=== PATIENT | male | born 1940 | race Caucasian/White ===

== ENCOUNTER 2017-07-21 17:07 | Inpatient (IN) | payer OTHER, MEDICARE ==
[2017-07-21] VITALS (10 sets, daily range): BP systolic 111–134; BP diastolic 65–75; PULSE 61–76; TEMP 36.6–36.7; O2SAT 95–99; BMI 19.1
[~2017-07-21] VITALS: Ht 175.3 cm; Wt 60.8 kg
[2017-07-21] MEDS ORDERED: NITROGLYCERIN 400 MCG/1 SPRAY 60 DOSE ONE (17:15)
[2017-07-21] MEDS ORDERED: METOPROLOL TARTRATE 1 MG/ML VIAL IV STA (17:16)
[2017-07-21] MEDS ORDERED: NITROGLYCERIN 0.4 MG SL PER TAB CHARGE ONE (17:16)
[2017-07-21] MEDS ORDERED: METOPROLOL TARTRATE 1 MG/ML VIAL ONE (17:22)
[2017-07-21] MEDS ORDERED: NITROGLYCERIN 0.4 MG SL PER TAB CHARGE SL PRN ×2 (17:30→19:45)
[2017-07-21] MEDS ORDERED: NiCARDipine HCL INJ 2.5 MG/ML 10 ML AMP ONE (17:35)
[2017-07-21] MEDS ORDERED: MIDAZOLAM HCL 1 MG/ML 2ML VIAL ONE (17:35)
[2017-07-21] MEDS ORDERED: HEPARIN SOD (PORCINE) 1000 UNIT/ML 10 ML VIAL ONE (17:35)
[2017-07-21] MEDS ORDERED: NITROGLYCERIN/D5W 100MCG/ML 20ML SYR ONE (17:35)
[2017-07-21] MEDS ORDERED: FENTANYL CITRATE INJ 50 MCG/1 ML 2 ML VIAL ONE (17:35)
[2017-07-21 17:39] LABS: ISTAT CREATININE 0.9 mg/dl (0.6-1.3); ISTAT IONIZED CALCIUM 1.11 mmol/l (1.12-1.32); ISTAT POTASSIUM 4.1 mEq/L (3.3-5.0)
[2017-07-21 17:43] LABS: INR 1.1 (0.9-1.1)
--- NOTE | 2017-07-21 17:47 | DIAGNOSTIC IMAGING REPORT ---
CHEST ONE VIEW PORTABLE CLINICAL HISTORY: Chest pain. Heart alert. COMPARISON STUDY: No previous studies for comparison. FINDINGS: Lung volumes are normal. No consolidation is identified. There is no evidence of pulmonary edema. Cardiomediastinal silhouette is normal. There is no pneumothorax or pleural effusion. IMPRESSION: No acute cardiopulmonary findings. Electronically signed by: Ryan Hansen M.D. 07/21/2017 5:45 PM Dictated Date/Time: 07/21/2017 5:44 PM
[2017-07-21 17:50] LABS: HEMATOCRIT 41.4 % (42-52); HEMOGLOBIN 14.6 g/dL (14.0-18.0); MEAN CELL VOLUME 98.1 fL (80-100); MEAN CORPUSCULAR HEMOGLOBIN 34.6 pg (25-34); MEAN CORPUSCULAR HGB CONC 35.3 g/dl (32-36); MEAN PLATELET VOLUME 10.5 fL (7.4-10.4); PLATELET COUNT 194 K/uL (130-400); RED CELL DISTRIBUTION WIDTH CV 14.2 % (11.5-14.5); RED CELL DISTRIBUTION WIDTH SD 50.6 fL (36.4-46.3); WHITE BLOOD COUNT 5.74 K/uL (4.8-10.8)
--- NOTE | 2017-07-21 17:53 | Pre Sedation Assessment ---
Pre Sedation Assessment General Date of Sedation: Jul 21, 2017. Vital Signs Past 12 Hours Date Time Temp Pulse Resp B/P (MAP) Pulse Ox O2 Delivery O2 Flow Rate FiO2 07/21/17 17:41 99 Nasal Cannula 2.0 07/21/17 17:33 99 Nasal Cannula 07/21/17 17:31 65 172/103 07/21/17 17:30 72 18 145/80 98 Room Air 07/21/17 17:21 81 07/21/17 17:10 36.8 81 18 172/103 99 Room Air Review Cardiovascular: regular rate, rhythm, no edema Lungs: chest non-tender, lungs clear Pre-Sedation Airway Assessment Smoking Status: Current Every Day Smoker Hx of Sleep Apnea: No Hx of difficult intubation: No Short Thick Neck: No Thyro-mental Distance: > 3 Finger Breadths Oral Cavity: WNL Mallampati Classification: Class II ASA Classification: Class IV Procedure Planning Contraindications for Sedation: None Current Medications Reviewed: Yes Notes The planned sedation has been discussed with the patient. Informed Consent was obtained. I have identified the patient, determined the appropriateness of sedation and have assessed the patient immediately prior to the procedure. All medicine(s) and interventions are by my order.
[2017-07-21] MEDS ORDERED: OMEP40CA41 PO (17:54)
[2017-07-21] MEDS ORDERED: AMLO-110 PO (17:54)
[2017-07-21 17:56] LABS: ALT/SGPT 40 U/L (12-78); AST/SGOT 73 U/L (15-37); BLOOD UREA NITROGEN 10 mg/dl (7-18); CALCIUM 8.1 mg/dl (8.5-10.1); CARBON DIOXIDE 25 mmol/L (21-32); CREATININE 0.95 mg/dl (0.60-1.40); GLUCOSE 101 mg/dl (70-99); POTASSIUM 4.1 mmol/L (3.5-5.1); SODIUM 135 mmol/L (136-145)
[2017-07-21 18:01] LABS: ALKALINE PHOSPHATASE 107 U/L (45-117); CKMB < 0.5 ng/ml (0.5-3.6)
--- NOTE | 2017-07-21 18:15 | EMERGENCY ROOM VISIT NOTE ---
History Report prepared by Marita: Lexus Mcknight Under the Supervision of: Dr. Elia Mcintosh M.D. First contact with patient: 17:10 Chief Complaint: CHEST PAIN Stated Complaint: CHEST PAIN History of Present Illness The patient is a 77 year old male who presents to the Emergency Room with complaints of persistent chest pain beginning a little over 1 hour ago. The patient was working on his [place] lights when he started having a sharp chest pain. He felt SOB. He went inside and sat down. He then got nauseous and vomited. He presents to the ED by EMS. He was given aspirin in route. He denies any diaphoresis. His pain is now improved. At worst his pain was severe. He currently rates his discomfort as a 3-4/10 in severity. He has been having neck pain into his arms for several months. He does smoke. He has a history of hypertension. He denies any history of high cholesterol or heart problems. He took his regular medications this morning. Source of History: patient Onset: 1 hour ago Position: chest Symptom Intensity: 3-4/10 Quality: sharp Timing: other (persistent) Associated Symptoms: + neck pain, + SOB, + nausea, + vomiting, No diaphoresis Review of Systems See HPI for pertinent positives & negatives. A total of 10 systems reviewed and were otherwise negative. Past Medical & Surgical Medical Problems: (1) Hypertension Family History No pertinent family history stated. Social History Alcohol Use: occasionally Marital Status: Current/Historical Medications Scheduled Amlodipine (Norvasc), 5 MG PO DAILY Omeprazole (Prilosec), 40 MG PO DAILY Allergies Coded Allergies: No Known Allergies (Verified , 07/21/17) Physical Exam Vital Signs Date Time Temp Pulse Resp B/P (MAP) Pulse Ox O2 Delivery O2 Flow Rate FiO2 07/21/17 17:52 65 18 123/85 100 07/21/17 17:41 99 Nasal Cannula 2.0 07/21/17 17:33 99 Nasal Cannula 07/21/17 17:31 65 172/103 07/21/17 17:30 72 18 145/80 98 Room Air 07/21/17 17:21 81 07/21/17 17:10 36.8 81 18 172/103 99 Room Air Physical Exam GENERAL: Patient is in no acute distress. HEENT: No acute trauma, normocephalic atraumatic, mucous membranes moist, no nasal congestion, no scleral icterus. NECK: No stridor, no adenopathy, no meningismus, trachea is midline. LUNGS: Clear to auscultation bilaterally, no wheeze, no rhonchi, breath sounds equal. HEART: Without murmurs gallops or rubs, regular rate and rhythm. ABDOMEN: Soft, nontender, bowel sounds positive, no hernias, no peritonitis. EXTREMITIES: No cyanosis or edema, full range of motion of all the joints without pain or difficulty, no signs for acute trauma. NEUROLOGIC: Oriented x 3, no acute motor or sensory deficits, no focal weakness. SKIN: No rash, no jaundice, no diaphoresis. Medical Decision & Procedures ER Provider Diagnostic Interpretation: X-ray results as stated below per interpretation by me and the radiologist: CHEST ONE VIEW PORTABLE CLINICAL HISTORY: Chest pain. Heart alert. COMPARISON STUDY: No previous studies for comparison. FINDINGS: Lung volumes are normal. No consolidation is identified. There is no evidence of pulmonary edema. Cardiomediastinal silhouette is normal. There is no pneumothorax or pleural effusion. IMPRESSION: No acute cardiopulmonary findings. Electronically signed by: Ryan Hansen M.D. 07/21/2017 5:45 PM Dictated Date/Time: 07/21/2017 5:44 PM Laboratory Results 07/21/17 17:25 07/21/17 17:25 Test 07/21/17 17:23 07/21/17 17:25 07/21/17 17:26 Bedside Troponin I < 0.030 ng/ml (0-0.045) Red Blood Count 4.22 M/uL (4.7-6.1) Mean Corpuscular Volume 98.1 fL (80-100) Mean Corpuscular Hemoglobin 34.6 pg (25-34) Mean Corpuscular Hemoglobin Concent 35.3 g/dl (32-36) RDW Standard Deviation 50.6 fL (36.4-46.3) RDW Coefficient of Variation 14.2 % (11.5-14.5) Mean Platelet Volume 10.5 fL (7.4-10.4) Prothrombin Time 11.1 SECONDS (9.0-12.0) Prothromb Time International Ratio 1.1 (0.9-1.1) Activated Partial Thromboplast Time 27.0 SECONDS (21.0-31.0) Partial Thromboplastin Ratio 1.0 Est Creatinine Clear Calc Drug Dose 53.6 ml/min Estimated GFR () 88.5 Estimated GFR (Non- 76.4 BUN/Creatinine Ratio 10.5 (10-20) Calcium Level 8.1 mg/dl (8.5-10.1) Total Bilirubin 0.4 mg/dl (0.2-1) Aspartate Amino Transf (AST/SGOT) 73 U/L (15-37) Alanine Aminotransferase (ALT/SGPT) 40 U/L (12-78) Alkaline Phosphatase 107 U/L (45-117) Total Creatine Kinase 33 U/L (39-308) Creatine Kinase MB < 0.5 ng/ml (0.5-3.6) Creatine Kinase MB Ratio (0-3.0) Total Protein 7.0 gm/dl (6.4-8.2) Albumin 3.0 gm/dl (3.4-5.0) Globulin 4.0 gm/dl (2.5-4.0) Albumin/Globulin Ratio 0.7 (0.9-2) Bedside Hemoglobin 15.0 g/dl (14.0-18.0) Bedside Hematocrit 44 % (42-52) Bedside Sodium 137 mEq/L (135-144) Bedside Potassium 4.1 mEq/L (3.3-5.0) Bedside Chloride 99 mEq/L (101-112) Bedside Total CO2 24 mEq/l (24-31) Anion Gap 19.0 mmol/L (16-25) Bedside Blood Urea Nitrogen 9 mg/dl (7-18) Bedside Creatinine 0.9 mg/dl (0.6-1.3) Bedside Glucose (other) 103 mg/dl (70-99) Bedside Ionized Calcium (Janes) 1.11 mmol/l (1.12-1.32) Laboratory results reviewed by me. Medications Administered Medications (Trade) Dose Ordered Sig/Adolfo Route Start Time Stop Time Status Last Admin Dose Admin Nitroglycerin (Nitrostat Tab) 0.4 mg STK-MED ONCE .ROUTE 07/21/17 17:16 07/21/17 17:17 DC 07/21/17 17:30 0.4 MG Nitroglycerin (Nitrostat Tab) 0.4 mg Q5M PRN SL 07/21/17 17:30 08/20/17 17:29 07/21/17 17:32 0.4 MG Metoprolol Tartrate (Lopressor Iv) 5 mg NOW STAT IV 07/21/17 17:16 07/21/17 17:21 DC 07/21/17 17:31 5 MG ECG Indication: chest pain Rate (beats per minute): 77 Rhythm: normal sinus Findings: ST depression (lead 1 and avL), ST elevation (lead V1 and V3), no ectopy, other (concerning for acute ischemia) ED Course 1708: The patient was evaluated in room B10. A complete history and physical exam was performed. 1715: I discussed the patient's case with Dr. Che, [facility] cardiology. He recommends calling a heart alert. He will be in to see the patient. 1716: Lopressor Iv 5 mg IV, Nitroglycerin 0.4 mg SL. 1729: I reevaluated the patient. His pain has improved with nitro. 1730: Nitroglycerin 0.4 mg SL. 1750: Dr. Che is taking the patient to the labels molder. 1755: I discussed the patient's case [facility] The patient will be evaluated for further management. Medical Decision Differential diagnoses considered include acute MT, aortic dissection, PE, angina, musculoskeletal pain, anemia, pneumonia, pneumothorax. There is no leukocytosis or concerning anemia. No significant electrolyte abnormality, kidney failure or hepatitis. There is no coagulopathy. EKG shows some ST elevations in V1 and V3. There were some subtle ST depressions in lead 1 and aVL. This EKG was concerning for acute cardiac ischemia/MT. Cardiac enzyme testing 1 is not consistent with acute cardiac injury. Chest x-ray does not show mediastinal widening, pneumonia or pneumothorax. The patient presents with over one hour of chest pain. He had received aspirin prior to arrival. Here in the ED, he received sublingual nitroglycerin with some relief of discomfort. He was also given 5 mg of IV Lopressor. After seeing the EKG, I did consult the payroll administrative assistant fermentation operator for heart alert. Based on the EKG findings, a heart alert was called. The patient was taken to the cardiac catheterization lab. I did speak to the patient and his family about my findings and concerns. The patient has made improvement in his blood pressure with the medications given here, he has had improvement of his chest discomfort with the medications given here. Medication Reconcilliation Current Medication List: was personally reviewed by me Blood Pressure Screening Patient's blood pressure: Elevated blood pressure Blood pressure disposition: Referred to PCP Consults Time Called: 1714 Consulting Physician: Dr. Che [facility] cardiology Returned Call: [phone] I discussed the patient's case with him. He recommends calling a heart alert. He will be in to see the patient. Additional Consults: Time Called: 175 Consulted Physician: DUSTY Cloud hospitalist Returned Call: 175 Additional Comments: Discussed the patient's case. The patient will be evaluated for further management. Impression Primary Impression: Acute MT Critical Care I have personally spent greater than 32 minutes of critical care time in the direct management of this patient. This includes bedside care, interpretation of diagnostic studies, and testing, discussion with consultants, patient, and family members, and other required patient management activities. This 32 minutes is in excess of all separately billable procedures. Scribe Attestation The scribe's documentation has been prepared under my direction and personally reviewed by me in its entirety. I confirm that the note above accurately reflects all work, treatment, procedures, and medical decision making performed by me. Departure Information Dispostion Being Evaluated By Hospitalist Referrals No Doctor, Assigned (PCP) Patient Instructions [facility]
[2017-07-21] MEDS ORDERED: NITROGLYCERIN/D5W 100 MCG/ML BTL ONE (19:23)
[2017-07-21] MEDS ORDERED: TICAGRELOR 90 MG TAB PO ONE (19:31)
[2017-07-21] MEDS ORDERED: ATROPINE SULFATE 0.1 MG/ML 10 ML SYR ONE (19:31)
[2017-07-21] MEDS ORDERED: SODIUM CHLORIDE 0.9% 1000ML 1,000 ML IV SCH (19:45)
[2017-07-21] MEDS ORDERED: ONDANSETRON INJ 8 MG in DEXTROSE 5% 50ML 50 ML IV PRN (19:45)
[2017-07-21] MEDS ORDERED: MoRPHine SULFATE 2 MG/ML CARP IV PRN (19:45)
--- NOTE | 2017-07-21 19:51 | Post Sedation Assessment ---
Post Sedation Assessment General Date of Sedation Jul 21, 2017. Vital Signs: Vital Signs Past 12 Hours Date Time Temp Pulse Resp B/P (MAP) Pulse Ox O2 Delivery O2 Flow Rate FiO2 07/21/17 17:41 99 Nasal Cannula 2.0 07/21/17 17:33 99 Nasal Cannula 07/21/17 17:31 65 172/103 07/21/17 17:30 72 18 145/80 98 Room Air 07/21/17 17:21 81 07/21/17 17:10 36.8 81 18 172/103 99 Room Air Post Procedure Recovery Score Activity: (2) Moves 4 extremities * Respiration: (2) Deep breath/cough Circulation: (2) +/-20% PreAnes Value Consciousness: (2) Fully Awake Oxygen Saturation: (2) > 92% On Room Air Discharge Sedation Level of Care: Fast Track Phase II Post Sedation Plan On clinical assessment, the patient appears to have tolerated the sedation without complications. Patient is recovering as anticipated. Patient will continue to be monitored by nursing and may be discharged when sedation discharge criteria are met per below protocol. Upon Completions of procedure and additional 15 minutes continue every 5 minute vital signs and the P.A.R. score; then discharge to a Phase I or Fast Track to Phase II per the following guidelines: * Discharge Patient to appropriate Phase II area if PAR is 8 or greater or return to pre- procedure baseline. The post - procedure orders will be as directed. * If PAR score is less than 8 or not return to pre-procedure baseline then patient will follow Phase I monitoring till PAR is reached for Phase II. The Phase I may be done in procedure room or may call to secure a Phase I area. * If naloxone or flumazenil are used for reversal, hold in Phase I for an additional 60 -120 minutes before discharge to Phase II. Please call the Sedation Physician to re-evaluate and complete post-note for discharge to Phase II area. Do NOT discharge from procedure sedation or Phase 1 until post- sedation evaluation note is complete by procedure /sedation MD Sedation Discharge Instructions to be given to the patient at discharge to home.
--- NOTE | 2017-07-21 20:12 | Cardiac Catheterization ---
Procedure Note Procedure Date Jul 21, 2017. Pre-Procedure Diagnosis Non STEMI AUC Score 8 Post-Procedure Diagnosis Severe CAD Procedure(s) Performed Coronary Angiography, Left Heart Cath, Drug Eluting Stent, IVUS Lease Purchase Truck Driver Chinedu Cloth Packer(s) Glunt Estimated Blood Loss 15 Medication(s) Fentanyl, Heparin, Nicardipine, Nitroglycerin, Versed, Lidocaine 1% Ticagrelor Summary of Findings Indication: High risk NSTEMI Access: 6Fr Right Radial artery Catheters: [place]; AR1 guide Findings: LM - Luminal irregularities LAD - Diffuse 20% proximal stenosis; 50-60% focal stenosis right after take-off of 1st diagonal; distal vessel tortuous as wraps around apex. - 1st Diagonal 40-50% proximal; 40% diffuse mid segment stenosis Circumflex - Moderate caliber, 20-30% mid segment; diffuse distal 40% stenosis before take-off moderate caliber OM3 RCA - Dominant; hazy 50-60% ostial/proximal stenosis; sequential 90% mid RCA lesions (more proximal lesion looks to be ulcerated plaque with thrombus, more distal lesion diffuse); 30% ostial PDA; 30-40% ostial R-PAV LVEDP - 2 -- PCI -- Antithrombotic therapy: Heparin, Ticagrelor Procedure: RCA cannulated with AR1 guide Difficulty passing BMW wire through proximal RCA stenosis Eventually Color Matcher 50 wire passed into distal vessel Mid RCA lesions predilated with 2.5 compliant balloon Dilated mid segment stented with 3.5 x 38 Greg PRETTY Stent post-dilated with 3.75 noncompliant balloon IVUS used to assess stent and proximal/ostial RCA. IVUS showed severe, 80% proximal disease with heavily calcified ostial stenosis Proximal RCA pre-dilated with 2.5 compliant balloon RCA ostium stented with 3.5 x 18 [place] PRETTY Proximal and mid stents post-dilated with 4.0 NC balloon. IC vasodilators administered for spasm Post procedure JAME 3 flow, stent well expanded with minimal residual stenosis Acute marginal/RV branch pinched by mid segment stent. Patient with mild post procedure chest pain. Arterial Closure: TR Band Summary: 1. Severe single vessel coronary artery disease - sequential 90% mid RCA lesions; 80% calcified ostial/proximal RCA stenosis appreciated on IVUS 2. Intermediate mid LAD stenosis (50-60%) after take-off of 1st diagonal 3. Normal intracardiac filling pressure 4. Successful PCI of ostial/proximal RCA with 3.5 x 18 [place] PRETTY and mid segment RCA with 3.5 x 38 [place] PRETTY. Recommendations: Admit to ICU for continued monitoring Loaded with Ticagrelor 180mg in micro lab analyst Continue dual-antiplatelet therapy for at least 1 year Trend troponins until peak, Check Echo Nitrates, morphine for pain overnight Uptitrate beta-brannon/DUNG as BP allows High-dose statin Smoking cessation Consult cardiac Rehab Further assessment of intermediate LAD lesion likely as an outpatient with stress test. Hemodynamics Rest Ao: 124/59/89 Final Ao: 95/44/64 LV: 147/2 Recommendations PCI without planned CABG Specimens None Radiation Exposure (mGy) 1912 Contrast (mls) 200 Fluids (cc crystalloids) 340 Drains None Anesthesia Moderate Procedural Complication(s) None Disposition ICU ACC Data Cardiac Status Clinical evaluation leading to the procedure CAD Presntation: Non STEMI Anginal Classification: CCS IV Heart Failure: No, NYHA Class: CCS I Cardiogenic Shock w/in 24Hrs: No Cardiac Arrest w/in 24Hrs: No Imaging studies past 6 months: No Stress studies past 6 months: No Closure Device Percutaneous Entry Location: Radial Closure Device: Radial Band Recommendations: PCI without planned CABG PCI Indication: PCI for high risk Non-STEMI Lesion Segment Name: mid RCA Culprit Artery: Yes Stenosis Prior to Rx (%): 90 Chronic Total Occlusion: No IVUS: Yes FFR: No Pre-Procedure JAME Flow: 3 Previously Treated Lesion: No Lesion Complexity: High/C Lesion Length (mm): 35 Thrombus Present: Yes Bifurcation Lesion: No Guidewire Across Lesion: Yes Guidewire: Stenosis Post-Procedure (%): 0 Post-Procedure JAME Flow: 3 Device(s) Deployed: Yes Intraprocedure Events Significant Dissection: No Perforation: No
[2017-07-21] MEDS: METOPROLOL TARTRATE 25 MG TAB PO SCH (20:41)
--- NOTE | 2017-07-21 20:43 | Critical Care Consultation ---
Critical Care Consultation Date of Consultation: Jul 21, 2017. Attending Physician: Jonny Stoner M.D. Reason for Consultation: 77-year-old male status post NSTEMI w/ PTCA w/ PRETTY deployment x2 to the RCA w/ persistent chest pain s/p cath, admitted for close cardiovascular/hemodynamic monitoring. History of Present Illness Patient is a 77-year-old male with a significant past medical history of hypertension, chronic tobacco use, and GERD who presented to the ED this afternoon with an acute coronary syndrome. Patient reports that approximately 1 PM, while taking down Jake lights from his yard, he developed an acute onset of central chest discomfort with associated shortness of breath and nausea with vomiting times one. During this episode, he denies any radiation of his discomfort. He had his contacted EMS as he was experiencing 10/10 chest discomfort. Upon arrival to the ER, the patient was noted to have ST elevations in V1 and 3 as well as some ST depressions inferiorly. He responded to one sublingual nitroglycerin, but did have persistent discomfort which prompted need for coronary angiography. His initial troponin was negative. No anemias appreciated. PTCA with PRETTY [address] Che. During this procedure, it was noted the patient had stenosis of 60% of the LAD to be addressed later. During cath, a small marginal branch was lost which is thought to be the culprit the patient's ongoing slight chest discomfort. Otherwise, he experienced an uneventful catheterization. Upon arrival to the ICU, the patient is complaining of 4/10 chest discomfort. He denies any radiation of pain. He denies any headaches, dizziness, lightheadedness, blurry vision, double vision, slurred speech, facial droop, unilateral weakness/numbness, nausea, vomiting, or abdominal pain. The patient reports that he only recently started seeing a family doctor. He was placed on antihypertensive medications as well as medications for GERD. He does have a long-standing history of chronic neck and back pain for which she has undergone surgical intervention in the past. The patient smokes approximately half pack cigarettes per day. Past Medical/Surgical History Medical Problems: (1) GERD (gastroesophageal reflux disease) (2) Hypertension (3) Tobacco use disorder Family History Noncontributory Social History Smoking Status: Current Every Day Smoker Smokeless Tobacco Use: No Alcohol Use: none Drug Use: none Marital Status: Housing Status: lives alone Occupation Status: retired Allergies Coded Allergies: No Known Allergies (Verified , 07/21/17) Home Medications Scheduled Amlodipine (Norvasc), 5 MG PO DAILY Omeprazole (Prilosec), 40 MG PO DAILY Current Inpatient Medications Current Inpatient Medications Medications (Trade) Dose Ordered Sig/Adolfo Route Start Time Stop Time Status Last Admin Dose Admin Nitroglycerin (Nitrostat Tab) 0.4 mg UD PRN SL 07/21/17 19:45 08/20/17 19:44 Sodium Chloride 1,000 ml @ 100 mls/hr Q10H IV 07/21/17 19:45 07/22/17 05:44 07/21/17 20:19 100 MLS/HR Ondansetron HCl 8 mg/Dextrose 54 ml @ 200 mls/hr Q6H PRN IV 07/21/17 19:45 08/20/17 19:44 Aspirin (Ecotrin Tab) 81 mg QAM PO 07/22/17 09:00 08/21/17 08:59 Atorvastatin Calcium (Lipitor Tab) 80 mg QAM PO 07/22/17 09:00 08/21/17 08:59 Metoprolol Tartrate (Lopressor Tab) 25 mg Q12 PO 07/21/17 21:00 08/20/17 20:59 07/21/17 20:41 25 MG Lisinopril (Zestril Tab) 5 mg QAM PO 07/22/17 09:00 08/21/17 08:59 Acetaminophen (Tylenol Tab) 650 mg Q4H PRN PO 07/21/17 19:45 08/20/17 19:44 Morphine Sulfate (MoRPHine SULFATE INJ) 2 mg Q5M PRN IV 07/21/17 19:45 08/04/17 19:44 Pantoprazole Sodium (Protonix Tab) 40 mg QAM PO 07/22/17 09:00 08/21/17 08:59 Ticagrelor (Brilinta Tab) 90 mg BID PO 07/22/17 07:30 08/21/17 07:29 Review of Systems A complete 10-point Review of Systems was discussed with the patient, with pertinent positives and negatives listed in the History of Present Illness. All remaining Review of Systems questions can be considered negative unless otherwise specified. Physical Exam Date Time Temp Pulse Resp B/P (MAP) Pulse Ox O2 Delivery O2 Flow Rate FiO2 07/21/17 20:34 36.6 74 18 134/75 (94) 98 Nasal Cannula 2.0 07/21/17 20:26 36.6 73 18 130/67 (88) 99 Nasal Cannula 2.0 07/21/17 19:50 36.6 61 16 111/65 (80) 95 Nasal Cannula 2.0 07/21/17 19:43 58 18 106/66 (79) 99 Room Air 07/21/17 19:33 58 18 100/60 (73) 99 Room Air 07/21/17 17:52 65 18 123/85 100 07/21/17 17:41 99 Nasal Cannula 2.0 07/21/17 17:33 99 Nasal Cannula 07/21/17 17:31 65 172/103 07/21/17 17:30 72 18 145/80 98 Room Air 07/21/17 17:21 81 07/21/17 17:10 36.8 81 18 172/103 99 Room Air VITAL SIGNS - Vital signs and nursing notes were reviewed. GENERAL - 77-year-old male appearing his stated age who is in no acute distress. Communicates well with provider and answers questions appropriately. HEAD - NC/AT. EYES - PERRL with EOMI bilaterally. Sclera anicteric. Palpebral conjunctiva pink and moist with no injection noted. EARS - No deformities of external structures noted on gross examination bilaterally. NOSE - Midline and without cyanosis. No epistaxis or purulent drainage noted. Septum midline without deviation or septal hematoma noted. MOUTH/OROPHARYNX - Without perioral cyanosis. Buccal mucosa pink and moist and without leukoplakia. Tongue midline with equal elevation of palate bilaterally. No tonsillar hypertrophy, erythema, or exudates noted. NECK - Neck with FROM. Supple to palpation. LUNGS - Chest wall symmetric without accessory muscle use, intercostals retractions, or central cyanosis. Normal vesicular breath sounds CTA B/L. No wheezes, rales, or rhonchi appreciated. CARDIAC - RRR with S1/S2. No murmur, rubs, or gallops appreciated. No reproducible tenderness to palpation appreciated over the anterior chest wall. ABDOMEN - Abdominal contour flat and without pulsations or visible masses. BS normoactive all four quadrants. No tenderness, palpable masses, hepatosplenomegaly, or ascites noted. EXTREMITIES - No clubbing or peripheral cyanosis. No pretibial edema present. +3 /5 radial and dorsalis pedis pulses palpated throughout. +5/5 strength noted in UE/LE bilaterally. NEUROLOGIC - Cranial nerves II through XII grossly intact. Sensory intact to light touch throughout. PSYCH - A&Ox3 and cooperates fully with examiner. Pt is very pleasant and interacts well with examiner. Laboratory Results Last 24 Hours Test 07/21/17 17:23 07/21/17 17:25 07/21/17 17:26 07/21/17 18:19 Bedside Troponin I < 0.030 ng/ml White Blood Count 5.74 K/uL Red Blood Count 4.22 M/uL Hemoglobin 14.6 g/dL Hematocrit 41.4 % Mean Corpuscular Volume 98.1 fL Mean Corpuscular Hemoglobin 34.6 pg Mean Corpuscular Hemoglobin Concent 35.3 g/dl RDW Standard Deviation 50.6 fL RDW Coefficient of Variation 14.2 % Platelet Count 194 K/uL Mean Platelet Volume 10.5 fL Prothrombin Time 11.1 SECONDS Prothromb Time International Ratio 1.1 Activated Partial Thromboplast Time 27.0 SECONDS Partial Thromboplastin Ratio 1.0 Sodium Level 135 mmol/L Potassium Level 4.1 mmol/L Chloride Level 101 mmol/L Carbon Dioxide Level 25 mmol/L Anion Gap 8.0 mmol/L 19.0 mmol/L Blood Urea Nitrogen 10 mg/dl Creatinine 0.95 mg/dl Est Creatinine Clear Calc Drug Dose 53.6 ml/min Estimated GFR () 88.5 Estimated GFR (Non- 76.4 BUN/Creatinine Ratio 10.5 Random Glucose 101 mg/dl Calcium Level 8.1 mg/dl Total Bilirubin 0.4 mg/dl Aspartate Amino Transf (AST/SGOT) 73 U/L Alanine Aminotransferase (ALT/SGPT) 40 U/L Alkaline Phosphatase 107 U/L Total Creatine Kinase 33 U/L Creatine Kinase MB < 0.5 ng/ml Creatine Kinase MB Ratio Total Protein 7.0 gm/dl Albumin 3.0 gm/dl Globulin 4.0 gm/dl Albumin/Globulin Ratio 0.7 Bedside Hemoglobin 15.0 g/dl Bedside Hematocrit 44 % Bedside Sodium 137 mEq/L Bedside Potassium 4.1 mEq/L Bedside Chloride 99 mEq/L Bedside Total CO2 24 mEq/l Bedside Blood Urea Nitrogen 9 mg/dl Bedside Creatinine 0.9 mg/dl Bedside Glucose (other) 103 mg/dl Bedside Ionized Calcium (Janes) 1.11 mmol/l Kaolin Activated Coagulation Time 268 SECONDS Test 07/21/17 18:39 07/21/17 19:44 Kaolin Activated Coagulation Time 257 SECONDS Diagnostic Results Radiological imaging and reports were reviewed by myself. Radiologist's Interpretation as follows: CHEST ONE VIEW PORTABLE CLINICAL HISTORY: Chest pain. Heart alert. COMPARISON STUDY: No previous studies for comparison. FINDINGS: Lung volumes are normal. No consolidation is identified. There is no evidence of pulmonary edema. Cardiomediastinal silhouette is normal. There is no pneumothorax or pleural effusion. IMPRESSION: No acute cardiopulmonary findings. Assessment & Plan (1) ACS (acute coronary syndrome) (2) Post PTCA (3) CAD (coronary artery disease) (4) HTN (hypertension) (5) Tobacco use disorder (6) GERD (gastroesophageal reflux disease) (7) S/P cardiac catheterization Reason Critically Ill: 77-year-old male status post NSTEMI w/ PTCA w/ PRETTY deployment x2 to the RCA w/ persistent chest pain s/p cath, admitted for close cardiovascular/hemodynamic monitoring. Neuro - * CAM ICU: NEGATIVE * Chest pain - PRN Morphine Cardiac - * s/p ACS w/ PTCA w/ DESx2 to the RCA: * Remains on Nitro gtt for residual chest discomfort likely s/s loss of small marginal branch. Titrate down as tolerated. * Morphine PRN. * Monitor on telemetry. * AM ECHO. * Standard DAPT, Nitrates, ASA, BB/DUNG, Statin as tolerated. * Trend troponins. Respiratory - * No h/o pulmonary disease despite extensive smoking history. Suspect undiagnosed lung disease. * NC O2 as needed. * Smoking Cessation. * AM CXR GI - * GERD - Protonix * Elevated AST > ALT - will monitor. ??EtOH use?? * NPO after midnight for fasting Lipid Panel. * AHA Diet encouraged. RENAL/LYTES - * Monitor Electrolytes, Replace appropriately. - * No Christie at this time. ENDO - * No h/l DM or Thyroid disease. * BSGs per protocol. HEME - * Stable H&H - will monitor. ID - * No concerns for infection at this time. * Monitor fever curve. LINES/IV ACCESS - * PIVs intact. * TR Band to the RIGHT wrist. DVT PROPHYLAXIS - * s/p Brilinta loading dose. * Lovenox tomorrow per Cardiology. * DAPT after. * SCDs. I have personally spent 35 minutes of critical care time in the direct management of this patient. This is a life/limb threatening event. This includes time spent evaluating patient, direct bedside care, chart review, placing orders, interpretation of diagnostic studies, discussion with consultants, patient, and family members, as well as other required patient management activities. This time is exclusive of all separately billable procedures, and teaching time and separate from and in addition to any other critical care service time. Thank you for this consultation allow us to be part of this patient's care. Please refer to my attending physician's documentation for any further recommendations. Resident Physician Supervision Note: I evaluated the patient with Alo Owen PA-C. I discussed the case with him and agree with the findings and plan as documented in the note. Any exceptions or clarifications are listed here: Continue post-cath care, on ASA, Lipitor, Lisinopril, metoprolol, Brilinta. Titrating down NTG drip Echo report reviewed, good EF, grade I diastolic dysfunction May be transferred to telemetry Documented By: Jason Stallings MD Problem Qualifiers (1) CAD (coronary artery disease): Coronary Disease-Associated Artery/Lesion type: [place] artery [place] vs. transplanted heart: [place] heart Associated angina: with unspecified angina Qualified Codes: I25.119 - Atherosclerotic heart disease of [place] coronary artery with unspecified angina pectoris (2) HTN (hypertension): Hypertension type: unspecified Qualified Codes: I10 - Essential (primary) hypertension
--- NOTE | 2017-07-21 21:07 | CARDIOLOGY CONSULTATION ---
DATE OF CONSULTATION: 07/21/2017 CONSULTATION REQUESTED BY: Elia Mcintosh MD REASON FOR CONSULTATION: Chest pain/abnormal EKG. HISTORY OF PRESENT ILLNESS: Mr. Zhang is a 77-year-old man with a history of hypertension, GERD, ongoing tobacco abuse; who presented to the Emergency Department today with approximately 1 hour of acute onset chest pain. The patient had been in his usual state of health until this afternoon when went out to take down his Jake lights, and in the process developed chest pressure with associated nausea and radiation to his left arm. Due to symptoms, he presented to the Emergency Department where he had initial EKG which showed ST elevation in V1 and V3, subtle ST elevations in the inferior leads, and ST depressions in 1 and AVL. He was given sublingual nitroglycerin with improvement of his pain of 10 at presentation down to approximately of 4. Due to ongoing chest pain and dynamic EKG changes, he was taken urgently to the cardiac catheterization lab for angiography. He was found to have sequential mid RCA lesions 90% with suggestion of ulcerative plaque in thrombus. He was also noted to have 50% to 60% calcified ostial/proximal RCA lesion as well. His LAD showed a 50% to 60% mid lesion right at the takeoff of his first diagonal. Decision was made to fix his RCA and received one drug-eluting stent to his mid segment, There was noted to be significant difficulty in passing equipment into the more distal vessel because of the ostial/proximal RCA disease, and after IVUS assessment confirmed severe, greater than 80% disease in the proximal segment, a second drug-eluting stent was placed at the RCA ostium. A good angiographic result was obtained in the process of setting the mid segment. His RV/acute marginal branch was pinched and patient did have some residual pain post-procedure. PAST MEDICAL HISTORY: 1. Hypertension. 2. GERD. 3. Ongoing tobacco abuse. 4. 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 MEDICATIONS: 1. Amlodipine. 2. Omeprazole. ALLERGIES: No known drug allergies. 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 Denies heavy alcohol use or illicit drugs. FAMILY HISTORY: No family history of premature coronary artery disease. REVIEW OF SYSTEMS: Twelve-point review of system is completed and was otherwise negative other than stated in the HPI. PHYSICAL EXAMINATION: VITAL SIGNS: Temperature 36.8, pulse 58, blood pressure 100/60, satting 99% on room air. GENERAL: The patient appears uncomfortable postprocedure, but in no acute distress. HEENT: Sclerae are anicteric. Oropharynx is clear. Mucous membranes are moist. NECK: Supple with no lymphadenopathy, no bruits. LUNGS: Clear to auscultation bilaterally. HEART: He had regular rate with no appreciable murmurs, rubs or gallops. ABDOMEN: Soft, nontender, nondistended, positive bowel sounds. EXTREMITIES: Warm. He had 2+ radial pulses bilaterally. SKIN: Showed no rashes or lesions. NEUROLOGIC: Nonfocal. PSYCHIATRIC: He is alert and appropriate. LABORATORY DATA: White blood cell count 5.7, hemoglobin 14.6, platelets of 194. His sodium was 135, potassium 4.1, BUN 10, creatinine of 0.95. AST was slightly elevated at 73. Initial point of care troponin was negative as was CK-MB. His chest x-ray showed no acute cardiopulmonary process. IMPRESSION AND PLAN: 1. High risk acute coronary syndrome. 2. Severe single vessel right coronary artery disease status post percutaneous coronary intervention with 2 drug-eluting stents. 3. Intermediate mid left anterior descending artery disease. 4. Hypertension. 5. Ongoing tobacco abuse. 6. Gastroesophageal reflux disease. 7. Cervical degenerative disc disease with peripheral neuropathy. Mr. Zhang and is now status post PCI with 2 drug-eluting stents to his RCA. His mid RCA was thought to be a likely culprit for his presentation and overall good angiographic result was obtained. Going forward, we will plan to admit patient to ICU. He is having some residual chest discomfort after loss of a small acute marginal branch. We will plan to keep on nitro infusion with intermittent opioids as needed for pain. Plan to trend troponins. Check an echocardiogram in the morning. He was loaded with ticagrelor 180 mg in the sleep lab technologist and will continue on dual antiplatelet therapy for at least next year. He was started on metoprolol and lisinopril and we will titrate as able. Start high intensity statin. We will stress further importance of smoking cessation and cardiac rehabilitation. Thank you for allowing us to participate in the care of this patient. LYNN
--- NOTE | 2017-07-21 21:47 | History and Physical ---
History & Physical Date & Time of Service: Jul 21, 2017 at 21:36 Chief Complaint: Acute Mi Primary Care Physician: Vic Gordon M.D. History of Present Illness Source: patient, clinic records, hospital records This is a 77yo M with a PMH of HTN, tobacco use disorder and GERD who presents with chest pain x 1.5 hours. Patient was taking down [place] lights when he experienced sudden onset, sharp, 10/10 substernal chest pain. Endorses pain down both arms,nausea, vomiting and SOB. Denies diaphoresis. Called for an ambulance and received aspirin en route to the ED. Patient found to be hypertensive with continued chest pain. Was given IV Lopressor and NTG with some relief. Due to concerning EKG findings and persistent CP, a heart alert was called and patient was taken to the laboratory director. Findings included severe CAD the the RCA, s/p stent placement x 2. Endorses longstanding HTN, for which he takes amlodipine. Denies previous history of VT or HLD. Denies any family history of heart disease. Started smoking cigarettes at a young age before quitting for 11 years. Resumed 7 years ago and currently smokes 3/4 pack per day. Is now interested in cessation. Currently endorses 2/10 residual chest discomfort. Denies fever, chills, headache, visual changes, diaphoresis, dizziness, CP, SOB, abd pain, nausea, vomiting or LE swelling. Past Medical/Surgical History Medical Problems: (1) GERD (gastroesophageal reflux disease) Status: Chronic (2) Hypertension Status: Chronic (3) Tobacco use disorder Status: Chronic Family History Patient denies any family history of heart disease, DM, CVA or CKD. Social History Smoking Status: Current Every Day Smoker (0.75 ppd) Alcohol Use: occasionally Marital Status: Housing status: lives with significant other Immunizations History of Tetanus Vaccine?: Yes History of Pneumococcal: Unknown History of Hepatitis B Vaccine: Unknown Multi-Drug Resistant Organisms History of MDRO: No Allergies Coded Allergies: No Known Allergies (Verified , 07/21/17) Home Medications Scheduled Amlodipine (Norvasc), 5 MG PO DAILY Omeprazole (Prilosec), 40 MG PO DAILY Review of Systems Ten systems reviewed and negative except as noted in the HPI. Physical Exam Vital Signs Date Time Temp Pulse Resp B/P (MAP) Pulse Ox O2 Delivery O2 Flow Rate FiO2 07/21/17 21:04 75 16 127/75 (92) 97 Nasal Cannula 2.0 07/21/17 20:58 36.6 61 16 111/65 95 Nasal Cannula 2.0 07/21/17 20:34 36.6 74 18 134/75 (94) 98 Nasal Cannula 2.0 07/21/17 20:26 36.6 73 18 130/67 (88) 99 Nasal Cannula 2.0 07/21/17 19:50 36.6 61 16 111/65 (80) 95 Nasal Cannula 2.0 07/21/17 19:43 58 18 106/66 (79) 99 Room Air 07/21/17 19:33 58 18 100/60 (73) 99 Room Air 07/21/17 17:52 65 18 123/85 100 07/21/17 17:41 99 Nasal Cannula 2.0 07/21/17 17:33 99 Nasal Cannula 07/21/17 17:31 65 172/103 07/21/17 17:30 72 18 145/80 98 Room Air 07/21/17 17:21 81 07/21/17 17:10 36.8 81 18 172/103 99 Room Air General Appearance: WD/WN, no apparent distress, + pertinent finding (Resting comfortably with NC O2 in place) Head: normocephalic, atraumatic Eyes: normal inspection, PERRL, sclerae normal ENT: normal ENT inspection, hearing grossly normal, pharynx normal (moist mucous membranes ) Neck: supple, thyroid normal, no JVD, trachea midline Respiratory/Chest: lungs clear, normal breath sounds, no respiratory distress, no accessory muscle use Cardiovascular: regular rate, rhythm, no murmur, normal peripheral pulses Abdomen/GI: non tender, soft, no organomegaly Extremities/Musculoskelatal: normal inspection, no calf tenderness, normal capillary refill, no pedal edema Neurologic/Psych: no motor/sensory deficits, alert, normal mood/affect, oriented x 3 Skin: normal color, warm/dry Diagnostics Laboratory Results Results Past 24 Hours Test 07/21/17 17:23 07/21/17 17:25 07/21/17 17:26 07/21/17 18:19 Range/Units Bedside Troponin I < 0.030 0-0.045 ng/ml White Blood Count 5.74 4.8-10.8 K/uL Red Blood Count 4.22 4.7-6.1 M/uL Hemoglobin 14.6 14.0-18.0 g/dL Hematocrit 41.4 42-52 % Mean Corpuscular Volume 98.1 80-100 fL Mean Corpuscular Hemoglobin 34.6 25-34 pg Mean Corpuscular Hemoglobin Concent 35.3 32-36 g/dl RDW Standard Deviation 50.6 36.4-46.3 fL RDW Coefficient of Variation 14.2 11.5-14.5 % Platelet Count 194 130-400 K/uL Mean Platelet Volume 10.5 7.4-10.4 fL Prothrombin Time 11.1 9.0-12.0 SECONDS Prothromb Time International Ratio 1.1 0.9-1.1 Activated Partial Thromboplast Time 27.0 21.0-31.0 SECONDS Partial Thromboplastin Ratio 1.0 Sodium Level 135 136-145 mmol/L Potassium Level 4.1 3.5-5.1 mmol/L Chloride Level 101 98-107 mmol/L Carbon Dioxide Level 25 21-32 mmol/L Anion Gap 8.0 19.0 16-25 mmol/L Blood Urea Nitrogen 10 7-18 mg/dl Creatinine 0.95 0.60-1.40 mg/dl Est Creatinine Clear Calc Drug Dose 53.6 ml/min Estimated GFR () 88.5 Estimated GFR (Non- 76.4 BUN/Creatinine Ratio 10.5 10-20 Random Glucose 101 70-99 mg/dl Calcium Level 8.1 8.5-10.1 mg/dl Total Bilirubin 0.4 0.2-1 mg/dl Aspartate Amino Transf (AST/SGOT) 73 15-37 U/L Alanine Aminotransferase (ALT/SGPT) 40 12-78 U/L Alkaline Phosphatase 107 45-117 U/L Total Creatine Kinase 33 39-308 U/L Creatine Kinase MB < 0.5 0.5-3.6 ng/ml Creatine Kinase MB Ratio 0-3.0 Total Protein 7.0 6.4-8.2 gm/dl Albumin 3.0 3.4-5.0 gm/dl Globulin 4.0 2.5-4.0 gm/dl Albumin/Globulin Ratio 0.7 0.9-2 Bedside Hemoglobin 15.0 14.0-18.0 g/dl Bedside Hematocrit 44 42-52 % Bedside Sodium 137 135-144 mEq/L Bedside Potassium 4.1 3.3-5.0 mEq/L Bedside Chloride 99 101-112 mEq/L Bedside Total CO2 24 24-31 mEq/l Bedside Blood Urea Nitrogen 9 7-18 mg/dl Bedside Creatinine 0.9 0.6-1.3 mg/dl Bedside Glucose (other) 103 70-99 mg/dl Bedside Ionized Calcium (Janes) 1.11 1.12-1.32 mmol/l Kaolin Activated Coagulation Time 268 94-140 SECONDS Test 07/21/17 18:39 07/21/17 19:44 07/21/17 20:44 Range/Units Kaolin Activated Coagulation Time 257 94-140 SECONDS Bedside Glucose 106 70-99 mg/dl Microbiology Results 07/21/17 MRSA DNA Surveillance Screen, Received Pending CXR normal EKG Normal sinus rhythm with ST elevation in V1 and V3, subtle elevation in inferior leads, ST depression in I and avL Impression Assessment and Plan This is a 77yo M with a PMH of HTN, tobacco use disorder and GERD who presents with chest pain x 1.5 hours. Severe CAD s/p 2 stents to the RCA: -H/o tobacco use, HTN -EKG read as ST elevation in V1 and V3, subtle elevation in inferior leads, ST depression in I and avL -Initial troponin was negative -Heart alert was called; patient underwent cardiac catheterization -Severe CAD was found in the RCA. Two stents were placed -Cardiology consulted -Trend troponin until peak -Monitor in ICU -Recommendations: -check echo -nitrates, morphine for pain -dual anti-platelet therapy for a year -high dose statin -smoking cessation -dee inhibitor, beta brannon as tolerated HTN: -Normotensive -Home dose amlodipine held -Uptitrate dee inhibitor, beta brannon as tolerated GERD: -Cont home dose omeprazole DVT Ppx: Per visual basic developer Code status: FULL PCP: Shivaterosorio Dispo: Admitted to critical care. Plan to return home once medically stable. Cardiac rehab Patient seen in collaboration with Dr. Stoner. Please see addendum. Level of Care Critical Care Advanced Directives Existing Living Will: Yes Existing Power of Gullet Slitter: Yes Resuscitation Status FULL RESUSCITATION VTE Prophylaxis VTE Risk Assessment Done? Y/N: Yes Risk Level: Moderate Given or contraindicated: Unfractionated heparin SQ, Other Anticoagulation Assessment/Plan IM ATTENDING : Patient seen and examined. Preceding documentation by Ms. Ivania Cabrera PA-C reviewed. FINAL ASSESSMENT AND PLAN as follows: 1. Acute coronary syndrome CAD status post percutaneous coronary intervention. Patient currently comfortable at the ICU. 2. HTN, stable 3. GERD on PPI. 4. ongoing tobacco abuse 5. malnutrition, low BMI. ICU monitoring post PCI. Management of cardiac issues as per Cardiology. Nicotine patch. Nutrition consult. Low BMI. DVT prophylaxis, Lovenox subQ. Full code.
[2017-07-21] MEDS ORDERED: ICU PROTOCOL FOR HYPERGLYCEMIA PRN (23:00)
[2017-07-22] VITALS (34 sets, daily range): BP systolic 100–141; BP diastolic 52–72; PULSE 52–74; TEMP 36.4–37.1; O2SAT 94–99; Ht 175.3 cm; Wt 60.8 kg
[2017-07-22 02:01] LABS: CKMB 16.9 ng/ml (0.5-3.6)
[2017-07-22 05:53] LABS: BASO % 0.5 %; BASO ABS # 0.03 K/uL (0-0.2); EOS % 1.1 %; EOS ABS # 0.06 K/uL (0-0.5); HEMATOCRIT 30.4 % (42-52); HEMOGLOBIN 10.3 g/dL (14.0-18.0); IG# 0.02 K/uL (0.00-0.02); LYMPH % 17.6 %; MEAN CELL VOLUME 99.3 fL (80-100); MEAN CORPUSCULAR HEMOGLOBIN 33.7 pg (25-34); MEAN CORPUSCULAR HGB CONC 33.9 g/dl (32-36); MONO % 11.3 %; MONO ABS # 0.64 K/uL (0.11-0.59); NEUT % 69.1 %; NEUT ABS # 3.93 K/uL (1.4-6.5); PLATELET COUNT 148 K/uL (130-400); RED CELL DISTRIBUTION WIDTH CV 14.4 % (11.5-14.5); RED CELL DISTRIBUTION WIDTH SD 52.1 fL (36.4-46.3); WHITE BLOOD COUNT 5.68 K/uL (4.8-10.8)
[2017-07-22 06:23] LABS: CALCIUM 7.6 mg/dl (8.5-10.1); CREATININE 0.65 mg/dl (0.60-1.40); POTASSIUM 3.8 mmol/L (3.5-5.1)
[2017-07-22 06:34] LABS: CKMB 88.5 ng/ml (0.5-3.6)
--- NOTE | 2017-07-22 07:29 | HISTORY & PHYSICAL EXAMINATION ---
DATE OF ADMISSION: 07/21/2017 IM ATTENDING : Patient seen and examined. Preceding documentation by Ms. Ivania Cabrera PA-C reviewed. FINAL ASSESSMENT AND PLAN as follows: 1. Acute coronary syndrome CAD status post percutaneous coronary intervention. Patient currently comfortable at the ICU. 2. HTN, stable 3. GERD on PPI. 4. ongoing tobacco abuse 5. malnutrition, low BMI. ICU monitoring post PCI. Management of cardiac issues as per Cardiology. Nicotine patch. Nutrition consult. Low BMI. DVT prophylaxis, Lovenox subQ. Full code. MTDD
[2017-07-22] MEDS: METOPROLOL TARTRATE 25 MG TAB PO SCH ×2 (07:58→21:19)
[2017-07-22] MEDS: TICAGRELOR 90 MG TAB PO SCH ×2 (07:58→21:18)
[2017-07-22] MEDS: ATORVASTATIN 40 MG TAB PO SCH (07:58)
[2017-07-22] MEDS: ASPIRIN 81 MG ECTAB PO SCH (07:58)
[2017-07-22] MEDS: LISINOPRIL 5 MG TAB PO SCH (07:59)
[2017-07-22] MEDS: PANTOprazole SOD 40 MG TAB PO SCH (07:59)
[2017-07-22] MEDS: NICOTINE 14 MG/24 HR TDSY TD SCH (08:00)
[2017-07-22] MEDS: ENOXAPARIN 30 MG/0.3 ML SYR SQ SCH (08:00)
--- NOTE | 2017-07-22 08:42 | DIAGNOSTIC IMAGING REPORT ---
CHEST ONE VIEW PORTABLE CLINICAL HISTORY: f/u s/p STEMI COMPARISON STUDY: Chest radiograph July 21, 2017. FINDINGS: Lung volumes are normal. No pneumothorax or pleural effusion is noted. There is no consolidation to suggest pneumonia. There is no evidence for pulmonary edema. Cardiomediastinal silhouette is normal. Patient is mildly rotated. There may be underlying emphysema. IMPRESSION: 1. No acute cardiopulmonary findings. 2. Suspected underlying emphysema. Electronically signed by: Ryan Hansen M.D. 07/22/2017 8:40 AM Dictated Date/Time: 07/22/2017 8:38 AM
[2017-07-22] MEDS: ACETAMINOPHEN 325 MG TAB PO PRN ×2 (09:14→20:05)
--- NOTE | 2017-07-22 11:42 | ECHOCARDIOGRAM REPORT ---
*NOTICE TO RECEIVING LIBERTARIAN AGENCY This information is strictly Confidential and protected under [place] law. [place] law prohibits you from making any further disclosure of this information unless further disclosure is expressly permitted by the written consent of the person to whom it pertains or is authorized by law. A general authorization for the release of medical or other information is not sufficient for this purpose. Hospital accepts no responsibility if the information is made available to any other person, INCLUDING THE PATIENT. Interpretation Summary * Name: PACO KC Study Date: 07/22/2017 06:30 AM BP: 111/65 mmHg * Patient Location: .[facility]ICU\S\E107\S\1 HR: 60 * : 1940 (M/d/yyyy) Gender: Male Height: 69 in * Age: 77 yrs Ethnicity: CA Weight: 130 lb * Ordering Physician: Jose A Che * Referring Physician: Self, Referred * Performed By: Paola Oconnor RCS * * Reason For Study: AMI, S/P Stenting * BSA: 1.7 m2 * -- Conclusions -- * 1. Normal LV size. Borderline concentric LVH. * 2. Normal LV systolic function. LVEF 65-70 %. No regional wall motion abnormalities. Grade 1 diastolic dysfunction. * 3. Normal RV size with borderline RV function. * 4. No significant valvular pathology. * 5. Normal estimated PA and RA pressures. * 6. No prior studies for comparison. Procedure Details * A complete two-dimensional transthoracic echocardiogram was performed (2D, M-mode, Doppler and color flow Doppler). Left Ventricle * The left ventricle is grossly normal size. * There is borderline concentric left ventricular hypertrophy. * Ejection Fraction = 65-70%. * No regional wall motion abnormalities noted. Right Ventricle * The right ventricle is grossly normal size. * The right ventricular systolic function is normal as assessed by tricuspid annular plane systolic excursion (TAPSE) (normal >1.5 cm). * The right ventricular systolic function is borderline reduced. Atria * Borderline left atrial enlargement. * Borderline right atrial enlargement. * No ASD detected; PFO is not assessed. Mitral Valve * There is moderate mitral annular calcification. * There is no mitral valve stenosis. * Significant mitral regurgitation is absent. Tricuspid Valve * The tricuspid valve is not well visualized. * Tricuspid stenosis is absent. * There is trace tricuspid regurgitation. Aortic Valve * The aortic valve opens well. * The aortic valve is trileaflet. * No hemodynamically significant valvular aortic stenosis. * There is no significant aortic regurgitation. Pulmonic Valve * The pulmonary valve is inadequately visualized, but the Doppler data is adequate for interpretation. * There is no pulmonic valvular stenosis. * There is no significant pulmonary regurgitation. Great Vessels * The aortic root and proximal ascending aorta are normal sized. Pericardium/Pleural * There is no pericardial effusion. Great Vessels * Normal inferior vena cava size and collapsability with sniff indicates a normal right atrial pressure of 3 mmHg * There is no evidence of pulmonary hypertension. The PA systolic pressure is less than 36 mmHg. Left Ventricular Diastolic Function * Grade I diastolic dysfunction, (abnormal relaxation pattern). MMode 2D Measurements and Calculations IVSd 1.1 cm IVSs 1.3 cm LVIDd 4.3 cm LVIDs 3.0 cm LVPWd 0.95 cm LVPWs 1.2 cm IVS/LVPW 1.2 FS 29.9 % EDV(Teich) 83.2 ml ESV(Teich) 35.4 ml EF(Teich) 57.4 % EDV(cubed) 79.7 ml ESV(cubed) 27.4 ml EF(cubed) 65.6 % % IVS thick 20.1 % % LVPW thick 28.6 % LV mass(C)d 149.5 grams LV mass(C)dI 86.9 grams/m\S\2 LV mass(C)s 122.5 grams LV mass(C)sI 71.2 grams/m\S\2 SV(Teich) 47.7 ml SI(Teich) 27.8 ml/m\S\2 SV(cubed) 52.2 ml SI(cubed) 30.4 ml/m\S\2 Ao root diam 3.6 cm Ao root area 10.3 cm\S\2 ACS 2.0 cm LA dimension 3.6 cm LA/Ao 0.98 EDV(MOD-sp4) 55.0 ml ESV(MOD-sp4) 23.0 ml EF(MOD-sp4) 58.2 % EDV(MOD-sp2) 70.0 ml ESV(MOD-sp2) 40.0 ml EF(MOD-sp2) 42.9 % SV(MOD-sp4) 32.0 ml SI(MOD-sp4) 18.6 ml/m\S\2 SV(MOD-sp2) 30.0 ml SI(MOD-sp2) 17.4 ml/m\S\2 Doppler Measurements and Calculations MV E max ronnie 98.1 cm/sec MV A max ronnie 113.2 cm/sec MV E/A 0.87 MV P1/2t max ronnie 85.8 cm/sec MV P1/2t 78.9 msec MVA(P1/2t) 2.8 cm\S\2 MV dec slope 318.8 cm/sec\S\2 MV dec time 0.26 sec Ao V2 max 128.3 cm/sec Ao max PG 6.6 mmHg Ao max PG (full) 2.1 mmHg LV V1 max PG 4.5 mmHg LV V1 max 106.0 cm/sec PA V2 max 68.2 cm/sec PA max PG 1.9 mmHg TR max ronnie 212.2 cm/sec
--- NOTE | 2017-07-22 11:47 | Cardiology Follow-Up ---
Subjective Subjective Date of Service: Jul 22, 2017. Pt evaluation today including: conversation w/ patient, physical exam, chart review, lab review, review of studies, review of inpatient medication list Additional Details: Feeling well this a.m.. No chest pain or significant shortness of breath. No pain at right radial artery access site. Telemetry reviewed--no events overnight Echocardiogram reviewed--preserved LV function, borderline RV dysfunction, no significant valvular abnormalities. Problem List Medical Problems: (1) ACS (acute coronary syndrome) Status: Acute (2) CAD (coronary artery disease) Status: Acute (3) GERD (gastroesophageal reflux disease) Status: Chronic (4) HTN (hypertension) Status: Chronic (5) Tobacco use disorder Status: Chronic Surgical Problems: (1) Post PTCA Status: Acute (2) S/P cardiac catheterization Status: Acute Review of Systems Constitutional: No fever, No chills ENT: No hearing loss Respiratory: No cough, No sputum Cardiac: No chest pain Abdomen: No pain, No nausea Heme: No abnormal bleeding/bruising Endo: No fatigue Skin: No rash Objective Vital Signs Last Vital Signs Documentation Date Time Temp Pulse Resp B/P (MAP) Pulse Ox O2 Delivery O2 Flow Rate FiO2 07/22/17 08:00 36.7 60 18 112/62 (79) 97 Nasal Cannula 2.0 Physical Exam: General Appearance: no apparent distress ENT: hearing grossly normal Neck: no JVD Respiratory/Chest: lungs clear, normal breath sounds Cardiovascular: regular rate, rhythm, no edema, no murmur Abdomen: non tender, soft Extremities: no pedal edema, no calf tenderness, + pertinent finding (Right radial artery access site--no ecchymosis/hematoma, intact distal pulses and sensation) Neurologic/Psychiatric: alert, normal mood/affect Skin: warm/dry Assessment and Plan 1. High risk NSTEMI 2. Severe single-vessel coronary artery disease--post PCI with 2 drug-eluting stents to RCA 3. Residual intermediate mid LAD disease 4. Preserved LV function 5. Acute marginal/RV branch occlusion--borderline reduced RV function 6. Hypertension 7. Anemia 8. Tobacco abuse Chest pain-free this a.m.. Hemodynamically and electrically stable overnight. Echo reviewed, LV function preserved without significant wall motion abnormalities No access site complications --continue to trend troponins until peaks --wean off nitroglycerin infusion today. --continue dual antiplatelet therapy with aspirin and Brilinta --continue current beta-brannon and DUNG-inhibitor next --continue high-intensity statin --from a cardiac standpoint okay for transfer to telemetry today --further assessment of mid LAD intermediate lesion as an outpatient. We will continue to follow. Medications: Current Inpatient Medications Medications (Trade) Dose Ordered Sig/Adolfo Route Start Time Stop Time Status Last Admin Dose Admin Nitroglycerin (Nitrostat Tab) 0.4 mg UD PRN SL 07/21/17 19:45 08/20/17 19:44 Ondansetron HCl 8 mg/Dextrose 54 ml @ 200 mls/hr Q6H PRN IV 07/21/17 19:45 08/20/17 19:44 Aspirin (Ecotrin Tab) 81 mg QAM PO 07/22/17 09:00 08/21/17 08:59 07/22/17 07:58 81 MG Atorvastatin Calcium (Lipitor Tab) 80 mg QAM PO 07/22/17 09:00 08/21/17 08:59 07/22/17 07:58 80 MG Metoprolol Tartrate (Lopressor Tab) 25 mg Q12 PO 07/21/17 21:00 08/20/17 20:59 07/22/17 07:58 25 MG Lisinopril (Zestril Tab) 5 mg QAM PO 07/22/17 09:00 08/21/17 08:59 07/22/17 07:59 5 MG Acetaminophen (Tylenol Tab) 650 mg Q4H PRN PO 07/21/17 19:45 08/20/17 19:44 07/22/17 09:14 650 MG Morphine Sulfate (MoRPHine SULFATE INJ) 2 mg Q5M PRN IV 07/21/17 19:45 08/04/17 19:44 Pantoprazole Sodium (Protonix Tab) 40 mg QAM PO 07/22/17 09:00 08/21/17 08:59 07/22/17 07:59 40 MG Ticagrelor (Brilinta Tab) 90 mg BID PO 07/22/17 07:30 08/21/17 07:29 07/22/17 07:58 90 MG Enoxaparin Sodium (Lovenox Inj) 30 mg DAILY SQ 07/22/17 09:00 08/21/17 08:59 07/22/17 08:00 30 MG Nicotine (Nicoderm Cq 14MG Patch) 1 patch QAM TD 07/22/17 09:00 08/21/17 08:59 07/22/17 08:00 1 PATCH Miscellaneous (Remove Nicoderm Patch) 1 ea HS N/A 07/22/17 21:00 08/21/17 20:59 Miscellaneous Information (Icu Protocol For Hyperglycemia) 1 ea PRN PRN N/A 07/21/17 23:00 07/23/17 22:59 Lab Results: 07/22/17 05:33 Red Blood Count 3.06, Mean Corpuscular Volume 99.3, Mean Corpuscular Hemoglobin 33.7, Mean Corpuscular Hemoglobin Concent 33.9, Mean Platelet Volume 10.0, Neutrophils (%) (Auto) 69.1, Lymphocytes (%) (Auto) 17.6, Monocytes (%) (Auto) 11.3, Eosinophils (%) (Auto) 1.1, Basophils (%) (Auto) 0.5, Neutrophils # (Auto ) 3.93, Lymphocytes # (Auto) 1.00, Monocytes # (Auto) 0.64, Eosinophils # (Auto ) 0.06, Basophils # (Auto) 0.03 07/22/17 05:33 Test 07/21/17 17:23 07/21/17 17:25 07/21/17 17:26 07/21/17 18:39 Bedside Troponin I < 0.030 ng/ml (0-0.045) Prothrombin Time 11.1 SECONDS (9.0-12.0) Prothromb Time International Ratio 1.1 (0.9-1.1) Activated Partial Thromboplast Time 27.0 SECONDS (21.0-31.0) Partial Thromboplastin Ratio 1.0 Magnesium Level 1.8 mg/dl (1.8-2.4) Total Bilirubin 0.4 mg/dl (0.2-1) Aspartate Amino Transf (AST/SGOT) 73 U/L (15-37) Alanine Aminotransferase (ALT/SGPT) 40 U/L (12-78) Alkaline Phosphatase 107 U/L (45-117) Total Protein 7.0 gm/dl (6.4-8.2) Albumin 3.0 gm/dl (3.4-5.0) Globulin 4.0 gm/dl (2.5-4.0) Albumin/Globulin Ratio 0.7 (0.9-2) Thyroid Stimulating Hormone (TSH) 1.920 uIu/ml (0.300-4.500) Bedside Hemoglobin 15.0 g/dl (14.0-18.0) Bedside Hematocrit 44 % (42-52) Bedside Sodium 137 mEq/L (135-144) Bedside Potassium 4.1 mEq/L (3.3-5.0) Bedside Chloride 99 mEq/L (101-112) Bedside Total CO2 24 mEq/l (24-31) Bedside Blood Urea Nitrogen 9 mg/dl (7-18) Bedside Creatinine 0.9 mg/dl (0.6-1.3) Bedside Glucose (other) 103 mg/dl (70-99) Bedside Ionized Calcium (Janes) 1.11 mmol/l (1.12-1.32) Kaolin Activated Coagulation Time 257 SECONDS (94-140) Test 07/22/17 05:33 07/22/17 06:10 White Blood Count 5.68 K/uL (4.8-10.8) Red Blood Count 3.06 M/uL (4.7-6.1) Hemoglobin 10.3 g/dL (14.0-18.0) Hematocrit 30.4 % (42-52) Mean Corpuscular Volume 99.3 fL (80-100) Mean Corpuscular Hemoglobin 33.7 pg (25-34) Mean Corpuscular Hemoglobin Concent 33.9 g/dl (32-36) Platelet Count 148 K/uL (130-400) Mean Platelet Volume 10.0 fL (7.4-10.4) Neutrophils (%) (Auto) 69.1 % Lymphocytes (%) (Auto) 17.6 % Monocytes (%) (Auto) 11.3 % Eosinophils (%) (Auto) 1.1 % Basophils (%) (Auto) 0.5 % Neutrophils # (Auto) 3.93 K/uL (1.4-6.5) Lymphocytes # (Auto) 1.00 K/uL (1.2-3.4) Monocytes # (Auto) 0.64 K/uL (0.11-0.59) Eosinophils # (Auto) 0.06 K/uL (0-0.5) Basophils # (Auto) 0.03 K/uL (0-0.2) RDW Standard Deviation 52.1 fL (36.4-46.3) RDW Coefficient of Variation 14.4 % (11.5-14.5) Immature Granulocyte % (Auto) 0.4 % Immature Granulocyte # (Auto) 0.02 K/uL (0.00-0.02) Anion Gap 6.0 mmol/L (3-11) Est Creatinine Clear Calc Drug Dose 77.8 ml/min Estimated GFR () 108.0 Estimated GFR (Non- 93.2 BUN/Creatinine Ratio 13.3 (10-20) Estimated Average Glucose 97 mg/dl Hemoglobin A1c 5.0 % (4.5-5.6) Calcium Level 7.6 mg/dl (8.5-10.1) Total Creatine Kinase 558 U/L (39-308) Creatine Kinase MB 88.5 ng/ml (0.5-3.6) Creatine Kinase MB Ratio 15.9 (0-3.0) Troponin I 26.300 ng/ml (0-0.045) Triglycerides Level 166 mg/dl (0-150) Cholesterol Level 117 mg/dl (0-200) HDL Cholesterol 20 mg/dl LDL Cholesterol, Calculated 64 mg/dl VLDL Cholesterol, Calculated 33 mg/dl Cholesterol/HDL Ratio 5.9 Bedside Glucose 91 mg/dl (70-99) Date/Time Source Procedure Growth Status 07/21/17 20:05 Nasal MRSA DNA Surveillance Screen - Final Specimen Negative for MRSA by DNA Probe Complete
--- NOTE | 2017-07-22 13:09 | Progress Note ---
Medicine Progress Note Date & Time of Visit: Jul 22, 2017 at 13:08 . Subjective CC: Follow-up visit for STEMI. HPI: Admitted yesterday with STEMI. PCI RCA performed by Dr. Che. Doing well today. No chest pain, SOB, nausea, vomiting. ROS: General- no fever, no chills Resp- no cough; no shortness of breath Cardiac- as noted above in HPI GI- no nausea, no vomiting, no diarrhea, no constipation - no dysuria, no difficulty voiding . Objective Last 8 Hrs Date Time Temp Pulse Resp B/P (MAP) Pulse Ox O2 Delivery O2 Flow Rate FiO2 07/22/17 11:40 96 Nasal Cannula 2.0 07/22/17 11:01 36.6 56 15 111/63 (79) 96 Nasal Cannula 2.0 07/22/17 11:00 58 16 97 07/22/17 10:01 65 14 114/72 (86) 95 07/22/17 10:00 69 14 95 07/22/17 09:01 72 11 110/57 (74) 07/22/17 09:00 62 17 96 07/22/17 08:00 36.7 60 18 112/62 (79) 97 Nasal Cannula 2.0 07/22/17 08:00 97 Nasal Cannula 2.0 07/22/17 08:00 Nasal Cannula 07/22/17 06:01 58 18 118/62 (80) 96 Nasal Cannula 2.0 Physical Exam: General- no distress Lungs- clear to auscultation; no respiratory distress Heart- RRR, no murmur or gallop appreciated, no JVD, no edema Abdomen- + BS, soft, nontender Extremities- no cyanosis; no calf tenderness; right radial artery cath site without hematoma Neuro- alert, oriented . Laboratory Results: Last 24 Hours Test 07/21/17 17:23 07/21/17 17:25 07/21/17 17:26 07/21/17 18:19 Bedside Troponin I < 0.030 ng/ml White Blood Count 5.74 K/uL Red Blood Count 4.22 M/uL Hemoglobin 14.6 g/dL Hematocrit 41.4 % Mean Corpuscular Volume 98.1 fL Mean Corpuscular Hemoglobin 34.6 pg Mean Corpuscular Hemoglobin Concent 35.3 g/dl RDW Standard Deviation 50.6 fL RDW Coefficient of Variation 14.2 % Platelet Count 194 K/uL Mean Platelet Volume 10.5 fL Prothrombin Time 11.1 SECONDS Prothromb Time International Ratio 1.1 Activated Partial Thromboplast Time 27.0 SECONDS Partial Thromboplastin Ratio 1.0 Sodium Level 135 mmol/L Potassium Level 4.1 mmol/L Chloride Level 101 mmol/L Carbon Dioxide Level 25 mmol/L Anion Gap 8.0 mmol/L 19.0 mmol/L Blood Urea Nitrogen 10 mg/dl Creatinine 0.95 mg/dl Est Creatinine Clear Calc Drug Dose 53.6 ml/min Estimated GFR () 88.5 Estimated GFR (Non- 76.4 BUN/Creatinine Ratio 10.5 Random Glucose 101 mg/dl Calcium Level 8.1 mg/dl Magnesium Level 1.8 mg/dl Total Bilirubin 0.4 mg/dl Aspartate Amino Transf (AST/SGOT) 73 U/L Alanine Aminotransferase (ALT/SGPT) 40 U/L Alkaline Phosphatase 107 U/L Total Creatine Kinase 33 U/L Creatine Kinase MB < 0.5 ng/ml Creatine Kinase MB Ratio Total Protein 7.0 gm/dl Albumin 3.0 gm/dl Globulin 4.0 gm/dl Albumin/Globulin Ratio 0.7 Thyroid Stimulating Hormone (TSH) 1.920 uIu/ml Bedside Hemoglobin 15.0 g/dl Bedside Hematocrit 44 % Bedside Sodium 137 mEq/L Bedside Potassium 4.1 mEq/L Bedside Chloride 99 mEq/L Bedside Total CO2 24 mEq/l Bedside Blood Urea Nitrogen 9 mg/dl Bedside Creatinine 0.9 mg/dl Bedside Glucose (other) 103 mg/dl Bedside Ionized Calcium (Janes) 1.11 mmol/l Kaolin Activated Coagulation Time 268 SECONDS Test 07/21/17 18:39 07/21/17 20:44 07/21/17 23:14 07/22/17 00:54 Kaolin Activated Coagulation Time 257 SECONDS Bedside Glucose 106 mg/dl Troponin I 1.160 ng/ml 4.370 ng/ml Total Creatine Kinase 122 U/L Creatine Kinase MB 16.9 ng/ml Creatine Kinase MB Ratio 13.9 Test 07/22/17 05:33 07/22/17 06:10 07/22/17 12:56 White Blood Count 5.68 K/uL Red Blood Count 3.06 M/uL Hemoglobin 10.3 g/dL Hematocrit 30.4 % Mean Corpuscular Volume 99.3 fL Mean Corpuscular Hemoglobin 33.7 pg Mean Corpuscular Hemoglobin Concent 33.9 g/dl Platelet Count 148 K/uL Mean Platelet Volume 10.0 fL Neutrophils (%) (Auto) 69.1 % Lymphocytes (%) (Auto) 17.6 % Monocytes (%) (Auto) 11.3 % Eosinophils (%) (Auto) 1.1 % Basophils (%) (Auto) 0.5 % Neutrophils # (Auto) 3.93 K/uL Lymphocytes # (Auto) 1.00 K/uL Monocytes # (Auto) 0.64 K/uL Eosinophils # (Auto) 0.06 K/uL Basophils # (Auto) 0.03 K/uL RDW Standard Deviation 52.1 fL RDW Coefficient of Variation 14.4 % Immature Granulocyte % (Auto) 0.4 % Immature Granulocyte # (Auto) 0.02 K/uL Sodium Level 138 mmol/L Potassium Level 3.8 mmol/L Chloride Level 106 mmol/L Carbon Dioxide Level 26 mmol/L Anion Gap 6.0 mmol/L Blood Urea Nitrogen 9 mg/dl Creatinine 0.65 mg/dl Est Creatinine Clear Calc Drug Dose 77.8 ml/min Estimated GFR () 108.0 Estimated GFR (Non- 93.2 BUN/Creatinine Ratio 13.3 Random Glucose 91 mg/dl Estimated Average Glucose 97 mg/dl Hemoglobin A1c 5.0 % Calcium Level 7.6 mg/dl Total Creatine Kinase 558 U/L Creatine Kinase MB 88.5 ng/ml Creatine Kinase MB Ratio 15.9 Troponin I 26.300 ng/ml Triglycerides Level 166 mg/dl Cholesterol Level 117 mg/dl HDL Cholesterol 20 mg/dl LDL Cholesterol, Calculated 64 mg/dl VLDL Cholesterol, Calculated 33 mg/dl Cholesterol/HDL Ratio 5.9 Bedside Glucose 91 mg/dl Date/Time Source Procedure Growth Status 07/21/17 20:05 Nasal MRSA DNA Surveillance Screen - Final Specimen Negative for MRSA by DNA Probe Complete Assessment & Plan STEMI Presented to ED with severe chest pain. EKG demonstrated inferior ST elevation. Cardiac cath demonstrated 50-60% stenosis after take-off of 1st diagonal, 40-50 % stenosis of proximal 1st diagonal, 40% stenosis of mid 1st diagonal, 40% stenosis distal circ, 50-60% stenosis proximal RCA, 90% stenosis mid RCA. PCI with drug-eluting stent performed with good results. Echo after PCI demonstrated borderline concentric LVH, normal LV wall motion and systolic function, normal RV size with borderline RV function, no significant valvular pathology. LDL-c = 64. IV nitroglycerin to be weaned today. Continue aspirin, ticagrelor, metoprolol, lisinopril, atorvastatin. HYPERTENSION Continue metoprolol and lisinopril. VTE PROPHYLAXIS SQ enoxaparin. Ambulate. DISPOSITION Expected discharge to home. Family Medicine follow-up with Dr. Gordon. . Consultants: Cardiology with Dr. Che. . Current Inpatient Medications: Current Inpatient Medications Medications (Trade) Dose Ordered Sig/Adolfo Route Start Time Stop Time Status Last Admin Dose Admin Nitroglycerin (Nitrostat Tab) 0.4 mg UD PRN SL 07/21/17 19:45 08/20/17 19:44 Ondansetron HCl 8 mg/Dextrose 54 ml @ 200 mls/hr Q6H PRN IV 07/21/17 19:45 08/20/17 19:44 Aspirin (Ecotrin Tab) 81 mg QAM PO 07/22/17 09:00 08/21/17 08:59 07/22/17 07:58 81 MG Atorvastatin Calcium (Lipitor Tab) 80 mg QAM PO 07/22/17 09:00 08/21/17 08:59 07/22/17 07:58 80 MG Metoprolol Tartrate (Lopressor Tab) 25 mg Q12 PO 07/21/17 21:00 08/20/17 20:59 07/22/17 07:58 25 MG Lisinopril (Zestril Tab) 5 mg QAM PO 07/22/17 09:00 08/21/17 08:59 07/22/17 07:59 5 MG Acetaminophen (Tylenol Tab) 650 mg Q4H PRN PO 07/21/17 19:45 08/20/17 19:44 07/22/17 09:14 650 MG Morphine Sulfate (MoRPHine SULFATE INJ) 2 mg Q5M PRN IV 07/21/17 19:45 08/04/17 19:44 Pantoprazole Sodium (Protonix Tab) 40 mg QAM PO 07/22/17 09:00 08/21/17 08:59 07/22/17 07:59 40 MG Ticagrelor (Brilinta Tab) 90 mg BID PO 07/22/17 07:30 08/21/17 07:29 07/22/17 07:58 90 MG Enoxaparin Sodium (Lovenox Inj) 30 mg DAILY SQ 07/22/17 09:00 08/21/17 08:59 07/22/17 08:00 30 MG Nicotine (Nicoderm Cq 14MG Patch) 1 patch QAM TD 07/22/17 09:00 08/21/17 08:59 07/22/17 08:00 1 PATCH Miscellaneous (Remove Nicoderm Patch) 1 ea HS N/A 07/22/17 21:00 08/21/17 20:59 Miscellaneous Information ([facility] Protocol For Hyperglycemia) 1 ea PRN PRN N/A 07/21/17 23:00 07/23/17 22:59
[2017-07-23] VITALS (10 sets, daily range): BP systolic 115–145; BP diastolic 61–78; PULSE 63–70; TEMP 36.6–37.1; O2SAT 93–100
[2017-07-23 05:38] LABS: BASO % 0.3 %; BASO ABS # 0.02 K/uL (0-0.2); EOS % 1.3 %; EOS ABS # 0.08 K/uL (0-0.5); HEMATOCRIT 32.5 % (42-52); HEMOGLOBIN 11.1 g/dL (14.0-18.0); IG# 0.03 K/uL (0.00-0.02); LYMPH ABS # 0.86 K/uL (1.2-3.4); MEAN CELL VOLUME 99.7 fL (80-100); MEAN CORPUSCULAR HGB CONC 34.2 g/dl (32-36); MEAN PLATELET VOLUME 10.5 fL (7.4-10.4); MONO % 10.4 %; MONO ABS # 0.64 K/uL (0.11-0.59); NEUT % 73.5 %; PLATELET COUNT 149 K/uL (130-400); RED CELL DISTRIBUTION WIDTH SD 50.8 fL (36.4-46.3); WHITE BLOOD COUNT 6.13 K/uL (4.8-10.8)
--- NOTE | 2017-07-23 07:24 | DIAGNOSTIC IMAGING REPORT ---
CHEST ONE VIEW PORTABLE CLINICAL HISTORY: f/u s/p STEMI dyspnea COMPARISON STUDY: 07/22/2014 FINDINGS: The bones soft tissues and hemidiaphragms are normal. The cardiomediastinal silhouette is normal. The lungs are clear. The pulmonary vasculature is normal. Slight basilar interstitial prominence unchanged IMPRESSION: Slight basilar interstitial prominence similar to perhaps slightly increased compared to the prior study. No focal infiltrate. The lungs Otherwise are clear. The above report was generated using voice recognition software. It may contain grammatical, syntax or spelling errors. Electronically signed by: Sudeep Myers M.D. 07/23/2017 7:23 AM Dictated Date/Time: 07/23/2017 7:18 AM
[2017-07-23] MEDS: ATORVASTATIN 40 MG TAB PO SCH (08:29)
[2017-07-23] MEDS: TICAGRELOR 90 MG TAB PO SCH ×2 (08:30→21:11)
[2017-07-23] MEDS: LISINOPRIL 5 MG TAB PO SCH (08:30)
[2017-07-23] MEDS: ASPIRIN 81 MG ECTAB PO SCH (08:30)
[2017-07-23] MEDS: NICOTINE 14 MG/24 HR TDSY TD SCH (08:30)
[2017-07-23] MEDS: METOPROLOL TARTRATE 25 MG TAB PO SCH ×2 (08:30→21:11)
[2017-07-23] MEDS: ENOXAPARIN 30 MG/0.3 ML SYR SQ SCH (08:31)
--- NOTE | 2017-07-23 10:11 | Cardiology Follow-Up ---
Subjective Subjective Date of Service: Jul 23, 2017. Pt evaluation today including: conversation w/ patient, physical exam, chart review, lab review, review of studies, review of inpatient medication list Additional Details: No chest pain, no shortness of breath. No other new concerns this morning. Tele reviewed -- sinus bradycardia overnight. Problem List Medical Problems: (1) ACS (acute coronary syndrome) Status: Acute (2) CAD (coronary artery disease) Status: Acute (3) GERD (gastroesophageal reflux disease) Status: Chronic (4) HTN (hypertension) Status: Chronic (5) Tobacco use disorder Status: Chronic Surgical Problems: (1) Post PTCA Status: Acute (2) S/P cardiac catheterization Status: Acute Review of Systems Constitutional: No fever, No chills ENT: No hearing loss Respiratory: No cough, No sputum Cardiac: No chest pain Abdomen: No pain, No nausea Heme: No abnormal bleeding/bruising Endo: No fatigue Skin: No rash Objective Vital Signs Last Vital Signs Documentation Date Time Temp Pulse Resp B/P (MAP) Pulse Ox O2 Delivery O2 Flow Rate FiO2 07/23/17 08:00 Room Air 07/23/17 07:35 36.8 69 18 145/78 (100) 98 2.0 Physical Exam: General Appearance: no apparent distress ENT: hearing grossly normal Neck: no JVD Respiratory/Chest: lungs clear, normal breath sounds Cardiovascular: regular rate, rhythm, no edema, no murmur Abdomen: non tender, soft Extremities: no pedal edema, no calf tenderness, + pertinent finding (Right radial artery access site--no ecchymosis/hematoma, intact distal pulses and sensation) Neurologic/Psychiatric: alert, normal mood/affect Skin: warm/dry Assessment and Plan 1. High risk NSTEMI 2. Severe single-vessel coronary artery disease--post PCI with 2 drug-eluting stents to RCA 3. Residual intermediate mid LAD disease 4. Preserved LV function 5. Acute marginal/RV branch occlusion--borderline reduced RV function 6. Hypertension 7. Anemia 8. Tobacco abuse Patient remains chest pain free, hemodynamically and electrically stable. Troponin peaked at 100 yesterday. --continue dual antiplatelet therapy with aspirin and Brilinta --continue current beta-brannon --increase lisinopril from 5 to 10mg --continue high-intensity statin --further assessment of mid LAD intermediate lesion as an outpatient. --From a cardiac standpoint, up walking halls today, if stable OK for discharge tomorrow AM. Medications: Current Inpatient Medications Medications (Trade) Dose Ordered Sig/Adolfo Route Start Time Stop Time Status Last Admin Dose Admin Nitroglycerin (Nitrostat Tab) 0.4 mg UD PRN SL 07/21/17 19:45 08/20/17 19:44 Ondansetron HCl 8 mg/Dextrose 54 ml @ 200 mls/hr Q6H PRN IV 07/21/17 19:45 08/20/17 19:44 Aspirin (Ecotrin Tab) 81 mg QAM PO 07/22/17 09:00 08/21/17 08:59 07/23/17 08:30 81 MG Atorvastatin Calcium (Lipitor Tab) 80 mg QAM PO 07/22/17 09:00 08/21/17 08:59 07/23/17 08:29 80 MG Metoprolol Tartrate (Lopressor Tab) 25 mg Q12 PO 07/21/17 21:00 08/20/17 20:59 07/23/17 08:30 25 MG Lisinopril (Zestril Tab) 5 mg QAM PO 07/22/17 09:00 08/21/17 08:59 07/23/17 08:30 5 MG Acetaminophen (Tylenol Tab) 650 mg Q4H PRN PO 07/21/17 19:45 08/20/17 19:44 07/22/17 20:05 650 MG Morphine Sulfate (MoRPHine SULFATE INJ) 2 mg Q5M PRN IV 07/21/17 19:45 08/04/17 19:44 Pantoprazole Sodium (Protonix Tab) 40 mg QAM PO 07/22/17 09:00 08/21/17 08:59 07/22/17 07:59 40 MG Ticagrelor (Brilinta Tab) 90 mg BID PO 07/22/17 07:30 08/21/17 07:29 07/23/17 08:30 90 MG Enoxaparin Sodium (Lovenox Inj) 30 mg DAILY SQ 07/22/17 09:00 08/21/17 08:59 07/23/17 08:31 30 MG Nicotine (Nicoderm Cq 14MG Patch) 1 patch QAM TD 07/22/17 09:00 08/21/17 08:59 07/23/17 08:30 1 PATCH Miscellaneous (Remove Nicoderm Patch) 1 ea HS N/A 07/22/17 21:00 08/21/17 20:59 07/22/17 21:16 1 EA Miscellaneous Information ([facility] Protocol For Hyperglycemia) 1 ea PRN PRN N/A 07/21/17 23:00 07/23/17 22:59 Lab Results: 07/23/17 05:16 Red Blood Count 3.26, Mean Corpuscular Volume 99.7, Mean Corpuscular Hemoglobin 34.0, Mean Corpuscular Hemoglobin Concent 34.2, Mean Platelet Volume 10.5, Neutrophils (%) (Auto) 73.5, Lymphocytes (%) (Auto) 14.0, Monocytes (%) (Auto) 10.4, Eosinophils (%) (Auto) 1.3, Basophils (%) (Auto) 0.3, Neutrophils # (Auto ) 4.50, Lymphocytes # (Auto) 0.86, Monocytes # (Auto) 0.64, Eosinophils # (Auto ) 0.08, Basophils # (Auto) 0.02 Test 07/23/17 05:16 07/23/17 06:51 White Blood Count 6.13 K/uL (4.8-10.8) Red Blood Count 3.26 M/uL (4.7-6.1) Hemoglobin 11.1 g/dL (14.0-18.0) Hematocrit 32.5 % (42-52) Mean Corpuscular Volume 99.7 fL (80-100) Mean Corpuscular Hemoglobin 34.0 pg (25-34) Mean Corpuscular Hemoglobin Concent 34.2 g/dl (32-36) Platelet Count 149 K/uL (130-400) Mean Platelet Volume 10.5 fL (7.4-10.4) Neutrophils (%) (Auto) 73.5 % Lymphocytes (%) (Auto) 14.0 % Monocytes (%) (Auto) 10.4 % Eosinophils (%) (Auto) 1.3 % Basophils (%) (Auto) 0.3 % Neutrophils # (Auto) 4.50 K/uL (1.4-6.5) Lymphocytes # (Auto) 0.86 K/uL (1.2-3.4) Monocytes # (Auto) 0.64 K/uL (0.11-0.59) Eosinophils # (Auto) 0.08 K/uL (0-0.5) Basophils # (Auto) 0.02 K/uL (0-0.2) RDW Standard Deviation 50.8 fL (36.4-46.3) RDW Coefficient of Variation 14.0 % (11.5-14.5) Immature Granulocyte % (Auto) 0.5 % Immature Granulocyte # (Auto) 0.03 K/uL (0.00-0.02) Troponin I 25.800 ng/ml (0-0.045) Bedside Glucose 101 mg/dl (70-99)
--- NOTE | 2017-07-23 20:47 | Progress Note ---
Medicine Progress Note Date & Time of Visit: Jul 23, 2017 at 10:40 . Subjective CC: Follow-up visit for inferior STEMI. HPI: Doing well. No chest pain, palpitations, dyspnea, edema. . ROS: General- no fever, no chills Resp- no cough; no shortness of breath Cardiac- as noted above in HPI GI- no nausea, no vomiting, no diarrhea, no melena, no hematochezia - no dysuria, no difficulty voiding . Objective Last 8 Hrs Date Time Temp Pulse Resp B/P (MAP) Pulse Ox O2 Delivery O2 Flow Rate FiO2 07/23/17 20:00 96 Room Air 07/23/17 16:32 36.8 70 19 115/68 (84) 96 Room Air 07/23/17 16:00 96 Room Air 07/23/17 15:54 96 Room Air Physical Exam: General- no distress Lungs- clear to auscultation; no respiratory distress Heart- RRR, no murmur or gallop appreciated, no JVD, no edema Abdomen- + BS, soft, nontender Extremities- no cyanosis; no calf tenderness; right radial artery cath site without hematoma Neuro- alert, oriented . Laboratory Results: Last 24 Hours Test 07/22/17 20:54 07/22/17 21:32 07/23/17 05:16 07/23/17 06:51 Troponin I 32.100 ng/ml 25.800 ng/ml Bedside Glucose 120 mg/dl 101 mg/dl White Blood Count 6.13 K/uL Red Blood Count 3.26 M/uL Hemoglobin 11.1 g/dL Hematocrit 32.5 % Mean Corpuscular Volume 99.7 fL Mean Corpuscular Hemoglobin 34.0 pg Mean Corpuscular Hemoglobin Concent 34.2 g/dl Platelet Count 149 K/uL Mean Platelet Volume 10.5 fL Neutrophils (%) (Auto) 73.5 % Lymphocytes (%) (Auto) 14.0 % Monocytes (%) (Auto) 10.4 % Eosinophils (%) (Auto) 1.3 % Basophils (%) (Auto) 0.3 % Neutrophils # (Auto) 4.50 K/uL Lymphocytes # (Auto) 0.86 K/uL Monocytes # (Auto) 0.64 K/uL Eosinophils # (Auto) 0.08 K/uL Basophils # (Auto) 0.02 K/uL RDW Standard Deviation 50.8 fL RDW Coefficient of Variation 14.0 % Immature Granulocyte % (Auto) 0.5 % Immature Granulocyte # (Auto) 0.03 K/uL Test 07/23/17 16:12 Bedside Glucose 105 mg/dl Assessment & Plan STEMI Presented to ED with severe chest pain. EKG demonstrated inferior ST elevation. Cardiac cath demonstrated 50-60% stenosis after take-off of 1st diagonal, 40-50 % stenosis of proximal 1st diagonal, 40% stenosis of mid 1st diagonal, 40% stenosis distal circ, 50-60% stenosis proximal RCA, 90% stenosis mid RCA. PCI with 2 drug-eluting stents performed with good results. Echo after PCI demonstrated borderline concentric LVH, normal LV wall motion and systolic function, normal RV size with borderline RV function, no significant valvular pathology. LDL-c = 64. Increase activity. Continue aspirin, ticagrelor, metoprolol, lisinopril, atorvastatin. HYPERTENSION Continue metoprolol and lisinopril. TOBACCO USE Smoking cessation counseling. VTE PROPHYLAXIS SQ enoxaparin. Ambulate. DISPOSITION Expected discharge to home. Family Medicine follow-up with Dr. Gordon. . Consultants: Cardiology with Dr. Che. . Procedures: cardiac cath PCI RCA with 2 drug-eluting stents echo . Current Inpatient Medications: Current Inpatient Medications Medications (Trade) Dose Ordered Sig/Adolfo Route Start Time Stop Time Status Last Admin Dose Admin Nitroglycerin (Nitrostat Tab) 0.4 mg UD PRN SL 07/21/17 19:45 08/20/17 19:44 Ondansetron HCl 8 mg/Dextrose 54 ml @ 200 mls/hr Q6H PRN IV 07/21/17 19:45 08/20/17 19:44 Aspirin (Ecotrin Tab) 81 mg QAM PO 07/22/17 09:00 08/21/17 08:59 07/23/17 08:30 81 MG Atorvastatin Calcium (Lipitor Tab) 80 mg QAM PO 07/22/17 09:00 08/21/17 08:59 07/23/17 08:29 80 MG Metoprolol Tartrate (Lopressor Tab) 25 mg Q12 PO 07/21/17 21:00 08/20/17 20:59 07/23/17 08:30 25 MG Lisinopril (Zestril Tab) 5 mg QAM PO 07/22/17 09:00 2/8/18 08:59 07/23/17 08:30 5 MG Acetaminophen (Tylenol Tab) 650 mg Q4H PRN PO 07/21/17 19:45 08/20/17 19:44 07/22/17 20:05 650 MG Morphine Sulfate (MoRPHine SULFATE INJ) 2 mg Q5M PRN IV 07/21/17 19:45 08/04/17 19:44 Pantoprazole Sodium (Protonix Tab) 40 mg QAM PO 07/22/17 09:00 08/21/17 08:59 07/22/17 07:59 40 MG Ticagrelor (Brilinta Tab) 90 mg BID PO 07/22/17 07:30 08/21/17 07:29 07/23/17 08:30 90 MG Enoxaparin Sodium (Lovenox Inj) 30 mg DAILY SQ 07/22/17 09:00 08/21/17 08:59 07/23/17 08:31 30 MG Nicotine (Nicoderm Cq 14MG Patch) 1 patch QAM TD 07/22/17 09:00 08/21/17 08:59 07/23/17 08:30 1 PATCH Miscellaneous (Remove Nicoderm Patch) 1 ea HS N/A 07/22/17 21:00 08/21/17 20:59 07/22/17 21:16 1 EA Miscellaneous Information ([facility] Protocol For Hyperglycemia) 1 ea PRN PRN N/A 07/21/17 23:00 07/23/17 22:59
[2017-07-24 03:26] VITALS: BP 132/70; PULSE 74; TEMP 37; O2SAT 92
[2017-07-24 07:35] VITALS: BP 137/79; PULSE 68; TEMP 36.8; O2SAT 95
[2017-07-24] MEDS: ASPIRIN 81 MG ECTAB PO SCH (07:42)
[2017-07-24] MEDS: METOPROLOL TARTRATE 25 MG TAB PO SCH (07:42)
[2017-07-24] MEDS: LISINOPRIL 5 MG TAB PO SCH (07:43)
[2017-07-24] MEDS: PANTOprazole SOD 40 MG TAB PO SCH (07:43)
[2017-07-24] MEDS: TICAGRELOR 90 MG TAB PO SCH (07:43)
[2017-07-24] MEDS: ATORVASTATIN 40 MG TAB PO SCH (07:43)
[2017-07-24] MEDS: ENOXAPARIN 30 MG/0.3 ML SYR SQ SCH (07:44)
[2017-07-24] MEDS: NICOTINE 14 MG/24 HR TDSY TD SCH (07:45)
[2017-07-24 11:08] VITALS: BP 132/60; PULSE 64; TEMP 36.8; O2SAT 97
--- NOTE | 2017-07-24 11:08 | Progress Note ---
Medicine Progress Note Date & Time of Visit: Jul 24, 2017 at 11:08 . Subjective Doing well. Ambulating in hallway. No CP or SOB. . Objective Last 8 Hrs Date Time Temp Pulse Resp B/P (MAP) Pulse Ox O2 Delivery O2 Flow Rate FiO2 07/24/17 08:00 Room Air 07/24/17 07:35 36.8 68 18 137/79 (98) 95 Room Air 07/24/17 04:00 Room Air 07/24/17 03:26 37.0 74 17 132/70 (90) 92 Room Air Physical Exam: General- no distress Lungs- clear to auscultation; no respiratory distress Heart- RRR, no murmur or gallop appreciated, no JVD, no edema Abdomen- + BS, soft, nontender Extremities- no cyanosis; no calf tenderness Neuro- alert, oriented . Laboratory Results: Last 24 Hours Test 07/23/17 16:12 07/23/17 20:25 Bedside Glucose 105 mg/dl 102 mg/dl Assessment & Plan STEMI Presented to ED with severe chest pain. EKG demonstrated inferior ST elevation. Cardiac cath demonstrated 50-60% stenosis after take-off of 1st diagonal, 40-50 % stenosis of proximal 1st diagonal, 40% stenosis of mid 1st diagonal, 40% stenosis distal circ, 50-60% stenosis proximal RCA, 90% stenosis mid RCA. PCI with 2 drug-eluting stents performed with good results. Echo after PCI demonstrated borderline concentric LVH, normal LV wall motion and systolic function, normal RV size with borderline RV function, no significant valvular pathology. LDL-c = 64. Increased activity without difficulty. Discharged on aspirin, ticagrelor, metoprolol, lisinopril, atorvastatin. Cardiac rehab to be arranged. HYPERTENSION Continue metoprolol and lisinopril. TOBACCO USE Smoking cessation counseling offered. VTE PROPHYLAXIS SQ enoxaparin. Ambulate. DISPOSITION Discharge to home. Family Medicine follow-up with Dr. Gordon. Cardiology follow-up with Dr. Che. . Consultants: Cardiology with Dr. Che. . Procedures: cardiac cath PCI RCA with 2 drug-eluting stents echo . Current Inpatient Medications: Current Inpatient Medications Medications (Trade) Dose Ordered Sig/Adolfo Route Start Time Stop Time Status Last Admin Dose Admin Nitroglycerin (Nitrostat Tab) 0.4 mg UD PRN SL 07/21/17 19:45 08/20/17 19:44 Ondansetron HCl 8 mg/Dextrose 54 ml @ 200 mls/hr Q6H PRN IV 07/21/17 19:45 08/20/17 19:44 Aspirin (Ecotrin Tab) 81 mg QAM PO 07/22/17 09:00 08/21/17 08:59 07/24/17 07:42 81 MG Atorvastatin Calcium (Lipitor Tab) 80 mg QAM PO 07/22/17 09:00 08/21/17 08:59 07/24/17 07:43 80 MG Metoprolol Tartrate (Lopressor Tab) 25 mg Q12 PO 07/21/17 21:00 08/20/17 20:59 07/24/17 07:42 25 MG Lisinopril (Zestril Tab) 5 mg QAM PO 07/22/17 09:00 08/21/17 08:59 07/24/17 07:43 5 MG Acetaminophen (Tylenol Tab) 650 mg Q4H PRN PO 07/21/17 19:45 08/20/17 19:44 07/22/17 20:05 650 MG Morphine Sulfate (MoRPHine SULFATE INJ) 2 mg Q5M PRN IV 07/21/17 19:45 08/04/17 19:44 Pantoprazole Sodium (Protonix Tab) 40 mg QAM PO 07/22/17 09:00 08/21/17 08:59 07/24/17 07:43 40 MG Ticagrelor (Brilinta Tab) 90 mg BID PO 07/22/17 07:30 08/21/17 07:29 07/24/17 07:43 90 MG Enoxaparin Sodium (Lovenox Inj) 30 mg DAILY SQ 07/22/17 09:00 08/21/17 08:59 07/24/17 07:44 30 MG Nicotine (Nicoderm Cq 14MG Patch) 1 patch QAM TD 07/22/17 09:00 08/21/17 08:59 07/24/17 07:45 1 PATCH Miscellaneous (Remove Nicoderm Patch) 1 ea HS N/A 07/22/17 21:00 08/21/17 20:59 07/23/17 21:11 1 EA
[2017-07-24] MEDS ORDERED: LSN5 PO (11:15)
[2017-07-24] MEDS ORDERED: ATOR-26 PO (11:15)
[2017-07-24] MEDS ORDERED: LPR25 PO (11:15)
[2017-07-24] MEDS ORDERED: ASPEC81 PO (11:15)
[2017-07-24] MEDS ORDERED: BRL90 PO (11:15)
[2017-07-24] MEDS ORDERED: NTRSLP4 SL (11:15)
--- NOTE | 2017-07-24 11:17 | Discharge Instructions ---
Discharge Instructions Date of Service Jul 24, 2017. Admission Reason for Admission: heart attack . Discharge Discharge Diagnosis / Problem: heart attack Discharge Goals Goal(s): Decrease discomfort, Improve disease control Activity Recommendations Activity Limitations: as noted below Lifting Limitations: gradually increase as tolerated Exercise/Sports Limitations: gradually increase as tolerated Shower/Bathe: no limitations . Instructions / Follow-Up Instructions / Follow-Up Home Care: * Take your medications exactly as directed. Don't skip doses. * Remember that recovery after a heart attack takes time. Plan to rest for at lease 4-8 weeks while you recover. Then return to normal activity when your doctor says it's okay. * Ask your doctor about joining a heart rehabilitation program. * Tell your doctor if you are feeling depressed. Feelings of sadness are common after a heart attack, but it is important that you speak to someone if you are feeling overwhelmed by these feelings. * If you are having chest pain, call 911 for an ambulance. Do NOT drive yourself to the hospital. * Ask your family members to learn CPR. * Learn to take your own blood pressure and pulse. Keep a record of your results. Ask your doctor when you should seek emergency medical attention. He or she will tell you which blood pressure reading is dangerous. Lifestyle Changes: * Maintain a healthy weight. Get help to lose any extra pounds. * Cut back on salt. * Limit canned, dried, packaged, and fast foods. * Don't add salt to your food. * Season foods with herbs instead of salt when you cook. * Break the smoking habit. Enroll in a stop-smoking program to improve your chances of success. * Limit fatty foods. * Ask your doctor about having your lipid levels checked regularly. * Build up your activity according to your doctor's recommendation. * Ask your doctor when it's okay to resume sexual activity. * Tell your doctor about any erectile dysfunction (ED) medication you are taking. Some ED medications are not safe if you take certain heart medications. * Try to manage stress. APPOINTMENTS: FAMILY MEDICINE 07/28/2017 7:00 PM [facility] Chinedu [place] [address] [facility] [phone] Office will contact you with appointment. OTHER INSTRUCTIONS: Please review medication instructions and take medicines as instructed. It is very important that you do not stop taking them unless instructed to do so. Please stop smoking. Information is attached to help. Dr. Che will arrange for cardiac rehab for you. Seek medical attention if you have: * temperature above 101 * chest pain or trouble breathing * abdominal pain, nausea, vomiting * diarrhea, dark stools or bloody stools * any unanswered questions or concerns Call 911 if symptoms are severe. Call if you have any questions or problems. My cell # is [phone]. You can also reach a [facility] hospitalist on duty at [facility] 24 hours a day by calling [phone]. Please take good care of yourself. Rickie Krause . Current Hospital Diet Patient's current hospital diet: AHA Diet (Heart Healthy) Discharge Diet Recommended Diet: AHA Diet (Heart Healthy) Procedures Procedures Performed: Heart catheterization showed severe blockage in right coronary artery and moderate blockage in other arteries. Dr. Che placed 2 stents into the right coronary artery. Pending Studies Studies pending at discharge: no Laboratory Results Hemoglobin A1c Test 07/22/17 05:33 Range/Units Estimated Average Glucose 97 mg/dl Hemoglobin A1c 5.0 4.5-5.6 % Lipid Panel Test 07/22/17 05:33 Range/Units Triglycerides Level 166 H 0-150 mg/dl Cholesterol Level 117 0-200 mg/dl HDL Cholesterol 20 mg/dl Cholesterol/HDL Ratio 5.9 LDL Cholesterol, Calculated 64 mg/dl Medical Emergencies . Who to Call and When: Medical Emergencies: If at any time you feel your situation is an emergency, please call 911 immediately. Call 911 immediately or go to your nearest Emergency Room if you experience any of the following: Warning Signs and Symptoms of a Heart Attack * Chest pain that is not relieved by medication * Shortness of breath . Non-Emergent Contact Non-Emergency issues call your: Primary Care Provider, Storage Engineer, Hospital Doctor . . "Provider Documentation" section prepared by Rickie Krause. . AMI Core Measures Reason no ASA as I/P: Treatment provided - N/A Reason no ASA at D/C: Treatment provided - N/A Reason no statin as I/P: Treatment provided - N/A Reason no statin at D/C: Treatment provided - N/A VTE Core Measure Inpt VTE Proph given/why not?: Enoxaparin (Lovenox)SQ, Unfractionated heparin SQ
--- NOTE | 2017-07-24 11:47 | Cardiology Follow-Up ---
Subjective Subjective Date of Service: Jul 24, 2017. Pt evaluation today including: conversation w/ patient, conversation w/ family , physical exam, chart review, lab review, review of studies, conversation w/ managed services consultant, review of inpatient medication list Additional Details: Denies any chest pain, shortness of breath. No other new complaints. tele reviewed -- no events. Problem List Medical Problems: (1) ACS (acute coronary syndrome) Status: Acute (2) CAD (coronary artery disease) Status: Acute (3) GERD (gastroesophageal reflux disease) Status: Chronic (4) HTN (hypertension) Status: Chronic (5) Tobacco use disorder Status: Chronic Surgical Problems: (1) Post PTCA Status: Acute (2) S/P cardiac catheterization Status: Acute Review of Systems Constitutional: No fever, No chills ENT: No hearing loss Respiratory: No cough, No sputum Cardiac: No chest pain Abdomen: No pain, No nausea Heme: No abnormal bleeding/bruising Endo: No fatigue Skin: No rash Objective Vital Signs Last Vital Signs Documentation Date Time Temp Pulse Resp B/P (MAP) Pulse Ox O2 Delivery O2 Flow Rate FiO2 07/24/17 11:08 36.8 64 18 132/60 (84) 97 Room Air 07/23/17 19:15 Physical Exam: General Appearance: no apparent distress ENT: hearing grossly normal Neck: no JVD Respiratory/Chest: lungs clear, normal breath sounds Cardiovascular: regular rate, rhythm, no edema, no murmur Abdomen: non tender, soft Extremities: no pedal edema, no calf tenderness, + pertinent finding (Right radial artery access site--no ecchymosis/hematoma, intact distal pulses and sensation) Neurologic/Psychiatric: alert, normal mood/affect Skin: warm/dry Assessment and Plan 1. High risk NSTEMI 2. Severe single-vessel coronary artery disease--post PCI with 2 drug-eluting stents to RCA 3. Residual intermediate mid LAD disease 4. Preserved LV function 5. Acute marginal/RV branch occlusion--borderline reduced RV function 6. Hypertension 7. Anemia 8. Tobacco abuse Patient remains chest pain free, hemodynamically and electrically stable. From a cardiac standpoint OK for discharge today. Home Cardiac meds : - brillanta 90mg BID - ASA 81 mg daily - Atorvastatin 80m qhs - Lisinopril 5 mg - Metoprolol 25mg BID -- Follow-up with me in 2-3 weeks. Will arrange outpatient stress with cardiac rehab to follow. Appreciate hospital medicine team care. Medications: Current Inpatient Medications Medications (Trade) Dose Ordered Sig/Adlofo Route Start Time Stop Time Status Last Admin Dose Admin Nitroglycerin (Nitrostat Tab) 0.4 mg UD PRN SL 07/21/17 19:45 08/20/17 19:44 Ondansetron HCl 8 mg/Dextrose 54 ml @ 200 mls/hr Q6H PRN IV 07/21/17 19:45 08/20/17 19:44 Aspirin (Ecotrin Tab) 81 mg QAM PO 07/22/17 09:00 08/21/17 08:59 07/24/17 07:42 81 MG Atorvastatin Calcium (Lipitor Tab) 80 mg QAM PO 07/22/17 09:00 08/21/17 08:59 07/24/17 07:43 80 MG Metoprolol Tartrate (Lopressor Tab) 25 mg Q12 PO 07/21/17 21:00 08/20/17 20:59 07/24/17 07:42 25 MG Lisinopril (Zestril Tab) 5 mg QAM PO 07/22/17 09:00 08/21/17 08:59 07/24/17 07:43 5 MG Acetaminophen (Tylenol Tab) 650 mg Q4H PRN PO 07/21/17 19:45 08/20/17 19:44 07/22/17 20:05 650 MG Morphine Sulfate (MoRPHine SULFATE INJ) 2 mg Q5M PRN IV 07/21/17 19:45 08/04/17 19:44 Pantoprazole Sodium (Protonix Tab) 40 mg QAM PO 07/22/17 09:00 08/21/17 08:59 07/24/17 07:43 40 MG Ticagrelor (Brilinta Tab) 90 mg BID PO 07/22/17 07:30 08/21/17 07:29 07/24/17 07:43 90 MG Enoxaparin Sodium (Lovenox Inj) 30 mg DAILY SQ 07/22/17 09:00 08/21/17 08:59 07/24/17 07:44 30 MG Nicotine (Nicoderm Cq 14MG Patch) 1 patch QAM TD 07/22/17 09:00 08/21/17 08:59 07/24/17 07:45 1 PATCH Miscellaneous (Remove Nicoderm Patch) 1 ea HS N/A 07/22/17 21:00 08/21/17 20:59 07/23/17 21:11 1 EA Lab Results: Test 07/23/17 20:25 Bedside Glucose 102 mg/dl (70-99)
[2017-07-24 12:36] VITALS: BP 132/60; PULSE 64; TEMP 36.8; O2SAT 97
--- NOTE | 2017-07-25 07:38 | EDITING REQUIRED CODING QUERY ---
MALNUTRITION To promote full compliance with coding requirements relating to patient care, physician participation is requested in all cases of weblogic administrator uncertainty. Please assist us with the question(s) below: Please place an X within the parenthesis (x). If other, please document: "Malnutrition" is documented in this record. If possible, please check the box that provides a more specific diagnosis: (x ) Mild malnutrition ( ) Moderate malnutrition ( ) Severe malnutrition ( ) Protein malnutrition (kwashiorkor) ( ) Severe protein calorie malnutrition ( ) Protein calorie malnutrition, unspecified ( ) Other (please specify): Was this diagnosis present on admission? Please place an X within the parenthesis (x). ( ) Present on admission ( ) Not present on admission ( ) Unable to be clinically determined Thank you Kristin Dang
--- NOTE | 2017-07-25 21:30 | Discharge Summary ---
Discharge Summary Date of Service Jul 25, 2017. Discharge Summary Admission Date: Jul 21, 2017 at 19:50 Discharge Date: Jul 24, 2017 Discharge Disposition: Home Principal Diagnosis: acute inferior STEMI . Secondary Diagnoses/Problems: Chronic Medical Problems: (1) GERD (gastroesophageal reflux disease) Status: Chronic (2) Hypertension Status: Chronic (4) Tobacco use disorder Status: Chronic . Procedures: cardiac cath PCI RCA with 2 drug-eluting stents echo . Consultations: Cardiology with Dr. Che. . Medication Reconciliation New Medications: Atorvastatin (Lipitor) 80 Mg Tab 80 MG PO DAILY, #30 TAB 12 Refills Aspirin (Aspirin EC Low Dose) 81 Mg Ectab 81 MG PO QAM, #30 TAB 12 Refills No prescription necessary. Do not stop unless instructed to do so. Lisinopril (Lisinopril) 5 Mg Tab 5 MG PO QAM, #30 TAB 12 Refills Metoprolol Tartrate (Lopressor) 25 Mg Tab 25 MG PO BID, #60 TAB 12 Refills Nitroglycerin (Nitrostat) 0.4 Mg/1 Tab Subl 0.4 MG SL UD PRN for Chest Pain, #25 TAB 3 Refills Dissolve under tongue for chest pain. May repeat dose in 10 minutes if needed. Call 911 if no relief. Ticagrelor (Brilinta) 90 Mg Tab 90 MG PO BID, #60 TAB 12 Refills Do not stop unless instructed to do so. Continued Medications: Omeprazole (Prilosec) 40 Mg Cap 40 MG PO DAILY, CAP Discontinued Medications: Amlodipine (Norvasc) 5 Mg Tab 5 MG PO DAILY, TAB Admission Information HPI (per Admitting provider): This is a 77yo M with a PMH of HTN, tobacco use disorder and GERD who presents with chest pain x 1.5 hours. Patient was taking down Jake lights when he experienced sudden onset, sharp, 10/10 substernal chest pain. Endorses pain down both arms,nausea, vomiting and SOB. Denies diaphoresis. Called for an ambulance and received aspirin en route to the ED. Patient found to be hypertensive with continued chest pain. Was given IV Lopressor and NTG with some relief. Due to concerning EKG findings and persistent CP, a heart alert was called and patient was taken to the cath lab technologist. Findings included severe CAD the the RCA, s/p stent placement x 2. Endorses longstanding HTN, for which he takes amlodipine. Denies previous history of MD or HLD. Denies any family history of heart disease. Started smoking cigarettes at a young age before quitting for 11 years. Resumed 7 years ago and currently smokes 3/4 pack per day. Is now interested in cessation. Currently endorses 2/10 residual chest discomfort. Denies fever, chills, headache, visual changes, diaphoresis, dizziness, CP, SOB, abd pain, nausea, vomiting or LE swelling. . Physical Exam (per Admitting): General Appearance: WD/WN, no apparent distress, + pertinent finding ( Resting comfortably with NC O2 in place) Head: normocephalic, atraumatic Eyes: normal inspection, PERRL, sclerae normal ENT: normal ENT inspection, hearing grossly normal, pharynx normal (moist mucous membranes ) Neck: supple, thyroid normal, no JVD, trachea midline Respiratory/Chest: lungs clear, normal breath sounds, no respiratory distress, no accessory muscle use Cardiovascular: regular rate, rhythm, no murmur, normal peripheral pulses Abdomen/GI: non tender, soft, no organomegaly Extremities/Musculoskelatal: normal inspection, no calf tenderness, normal capillary refill, no pedal edema Neurologic/Psych: no motor/sensory deficits, alert, normal mood/affect, oriented x 3 Skin: normal color, warm/dry Hospital Course STEMI Presented to ED with severe chest pain. EKG demonstrated inferior ST elevation. Cardiac cath demonstrated 50-60% stenosis after take-off of 1st diagonal, 40-50 % stenosis of proximal 1st diagonal, 40% stenosis of mid 1st diagonal, 40% stenosis distal circ, 50-60% stenosis proximal RCA, 90% stenosis mid RCA. PCI with 2 drug-eluting stents performed with good results. Echo after PCI demonstrated borderline concentric LVH, normal LV wall motion and systolic function, normal RV size with borderline RV function, no significant valvular pathology. LDL-c = 64. Increased activity without difficulty. Discharged on aspirin, ticagrelor, metoprolol, lisinopril, atorvastatin. Cardiac rehab to be arranged. HYPERTENSION Continue metoprolol and lisinopril. TOBACCO USE Smoking cessation counseling offered. VTE PROPHYLAXIS SQ enoxaparin. Ambulate. DISPOSITION Discharge to home. Family Medicine follow-up with Dr. Gordon. Cardiology follow-up with Dr. Che. . Total time spent on discharge = 40 min. This includes examination of the patient, discharge planning, medication reconciliation, and communication with other providers. . Discharge Instructions Date of Service Jul 24, 2017. Admission Reason for Admission: heart attack . Discharge Discharge Diagnosis / Problem: heart attack Discharge Goals Goal(s): Decrease discomfort, Improve disease control Activity Recommendations Activity Limitations: as noted below Lifting Limitations: gradually increase as tolerated Exercise/Sports Limitations: gradually increase as tolerated Shower/Bathe: no limitations . Instructions / Follow-Up Instructions / Follow-Up Home Care: * Take your medications exactly as directed. Don't skip doses. * Remember that recovery after a heart attack takes time. Plan to rest for at lease 4-8 weeks while you recover. Then return to normal activity when your doctor says it's okay. * Ask your doctor about joining a heart rehabilitation program. * Tell your doctor if you are feeling depressed. Feelings of sadness are common after a heart attack, but it is important that you speak to someone if you are feeling overwhelmed by these feelings. * If you are having chest pain, call 911 for an ambulance. Do NOT drive yourself to the hospital. * Ask your family members to learn CPR. * Learn to take your own blood pressure and pulse. Keep a record of your results. Ask your doctor when you should seek emergency medical attention. He or she will tell you which blood pressure reading is dangerous. Lifestyle Changes: * Maintain a healthy weight. Get help to lose any extra pounds. * Cut back on salt. * Limit canned, dried, packaged, and fast foods. * Don't add salt to your food. * Season foods with herbs instead of salt when you cook. * Break the smoking habit. Enroll in a stop-smoking program to improve your chances of success. * Limit fatty foods. * Ask your doctor about having your lipid levels checked regularly. * Build up your activity according to your doctor's recommendation. * Ask your doctor when it's okay to resume sexual activity. * Tell your doctor about any erectile dysfunction (ED) medication you are taking. Some ED medications are not safe if you take certain heart medications. * Try to manage stress. APPOINTMENTS: FAMILY MEDICINE 07/28/2017 7:00 PM Vic Gordon MD Family [facility] CARDIOLOGY Dr. Che [facility] [phone] Office will contact you with appointment. OTHER INSTRUCTIONS: Please review medication instructions and take medicines as instructed. It is very important that you do not stop taking them unless instructed to do so. Please stop smoking. Information is attached to help. Dr. Che will arrange for cardiac rehab for you. Seek medical attention if you have: * temperature above 101 * chest pain or trouble breathing * abdominal pain, nausea, vomiting * diarrhea, dark stools or bloody stools * any unanswered questions or concerns Call 911 if symptoms are severe. Call if you have any questions or problems. My cell # is [phone]. You can also reach a [facility] hospitalist on duty at [facility] 24 hours a day by calling [phone]. Please take good care of yourself. Rickie Krause . Current Hospital Diet Patient's current hospital diet: AHA Diet (Heart Healthy) Discharge Diet Recommended Diet: AHA Diet (Heart Healthy) Procedures Procedures Performed: Heart catheterization showed severe blockage in right coronary artery and moderate blockage in other arteries. Dr. Che placed 2 stents into the right coronary artery. Pending Studies Studies pending at discharge: no Laboratory Results Hemoglobin A1c Test 07/22/17 05:33 Range/Units Estimated Average Glucose 97 mg/dl Hemoglobin A1c 5.0 4.5-5.6 % Lipid Panel Test 07/22/17 05:33 Range/Units Triglycerides Level 166 H 0-150 mg/dl Cholesterol Level 117 0-200 mg/dl HDL Cholesterol 20 mg/dl Cholesterol/HDL Ratio 5.9 LDL Cholesterol, Calculated 64 mg/dl Medical Emergencies . Who to Call and When: Medical Emergencies: If at any time you feel your situation is an emergency, please call 911 immediately. Call 911 immediately or go to your nearest Emergency Room if you experience any of the following: Warning Signs and Symptoms of a Heart Attack * Chest pain that is not relieved by medication * Shortness of breath . Non-Emergent Contact Non-Emergency issues call your: Primary Care Provider, Seismic Prospecting Observer Helper, Hospital Doctor . . "Provider Documentation" section prepared by Rickie Krause. . AMI Core Measures Reason no ASA as I/P: Treatment provided - N/A Reason no ASA at D/C: Treatment provided - N/A Reason no statin as I/P: Treatment provided - N/A Reason no statin at D/C: Treatment provided - N/A VTE Core Measure Inpt VTE Proph given/why not?: Enoxaparin (Lovenox)SQ, Unfractionated heparin SQ .
== END 2017-07-24 14:20 | disposition home or self-care (01) | DRG 247 ==
LOC: EDBD 17:07 → C.EDB 17:08 → C.MSICU 19:50 → C.2T 07-22 18:36
PROVIDERS: ADMIT Internal Medicine; ATTEND Hospitalist
PROC: 027035Z Dilation of Coronary Artery, One Artery with Two Drug-eluting Intraluminal Devices, Percutaneous Approach (ICD-10-PCS; principal; 2017-07-21 17:48)
PROC: 4A023N7 Measurement of Cardiac Sampling and Pressure, Left Heart, Percutaneous Approach (ICD-10-PCS; principal; 2017-07-21 17:48)
PROC: B211YZZ Fluoroscopy of Multiple Coronary Arteries using Other Contrast (ICD-10-PCS; principal; 2017-07-21 17:48)
DX: I21.19 ST elevation (STEMI) myocardial infarction involving other coronary artery of inferior wall (principal); E44.1 Mild protein-calorie malnutrition; Z68.1 Body mass index [BMI] 19.9 or less, adult; I25.10 Atherosclerotic heart disease of native coronary artery without angina pectoris; I11.9 Hypertensive heart disease without heart failure; K21.9 Gastro-esophageal reflux disease without esophagitis; F17.210 Nicotine dependence, cigarettes, uncomplicated; Z51.81 Encounter for therapeutic drug level monitoring; Z79.899 Other long term (current) drug therapy

== ENCOUNTER → 2017-07-30 | Outpatient (CLI) | payer OTHER, MEDICARE ==
[~2017-07-30] MED LIST: ASPEC81 PO; ATOR-26 PO; BRL90 PO; LPR25 PO; LSN5 PO; NTRSLP4 SL; OMEP40CA41 PO; REGADENOSON 0.4 MG/5 ML SYR ONE
--- NOTE | 2017-07-31 17:57 | Myocardial Perfusion Study ---
Myocardial Perfusion Study Rpt Myocardial Perfusion Study Rpt Myocardial Perfusion Study Rpt ONE DAY NUCLEAR MEDICINE LEXISCAN TECHNETIUM 99M MYOCARDIAL PERFUSION SCAN Indication: Recent NSTEMI with PCI to RCA; Found to intermediate mid LAD disease. Baseline ECG: Normal sinus rhythm, no ST abnormalities. Ventricular rate 67. Stress ECG: No Lexiscan induced ST changes. No arrhythmias. HR casimiro from 67 to 83 representing 58% MPHR. Brief dyspnea with lexiscan. Technique: For the stress portion of the study 33.3 mCi of Technetium 99m Cardiolite IV was injected at 11:15 am on 07/30/2017. 30 minutes following the injection, imaging of the heart was performed in multiple projections. For the rest portion of the study, 11.2 mCi of Technetium 99m Cardiolite was injected IV at 09:25 am. One hour following the injection, imaging of the hear was performed in the same projections. Findings: Rotating raw images were reviewed in detail. Potential sources of attenuation include mild gut uptake impacting the inferior imaging border of the heart. Subtle diaphragmatic attenuation. No significant extracardiac pathologic uptake. Short axis, vertical long axis and horizontal long axis images were reviewed in detail. No visual TID. Mild, reversible perfusion defect involving inferior wall (SDS 4). Otherwise normal myocardial perfusion on both stress and rest. Normal LV size. EDV 49 ml. Calculated EF 85%. No regional wall motion abnormalities. SUMMARY: 1. Mild inferior reversible perfusion defect suggestive of a small amount of ischemia in PDA distribution (Note: patient post recent RCA infarct). No other significant perfusion defects. 2. Normal LV size and function. LVEF 85% with no regional wall motion abnormalities. 3. Non-diagnostic stress ECG due to inability to reach target HR with Lexiscan.
== END | disposition home or self-care (01) ==
LOC: C.NUCL 08:54
PROVIDERS: ATTEND Internal Medicine Interventional Cardiology
DX: I25.10 Atherosclerotic heart disease of native coronary artery without angina pectoris (principal)

== ENCOUNTER 2018-02-01 08:50 | Inpatient (IN) | payer OTHER, MEDICARE ==
[~2018-02-01] VITALS: Ht 175.3 cm; Wt 61.4 kg
[~2018-02-01 08:50] MED LIST changes: -ASPEC81 PO; +ASPI-320 PO; +LISI-730 PO; -LSN5 PO; -REGADENOSON 0.4 MG/5 ML SYR ONE
[2018-02-01] MEDS ORDERED: FAMOTIDINE 20MG/5ML IV PUSH IV STA (09:05)
[2018-02-01] MEDS ORDERED: ONDANSETRON INJ 2 MG/ML 2 ML VIAL IV STA (09:05)
[2018-02-01] MEDS ORDERED: SODIUM CHLORIDE 0.9% 250ML 250 ML IV STA (09:05)
[2018-02-01] MEDS ORDERED: FENTANYL CITRATE INJ 50 MCG/1 ML 2 ML VIAL IV STA (09:05)
[2018-02-01] MEDS ORDERED: FENTANYL CITRATE INJ 50 MCG/1 ML 2 ML VIAL ONE (09:06)
--- NOTE | 2018-02-01 09:15 | EMERGENCY ROOM VISIT NOTE ---
History Report prepared by Marita: Lopez Duff Under the Supervision of: Dr. Addy Ireland M.D. First contact with patient: 08:59 Chief Complaint: ABDOMINAL PAIN Stated Complaint: ABDOMINAL PAIN Nursing Triage Summary: pt reports mid abd pain has been vomiting. denies any diarrhea or constipation . sx started at 0500 this am feels sob has hx of mi in radha History of Present Illness The patient is a 77 year old male who presents to the Emergency Room with complaints of worsening abdominal pain that began 4 hours ago. Patient states the pain is located across his entire abdomen and radiates to his back. He describes the pain as a "tearing". He states the pain is worsened when he lies down. Patient adds that he has SOB, nausea, and vomiting. He states he vomited "2-3" times prior to arriving at the ER. Patient denies the symptoms feeling similar to his CO in July. 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 He states he has had intermittent abdominal pain since July but "never this bad ". He states his last bowel movement was this morning and was "just a little". He adds he had a bowel movement yesterday with no problems. Patient denies using narcotics for his pain. Source of History: patient Onset: 4 hours ago Position: abdomen, back Quality: other ("tearing") Timing: worsening Modifying Factors (Worsening): other (Lying down) Modifying Factors (Relieving): other (None) Associated Symptoms: + SOB, + nausea, + vomiting Review of Systems See HPI for pertinent positives and negatives. A total of ten systems were reviewed and were otherwise negative. Past Medical & Surgical Medical Problems: (1) Coronary artery disease (2) GERD (gastroesophageal reflux disease) (3) Hypertension (4) Presence of stent in coronary artery in patient with coronary artery disease (5) Tobacco use disorder Surgical Problems: (1) Status post cardiac catheterization (2) Status post placement of stent in right coronary artery Family History Omitted secondary to age. Social History Smoking Status: Current Every Day Smoker Alcohol Use: occasionally Drug Use: none Marital Status: Housing Status: lives alone Occupation Status: retired Current/Historical Medications Scheduled Aspirin (Aspirin Ec), 81 MG PO DAILY Atorvastatin (Lipitor), 80 MG PO DAILY Clopidogrel (Plavix), 75 MG PO DAILY Lisinopril (Lisinopril), 5 MG PO QAM Metoprolol Tartrate (Lopressor), 25 MG PO BID Omeprazole (Prilosec), 40 MG PO DAILY Ranitidine (Zantac), 150 MG PO BID Scheduled PRN Nitroglycerin (Nitrostat), 0.4 MG SL UD PRN for Chest Pain Allergies Coded Allergies: No Known Allergies (Verified , 02/01/18) Physical Exam Vital Signs Date Time Temp Pulse Resp B/P (MAP) Pulse Ox O2 Delivery O2 Flow Rate FiO2 02/01/18 14:08 90 02/01/18 14:00 92 19 115/63 93 Room Air 02/01/18 13:42 92 20 111/58 94 Room Air 02/01/18 12:01 88 20 107/54 92 Room Air 02/01/18 11:37 85 20 105/54 92 Room Air 02/01/18 11:00 70 16 102/49 98 Room Air 02/01/18 09:18 81 02/01/18 09:07 98 Room Air 02/01/18 08:53 36.5 65 26 121/51 93 Room Air Physical Exam GENERAL: Awake, alert, mild pain to stress, in no distress HENT: Normocephalic, atraumatic. Oropharynx unremarkable. Mucous membranes are dry. EYES: Normal conjunctiva. Sclera non-icteric. NECK: Supple. No nuchal rigidity. FROM. No JVD. RESPIRATORY: Clear to auscultation. CARDIAC: Regular rate, normal rhythm. Extremities warm and well perfused. Pulses equal. ABDOMEN: Initially with voluntary guarding however subsequently wi moderate th epigastric and RUQ tenderness to palpitation. Positive Souza's sign. No masses. RECTAL: Deferred. MUSCULOSKELETAL: Chest examination reveals no tenderness. The back is symmetrical on inspection without obvious abnormality. There is no CVA tenderness to palpation. No joint edema. LOWER EXTREMITIES: Calves are equal size bilaterally and non-tender. No edema. No discoloration. NEURO: Normal sensorium. No sensory or motor deficits noted. SKIN: No rash or jaundice noted. Medical Decision & Procedures ER Provider Diagnostic Interpretation: Radiology results as stated below per my review and radiologist interpretation: GALLBLADDER-ABD LIMITED HISTORY: 77 years-old Male RUQ pain acute right upper quadrant abdominal pain COMPARISON: CTA of same day TECHNIQUE: Multiple real-time sonographic images of the abdominal right upper quadrant were obtained assessing grayscale appearance and color flow FINDINGS: The visualized pancreas appears unremarkable. Pancreatic duct measures in the upper limits of normal at 3 mm. The liver demonstrates mildly increased echogenicity without focal mass or intrahepatic biliary ductal dilation. There are a few scattered calcified granulomata about the liver. Common bile duct measures 8 mm. Layering gallbladder sludge without shadowing cholelithiasis. Thickened gallbladder wall measures up to 6 mm and appears edematous. Gallbladder distention. No definite pericholecystic fluid. Sonographic Souza sign reported as negative. The imaged right kidney is unremarkable without hydronephrosis. IMPRESSION: 1. Distended gallbladder with layering gallbladder sludge and edematous wall thickening is noted without pericholecystic fluid, shadowing cholelithiasis or positive sonographic Souza's sign. These findings are nonspecific. Correlate clinically to exclude acalculus cholecystitis. 2. Common bile duct measures 8 mm, upper limits of normal in size for patient age. 3. Calcified granulomata about the liver redemonstrated. The above report was generated using voice recognition software. It may contain grammatical, syntax or spelling errors. Electronically signed by: Mariano Nickerson M.D. 02/01/2018 11:35 AM CHEST COMBO ANGIO DISSECTION, ANGIO ABD/PELVIS WITH CONTRAST HISTORY: 77 years-old Male presents with acute generalized abdominal pain and vomiting with acute shortness of breath and chest pain. Concern for vascular etiology. COMPARISON: Chest radiograph of same day TECHNIQUE: CT angiography of the chest, abdomen and pelvis was obtained along the intravenous administration of 117 mL Optiray 320 IV contrast. 3-D coronal and sagittal MIPS were obtained from the axial data set and were submitted for review. All measurements were obtained according to NASCET criteria. A dose lowering technique was used consistent with the principals of LYNETTE. FINDINGS: CTA CHEST: Heart is normal in size. No pericardial effusion. Coronary arterial calcifications are noted. Calcifications of the aortic annulus also noted. The imaged great vessels appear to be patent. There is moderate to extensive mixed plaquing about the thoracic aorta. There is a focal area along the left posterior lateral aspect of the mid descending thoracic aorta, image 160 series 7 which extends for a length of 1.4 cm suggesting a ulcerative plaque or less likely a focal dissection flap. No thoracic aortic aneurysm. The pulmonary arterial tree is opacified to the segmental branches and demonstrates no focal filling defects to suggest pulmonary thromboembolic disease. CT CHEST: Thyroid is homogeneous. Calcified subcarinal lymph nodes compatible with prior granulomatous disease. Calcified granulomata about the lungs noted. No pneumothorax or pleural effusion. Subsegmental dependent groundglass opacities suggest atelectasis. Moderate upper lobe predominant centrilobular emphysema. Biapical pleural-parenchymal scarring. Mild bilateral bronchial wall thickening suggests bronchitis. There is minimal tree-in-bud nodularity about the apical posterior segment left upper lobe Soft tissues are unremarkable. Bones appear mildly demineralized. Degenerative changes of the shoulders and spine. CTA ABDOMEN/PELVIS: Extensive mixed plaquing about the abdominal aorta without aneurysm. There are several areas of high-grade stenosis of the left internal iliac artery secondary to mixed plaque formation. There is approximately 70% luminal narrowing of the right internal iliac artery secondary to mixed plaque formation. The common and external iliac arteries are widely patent. Bilateral common femoral arteries are patent. There is approximately 50% luminal narrowing involving the proximal aspect of the celiac trunk secondary to mixed plaque formation. Superior mesenteric artery appears patent. High-grade stenosis of the origin of the inferior mesenteric artery secondary to mixed plaque. Plaque formation at the origin of the renal arteries bilaterally without high-grade stenosis. CT ABDOMEN/PELVIS: There is mild wall thickening about the gallbladder with mild gallbladder distention. No definite cholelithiasis. Common bile duct measures 8 mm in diameter. No intrahepatic biliary ductal dilation. Calcified granulomata about the liver and spleen. Mild generalized pancreatic atrophy. Adrenal glands are unremarkable. Kidneys, ureters are unremarkable. Cervical ventral wall thickening of the bladder. IVC is unremarkable. No pathologically enlarged lymph nodes. Small sliding-type hiatal hernia. No bowel obstruction. Moderate stool volume about the rectum. There is circumferential wall thickening with partial distention involving the majority of the colon, notably within the sigmoid. No pericolonic inflammation. Colonic diverticulosis without diverticulitis. No ascites or mesenteric inflammation. Soft tissues are within normal limits. Bones appear intact. Prior laminectomy with discectomy and posterior interbody ivis and screw fusion at L5-S1. Demineralized appearance of the bones. Degenerative changes about the bilateral hips. Right femoral head avascular necrosis. IMPRESSION: 1. Extensive mixed atheromatous and atherosclerotic plaquing about the thoracic and abdominal aorta and branch vessels. There is a 1.4 cm area of ulcerative plaque formation or less likely focal dissection involving the descending thoracic aorta. No aortic aneurysm. 2. High-grade narrowing at the origin of the inferior mesenteric artery with approximately 50% stenosis at the proximal celiac trunk secondary to mixed plaque formation. 3. Approximately 70% luminal narrowing of the right internal iliac artery with multifocal high-grade stenosis about the left internal iliac artery secondary to atheromatous and atherosclerotic plaque. 4. Mild wall thickening throughout the majority of the colon is likely secondary to partial distention with a mild colitis thought to be less likely. 5. Colonic diverticulosis without diverticulitis. 6. Mild wall thickening of the gallbladder with gallbladder distention. This could be correlated with right upper quadrant ultrasound. 7. Additional findings as above. The above report was generated using voice recognition software. It may contain grammatical, syntax or spelling errors. Electronically signed by: Mariano Nickerson M.D. 02/01/2018 10:08 AM CHEST ONE VIEW PORTABLE HISTORY: 77 years-old Male CHEST PAIN acute atypical chest pain COMPARISON: CTA of same day, chest radiograph 07/23/2017 TECHNIQUE: Portable AP view of the chest FINDINGS: Cardiac silhouette is normal in size. Calcification of the aorta. Emphysema with chronic interstitial coarsening. No pneumothorax, pleural effusion, focal airspace consolidation or overt pulmonary edema. Degenerative changes of the shoulders and spine. IMPRESSION: 1. No acute process. 2. Emphysema with chronic interstitial coarsening. The above report was generated using voice recognition software. It may contain grammatical, syntax or spelling errors. Electronically signed by: Mariano Nickerson M.D. 02/01/2018 10:18 AM Laboratory Results 02/01/18 09:10 Red Blood Count 3.98, Mean Corpuscular Volume 97.0, Mean Corpuscular Hemoglobin 33.2, Mean Corpuscular Hemoglobin Concent 34.2, Mean Platelet Volume 9.8, Neutrophils (%) (Auto) 71.9, Lymphocytes (%) (Auto) 25.8, Monocytes (%) (Auto) 0.4, Eosinophils (%) (Auto) 1.5, Basophils (%) (Auto) 0.4, Neutrophils # (Auto) 1.92, Lymphocytes # (Auto) 0.69, Monocytes # (Auto) 0.01, Eosinophils # (Auto) 0.04, Basophils # (Auto) 0.01 02/01/18 09:10 Test 02/01/18 09:10 02/01/18 12:36 White Blood Count 2.67 K/uL (4.8-10.8) Red Blood Count 3.98 M/uL (4.7-6.1) Hemoglobin 13.2 g/dL (14.0-18.0) Hematocrit 38.6 % (42-52) Mean Corpuscular Volume 97.0 fL (80-100) Mean Corpuscular Hemoglobin 33.2 pg (25-34) Mean Corpuscular Hemoglobin Concent 34.2 g/dl (32-36) Platelet Count 222 K/uL (130-400) Mean Platelet Volume 9.8 fL (7.4-10.4) Neutrophils (%) (Auto) 71.9 % Lymphocytes (%) (Auto) 25.8 % Monocytes (%) (Auto) 0.4 % Eosinophils (%) (Auto) 1.5 % Basophils (%) (Auto) 0.4 % Neutrophils # (Auto) 1.92 K/uL (1.4-6.5) Lymphocytes # (Auto) 0.69 K/uL (1.2-3.4) Monocytes # (Auto) 0.01 K/uL (0.11-0.59) Eosinophils # (Auto) 0.04 K/uL (0-0.5) Basophils # (Auto) 0.01 K/uL (0-0.2) RDW Standard Deviation 53.4 fL (36.4-46.3) RDW Coefficient of Variation 14.9 % (11.5-14.5) Immature Granulocyte % (Auto) 0.0 % Immature Granulocyte # (Auto) 0.00 K/uL (0.00-0.02) Prothrombin Time 9.6 SECONDS (9.0-12.0) Prothromb Time International Ratio 0.9 (0.9-1.1) Anion Gap 13.0 mmol/L (3-11) Est Creatinine Clear Calc Drug Dose 50.4 ml/min Estimated GFR () 84.2 Estimated GFR (Non- 72.6 BUN/Creatinine Ratio 10.8 (10-20) Calcium Level 8.8 mg/dl (8.5-10.1) Magnesium Level 2.0 mg/dl (1.8-2.4) Total Bilirubin 0.6 mg/dl (0.2-1) Direct Bilirubin 0.4 mg/dl (0-0.2) Aspartate Amino Transf (AST/SGOT) 878 U/L (15-37) Alanine Aminotransferase (ALT/SGPT) 219 U/L (12-78) Alkaline Phosphatase 284 U/L (45-117) Troponin I < 0.015 ng/ml (0-0.045) Pro-B-Type Natriuretic Peptide 826 pg/ml (0-1800) Total Protein 7.7 gm/dl (6.4-8.2) Albumin 3.2 gm/dl (3.4-5.0) Lipase 609 U/L (73-393) Ethyl Alcohol mg/dL < 3.0 mg/dl (0-3) Laboratory results reviewed by me Medications Administered Medications (Trade) Dose Ordered Sig/Adolfo Route Start Time Stop Time Status Last Admin Dose Admin Fentanyl Citrate (Fentanyl Inj) 50 mcg NOW STAT IV 02/01/18 09:05 02/01/18 09:06 DC 02/01/18 11:14 50 MCG Ondansetron HCl (Zofran Inj) 4 mg NOW STAT IV 02/01/18 09:05 02/01/18 09:13 DC 02/01/18 09:51 4 MG Sodium Chloride 250 ml @ 999 mls/hr Q16M STAT IV 02/01/18 09:05 02/01/18 09:20 DC 02/01/18 09:51 999 MLS/HR Famotidine (Pepcid 20mg Iv Push) 20 mg ONE STAT IV 02/01/18 09:05 02/01/18 09:13 DC 02/01/18 09:51 20 MG Piperacillin Sod/ Tazobactam Sod (Zosyn Iv) 4.5 gm NOW STAT IV 02/01/18 10:56 02/01/18 10:57 DC 02/01/18 11:35 4.5 GM Sodium Chloride 1,000 ml @ 999 mls/hr Q1H1M STAT IV 02/01/18 12:27 02/01/18 13:27 DC 02/01/18 13:40 999 MLS/HR ECG Per My Interpretation Indication: abdominal pain Rate (beats per minute): 81 Rhythm: normal sinus Findings: no acute ischemic change, other (Normal axis) ED Course 0900: The patient was evaluated in room B10. A complete history and physical exam was performed. 1143: I reevaluated the patient who is resting comfortably. 1335: Upon reexamination, the patient will be further evaluated. I discussed the test results and treatment plan with him. The patient will be evaluated for further management. Medical Decision I reviewed the patient's past medical history, medications, and the nursing notes as described above. Differential diagnosis: Etiologies such as appendicitis, diverticulitis, PUD, biliary pathology, UTI, pancreatitis, obstruction, mesenteric ischemia, aortic pathology, infections, inflammatory bowel disease, renal colic, as well as others were entertained. The patient is a 69-year-old gentleman with a past medical history of CAD status post STEMI in July 2017 presents emergency department with acute onset abdominal pain with nausea and vomiting per hpi. On arrival, the patient is mild pain distress, afebrile tachypneic but otherwise stable vital signs. On exam, the patient has moderate epigastric and right upper quadrant tenderness to palpation with positive Souza sign. EKG unremarkable, without evidence for acute ischemia. Chest x-ray negative for pneumonia. Given the patient's initial evaluation with marginal abdominal tenderness due to his voluntary guarding CTA of the chest, abdomen pelvis performed which demonstrated gallbladder wall thickening of the gallbladder with gallbladder distention. However additional findings demonstrate multiple vascular ulcerative plaque formation in the descending thoracic aorta, as well as evidence of peripheral arterial disease in the inferior mesenteric artery as well as the right internal iliac artery and left internal iliac artery which were reviewed with radiology and given the patient's symptomatology we agree unlikely related to the patient's presentation as patient does not complain of any lower extremity symptoms. Formal gallbladder ultrasound further supports the likelihood of a calculus cholecystitis with distended and edematous gallbladder, although normal CBD. However, given the patient's new transaminitis, again a calculus cholecystitis is suspected. WBC 2.6. Lactate 4.7 however with anion gap of only 13. Creatinine within normal limits. Direct bilirubin 0.4, AST 878 ALT 219, alk phos 284. Lipase 600s. Otherwise, the patient's troponin was within normal limits. Given likely a calculus cholecystitis with the patient's elevated lactate patient was treated with Zosyn. Case was discussed with Dr. Rylan York hospitalist, who will evaluate the patient for admission. Additionally, case was discussed with JOSÉ MANUEL Gee and Dr. Hernandez, general surgery, and we agree symptoms likely consistent with a calculus cholecystitis. They agree with admission to medicine for medical management and they will plan for cholecystectomy likely tomorrow. Dr. Hernandez, and communication with Dr. Fajardo. Medication Reconcilliation Current Medication List: was personally reviewed by me Blood Pressure Screening Patient's blood pressure: Normal blood pressure Blood pressure disposition: Did not require urgent referral Consults Time Called: 1219 Consulting Physician: Dr. Tana York Hospitalist Returned Call: 1220 I discussed the patient with Dr. Tana York will evaluate the patient for further treatment. Additional Consults: Time Called: 1226 Consulted Physician: Iraida MEZA General Surgery Returned Call: 1228 Additional Comments: I discussed the patient with Iraida MEZA will evaluate the patient for further treatment. Time Called: 1321 Consulted Physician: Dr. David MEZA General Surgery Returned Call: 1323 Additional Comments: I discussed the patient with Dr. David MEZA will evaluate the patient for further treatment. Impression Primary Impression: Acalculous cholecystitis Scribe Attestation The scribe's documentation has been prepared under my direction and personally reviewed by me in its entirety. I confirm that the note above accurately reflects all work, treatment, procedures, and medical decision making performed by me. Departure Information Dispostion Being Evaluated By Hospitalist Vic Doan M.D. (PCP) Forms Call Back Authorization, HOME CARE DOCUMENTATION FORM, IMPORTANT VISIT INFORMATION Patient Instructions My [facility]
[2018-02-01] MEDS ORDERED: OPTIRAY 320 IV PRN (09:30)
[2018-02-01 09:33] LABS: BASO % 0.4 %; BASO ABS # 0.01 K/uL (0-0.2); EOS % 1.5 %; EOS ABS # 0.04 K/uL (0-0.5); HEMATOCRIT 38.6 % (42-52); HEMOGLOBIN 13.2 g/dL (14.0-18.0); LYMPH % 25.8 %; LYMPH ABS # 0.69 K/uL (1.2-3.4); MEAN CORPUSCULAR HEMOGLOBIN 33.2 pg (25-34); MEAN CORPUSCULAR HGB CONC 34.2 g/dl (32-36); MEAN PLATELET VOLUME 9.8 fL (7.4-10.4); MONO % 0.4 %; MONO ABS # 0.01 K/uL (0.11-0.59); NEUT % 71.9 %; NEUT ABS # 1.92 K/uL (1.4-6.5); PLATELET COUNT 222 K/uL (130-400); RED CELL DISTRIBUTION WIDTH CV 14.9 % (11.5-14.5); RED CELL DISTRIBUTION WIDTH SD 53.4 fL (36.4-46.3); WHITE BLOOD COUNT 2.67 K/uL (4.8-10.8)
[2018-02-01 09:48] LABS: ALBUMIN 3.2 gm/dl (3.4-5.0); ALKALINE PHOSPHATASE 284 U/L (45-117); ALT/SGPT 219 U/L (12-78); AST/SGOT 878 U/L (15-37); BLOOD UREA NITROGEN 11 mg/dl (7-18); CALCIUM 8.8 mg/dl (8.5-10.1); CARBON DIOXIDE 20 mmol/L (21-32); CREATININE 0.99 mg/dl (0.60-1.40); GLUCOSE 75 mg/dl (70-99); INR 0.9 (0.9-1.1); LIPASE 609 U/L (73-393); POTASSIUM 3.7 mmol/L (3.5-5.1); SODIUM 142 mmol/L (136-145); TOTAL PROTEIN 7.7 gm/dl (6.4-8.2)
--- NOTE | 2018-02-01 10:09 | DIAGNOSTIC IMAGING REPORT ---
CHEST COMBO ANGIO DISSECTION, ANGIO ABD/PELVIS WITH CONTRAST HISTORY: 77 years-old Male presents with acute generalized abdominal pain and vomiting with acute shortness of breath and chest pain. Concern for vascular etiology. COMPARISON: Chest radiograph of same day TECHNIQUE: CT angiography of the chest, abdomen and pelvis was obtained along the intravenous administration of 117 mL Optiray 320 IV contrast. 3-D coronal and sagittal MIPS were obtained from the axial data set and were submitted for review. All measurements were obtained according to NASCET criteria. A dose lowering technique was used consistent with the principals of LYNETTE. FINDINGS: CTA CHEST: Heart is normal in size. No pericardial effusion. Coronary arterial calcifications are noted. Calcifications of the aortic annulus also noted. The imaged great vessels appear to be patent. There is moderate to extensive mixed plaquing about the thoracic aorta. There is a focal area along the left posterior lateral aspect of the mid descending thoracic aorta, image 160 series 7 which extends for a length of 1.4 cm suggesting a ulcerative plaque or less likely a focal dissection flap. No thoracic aortic aneurysm. The pulmonary arterial tree is opacified to the segmental branches and demonstrates no focal filling defects to suggest pulmonary thromboembolic disease. CT CHEST: Thyroid is homogeneous. Calcified subcarinal lymph nodes compatible with prior granulomatous disease. Calcified granulomata about the lungs noted. No pneumothorax or pleural effusion. Subsegmental dependent groundglass opacities suggest atelectasis. Moderate upper lobe predominant centrilobular emphysema. Biapical pleural-parenchymal scarring. Mild bilateral bronchial wall thickening suggests bronchitis. There is minimal tree-in-bud nodularity about the apical posterior segment left upper lobe Soft tissues are unremarkable. Bones appear mildly demineralized. Degenerative changes of the shoulders and spine. CTA ABDOMEN/PELVIS: Extensive mixed plaquing about the abdominal aorta without aneurysm. There are several areas of high-grade stenosis of the left internal iliac artery secondary to mixed plaque formation. There is approximately 70% luminal narrowing of the right internal iliac artery secondary to mixed plaque formation. The common and external iliac arteries are widely patent. Bilateral common femoral arteries are patent. There is approximately 50% luminal narrowing involving the proximal aspect of the celiac trunk secondary to mixed plaque formation. Superior mesenteric artery appears patent. High-grade stenosis of the origin of the inferior mesenteric artery secondary to mixed plaque. Plaque formation at the origin of the renal arteries bilaterally without high-grade stenosis. CT ABDOMEN/PELVIS: There is mild wall thickening about the gallbladder with mild gallbladder distention. No definite cholelithiasis. Common bile duct measures 8 mm in diameter. No intrahepatic biliary ductal dilation. Calcified granulomata about the liver and spleen. Mild generalized pancreatic atrophy. Adrenal glands are unremarkable. Kidneys, ureters are unremarkable. Cervical ventral wall thickening of the bladder. IVC is unremarkable. No pathologically enlarged lymph nodes. Small sliding-type hiatal hernia. No bowel obstruction. Moderate stool volume about the rectum. There is circumferential wall thickening with partial distention involving the majority of the colon, notably within the sigmoid. No pericolonic inflammation. Colonic diverticulosis without diverticulitis. No ascites or mesenteric inflammation. Soft tissues are within normal limits. Bones appear intact. Prior laminectomy with discectomy and posterior interbody ivis and screw fusion at L5-S1. Demineralized appearance of the bones. Degenerative changes about the bilateral hips. Right femoral head avascular necrosis. IMPRESSION: 1. Extensive mixed atheromatous and atherosclerotic plaquing about the thoracic and abdominal aorta and branch vessels. There is a 1.4 cm area of ulcerative plaque formation or less likely focal dissection involving the descending thoracic aorta. No aortic aneurysm. 2. High-grade narrowing at the origin of the inferior mesenteric artery with approximately 50% stenosis at the proximal celiac trunk secondary to mixed plaque formation. 3. Approximately 70% luminal narrowing of the right internal iliac artery with multifocal high-grade stenosis about the left internal iliac artery secondary to atheromatous and atherosclerotic plaque. 4. Mild wall thickening throughout the majority of the colon is likely secondary to partial distention with a mild colitis thought to be less likely. 5. Colonic diverticulosis without diverticulitis. 6. Mild wall thickening of the gallbladder with gallbladder distention. This could be correlated with right upper quadrant ultrasound. 7. Additional findings as above. The above report was generated using voice recognition software. It may contain grammatical, syntax or spelling errors. Electronically signed by: Mariano Nickerson M.D. 02/01/2018 10:08 AM Dictated Date/Time: 02/01/2018 9:48 AM
--- NOTE | 2018-02-01 10:19 | DIAGNOSTIC IMAGING REPORT ---
CHEST ONE VIEW PORTABLE HISTORY: 77 years-old Male CHEST PAIN acute atypical chest pain COMPARISON: CTA of same day, chest radiograph 07/23/2017 TECHNIQUE: Portable AP view of the chest FINDINGS: Cardiac silhouette is normal in size. Calcification of the aorta. Emphysema with chronic interstitial coarsening. No pneumothorax, pleural effusion, focal airspace consolidation or overt pulmonary edema. Degenerative changes of the shoulders and spine. IMPRESSION: 1. No acute process. 2. Emphysema with chronic interstitial coarsening. The above report was generated using voice recognition software. It may contain grammatical, syntax or spelling errors. Electronically signed by: Mariano Nickerson M.D. 02/01/2018 10:18 AM Dictated Date/Time: 02/01/2018 10:17 AM
[2018-02-01] MEDS ORDERED: ASPI81TA28 PO (10:33)
[2018-02-01] MEDS ORDERED: CLOP1TAB15 PO (10:37)
[2018-02-01] MEDS ORDERED: PIPERACILLIN/TAZOBACTAM 4.5 GM/100ML D5W IV STA (10:56)
--- NOTE | 2018-02-01 11:36 | DIAGNOSTIC IMAGING REPORT ---
GALLBLADDER-ABD LIMITED HISTORY: 77 years-old Male RUQ pain acute right upper quadrant abdominal pain COMPARISON: CTA of same day TECHNIQUE: Multiple real-time sonographic images of the abdominal right upper quadrant were obtained assessing grayscale appearance and color flow FINDINGS: The visualized pancreas appears unremarkable. Pancreatic duct measures in the upper limits of normal at 3 mm. The liver demonstrates mildly increased echogenicity without focal mass or intrahepatic biliary ductal dilation. There are a few scattered calcified granulomata about the liver. Common bile duct measures 8 mm. Layering gallbladder sludge without shadowing cholelithiasis. Thickened gallbladder wall measures up to 6 mm and appears edematous. Gallbladder distention. No definite pericholecystic fluid. Sonographic Souza sign reported as negative. The imaged right kidney is unremarkable without hydronephrosis. IMPRESSION: 1. Distended gallbladder with layering gallbladder sludge and edematous wall thickening is noted without pericholecystic fluid, shadowing cholelithiasis or positive sonographic Souza's sign. These findings are nonspecific. Correlate clinically to exclude acalculus cholecystitis. 2. Common bile duct measures 8 mm, upper limits of normal in size for patient age. 3. Calcified granulomata about the liver redemonstrated. The above report was generated using voice recognition software. It may contain grammatical, syntax or spelling errors. Electronically signed by: Mariano Nickerson M.D. 02/01/2018 11:35 AM Dictated Date/Time: 02/01/2018 11:31 AM
[2018-02-01] MEDS ORDERED: SODIUM CHLORIDE 0.9% 1000ML 1,000 ML IV STA (12:27)
--- NOTE | 2018-02-01 13:49 | Medical Consult ---
Consultation Date of Consultation: Feb 01, 2018. Attending Physician: History of Present Illness to ER w/ abd pain, nausea, sob- feeling better now w/u shows distended gallbladder w/ sludge, positive Souza's sign elevated ast/alt, lipase Past Medical/Surgical History Medical Problems: (1) ACS (acute coronary syndrome) Status: Acute (2) CAD (coronary artery disease) Status: Acute Surgical Problems: (1) Post PTCA Status: Acute (2) S/P cardiac catheterization Status: Acute Social History Smoking Status: Current Every Day Smoker Drug Use: none Marital Status: Housing Status: lives alone Occupation Status: retired Allergies Coded Allergies: No Known Allergies (Verified , 02/01/18) Current Inpatient Medications Current Inpatient Medications Medications (Trade) Dose Ordered Sig/Adolfo Route Start Time Stop Time Status Last Admin Dose Admin Ioversol (Optiray 320) 100 ml UD PRN IV 02/01/18 09:30 02/05/18 09:29 Review of Systems Constitutional: No fever, No chills Respiratory: + shortness of breath, No cough, No sputum Cardiovascular: No chest pain Abdomen: + pain, + nausea, + vomiting Genitourinary - Male: No dysuria Endocrine: + fatigue Physical Exam Date Time Temp Pulse Resp B/P (MAP) Pulse Ox O2 Delivery O2 Flow Rate FiO2 02/01/18 12:01 88 20 107/54 92 Room Air 02/01/18 11:37 85 20 105/54 92 Room Air 02/01/18 11:00 70 16 102/49 98 Room Air 02/01/18 09:18 81 02/01/18 09:07 98 Room Air 02/01/18 08:53 36.5 65 26 121/51 93 Room Air General Appearance: no apparent distress Eyes: sclerae normal Neck: supple Respiratory/Chest: no respiratory distress Abdomen/GI: soft, + tenderness (ruq) Back: normal inspection Neurologic/Psych: alert Skin: warm/dry Laboratory Results Last 24 Hours Test 02/01/18 09:10 02/01/18 10:21 02/01/18 12:36 White Blood Count 2.67 K/uL Red Blood Count 3.98 M/uL Hemoglobin 13.2 g/dL Hematocrit 38.6 % Mean Corpuscular Volume 97.0 fL Mean Corpuscular Hemoglobin 33.2 pg Mean Corpuscular Hemoglobin Concent 34.2 g/dl Platelet Count 222 K/uL Mean Platelet Volume 9.8 fL Neutrophils (%) (Auto) 71.9 % Lymphocytes (%) (Auto) 25.8 % Monocytes (%) (Auto) 0.4 % Eosinophils (%) (Auto) 1.5 % Basophils (%) (Auto) 0.4 % Neutrophils # (Auto) 1.92 K/uL Lymphocytes # (Auto) 0.69 K/uL Monocytes # (Auto) 0.01 K/uL Eosinophils # (Auto) 0.04 K/uL Basophils # (Auto) 0.01 K/uL RDW Standard Deviation 53.4 fL RDW Coefficient of Variation 14.9 % Immature Granulocyte % (Auto) 0.0 % Immature Granulocyte # (Auto) 0.00 K/uL Prothrombin Time 9.6 SECONDS Prothromb Time International Ratio 0.9 Sodium Level 142 mmol/L Potassium Level 3.7 mmol/L Chloride Level 109 mmol/L Carbon Dioxide Level 20 mmol/L Anion Gap 13.0 mmol/L Blood Urea Nitrogen 11 mg/dl Creatinine 0.99 mg/dl Est Creatinine Clear Calc Drug Dose 50.4 ml/min Estimated GFR () 84.2 Estimated GFR (Non- 72.6 BUN/Creatinine Ratio 10.8 Random Glucose 75 mg/dl Calcium Level 8.8 mg/dl Magnesium Level 2.0 mg/dl Total Bilirubin 0.6 mg/dl Direct Bilirubin 0.4 mg/dl Aspartate Amino Transf (AST/SGOT) 878 U/L Alanine Aminotransferase (ALT/SGPT) 219 U/L Alkaline Phosphatase 284 U/L Troponin I < 0.015 ng/ml Pro-B-Type Natriuretic Peptide 826 pg/ml Total Protein 7.7 gm/dl Albumin 3.2 gm/dl Lipase 609 U/L Lactic Acid Level 4.7 mmol/L Ethyl Alcohol mg/dL < 3.0 mg/dl Assessment & Plan 02/01/18- I suspect sxs are from biliary colic , stasis and mild cholecystitis concern would be developing necrotizing cholecystitis. Pt sob on adm to ER has signif cardiac hx- 2 stents- on asa, plavix. Will proceed with lap vianca , possible cholangiogram tomorrow if medically stable
[2018-02-01] MEDS ORDERED: OMEP40CA41 PO (14:22)
[2018-02-01] MEDS ORDERED: RANI150T85 PO (14:22)
[2018-02-01] MEDS ORDERED: PIPERACILL/TAZOBAC CONSULT ACTIVE PRN (14:30)
--- NOTE | 2018-02-01 14:32 | History and Physical ---
History & Physical Date & Time of Service: Feb 01, 2018 at 14:31 Chief Complaint: Abdominal Pain Primary Care Physician: Vic Gordon M.D. History of Present Illness Source: patient, family, clinic records, hospital records 77 year old male with PMH of HTN, CAD s/p 2 drug eluting stents and LA in 07/31 presents to the Emergency Room with complaints of diffuse abdominal that started early this morning. Pt said that he had 4 beers around 1 am and took his med around 3 am, he said that around 5 am he woke with severe diffuse abdominal pain that pain that radiating to his back.describes the pain as sharp, 10/10 and constant. Pt said that he had 2 episodes of vomiting associated with nausea prior coming to the hospital. He said that he had SOB but seems to be his baseline as per family. He had a normal BM about 20 minutes ago. Pt was admitting in the hospital back in July for acute LA and had cardiac cath done with 2 drug-eluting stents in RCA. He has been on dual platelet therapy. He continues to smoke and drink about 4 beers daily. Gallbladder u/s done in the ER showed distended gallbladder with layering gallbladder sludge and edematous wall thickening. Currently pt said that he feels much better after receiving the pain med. He said that he is hungry. Denies any chest pain, palpitation, fever, chills and dizziness. Past Medical/Surgical History Medical Problems: (1) ACS (acute coronary syndrome) (2) CAD (coronary artery disease) (3) Coronary artery disease (4) GERD (gastroesophageal reflux disease) (5) Hypertension (6) Presence of stent in coronary artery in patient with coronary artery disease (7) Tobacco use disorder Surgical Problems: (1) Post PTCA (2) S/P cardiac catheterization (3) Status post cardiac catheterization (4) Status post placement of stent in right coronary artery Social History Smoking Status: Current Every Day Smoker Drug Use: none Marital Status: Housing status: lives with significant other Occupational Status: retired Immunizations History of Tetanus Vaccine?: Yes History of Pneumococcal: Unknown History of Hepatitis B Vaccine: Unknown Allergies Coded Allergies: No Known Allergies (Verified , 02/01/18) Home Medications Scheduled Aspirin (Aspirin Ec), 81 MG PO DAILY Atorvastatin (Lipitor), 80 MG PO DAILY Clopidogrel (Plavix), 75 MG PO DAILY Lisinopril (Lisinopril), 5 MG PO QAM Metoprolol Tartrate (Lopressor), 25 MG PO BID Omeprazole (Prilosec), 40 MG PO DAILY Ranitidine (Zantac), 150 MG PO BID Scheduled PRN Nitroglycerin (Nitrostat), 0.4 MG SL UD PRN for Chest Pain Review of Systems Constitutional: No fever, No chills Eyes: No discharge, No diplopia ENT: No nasal symptoms, No sore throat Respiratory: + shortness of breath, No cough, No sputum Cardiovascular: No chest pain, No palpitations Abdomen: + pain, + nausea, + vomiting Musculoskeletal: No calf pain Genitourinary - Male: No hematuria Neurologic: No paralysis Psychiatric: No substance abuse Endocrine: No fatigue Hematologic / Lymphatic: No abnormal bleeding/bruising Integumentary: No rash, No itch Physical Exam Vital Signs Date Time Temp Pulse Resp B/P (MAP) Pulse Ox O2 Delivery O2 Flow Rate FiO2 02/01/18 14:08 90 02/01/18 13:42 92 20 111/58 94 Room Air 02/01/18 12:01 88 20 107/54 92 Room Air 02/01/18 11:37 85 20 105/54 92 Room Air 02/01/18 11:00 70 16 102/49 98 Room Air 02/01/18 09:18 81 02/01/18 09:07 98 Room Air 02/01/18 08:53 36.5 65 26 121/51 93 Room Air General Appearance: WD/WN, no apparent distress Head: normocephalic, atraumatic Eyes: PERRL, EOMI ENT: hearing grossly normal Neck: no JVD, trachea midline Respiratory/Chest: chest non-tender, lungs clear, no respiratory distress, no accessory muscle use Cardiovascular: no edema, no JVD, no murmur Abdomen/GI: normal bowel sounds, non tender Back: no CVA tenderness Extremities/Musculoskelatal: no calf tenderness Neurologic/Psych: no motor/sensory deficits, alert, normal mood/affect Skin: warm/dry, no rash Diagnostics Laboratory Results Results Past 24 Hours Test 02/01/18 09:10 02/01/18 10:21 02/01/18 12:36 Range/Units White Blood Count 2.67 4.8-10.8 K/uL Red Blood Count 3.98 4.7-6.1 M/uL Hemoglobin 13.2 14.0-18.0 g/dL Hematocrit 38.6 42-52 % Mean Corpuscular Volume 97.0 80-100 fL Mean Corpuscular Hemoglobin 33.2 25-34 pg Mean Corpuscular Hemoglobin Concent 34.2 32-36 g/dl Platelet Count 222 130-400 K/uL Mean Platelet Volume 9.8 7.4-10.4 fL Neutrophils (%) (Auto) 71.9 % Lymphocytes (%) (Auto) 25.8 % Monocytes (%) (Auto) 0.4 % Eosinophils (%) (Auto) 1.5 % Basophils (%) (Auto) 0.4 % Neutrophils # (Auto) 1.92 1.4-6.5 K/uL Lymphocytes # (Auto) 0.69 1.2-3.4 K/uL Monocytes # (Auto) 0.01 0.11-0.59 K/uL Eosinophils # (Auto) 0.04 0-0.5 K/uL Basophils # (Auto) 0.01 0-0.2 K/uL RDW Standard Deviation 53.4 36.4-46.3 fL RDW Coefficient of Variation 14.9 11.5-14.5 % Immature Granulocyte % (Auto) 0.0 % Immature Granulocyte # (Auto) 0.00 0.00-0.02 K/uL Prothrombin Time 9.6 9.0-12.0 SECONDS Prothromb Time International Ratio 0.9 0.9-1.1 Sodium Level 142 136-145 mmol/L Potassium Level 3.7 3.5-5.1 mmol/L Chloride Level 109 98-107 mmol/L Carbon Dioxide Level 20 21-32 mmol/L Anion Gap 13.0 3-11 mmol/L Blood Urea Nitrogen 11 7-18 mg/dl Creatinine 0.99 0.60-1.40 mg/dl Est Creatinine Clear Calc Drug Dose 50.4 ml/min Estimated GFR () 84.2 Estimated GFR (Non- 72.6 BUN/Creatinine Ratio 10.8 10-20 Random Glucose 75 70-99 mg/dl Calcium Level 8.8 8.5-10.1 mg/dl Magnesium Level 2.0 1.8-2.4 mg/dl Total Bilirubin 0.6 0.2-1 mg/dl Direct Bilirubin 0.4 0-0.2 mg/dl Aspartate Amino Transf (AST/SGOT) 878 15-37 U/L Alanine Aminotransferase (ALT/SGPT) 219 12-78 U/L Alkaline Phosphatase 284 45-117 U/L Troponin I < 0.015 0-0.045 ng/ml Pro-B-Type Natriuretic Peptide 826 0-1800 pg/ml Total Protein 7.7 6.4-8.2 gm/dl Albumin 3.2 3.4-5.0 gm/dl Lipase 609 73-393 U/L Lactic Acid Level 4.7 0.4-2.0 mmol/L Ethyl Alcohol mg/dL < 3.0 0-3 mg/dl Diagnostic Radiology GALLBLADDER-ABD LIMITED HISTORY: 77 years-old Male RUQ pain acute right upper quadrant abdominal pain COMPARISON: CTA of same day TECHNIQUE: Multiple real-time sonographic images of the abdominal right upper quadrant were obtained assessing grayscale appearance and color flow FINDINGS: The visualized pancreas appears unremarkable. Pancreatic duct measures in the upper limits of normal at 3 mm. The liver demonstrates mildly increased echogenicity without focal mass or intrahepatic biliary ductal dilation. There are a few scattered calcified granulomata about the liver. Common bile duct measures 8 mm. Layering gallbladder sludge without shadowing cholelithiasis. Thickened gallbladder wall measures up to 6 mm and appears edematous. Gallbladder distention. No definite pericholecystic fluid. Sonographic Souza sign reported as negative. The imaged right kidney is unremarkable without hydronephrosis. IMPRESSION: 1. Distended gallbladder with layering gallbladder sludge and edematous wall thickening is noted without pericholecystic fluid, shadowing cholelithiasis or positive sonographic Souza's sign. These findings are nonspecific. Correlate clinically to exclude acalculus cholecystitis. 2. Common bile duct measures 8 mm, upper limits of normal in size for patient age. 3. Calcified granulomata about the liver redemonstrated. The above report was generated using voice recognition software. It may contain grammatical, syntax or spelling errors. Electronically signed by: Mariano Nickerson M.D. 02/01/2018 11:35 AM Dictated Date/Time: 02/01/2018 11:31 AM [~ rep ct add3]] CHEST COMBO ANGIO DISSECTION, ANGIO ABD/PELVIS WITH CONTRAST HISTORY: 77 years-old Male presents with acute generalized abdominal pain and vomiting with acute shortness of breath and chest pain. Concern for vascular etiology. COMPARISON: Chest radiograph of same day TECHNIQUE: CT angiography of the chest, abdomen and pelvis was obtained along the intravenous administration of 117 mL Optiray 320 IV contrast. 3-D coronal and sagittal MIPS were obtained from the axial data set and were submitted for review. All measurements were obtained according to NASCET criteria. A dose lowering technique was used consistent with the principals of LYNETTE. FINDINGS: CTA CHEST: Heart is normal in size. No pericardial effusion. Coronary arterial calcifications are noted. Calcifications of the aortic annulus also noted. The imaged great vessels appear to be patent. There is moderate to extensive mixed plaquing about the thoracic aorta. There is a focal area along the left posterior lateral aspect of the mid descending thoracic aorta, image 160 series 7 which extends for a length of 1.4 cm suggesting a ulcerative plaque or less likely a focal dissection flap. No thoracic aortic aneurysm. The pulmonary arterial tree is opacified to the segmental branches and demonstrates no focal filling defects to suggest pulmonary thromboembolic disease. CT CHEST: Thyroid is homogeneous. Calcified subcarinal lymph nodes compatible with prior granulomatous disease. Calcified granulomata about the lungs noted. No pneumothorax or pleural effusion. Subsegmental dependent groundglass opacities suggest atelectasis. Moderate upper lobe predominant centrilobular emphysema. Biapical pleural-parenchymal scarring. Mild bilateral bronchial wall thickening suggests bronchitis. There is minimal tree-in-bud nodularity about the apical posterior segment left upper lobe Soft tissues are unremarkable. Bones appear mildly demineralized. Degenerative changes of the shoulders and spine. CTA ABDOMEN/PELVIS: Extensive mixed plaquing about the abdominal aorta without aneurysm. There are several areas of high-grade stenosis of the left internal iliac artery secondary to mixed plaque formation. There is approximately 70% luminal narrowing of the right internal iliac artery secondary to mixed plaque formation. The common and external iliac arteries are widely patent. Bilateral common femoral arteries are patent. There is approximately 50% luminal narrowing involving the proximal aspect of the celiac trunk secondary to mixed plaque formation. Superior mesenteric artery appears patent. High-grade stenosis of the origin of the inferior mesenteric artery secondary to mixed plaque. Plaque formation at the origin of the renal arteries bilaterally without high-grade stenosis. CT ABDOMEN/PELVIS: There is mild wall thickening about the gallbladder with mild gallbladder distention. No definite cholelithiasis. Common bile duct measures 8 mm in diameter. No intrahepatic biliary ductal dilation. Calcified granulomata about the liver and spleen. Mild generalized pancreatic atrophy. Adrenal glands are unremarkable. Kidneys, ureters are unremarkable. Cervical ventral wall thickening of the bladder. IVC is unremarkable. No pathologically enlarged lymph nodes. Small sliding-type hiatal hernia. No bowel obstruction. Moderate stool volume about the rectum. There is circumferential wall thickening with partial distention involving the majority of the colon, notably within the sigmoid. No pericolonic inflammation. Colonic diverticulosis without diverticulitis. No ascites or mesenteric inflammation. Soft tissues are within normal limits. Bones appear intact. Prior laminectomy with discectomy and posterior interbody ivis and screw fusion at L5-S1. Demineralized appearance of the bones. Degenerative changes about the bilateral hips. Right femoral head avascular necrosis. IMPRESSION: 1. Extensive mixed atheromatous and atherosclerotic plaquing about the thoracic and abdominal aorta and branch vessels. There is a 1.4 cm area of ulcerative plaque formation or less likely focal dissection involving the descending thoracic aorta. No aortic aneurysm. 2. High-grade narrowing at the origin of the inferior mesenteric artery with approximately 50% stenosis at the proximal celiac trunk secondary to mixed plaque formation. 3. Approximately 70% luminal narrowing of the right internal iliac artery with multifocal high-grade stenosis about the left internal iliac artery secondary to atheromatous and atherosclerotic plaque. 4. Mild wall thickening throughout the majority of the colon is likely secondary to partial distention with a mild colitis thought to be less likely. 5. Colonic diverticulosis without diverticulitis. 6. Mild wall thickening of the gallbladder with gallbladder distention. This could be correlated with right upper quadrant ultrasound. 7. Additional findings as above. The above report was generated using voice recognition software. It may contain grammatical, syntax or spelling errors. Electronically signed by: Mariano Nickerson M.D. 02/01/2018 10:08 AM Dictated Date/Time: 02/01/2018 9:48 AM CHEST COMBO ANGIO DISSECTION, ANGIO ABD/PELVIS WITH CONTRAST HISTORY: 77 years-old Male presents with acute generalized abdominal pain and vomiting with acute shortness of breath and chest pain. Concern for vascular etiology. COMPARISON: Chest radiograph of same day TECHNIQUE: CT angiography of the chest, abdomen and pelvis was obtained along the intravenous administration of 117 mL Optiray 320 IV contrast. 3-D coronal and sagittal MIPS were obtained from the axial data set and were submitted for review. All measurements were obtained according to NASCET criteria. A dose lowering technique was used consistent with the principals of LYNETTE. FINDINGS: CTA CHEST: Heart is normal in size. No pericardial effusion. Coronary arterial calcifications are noted. Calcifications of the aortic annulus also noted. The imaged great vessels appear to be patent. There is moderate to extensive mixed plaquing about the thoracic aorta. There is a focal area along the left posterior lateral aspect of the mid descending thoracic aorta, image 160 series 7 which extends for a length of 1.4 cm suggesting a ulcerative plaque or less likely a focal dissection flap. No thoracic aortic aneurysm. The pulmonary arterial tree is opacified to the segmental branches and demonstrates no focal filling defects to suggest pulmonary thromboembolic disease. CT CHEST: Thyroid is homogeneous. Calcified subcarinal lymph nodes compatible with prior granulomatous disease. Calcified granulomata about the lungs noted. No pneumothorax or pleural effusion. Subsegmental dependent groundglass opacities suggest atelectasis. Moderate upper lobe predominant centrilobular emphysema. Biapical pleural-parenchymal scarring. Mild bilateral bronchial wall thickening suggests bronchitis. There is minimal tree-in-bud nodularity about the apical posterior segment left upper lobe Soft tissues are unremarkable. Bones appear mildly demineralized. Degenerative changes of the shoulders and spine. CTA ABDOMEN/PELVIS: Extensive mixed plaquing about the abdominal aorta without aneurysm. There are several areas of high-grade stenosis of the left internal iliac artery secondary to mixed plaque formation. There is approximately 70% luminal narrowing of the right internal iliac artery secondary to mixed plaque formation. The common and external iliac arteries are widely patent. Bilateral common femoral arteries are patent. There is approximately 50% luminal narrowing involving the proximal aspect of the celiac trunk secondary to mixed plaque formation. Superior mesenteric artery appears patent. High-grade stenosis of the origin of the inferior mesenteric artery secondary to mixed plaque. Plaque formation at the origin of the renal arteries bilaterally without high-grade stenosis. CT ABDOMEN/PELVIS: There is mild wall thickening about the gallbladder with mild gallbladder distention. No definite cholelithiasis. Common bile duct measures 8 mm in diameter. No intrahepatic biliary ductal dilation. Calcified granulomata about the liver and spleen. Mild generalized pancreatic atrophy. Adrenal glands are unremarkable. Kidneys, ureters are unremarkable. Cervical ventral wall thickening of the bladder. IVC is unremarkable. No pathologically enlarged lymph nodes. Small sliding-type hiatal hernia. No bowel obstruction. Moderate stool volume about the rectum. There is circumferential wall thickening with partial distention involving the majority of the colon, notably within the sigmoid. No pericolonic inflammation. Colonic diverticulosis without diverticulitis. No ascites or mesenteric inflammation. Soft tissues are within normal limits. Bones appear intact. Prior laminectomy with discectomy and posterior interbody ivis and screw fusion at L5-S1. Demineralized appearance of the bones. Degenerative changes about the bilateral hips. Right femoral head avascular necrosis. IMPRESSION: 1. Extensive mixed atheromatous and atherosclerotic plaquing about the thoracic and abdominal aorta and branch vessels. There is a 1.4 cm area of ulcerative plaque formation or less likely focal dissection involving the descending thoracic aorta. No aortic aneurysm. 2. High-grade narrowing at the origin of the inferior mesenteric artery with approximately 50% stenosis at the proximal celiac trunk secondary to mixed plaque formation. 3. Approximately 70% luminal narrowing of the right internal iliac artery with multifocal high-grade stenosis about the left internal iliac artery secondary to atheromatous and atherosclerotic plaque. 4. Mild wall thickening throughout the majority of the colon is likely secondary to partial distention with a mild colitis thought to be less likely. 5. Colonic diverticulosis without diverticulitis. 6. Mild wall thickening of the gallbladder with gallbladder distention. This could be correlated with right upper quadrant ultrasound. 7. Additional findings as above. The above report was generated using voice recognition software. It may contain grammatical, syntax or spelling errors. Electronically signed by: Mariano Nickerson M.D. 02/01/2018 10:08 AM Dictated Date/Time: 02/01/2018 9:48 AM CHEST ONE VIEW PORTABLE HISTORY: 77 years-old Male CHEST PAIN acute atypical chest pain COMPARISON: CTA of same day, chest radiograph 07/23/2017 TECHNIQUE: Portable AP view of the chest FINDINGS: Cardiac silhouette is normal in size. Calcification of the aorta. Emphysema with chronic interstitial coarsening. No pneumothorax, pleural effusion, focal airspace consolidation or overt pulmonary edema. Degenerative changes of the shoulders and spine. IMPRESSION: 1. No acute process. 2. Emphysema with chronic interstitial coarsening. The above report was generated using voice recognition software. It may contain grammatical, syntax or spelling errors. Electronically signed by: Mariano Nickerson M.D. 02/01/2018 10:18 AM Dictated Date/Time: 02/01/2018 10:17 AM Impression Assessment and Plan Acute Acalculus Cholecystitis. Present with severe diffused abdominal pain Gallbladder u/s showed Distended gallbladder with layering gallbladder sludge and edematous wall thickening is noted without pericholecystic fluid Lipase 609, AST 878 and ALT 219 Lactic acid elevated Received fentanyl in the ER Continue Zofran and pain control Received IV zosyn in the ER Continue IVF Will continue zosyn Surgery on board Plan to have laparoscopic cholecystectomy tomorrow High risks candidate for the surgery due to his recent LA with 2 drug-eluting stents placed in RCA back in July Currently denies any chest pain Troponin negative EKG showed no ischemic changes Case discussed with Surgery and plan to have the procedure done while he is on Plavix and aspirin Pt understands the surgical risk such as bleeding, LA and even Will proceed with gallbladder removal in am if stable Elevated liver Enzymes AST 878 and ALT 219 Possible related to acute cholecystitis. Will avoid hepatotoxic agents Will hold statins Monitor liver enzymes Elevated Lactic acid Possible due to acute illness and dehydration Afebrile No signs of infection Continue IVF Repeat Lactic acid Continue Zosyn IV CAD Recent LA in July S/P 2 drug-eluting stents placed in RCA Continue Plavix, aspirin and metoprolol Statin on hold due to elevate liver enzymes Asymptomatic ECHO on 02/01 showed * 1. Normal LV size. Borderline concentric LVH. * 2. Normal LV systolic function. LVEF 65-70 %. No regional wall motion abnormalities. Grade 1 diastolic dysfunction. * 3. Normal RV size with borderline RV function. * 4. No significant valvular pathology. * 5. Normal estimated PA and RA pressures. Tobacco abuse Counseling on smoking cessation Alcohol abuse No history of withdrawn Will monitor for signs of withdrawn Counseling on alcohol cessation Vascular disease CTA showed Extensive mixed atheromatous and atherosclerotic plaquing about the thoracic and abdominal aorta and branch vessels. High-grade narrowing at the origin of the inferior mesenteric artery with approximately 50% stenosis at the proximal Approximately 70% luminal narrowing of the right internal iliac artery with multifocal high-grade stenosis about the left internal iliac artery. Will consult vascular Hypertension Continue metoprolol Will hold Lisinopril since pt plan to go to surgery in am VTE PROPHYLAXIS On SCDs (Plan to go for Surgery) CODE STATUS FULL CODE Resuscitation Status VTE Prophylaxis Will order VTE Prophylaxis: Yes
[2018-02-01 14:55] VITALS: O2SAT 99; BMI 18.9
[2018-02-01 16:25] VITALS: BP 118/62; PULSE 59; TEMP 37.8; O2SAT 99
[2018-02-01 17:00] VITALS: BP 118/62; PULSE 59; TEMP 37.8; Ht 175.3 cm; Wt 61.4 kg
[2018-02-01] MEDS: SODIUM CHLORIDE 0.9% 1000ML 1,000 ML IV SCH (17:24)
[2018-02-01] MEDS: PIPERACILL/TAZOBAC IV 3.375 GM in DEXTROSE 5% 100ML 100 ML IV SCH (17:24)
[2018-02-01] MEDS ORDERED: PIPERACILL/TAZOBAC IV 3.375 GM in DEXTROSE 5% 100ML 100 ML IV SCH (18:00)
[2018-02-01] MEDS: METOPROLOL TARTRATE 25 MG TAB PO SCH (21:29)
[2018-02-01 22:57] VITALS: BP 129/65; PULSE 72; TEMP 37.5; O2SAT 89
[2018-02-02] VITALS (8 sets, daily range): BP systolic 119–145; BP diastolic 51–75; PULSE 59–71; TEMP 36.4–37.6; O2SAT 90–100
[2018-02-02] MEDS: PIPERACILL/TAZOBAC IV 3.375 GM in DEXTROSE 5% 100ML 100 ML IV SCH ×3 (02:19→18:48)
--- NOTE | 2018-02-02 07:16 | History & Physical Bridge Note ---
H&P Re-Evaluation Bridge Note: I have examined the patient, reviewed the History & Physical and in the interval since the performance of the History & Physical I have noted the following changes of clinical significance: No changes noted for OR this am
[2018-02-02 07:34] LABS: HEMATOCRIT 28.4 % (42-52); HEMOGLOBIN 9.8 g/dL (14.0-18.0); MEAN CORPUSCULAR HEMOGLOBIN 32.8 pg (25-34); MEAN CORPUSCULAR HGB CONC 34.5 g/dl (32-36); MEAN PLATELET VOLUME 10.3 fL (7.4-10.4); PLATELET COUNT 143 K/uL (130-400); RED CELL DISTRIBUTION WIDTH CV 15.5 % (11.5-14.5); RED CELL DISTRIBUTION WIDTH SD 53.4 fL (36.4-46.3); WHITE BLOOD COUNT 9.73 K/uL (4.8-10.8)
[2018-02-02 07:51] LABS: ALBUMIN 2.1 gm/dl (3.4-5.0); CALCIUM 7.5 mg/dl (8.5-10.1); CREATININE 1.04 mg/dl (0.60-1.40); POTASSIUM 3.7 mmol/L (3.5-5.1); TOTAL PROTEIN 5.5 gm/dl (6.4-8.2)
[2018-02-02] MEDS ORDERED: PANTOprazole SOD 40 MG TAB PO SCH (09:00)
[2018-02-02] MEDS: METOPROLOL TARTRATE 25 MG TAB PO SCH ×2 (09:03→21:15)
[2018-02-02] MEDS: CLOPIDOGREL BISULFATE 75 MG TAB PO SCH (09:04)
[2018-02-02] MEDS: ASPIRIN 81 MG ECTAB PO SCH (09:04)
[2018-02-02] MEDS: PANTOprazole SOD 40 MG TAB PO SCH (09:04)
[2018-02-02 09:07] LABS: HEMATOCRIT 28.6 % (42-52); HEMOGLOBIN 9.9 g/dL (14.0-18.0)
[2018-02-02] MEDS ORDERED: CONRAY 60% 50 ML VIAL ONE (09:30)
[2018-02-02] MEDS ORDERED: BUPIVACAINE 0.5 % 5 MG/1 ML PF 10ML VIAL ONE (09:30)
[2018-02-02] MEDS ORDERED: NEOSTIGMINE METHYLSULFATE 5 MG/5 ML SYR ONE (09:39)
[2018-02-02] MEDS ORDERED: DEXAMETHASONE SOD INJ 4 MG/ML VIAL ONE (09:39)
[2018-02-02] MEDS ORDERED: MIDAZOLAM HCL 1 MG/ML 2ML VIAL ONE (09:39)
[2018-02-02] MEDS ORDERED: LIDOCAINE HCL 2% 2 ML VIAL (20MG/ML) ONE (09:39)
[2018-02-02] MEDS ORDERED: ONDANSETRON INJ 2 MG/ML 2 ML VIAL ONE (09:39)
[2018-02-02] MEDS ORDERED: PHENYLEPHRINE HCL INJ 10 MG/ML VIAL ONE (09:39)
[2018-02-02] MEDS ORDERED: EpHEDrine SULFATE INJ 50 MG/ML AMP ONE (09:39)
[2018-02-02] MEDS ORDERED: SUCCINYLCHOLINE CHLORIDE 20 MG/ML 10 ML VIAL IV ONE (09:39)
[2018-02-02] MEDS ORDERED: GLYCOPYRROLATE INJ 0.2 MG/ML VIAL ONE (09:39)
[2018-02-02] MEDS ORDERED: PROPOFOL IV EMULSION 10 MG/ML 20 ML VIAL ONE (09:39)
[2018-02-02] MEDS ORDERED: FENTANYL CITRATE INJ 50 MCG/1 ML 2 ML VIAL ONE ×2 (09:40)
[2018-02-02] MEDS ORDERED: ATROPINE SULFATE 0.1 MG/ML 5ML SYR IV PRN (10:00)
[2018-02-02] MEDS ORDERED: EpHEDrine SULFATE INJ 50 MG/ML AMP IV PRN (10:00)
[2018-02-02] MEDS ORDERED: FENTANYL CITRATE INJ 50 MCG/1 ML 2 ML VIAL IV PRN (10:00)
[2018-02-02] MEDS ORDERED: ONDANSETRON INJ 2 MG/ML 2 ML VIAL IV PRN (10:00)
[2018-02-02] MEDS ORDERED: FLOSEAL HEMOSTATIC MATRIX 5ML TOP ONE (10:37)
[2018-02-02] MEDS ORDERED: ROCURONIUM BROMIDE 10 MG/ML 5 ML VIAL ONE (10:39)
--- NOTE | 2018-02-02 10:52 | [facility] Operative Report ---
Operative Report Operative Date Feb 02, 2018. Pre-Operative Diagnosis Biliary Colic; necrotizing cholecystitis, bilious ascites Post-Operative Diagnosis same Procedure(s) Performed Laparoscopic Cholecystectomy Surgeon Dr. Johanny Hernandez Preboarder Surgeon(s) Ally Burden PA-C Estimated Blood Loss 10 cc Findings hemorrhagic edema, acute adhesions Specimens a. Gallbladder Drains # [address] CHRISTINE to subhepatic space Anesthesia Type General Complication(s) none Disposition Recovery Room / PACU I attest to the content of the Intraoperative Record and any orders documented therein. Any exceptions are noted below.
--- NOTE | 2018-02-02 11:58 | OPERATIVE REPORT ---
DATE OF OPERATION: 02/02/2018 NAME OF OPERATION: Laparoscopic cholecystectomy. PREOPERATIVE DIAGNOSIS: Acute cholecystitis. POSTOPERATIVE DIAGNOSIS: Acute cholecystitis with necrotizing cholecystitis and bilious ascites. STAFF SURGEON: Layo Hernandez MD ENDOSCOPY RN: Danilo Burden PA-C ANESTHESIA: General. DESCRIPTION OF PROCEDURE: The patient was brought in the operating room and placed on the operating room table in supine position. His abdomen was prepped and draped in usual fashion. Pneumatic stockings and orogastric tube were placed. 0.5% plain Marcaine was used to anesthetize all incisions. Incision was made above the umbilicus, carrying dissection down, placing the Veress needle producing pneumoperitoneum. An 11 mm port placed at this level and then under visualization, three 5 mm ports placed, 1 cephalad and 2 laterally. Gallbladder was severely edematous and hemorrhagic. There were acute adhesions to the gallbladder. These were taken down. The bile was aspirated. It was hydrops which was clear. Dissection was carried out at the anne hepatis showing severe thickening and inflammation. The cystic duct and cystic arteries were identified, clipped and transected. The gallbladder was dissected away from the liver bed with mild difficulty secondary to the chronic scar tissue in the patient's history of Plavix and aspirin. The patient did have good hemostasis. We placed some FloSeal into the bed of the liver. The gallbladder was placed in an Endobag. A 15 round Quinten-Curtis drain was placed into the subhepatic space through the lateral 5 mm port site and secured to the skin using 3-0 nylon suture. The gallbladder was removed through the umbilical site. I did have to increase the size of the fascial defect because of the size of the gallbladder. All ports were removed. The fascia at the umbilicus closed using 0 PDS suture and then the skin reapproximated using 4-0 nylon suture. The patient was transferred to recovery room in stable condition. My addictions counselor assistant helped with prepping, draping and removal of the gallbladder and closure of the wounds. I attest to the content of the Intraoperative Record and any orders documented therein. Any exception s are noted below.
--- NOTE | 2018-02-02 12:09 | Anesthesiology Progress Note ---
Anesthesia Post Op Note Date & Time Feb 02, 2018 at 12:07 Vital Signs Pain Intensity: 5 Vital Signs Past 12 Hours Date Time Temp Pulse Resp B/P (MAP) Pulse Ox O2 Delivery O2 Flow Rate FiO2 02/02/18 11:59 36.8 71 16 123/58 96 Room Air 02/02/18 10:59 37 79 16 125/88 98 Room Air 02/02/18 08:30 Room Air 02/02/18 07:43 37.6 64 16 120/62 (81) 90 Room Air Notes Mental Status: alert / awake / arousable, participated in evaluation Pt Amnestic to Procedure: Yes Nausea / Vomiting: adequately controlled Pain: adequately controlled Airway Patency, RR, SpO2: stable & adequate BP & HR: stable & adequate Hydration State: stable & adequate Anesthetic Complications: no major complications apparent Anesthetic Complications: Pt without any perioperative complications, but due to his recent FL and PRETTY placement, Dr. Hernandez and I transferred the patient to telemetry for closer monitoring postoperatively.
[2018-02-02] MEDS: SODIUM CHLORIDE 0.9% 1000ML 1,000 ML IV SCH ×2 (13:12→15:30)
--- NOTE | 2018-02-02 17:03 | Progress Note ---
Medicine Progress Note Date & Time of Visit: Feb 02, 2018 at 16:49. Subjective Pt was seen and examined Lying in bed with no distress Pt just had gallbladder surgery done He said that he only has pain from the surgical area Denies any chest pain, palpitation and SOB Objective Last 8 Hrs Date Time Temp Pulse Resp B/P (MAP) Pulse Ox O2 Delivery O2 Flow Rate FiO2 02/02/18 14:05 36.8 65 18 145/51 (82) 100 02/02/18 13:50 68 18 135/75 (95) 99 02/02/18 13:35 68 18 134/67 (89) 99 02/02/18 13:20 36.6 71 18 138/64 (88) 97 02/02/18 13:16 37.2 71 18 119/62 (81) 96 Nasal Cannula 2.0 02/02/18 13:16 96 Nasal Cannula 2.0 02/02/18 12:44 67 19 96 02/02/18 12:44 70 19 02/02/18 12:39 71 19 02/02/18 12:39 71 19 96 02/02/18 12:34 70 20 96 02/02/18 12:34 70 20 02/02/18 12:31 126/62 02/02/18 12:29 72 19 02/02/18 12:29 73 19 97 02/02/18 12:24 72 23 02/02/18 12:24 72 23 96 02/02/18 12:19 71 19 95 02/02/18 12:19 71 19 02/02/18 12:16 123/57 02/02/18 12:14 69 21 02/02/18 12:14 69 21 95 02/02/18 12:09 71 20 96 02/02/18 12:09 70 20 02/02/18 12:06 123/57 02/02/18 12:04 75 21 02/02/18 12:04 75 21 96 02/02/18 12:01 125/58 02/02/18 11:59 71 22 96 02/02/18 11:59 36.8 71 16 123/58 96 Room Air 02/02/18 11:59 71 22 02/02/18 11:56 123/58 02/02/18 11:54 71 18 96 02/02/18 11:54 71 18 02/02/18 11:51 124/58 02/02/18 11:49 70 22 96 02/02/18 11:49 70 22 02/02/18 11:46 135/67 02/02/18 11:44 72 24 95 02/02/18 11:44 72 24 02/02/18 11:41 125/65 02/02/18 11:39 76 20 96 02/02/18 11:39 76 20 02/02/18 11:34 76 17 02/02/18 11:34 76 17 97 02/02/18 11:31 126/60 02/02/18 11:29 73 20 99 02/02/18 11:29 73 20 02/02/18 11:26 121/59 02/02/18 11:24 74 20 99 02/02/18 11:24 73 21 02/02/18 11:21 119/59 02/02/18 11:19 74 33 02/02/18 11:19 74 33 99 02/02/18 11:16 125/60 02/02/18 11:14 74 21 02/02/18 11:14 74 21 99 02/02/18 11:11 134/62 02/02/18 11:09 74 29 02/02/18 11:09 74 29 99 02/02/18 11:06 140/69 02/02/18 11:04 76 14 98 02/02/18 11:04 76 14 02/02/18 11:02 145/83 02/02/18 11:00 125/88 02/02/18 10:59 37 79 16 125/88 98 Room Air Physical Exam: General- No acute distress Head- atraumatic Eyes- PERRL, EOMI ENT- oropharynx clear Neck- no JVD Lungs- clear to auscultation Heart- regular rhythm Abdomen- soft, +tender with palpation Extremities- no calf tenderness Neuro- alert, oriented, PERRL, EOMI; no facial palsy Skin- warm & dry Laboratory Results: Last 24 Hours Test 02/02/18 06:36 02/02/18 08:55 White Blood Count 9.73 K/uL Red Blood Count 2.99 M/uL Hemoglobin 9.8 g/dL 9.9 g/dL Hematocrit 28.4 % 28.6 % Mean Corpuscular Volume 95.0 fL Mean Corpuscular Hemoglobin 32.8 pg Mean Corpuscular Hemoglobin Concent 34.5 g/dl RDW Standard Deviation 53.4 fL RDW Coefficient of Variation 15.5 % Platelet Count 143 K/uL Mean Platelet Volume 10.3 fL Sodium Level 139 mmol/L Potassium Level 3.7 mmol/L Chloride Level 109 mmol/L Carbon Dioxide Level 21 mmol/L Anion Gap 9.0 mmol/L Blood Urea Nitrogen 10 mg/dl Creatinine 1.04 mg/dl Est Creatinine Clear Calc Drug Dose 48.0 ml/min Estimated GFR () 79.3 Estimated GFR (Non- 68.4 BUN/Creatinine Ratio 9.3 Random Glucose 73 mg/dl Calcium Level 7.5 mg/dl Total Bilirubin 2.2 mg/dl Aspartate Amino Transf (AST/SGOT) 338 U/L Alanine Aminotransferase (ALT/SGPT) 183 U/L Alkaline Phosphatase 260 U/L Total Protein 5.5 gm/dl Albumin 2.1 gm/dl Globulin 3.4 gm/dl Albumin/Globulin Ratio 0.6 Lipase 66 U/L Assessment & Plan Acute Acalculus Cholecystitis. Present with severe diffused abdominal pain Gallbladder u/s showed Distended gallbladder with layering gallbladder sludge and edematous wall thickening is noted without pericholecystic fluid Lipase 609, AST 878 and ALT 219 Lactic acid elevated in the ER Received IVF and repeat lactic acid was normal S/P Laparoscopic Cholecystectomy done today by dr. Hernandez No post-op complication Continue Zofran and pain control Continue IV Zosyn Elevated liver Enzymes AST 878 and ALT 219 on admission Mostly due to acute cholecystitis. Liver enzymes improves today Avoid hepatotoxic agents Continue to hold statin Monitor liver enzymes Elevated Lactic acid Possible due to acute illness and dehydration Afebrile No signs of infection Received IVF Repeat lactic acid normal Continue Zosyn IV CAD Recent ID in July S/P 2 drug-eluting stents placed in RCA Continue Plavix, aspirin and metoprolol Statin on hold due to elevate liver enzymes Asymptomatic ECHO on 02/01 showed * 1. Normal LV size. Borderline concentric LVH. * 2. Normal LV systolic function. LVEF 65-70 %. No regional wall motion abnormalities. Grade 1 diastolic dysfunction. * 3. Normal RV size with borderline RV function. * 4. No significant valvular pathology. * 5. Normal estimated PA and RA pressures. Tobacco abuse Counseling on smoking cessation Vascular disease CTA showed Extensive mixed atheromatous and atherosclerotic plaquing about the thoracic and abdominal aorta and branch vessels. High-grade narrowing at the origin of the inferior mesenteric artery with approximately 50% stenosis at the proximal Approximately 70% luminal narrowing of the right internal iliac artery with multifocal high-grade stenosis about the left internal iliac artery. Vascular consulted- waiting for input Alcohol abuse No history of withdrawn continue monitor for signs of withdrawn Counseling on alcohol cessation Hypertension Continue metoprolol Will resume Lisinopril in am BP stable VTE PROPHYLAXIS On SCDs (due to recent surgery) CODE STATUS FULL CODE Current Inpatient Medications: Current Inpatient Medications Medications (Trade) Dose Ordered Sig/Adolfo Route Start Time Stop Time Status Last Admin Dose Admin Ioversol (Optiray 320) 100 ml UD PRN IV 02/01/18 09:30 02/05/18 09:29 Aspirin (Ecotrin Tab) 81 mg DAILY PO 02/02/18 09:00 03/04/18 08:59 02/02/18 09:04 81 MG Clopidogrel Bisulfate (plAVix TAB) 75 mg DAILY PO 02/02/18 09:00 03/04/18 08:59 02/02/18 09:04 75 MG Metoprolol Tartrate (Lopressor Tab) 25 mg BID PO 02/01/18 21:00 03/03/18 20:59 02/02/18 09:03 25 MG Pantoprazole Sodium (Protonix Tab) 40 mg QAM PO 02/02/18 09:00 03/04/18 08:59 02/02/18 09:04 40 MG Miscellaneous Information (Consult) 1 ea UD PRN N/A 02/01/18 14:30 03/03/18 14:29 Sodium Chloride 1,000 ml @ 80 mls/hr [id number] IV 02/01/18 14:30 03/03/18 14:29 02/02/18 13:12 80 MLS/HR Piperacillin Sod/ Tazobactam Sod 3.375 gm/Dextrose 115 ml @ 28.75 mls/ hr Q8H IV 02/01/18 18:00 02/11/18 17:59 02/02/18 02:19 28.75 MLS/HR Morphine Sulfate (MoRPHine SULFATE INJ) 2 mg Q4HWA PRN IV 02/01/18 18:15 02/15/18 18:14
[2018-02-02] MEDS: MoRPHine SULFATE 2 MG/ML CARP IV PRN (17:13)
[2018-02-03] VITALS (7 sets, daily range): BP systolic 126–155; BP diastolic 65–80; PULSE 59–75; TEMP 36.4–37.1; O2SAT 66–99
[2018-02-03] MEDS: PIPERACILL/TAZOBAC IV 3.375 GM in DEXTROSE 5% 100ML 100 ML IV SCH ×3 (02:22→17:13)
[2018-02-03 04:58] LABS: HEMATOCRIT 29.1 % (42-52); MEAN CELL VOLUME 95.1 fL (80-100); MEAN CORPUSCULAR HEMOGLOBIN 32.7 pg (25-34); MEAN CORPUSCULAR HGB CONC 34.4 g/dl (32-36); MEAN PLATELET VOLUME 9.9 fL (7.4-10.4); PLATELET COUNT 129 K/uL (130-400); RED CELL DISTRIBUTION WIDTH CV 15.2 % (11.5-14.5); RED CELL DISTRIBUTION WIDTH SD 52.4 fL (36.4-46.3); WHITE BLOOD COUNT 9.17 K/uL (4.8-10.8)
[2018-02-03 05:27] LABS: ALBUMIN 2.1 gm/dl (3.4-5.0); CALCIUM 7.8 mg/dl (8.5-10.1); CREATININE 0.94 mg/dl (0.60-1.40); POTASSIUM 4.3 mmol/L (3.5-5.1)
[2018-02-03 05:31] LABS: TOTAL PROTEIN 5.8 gm/dl (6.4-8.2)
--- NOTE | 2018-02-03 07:56 | Surgery Progress Note ---
Surgery Progress Note Date of Service Feb 03, 2018. Subjective Post OP Day: 1 + feeling well, + pain controlled, + diet (lquids last night), No nausea Objective Vital Signs: Date Time Temp Pulse Resp B/P (MAP) Pulse Ox O2 Delivery O2 Flow Rate FiO2 02/03/18 07:00 36.4 59 20 134/74 (94) 99 Nasal Cannula 3.0 02/03/18 04:29 36.5 59 18 129/71 (90) 98 Nasal Cannula 3.0 02/02/18 23:04 36.4 59 18 130/70 (90) 99 Nasal Cannula 3.0 02/02/18 20:00 Nasal Cannula 2.0 02/02/18 19:39 36.7 71 20 144/68 (93) 100 Nasal Cannula 3.0 02/02/18 14:05 36.8 65 18 145/51 (82) 100 02/02/18 13:50 68 18 135/75 (95) 99 02/02/18 13:35 68 18 134/67 (89) 99 02/02/18 13:20 36.6 71 18 138/64 (88) 97 02/02/18 13:16 37.2 71 18 119/62 (81) 96 Nasal Cannula 2.0 02/02/18 13:16 96 Nasal Cannula 2.0 02/02/18 12:44 67 19 96 02/02/18 12:44 70 19 02/02/18 12:39 71 19 02/02/18 12:39 71 19 96 02/02/18 12:34 70 20 96 02/02/18 12:34 70 20 02/02/18 12:31 126/62 02/02/18 12:29 72 19 02/02/18 12:29 73 19 97 02/02/18 12:24 72 23 02/02/18 12:24 72 23 96 02/02/18 12:19 71 19 95 02/02/18 12:19 71 19 02/02/18 12:16 123/57 02/02/18 12:14 69 21 02/02/18 12:14 69 21 95 02/02/18 12:09 71 20 96 02/02/18 12:09 70 20 02/02/18 12:06 123/57 02/02/18 12:04 75 21 02/02/18 12:04 75 21 96 7/23/18 12:01 125/58 02/02/18 11:59 71 22 96 02/02/18 11:59 36.8 71 16 123/58 96 Room Air 02/02/18 11:59 71 22 02/02/18 11:56 123/58 02/02/18 11:54 71 18 96 02/02/18 11:54 71 18 02/02/18 11:51 124/58 02/02/18 11:49 70 22 96 02/02/18 11:49 70 22 02/02/18 11:46 135/67 02/02/18 11:44 72 24 95 02/02/18 11:44 72 24 02/02/18 11:41 125/65 02/02/18 11:39 76 20 96 02/02/18 11:39 76 20 02/02/18 11:34 76 17 02/02/18 11:34 76 17 97 02/02/18 11:31 126/60 02/02/18 11:29 73 20 99 02/02/18 11:29 73 20 02/02/18 11:26 121/59 02/02/18 11:24 74 20 99 02/02/18 11:24 73 21 02/02/18 11:21 119/59 02/02/18 11:19 74 33 02/02/18 11:19 74 33 99 02/02/18 11:16 125/60 02/02/18 11:14 74 21 02/02/18 11:14 74 21 99 02/02/18 11:11 134/62 02/02/18 11:09 74 29 02/02/18 11:09 74 29 99 02/02/18 11:06 140/69 02/02/18 11:04 76 14 98 02/02/18 11:04 76 14 02/02/18 11:02 145/83 02/02/18 11:00 125/88 02/02/18 10:59 37 79 16 125/88 98 Room Air 02/02/18 08:30 Room Air Physical Exam: CHRISTINE drainage (210 cc yesterday, minimal this AM serosang) Abdomen: soft Incision(s): intact (dressings) Laboratory Results: Results Past 24 Hours Test 02/02/18 08:55 02/03/18 04:42 Range/Units Hemoglobin 9.9 10.0 14.0-18.0 g/dL Hematocrit 28.6 29.1 42-52 % White Blood Count 9.17 4.8-10.8 K/uL Red Blood Count 3.06 4.7-6.1 M/uL Mean Corpuscular Volume 95.1 80-100 fL Mean Corpuscular Hemoglobin 32.7 25-34 pg Mean Corpuscular Hemoglobin Concent 34.4 32-36 g/dl RDW Standard Deviation 52.4 36.4-46.3 fL RDW Coefficient of Variation 15.2 11.5-14.5 % Platelet Count 129 130-400 K/uL Mean Platelet Volume 9.9 7.4-10.4 fL Sodium Level 137 136-145 mmol/L Potassium Level 4.3 3.5-5.1 mmol/L Chloride Level 106 98-107 mmol/L Carbon Dioxide Level 24 21-32 mmol/L Anion Gap 7.0 3-11 mmol/L Blood Urea Nitrogen 8 7-18 mg/dl Creatinine 0.94 0.60-1.40 mg/dl Est Creatinine Clear Calc Drug Dose 53.1 ml/min Estimated GFR () 89.6 Estimated GFR (Non- 77.3 BUN/Creatinine Ratio 8.6 10-20 Random Glucose 130 70-99 mg/dl Calcium Level 7.8 8.5-10.1 mg/dl Total Bilirubin 1.4 0.2-1 mg/dl Direct Bilirubin 1.2 0-0.2 mg/dl Aspartate Amino Transf (AST/SGOT) 207 15-37 U/L Alanine Aminotransferase (ALT/SGPT) 140 12-78 U/L Alkaline Phosphatase 293 45-117 U/L Total Protein 5.8 6.4-8.2 gm/dl Albumin 2.1 3.4-5.0 gm/dl Globulin 3.7 2.5-4.0 gm/dl Albumin/Globulin Ratio 0.6 0.9-2 Assessment & Plan s/p lap vianca, necrotizing cholecystitis CAD, recent stenting cont CHRISTINE, drainage decreased H&H stable cont ASA/Plavix advancing diet cont IV abx 02/03/18- to Med/Surg when ok with med team will need several days in hospital for recovery very weak
[2018-02-03] MEDS: METOPROLOL TARTRATE 25 MG TAB PO SCH ×2 (08:00→21:09)
[2018-02-03] MEDS: CLOPIDOGREL BISULFATE 75 MG TAB PO SCH (08:00)
[2018-02-03] MEDS: PANTOprazole SOD 40 MG TAB PO SCH (08:00)
[2018-02-03] MEDS: ASPIRIN 81 MG ECTAB PO SCH (08:01)
[2018-02-03] MEDS: SODIUM CHLORIDE 0.9% 1000ML 1,000 ML IV SCH ×2 (08:02→16:42)
--- NOTE | 2018-02-03 09:19 | Anesthesiology Progress Note ---
Anesthesia Post Op Note Date & Time Feb 03, 2018 at 09:19 Vital Signs Pain Intensity: 5.0 Vital Signs Past 12 Hours Date Time Temp Pulse Resp B/P (MAP) Pulse Ox O2 Delivery O2 Flow Rate FiO2 02/03/18 08:00 99 Nasal Cannula 3.0 02/03/18 07:00 36.4 59 20 134/74 (94) 99 Nasal Cannula 3.0 02/03/18 04:29 36.5 59 18 129/71 (90) 98 Nasal Cannula 3.0 02/02/18 23:04 36.4 59 18 130/70 (90) 99 Nasal Cannula 3.0 Notes Mental Status: alert / awake / arousable, participated in evaluation Pt Amnestic to Procedure: Yes Nausea / Vomiting: adequately controlled Pain: adequately controlled Airway Patency, RR, SpO2: stable & adequate BP & HR: stable & adequate Hydration State: stable & adequate Anesthetic Complications: no major complications apparent
[2018-02-03] MEDS: MoRPHine SULFATE 2 MG/ML CARP IV PRN ×2 (09:27→17:12)
--- NOTE | 2018-02-03 11:05 | Surgery Consultation ---
Consultation Date of Service Feb 03, 2018. Chief Complaint SINGH stenosis noted on CTA History of Present Illness The patient is a 77 year old male with multiple medical problems, including HTN , OH, CAD, admitted for acute cholecystitis, seen in consultation for SINGH stenosis noted on CTA. Pt underwent cholecystectomy by Dr Hernandez yesterday. Currently admits post op pain, increased with movement/coughing, controlled with medications. Admits fatigue/malaise. Pt states his sx began with abd pain across upper abd, associated with N/V, and came to ED. Remembers 1 similar episode of pain in July 2017, and states was admitted that time with OH and had coronary stents inserted. Pt was concerned about another coronary event this time and came to ED for eval. Denies changes in eating habits, states typically eats 2 normal sized meals daily, with occasional snacks. Denies abd pain with eating or post prandial pain. No changes in bowel habits, occasional constipation relieved with MOM. Did lose 20 lbs since his OH. Remains very active and independent at home. Denies BONE, fever, chest pain, SOB , rest pain, claudication, hematochezia, mucous in stool, ulcerations, other complaints. Imaging demonstrates mild stenosis of SINGH, patent celiac and SMA. Vitals Vital Signs Past 12 Hours Date Time Temp Pulse Resp B/P (MAP) Pulse Ox O2 Delivery O2 Flow Rate FiO2 02/03/18 08:00 99 Nasal Cannula 3.0 02/03/18 07:00 36.4 59 20 134/74 (94) 99 Nasal Cannula 3.0 02/03/18 04:29 36.5 59 18 129/71 (90) 98 Nasal Cannula 3.0 02/02/18 23:04 36.4 59 18 130/70 (90) 99 Nasal Cannula 3.0 Allergies Coded Allergies: No Known Allergies (Verified , 02/01/18) Home Medications Scheduled Aspirin (Aspirin Ec), 81 MG PO DAILY Atorvastatin (Lipitor), 80 MG PO DAILY Clopidogrel (Plavix), 75 MG PO DAILY Lisinopril (Lisinopril), 5 MG PO QAM Metoprolol Tartrate (Lopressor), 25 MG PO BID Omeprazole (Prilosec), 40 MG PO DAILY Ranitidine (Zantac), 150 MG PO BID Scheduled PRN Nitroglycerin (Nitrostat), 0.4 MG SL UD PRN for Chest Pain Problem List Medical Problems: (1) Coronary artery disease (2) GERD (gastroesophageal reflux disease) (3) Hypertension (4) Presence of stent in coronary artery in patient with coronary artery disease (5) Tobacco use disorder Surgical Problems: (1) Status post cardiac catheterization (2) Status post placement of stent in right coronary artery Surgical / Medical History Hx Cardiac Surgery: Yes (angioplasty with stent) Hx Abdominal Surgery: No Hx Cancer Surgery: No Hx Thoracic Surgery: No Hx Orthopedic: Yes (Back x2, knee, neck) Hx Urinary Tract Surgery: No HX Other Surgery: No Past Medical/Surgical History: Angioplasty/Stent, Heart Disease, High Cholesterol, Hypertension, OH Family History + HTN, CAD Social History Smoking Status: Current Every Day Smoker Hx Tobacco Use In Past Year?: Yes Hx Alcohol Use - Type & Amnt: Yes (4/day) Hx Substance Use -Type & Amnt: No Review of Systems Constitutional: + malaise, No chills, No fever Skin: No change in color ENMT: No sore throat Respiratory: No cough, No hemoptysis, No short of breath Cardiovascular: No chest pain, No palpitations, No syncope, No edema, No intermittent claudication Gastrointestinal: + abdominal pain, + nausea, + vomiting Neurologic: + weakness, + lethargy, No dizziness, No numbness, No tingling Physical Exam Constitutional: General Apperance: heathly-appearing, well-nourished, well-developed Level of Distress: NAD (appropriate, winces with movements/coughing), acutely ill Psychiatric: Mental Status: active & alert, normal mood, normal affect Orientation: oriented except where noted, to time, to place, to person Memory: recent memory normal, remote memory normal Head: normocephalic, atraumatic Eyes: EOM: EOMI ENMT: normal ENT inspection, hearing grossly normal Neck: supple, trachea midline Lungs: Respiratory effort: no dyspnea Auscultation: no rales/crackles, no rhonchi, decreased breath sounds Cardiovascular: Apical Impulse: not displaced Heart Auscultation: RRR, no rubs, no gallops Peripheral Pulses: Pulses: full and equal, in all extremities except if noted Bruits: none appreciated Carotid Pulse: normal on the left, normal on the right Brachial Pulses: normal on the left, normal on the right Radial Pulse: normal on the left, normal on the right Femoral Pulse: normal on the left, normal on the right Posterior Tibialis Pulse: decreased on the left, decreased on the right Dorsalis Pedis Pulse: decreased on the left, decreased on the right Abdomen: Bowel Sounds: normal Inspection & Palpation: soft, pertinent finding (R sided dressing not removed, CHRISTINE drain present. + very tender) Musculoskeletal: normal strength (5/5 throughout), normal tone Extremities: Upper Right: no cyanosis, no edema, no varicosities Upper Left: no cyanosis, no edema, no varicosities Lower Right: no cyanosis, no edema, no varicosities Lower Left: no cyanosis, no edema, no varicosities Neurologic: Cranial Nerves: grossly intact Sensation: grossly intact Assessment and Plan ASSESSMENT and PLAN: Mild SINGH stenosis Pt appears asymptomatic from SINGH stenosis, which is mild. Imaging reviewed by Dr Munson, does not recommend intervention at this time. If pt develops sx, would be happy to reevaluate. Did discuss smoking cessation with pt. Please call if needed.
--- NOTE | 2018-02-03 12:37 | Clinical Documentation Query ---
CLINICAL DOCUMENTATION QUERY Dr. KULKARNI, In your clinical opinion is this patient being managed for: ( * ) Acute blood loss anemia ( ) Not Agree ( ) Other explanation of clinical findings (No explanation is considered a No Response) ( ) Unable to determine ( ) Need to Discuss (Phone CDS or qliq) (No discussion is considered a No Response) The medical record reflects the following clinical findings, treatment, and risk factors. Clinical Indicators: 77 yo male presenting with acute cholecystitis. Initial Hgb 13.2/Hct 38.6 dropping to 9.8/28.4 at the lowest. Today . EBL of 10 cc with additional 210 cc CHRISTINE drainage Treatment: IV fluids, monitor CBC Risk Factors: surgical blood loss Please clarify and document your clinical opinion in the progress notes and discharge summary. Terms such as "probable", "suspected", "likely", "questionable", "possible", or "still to be ruled out" are acceptable. IF IN AGREEMENT, YOU MUST DOCUMENT ABOVE DIAGNOSTIC STATEMENT IN DAILY PROGRESS NOTES AND DISCHARGE SUMMARY. This document is not part of the patient's record. Thank You, Roberta Che RN [phone]
--- NOTE | 2018-02-03 12:50 | Progress Note ---
Internal Med Progress Note Date of Service: Feb 03, 2018. Provider Documentation: SUBJECTIVE: The patient was seen and examined in telemetry unit He has severe atherosclerotic cardiovascular disease with a cardiac stent placement for past [place] He was admitted with them acute acalculous cholecystitis and underwent laparoscopic cholecystectomy on of this month He has been doing reasonably well and denies any significant symptoms today OBJECTIVE: Vital Signs-as noted below Exam: General-no apparent distress at rest Eyes-normal ENT-normal Neck-supple Lungs-clear to auscultation bilaterally Heart-regular, no murmur appreciated Abdomen-soft, mildly distended, tender, bowel sounds present Extremities-negative for any edema Neuro-alert, awake and oriented 3 Generally weak Lab data as noted below. ASSESSMENT & PLAN: Acute Acalculous Cholecystitis. Status post laparoscopic cholecystectomy on the of this month Present with severe diffused abdominal pain Gallbladder u/s showed Distended gallbladder with layering gallbladder sludge and edematous wall thickening is noted without pericholecystic fluid Lipase 609, AST 878 and ALT 219 Lactic acid elevated in the ER Received IVF and repeat lactic acid was normal Appreciate surgery input and recommendation No post-op complication Continue Zofran and pain control Continue IV Zosyn for now Clinically better and is started on clears only Acute Blood Loss Anemia Hb dropped to 10 from 13 No symptoms Does not need any Blood Transfusion now Elevated liver Enzymes AST 878 and ALT 219 on admission Mostly due to acute cholecystitis. Avoid hepatotoxic agents Continue to hold statin LFTs are improving CAD Recent [place] in July S/P 2 drug-eluting stents placed in RCA Continue Plavix, aspirin and metoprolol Statin on hold due to elevate liver enzymes Asymptomatic ECHO on 02/01 showed * 1. Normal LV size. Borderline concentric LVH. * 2. Normal LV systolic function. LVEF 65-70 %. No regional wall motion abnormalities. Grade 1 diastolic dysfunction. * 3. Normal RV size with borderline RV function. * 4. No significant valvular pathology. * 5. Normal estimated PA and RA pressures. 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 Appreciate vascular surgery input No further recommendation Tobacco abuse Counseling on smoking cessation DVT PROPHYLAXIS SCDs DISPOSITION We will take a few more days in hospital Vital Signs: Date Time Temp Pulse Resp B/P (MAP) Pulse Ox O2 Delivery O2 Flow Rate FiO2 02/03/18 12:03 36.7 64 16 129/70 (89) 66 02/03/18 08:00 99 Nasal Cannula 3.0 02/03/18 07:00 36.4 59 20 134/74 (94) 99 Nasal Cannula 3.0 02/03/18 04:29 36.5 59 18 129/71 (90) 98 Nasal Cannula 3.0 02/02/18 23:04 36.4 59 18 130/70 (90) 99 Nasal Cannula 3.0 02/02/18 20:00 Nasal Cannula 2.0 02/02/18 19:39 36.7 71 20 144/68 (93) 100 Nasal Cannula 3.0 Lab Results: Results Past 24 Hours Test 02/03/18 04:42 Range/Units White Blood Count 9.17 4.8-10.8 K/uL Red Blood Count 3.06 4.7-6.1 M/uL Hemoglobin 10.0 14.0-18.0 g/dL Hematocrit 29.1 42-52 % Mean Corpuscular Volume 95.1 80-100 fL Mean Corpuscular Hemoglobin 32.7 25-34 pg Mean Corpuscular Hemoglobin Concent 34.4 32-36 g/dl RDW Standard Deviation 52.4 36.4-46.3 fL RDW Coefficient of Variation 15.2 11.5-14.5 % Platelet Count 129 130-400 K/uL Mean Platelet Volume 9.9 7.4-10.4 fL Sodium Level 137 136-145 mmol/L Potassium Level 4.3 3.5-5.1 mmol/L Chloride Level 106 98-107 mmol/L Carbon Dioxide Level 24 21-32 mmol/L Anion Gap 7.0 3-11 mmol/L Blood Urea Nitrogen 8 7-18 mg/dl Creatinine 0.94 0.60-1.40 mg/dl Est Creatinine Clear Calc Drug Dose 53.1 ml/min Estimated GFR () 89.6 Estimated GFR (Non- 77.3 BUN/Creatinine Ratio 8.6 10-20 Random Glucose 130 70-99 mg/dl Calcium Level 7.8 8.5-10.1 mg/dl Total Bilirubin 1.4 0.2-1 mg/dl Direct Bilirubin 1.2 0-0.2 mg/dl Aspartate Amino Transf (AST/SGOT) 207 15-37 U/L Alanine Aminotransferase (ALT/SGPT) 140 12-78 U/L Alkaline Phosphatase 293 45-117 U/L Total Protein 5.8 6.4-8.2 gm/dl Albumin 2.1 3.4-5.0 gm/dl Globulin 3.7 2.5-4.0 gm/dl Albumin/Globulin Ratio 0.6 0.9-2
[2018-02-04] VITALS (9 sets, daily range): BP systolic 144–167; BP diastolic 69–79; PULSE 64–70; TEMP 36.6–37.5; O2SAT 88–99
[2018-02-04] MEDS: SODIUM CHLORIDE 0.9% 1000ML 1,000 ML IV SCH ×3 (00:08→20:50)
[2018-02-04] MEDS: PIPERACILL/TAZOBAC IV 3.375 GM in DEXTROSE 5% 100ML 100 ML IV SCH ×3 (02:01→18:51)
[2018-02-04] MEDS: MoRPHine SULFATE 2 MG/ML CARP IV PRN (05:26)
--- NOTE | 2018-02-04 07:26 | Surgery Progress Note ---
Surgery Progress Note Date of Service Feb 04, 2018. Subjective Post OP Day: 2 + pain controlled, + diet (regular), No complaints Objective Vital Signs: Date Time Temp Pulse Resp B/P (MAP) Pulse Ox O2 Delivery O2 Flow Rate FiO2 02/04/18 07:05 36.8 70 16 151/69 (96) 95 Nasal Cannula 3.0 02/04/18 03:01 37.5 67 16 150/71 (97) 95 Nasal Cannula 3.0 02/03/18 23:06 37.1 75 18 155/74 (101) 92 Nasal Cannula 3.0 02/03/18 20:00 36.7 72 20 126/65 (85) 94 Nasal Cannula 2.0 02/03/18 20:00 Nasal Cannula 2.0 02/03/18 15:31 37.1 68 16 143/80 (101) 97 Nasal Cannula 2.0 02/03/18 12:03 36.7 64 16 129/70 (89) 66 02/03/18 08:00 99 Nasal Cannula 3.0 Physical Exam: CHRISTINE drainage (50 cc in bulb now) Abdomen: non distended, soft Incision(s): dry Assessment & Plan s/p lap vianca, necrotizing cholecystitis CAD, recent stenting cont CHRISTINE labs pending cont IV abx
[2018-02-04] MEDS: ASPIRIN 81 MG ECTAB PO SCH (07:44)
[2018-02-04] MEDS: CLOPIDOGREL BISULFATE 75 MG TAB PO SCH (07:44)
[2018-02-04] MEDS: METOPROLOL TARTRATE 25 MG TAB PO SCH ×2 (07:44→20:53)
[2018-02-04] MEDS: PANTOprazole SOD 40 MG TAB PO SCH (07:44)
[2018-02-04 08:17] LABS: HEMATOCRIT 29.6 % (42-52); HEMOGLOBIN 10.3 g/dL (14.0-18.0); MEAN CELL VOLUME 93.4 fL (80-100); MEAN CORPUSCULAR HEMOGLOBIN 32.5 pg (25-34); MEAN CORPUSCULAR HGB CONC 34.8 g/dl (32-36); PLATELET COUNT 143 K/uL (130-400); RED CELL DISTRIBUTION WIDTH SD 51.9 fL (36.4-46.3); WHITE BLOOD COUNT 7.38 K/uL (4.8-10.8)
[2018-02-04 08:54] LABS: ALBUMIN 1.9 gm/dl (3.4-5.0); CREATININE 0.8 mg/dl (0.60-1.40); POTASSIUM 3.6 mmol/L (3.5-5.1)
[2018-02-04 09:15] LABS: TOTAL PROTEIN 5.8 gm/dl (6.4-8.2)
--- NOTE | 2018-02-04 14:51 | Progress Note ---
Internal Med Progress Note Date of Service: Feb 04, 2018. Provider Documentation: SUBJECTIVE: The patient was seen and examined in telemetry unit He has severe atherosclerotic cardiovascular disease with a cardiac stent placement for past [place] He was admitted with them acute acalculous cholecystitis and underwent laparoscopic cholecystectomy on of this month He has been doing reasonably well and denies any significant symptoms today 02/04: Remains generally weak Complains some discomfort without nausea and/or vomiting CHRISTINE drain still in Cipro Tolerating regular diet OBJECTIVE: Vital Signs-as noted below Exam: General-no apparent distress at rest Generally weak Eyes-normal ENT-normal Neck-supple Lungs-clear to auscultation bilaterally Heart-regular, no murmur appreciated Abdomen-soft, mildly distended, tender, bowel sounds present CHRISTINE drain site Extremities-negative for any edema Neuro-alert, awake and oriented 3 Generally weak Lab data as noted below. ASSESSMENT & PLAN: Acute Acalculous Cholecystitis. Status post laparoscopic cholecystectomy on the of this month Present with severe diffused abdominal pain Gallbladder u/s showed Distended gallbladder with layering gallbladder sludge and edematous wall thickening is noted without pericholecystic fluid Lipase 609, AST 878 and ALT 219 Lactic acid elevated in the ER Received IVF and repeat lactic acid was normal Appreciate surgery input and recommendation No post-op complication Continue Zofran and pain control Continue IV Zosyn for now Symptomatically better but remains weak Tolerating regular diet We asked for PT OT evaluation Discussed with surgery and continue current treatment for the next day or 2 Acute Blood Loss Anemia Hb dropped to 10 from 13 No symptoms Does not need any Blood Transfusion now Hemoglobin remains more than 10 Elevated liver Enzymes AST 878 and ALT 219 on admission Mostly due to acute cholecystitis. Avoid hepatotoxic agents Continue to hold statin LFTs are improving Monitor liver function while in the hospital CAD Recent [place] in July S/P 2 drug-eluting stents placed in RCA Continue Plavix, aspirin and metoprolol Statin on hold due to elevate liver enzymes Asymptomatic ECHO on 02/01 showed * 1. Normal LV size. Borderline concentric LVH. * 2. Normal LV systolic function. LVEF 65-70 %. No regional wall motion abnormalities. Grade 1 diastolic dysfunction. * 3. Normal RV size with borderline RV function. * 4. No significant valvular pathology. * 5. Normal estimated PA and RA pressures. 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 Appreciate vascular surgery input No further recommendation Tobacco abuse Counseling on smoking cessation DVT PROPHYLAXIS SCDs DISPOSITION We will take a few more days in hospital Vital Signs: Date Time Temp Pulse Resp B/P (MAP) Pulse Ox O2 Delivery O2 Flow Rate FiO2 02/04/18 13:24 36.6 66 19 95 0.0 02/04/18 11:49 36.6 66 19 154/75 (101) 95 Nasal Cannula 3.0 02/04/18 08:00 99 Nasal Cannula 3.0 02/04/18 07:05 36.8 70 16 151/69 (96) 95 Nasal Cannula 3.0 02/04/18 03:01 37.5 67 16 150/71 (97) 95 Nasal Cannula 3.0 02/03/18 23:06 37.1 75 18 155/74 (101) 92 Nasal Cannula 3.0 02/03/18 20:00 36.7 72 20 126/65 (85) 94 Nasal Cannula 2.0 02/03/18 20:00 Nasal Cannula 2.0 02/03/18 15:31 37.1 68 16 143/80 (101) 97 Nasal Cannula 2.0 Lab Results: Results Past 24 Hours Test 02/04/18 07:50 Range/Units White Blood Count 7.38 4.8-10.8 K/uL Red Blood Count 3.17 4.7-6.1 M/uL Hemoglobin 10.3 14.0-18.0 g/dL Hematocrit 29.6 42-52 % Mean Corpuscular Volume 93.4 80-100 fL Mean Corpuscular Hemoglobin 32.5 25-34 pg Mean Corpuscular Hemoglobin Concent 34.8 32-36 g/dl RDW Standard Deviation 51.9 36.4-46.3 fL RDW Coefficient of Variation 15.0 11.5-14.5 % Platelet Count 143 130-400 K/uL Mean Platelet Volume 11.0 7.4-10.4 fL Sodium Level 135 136-145 mmol/L Potassium Level 3.6 3.5-5.1 mmol/L Chloride Level 102 98-107 mmol/L Carbon Dioxide Level 27 21-32 mmol/L Anion Gap 6.0 3-11 mmol/L Blood Urea Nitrogen 4 7-18 mg/dl Creatinine 0.80 0.60-1.40 mg/dl Est Creatinine Clear Calc Drug Dose 66.1 ml/min Estimated GFR () 99.2 Estimated GFR (Non- 85.6 BUN/Creatinine Ratio 5.0 10-20 Random Glucose 91 70-99 mg/dl Calcium Level 8.0 8.5-10.1 mg/dl Total Bilirubin 1.3 0.2-1 mg/dl Direct Bilirubin 1.0 0-0.2 mg/dl Aspartate Amino Transf (AST/SGOT) 142 15-37 U/L Alanine Aminotransferase (ALT/SGPT) 106 12-78 U/L Alkaline Phosphatase 470 45-117 U/L Total Protein 5.8 6.4-8.2 gm/dl Albumin 1.9 3.4-5.0 gm/dl
[2018-02-04] MEDS: OXYCODONE/ACETAMINOPHEN 5-325 TAB PO PRN (16:08)
[2018-02-05] VITALS (9 sets, daily range): BP systolic 110–179; BP diastolic 61–80; PULSE 67–87; TEMP 36.4–37.2; O2SAT 91–98
[2018-02-05] MEDS: PIPERACILL/TAZOBAC IV 3.375 GM in DEXTROSE 5% 100ML 100 ML IV SCH ×3 (02:20→18:06)
[2018-02-05] MEDS: OXYCODONE/ACETAMINOPHEN 5-325 TAB PO PRN (05:47)
[2018-02-05] MEDS ORDERED: HYDR-5688 PO (05:48)
[2018-02-05] MEDS ORDERED: AMOX500T PO (05:48)
--- NOTE | 2018-02-05 05:51 | Discharge Instructions ---
Discharge Instructions Date of Service Feb 05, 2018. Admission Reason for Admission: Acalculous Cholecystitis Discharge Discharge Diagnosis / Problem: acute cholecystitis Discharge Goals Goal(s): Decrease discomfort, Improve function, Improve disease control Activity Recommendations Activity Limitations: as noted below Lifting Limitations: no more than 25 pounds Exercise/Sports Limitations: until after follow-up appointment May Resume Sexual Activity: when tolerated Shower/Bathe: tomorrow Driving or Machine Use: 1 week . Instructions / Follow-Up Instructions / Follow-Up SPECIAL CARE INSTRUCTIONS: * Cover incisions and change daily for comfort/drainage. * May use ibuprofen for pain as tolerated. * Expect some swelling and bruising. Call your doctor if: * Temperature above 101 degrees * Pain not relieved by pain medicine ordered * There is increased drainage or redness from any incision * You have any unanswered questions or concerns [phone]. FOLLOW UP VISIT: If not already scheduled, please call the office for a follow-up visit. for next week- some suture removal OFFICE PHONE NUMBER: Dr. Hernandez Office Current Hospital Diet Patient's current hospital diet: AHA Diet (Heart Healthy) Discharge Diet Recommended Diet: Regular Diet Procedures Procedures Performed: Laparoscopic Cholecystectomy Pending Studies Studies pending at discharge: no Medical Emergencies . Who to Call and When: Medical Emergencies: If at any time you feel your situation is an emergency, please call 911 immediately. . Non-Emergent Contact Non-Emergency issues call your: Primary Care Provider, Surgeon . "Provider Documentation" section prepared by Layo Hernandez. .
--- NOTE | 2018-02-05 06:15 | Surgery Progress Note ---
Surgery Progress Note Date of Service Feb 05, 2018. Subjective improving- apparently walked in hallway some pain more alert Objective Vital Signs: Date Time Temp Pulse Resp B/P (MAP) Pulse Ox O2 Delivery O2 Flow Rate FiO2 02/04/18 23:55 69 159/79 (105) 02/04/18 23:45 Nasal Cannula 2.0 02/04/18 23:05 36.8 64 16 167/75 (105) 96 Nasal Cannula 2.0 02/04/18 15:56 36.6 69 18 163/79 (107) 95 Nasal Cannula 2.0 02/04/18 15:30 Nasal Cannula 2.0 02/04/18 13:30 37.0 70 20 144/69 (94) 88 Room Air 02/04/18 13:30 88 Room Air 02/04/18 13:24 36.6 66 19 95 0.0 02/04/18 11:49 36.6 66 19 154/75 (101) 95 Nasal Cannula 3.0 02/04/18 08:00 99 Nasal Cannula 3.0 02/04/18 07:05 36.8 70 16 151/69 (96) 95 Nasal Cannula 3.0 General Appearance: no apparent distress Respiratory/Chest: no respiratory distress Abdomen: soft Incision(s): drainage Laboratory Results: Results Past 24 Hours Test 02/04/18 07:50 02/05/18 04:44 Range/Units White Blood Count 7.38 4.8-10.8 K/uL Red Blood Count 3.17 4.7-6.1 M/uL Hemoglobin 10.3 14.0-18.0 g/dL Hematocrit 29.6 42-52 % Mean Corpuscular Volume 93.4 80-100 fL Mean Corpuscular Hemoglobin 32.5 25-34 pg Mean Corpuscular Hemoglobin Concent 34.8 32-36 g/dl RDW Standard Deviation 51.9 36.4-46.3 fL RDW Coefficient of Variation 15.0 11.5-14.5 % Platelet Count 143 130-400 K/uL Mean Platelet Volume 11.0 7.4-10.4 fL Sodium Level 135 136-145 mmol/L Potassium Level 3.6 3.5-5.1 mmol/L Chloride Level 102 98-107 mmol/L Carbon Dioxide Level 27 21-32 mmol/L Anion Gap 6.0 3-11 mmol/L Blood Urea Nitrogen 4 7-18 mg/dl Creatinine 0.80 0.60-1.40 mg/dl Est Creatinine Clear Calc Drug Dose 66.1 ml/min Estimated GFR () 99.2 Estimated GFR (Non- 85.6 BUN/Creatinine Ratio 5.0 10-20 Random Glucose 91 70-99 mg/dl Calcium Level 8.0 8.5-10.1 mg/dl Total Bilirubin 1.3 0.2-1 mg/dl Direct Bilirubin 1.0 0-0.2 mg/dl Aspartate Amino Transf (AST/SGOT) 142 15-37 U/L Alanine Aminotransferase (ALT/SGPT) 106 12-78 U/L Alkaline Phosphatase 470 45-117 U/L Total Protein 5.8 6.4-8.2 gm/dl Albumin 1.9 3.4-5.0 gm/dl Assessment & Plan 02/05/18- walking, getting stronger- will have drain removed tomorrow d/c home when ok with medical team ? 1-2 days scripts, info in chart- for pain med and atbx Dr Cali and partners covering tomorrow/ weekend s/p lap vianca, necrotizing cholecystitis CAD, recent stenting cont CHRISTINE, drainage decreased H&H stable cont ASA/Plavix advancing diet cont IV abx 02/03/18- to Med/Surg when ok with med team will need several days in hospital for recovery very weak s/p lap vianca, necrotizing cholecystitis CAD, recent stenting cont CHRISTINE, drainage decreased H&H stable cont ASA/Plavix advancing diet cont IV abx 02/03/18- to Med/Surg when ok with med team will need several days in hospital for recovery very weak
[2018-02-05 06:58] LABS: BASO % 0.1 %; BASO ABS # 0.01 K/uL (0-0.2); EOS % 1.8 %; EOS ABS # 0.13 K/uL (0-0.5); HEMATOCRIT 30.4 % (42-52); HEMOGLOBIN 10.6 g/dL (14.0-18.0); IG# 0.03 K/uL (0.00-0.02); LYMPH % 9.9 %; LYMPH ABS # 0.72 K/uL (1.2-3.4); MEAN CELL VOLUME 93.8 fL (80-100); MEAN CORPUSCULAR HEMOGLOBIN 32.7 pg (25-34); MEAN CORPUSCULAR HGB CONC 34.9 g/dl (32-36); MEAN PLATELET VOLUME 10.5 fL (7.4-10.4); MONO % 9.5 %; MONO ABS # 0.69 K/uL (0.11-0.59); NEUT % 78.3 %; PLATELET COUNT 152 K/uL (130-400); RED CELL DISTRIBUTION WIDTH CV 15.4 % (11.5-14.5); RED CELL DISTRIBUTION WIDTH SD 52.9 fL (36.4-46.3); WHITE BLOOD COUNT 7.28 K/uL (4.8-10.8)
[2018-02-05 07:30] LABS: ALBUMIN 1.9 gm/dl (3.4-5.0); CALCIUM 8.3 mg/dl (8.5-10.1); CREATININE 0.74 mg/dl (0.60-1.40); POTASSIUM 3.8 mmol/L (3.5-5.1); TOTAL PROTEIN 5.8 gm/dl (6.4-8.2)
[2018-02-05] MEDS: METOPROLOL TARTRATE 25 MG TAB PO SCH ×2 (09:02→20:41)
[2018-02-05] MEDS: PANTOprazole SOD 40 MG TAB PO SCH (09:02)
[2018-02-05] MEDS: CLOPIDOGREL BISULFATE 75 MG TAB PO SCH (09:02)
[2018-02-05] MEDS: SODIUM CHLORIDE 0.9% 1000ML 1,000 ML IV SCH ×2 (09:03→20:41)
[2018-02-05] MEDS: ASPIRIN 81 MG ECTAB PO SCH (09:03)
--- NOTE | 2018-02-05 15:39 | Progress Note ---
Internal Med Progress Note Date of Service: Feb 05, 2018. Provider Documentation: SUBJECTIVE: The patient was seen and examined in telemetry unit He has severe atherosclerotic cardiovascular disease with a cardiac stent placement for past [place] He was admitted with them acute acalculous cholecystitis and underwent laparoscopic cholecystectomy on of this month He has been doing reasonably well and denies any significant symptoms today 02/04: Remains generally weak Complains some discomfort without nausea and/or vomiting CHRISTINE drain still in Cipro Tolerating regular diet 02/05: Weakness is better and getting physical therapy Some abdominal discomfort CHRISTINE tube is going to be discontinued tomorrow If reasonably fine following tube removal,he will be discharged OBJECTIVE: Vital Signs-as noted below Exam: General-no apparent distress at rest Generally weak- improving Eyes-normal ENT-normal Neck-supple Lungs-clear to auscultation bilaterally Heart-regular, no murmur appreciated Abdomen-soft, mildly distended, tender, bowel sounds present CHRISTINE drain site Extremities-negative for any edema Neuro-alert, awake and oriented 3 Generally weak Lab data as noted below. ASSESSMENT & PLAN: Acute Acalculous Cholecystitis. Status post laparoscopic cholecystectomy on the of this month Present with severe diffused abdominal pain Gallbladder u/s showed Distended gallbladder with layering gallbladder sludge and edematous wall thickening is noted without pericholecystic fluid Lipase 609, AST 878 and ALT 219 Lactic acid elevated in the ER Received IVF and repeat lactic acid was normal Appreciate surgery input and recommendation No post-op complication Continue Zofran and pain control Continue IV Zosyn for now Symptomatically better but remains weak Tolerating regular diet We asked for PT OT evaluation Discussed with surgery and continue current treatment for the next day or 2 Likely to be discharged tomorrow on oral antibiotic and pain medications Acute Blood Loss Anemia Hb dropped to 10 from 13 No symptoms Does not need any Blood Transfusion now Hemoglobin remains more than 10 Elevated liver Enzymes AST 878 and ALT 219 on admission Mostly due to acute cholecystitis. Avoid hepatotoxic agents Continue to hold statin LFTs are improved a lot CAD Recent [place] in July S/P 2 drug-eluting stents placed in RCA Continue Plavix, aspirin and metoprolol Statin on hold due to elevate liver enzymes Asymptomatic ECHO on 02/01 showed * 1. Normal LV size. Borderline concentric LVH. * 2. Normal LV systolic function. LVEF 65-70 %. No regional wall motion abnormalities. Grade 1 diastolic dysfunction. * 3. Normal RV size with borderline RV function. * 4. No significant valvular pathology. * 5. Normal estimated PA and RA pressures. 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 Appreciate vascular surgery input No further recommendation Tobacco abuse Counseling on smoking cessation DVT PROPHYLAXIS SCDs DISPOSITION We will take a few more days in hospital Vital Signs: Date Time Temp Pulse Resp B/P (MAP) Pulse Ox O2 Delivery O2 Flow Rate FiO2 02/05/18 15:23 36.4 71 18 179/80 (113) 93 Room Air 02/05/18 15:22 91 02/05/18 11:50 36.8 72 18 145/72 (96) 98 Room Air 02/05/18 09:56 Room Air 02/05/18 09:54 92 Room Air 02/05/18 08:22 92 Room Air 02/05/18 08:10 37.0 74 18 118/62 (80) 92 Room Air 02/05/18 07:36 Nasal Cannula 2.0 02/04/18 23:55 69 159/79 (105) 02/04/18 23:45 Nasal Cannula 2.0 02/04/18 23:05 36.8 64 16 167/75 (105) 96 Nasal Cannula 2.0 02/04/18 15:56 36.6 69 18 163/79 (107) 95 Nasal Cannula 2.0 Lab Results: Results Past 24 Hours Test 02/05/18 06:30 Range/Units White Blood Count 7.28 4.8-10.8 K/uL Red Blood Count 3.24 4.7-6.1 M/uL Hemoglobin 10.6 14.0-18.0 g/dL Hematocrit 30.4 42-52 % Mean Corpuscular Volume 93.8 80-100 fL Mean Corpuscular Hemoglobin 32.7 25-34 pg Mean Corpuscular Hemoglobin Concent 34.9 32-36 g/dl Platelet Count 152 130-400 K/uL Mean Platelet Volume 10.5 7.4-10.4 fL Neutrophils (%) (Auto) 78.3 % Lymphocytes (%) (Auto) 9.9 % Monocytes (%) (Auto) 9.5 % Eosinophils (%) (Auto) 1.8 % Basophils (%) (Auto) 0.1 % Neutrophils # (Auto) 5.70 1.4-6.5 K/uL Lymphocytes # (Auto) 0.72 1.2-3.4 K/uL Monocytes # (Auto) 0.69 0.11-0.59 K/uL Eosinophils # (Auto) 0.13 0-0.5 K/uL Basophils # (Auto) 0.01 0-0.2 K/uL RDW Standard Deviation 52.9 36.4-46.3 fL RDW Coefficient of Variation 15.4 11.5-14.5 % Immature Granulocyte % (Auto) 0.4 % Immature Granulocyte # (Auto) 0.03 0.00-0.02 K/uL Sodium Level 136 136-145 mmol/L Potassium Level 3.8 3.5-5.1 mmol/L Chloride Level 103 98-107 mmol/L Carbon Dioxide Level 27 21-32 mmol/L Anion Gap 6.0 3-11 mmol/L Blood Urea Nitrogen 4 7-18 mg/dl Creatinine 0.74 0.60-1.40 mg/dl Est Creatinine Clear Calc Drug Dose 71.4 ml/min Estimated GFR () 102.4 Estimated GFR (Non- 88.3 BUN/Creatinine Ratio 5.6 10-20 Random Glucose 93 70-99 mg/dl Calcium Level 8.3 8.5-10.1 mg/dl Total Bilirubin 1.6 0.2-1 mg/dl Aspartate Amino Transf (AST/SGOT) 88 15-37 U/L Alanine Aminotransferase (ALT/SGPT) 82 12-78 U/L Alkaline Phosphatase 537 45-117 U/L Total Protein 5.8 6.4-8.2 gm/dl Albumin 1.9 3.4-5.0 gm/dl Globulin 3.9 2.5-4.0 gm/dl Albumin/Globulin Ratio 0.5 0.9-2
[2018-02-06] MEDS: PIPERACILL/TAZOBAC IV 3.375 GM in DEXTROSE 5% 100ML 100 ML IV SCH ×2 (02:13→10:00)
--- NOTE | 2018-02-06 07:19 | Surgery Progress Note ---
Surgery Progress Note Date of Service Feb 06, 2018. Subjective Post OP Day: 4 + feeling well, No complaints Objective Vital Signs: Date Time Temp Pulse Resp B/P (MAP) Pulse Ox O2 Delivery O2 Flow Rate FiO2 02/05/18 23:15 Room Air 02/05/18 22:47 37.2 67 18 159/75 (103) 92 Room Air 02/05/18 21:04 87 110/61 (77) 02/05/18 20:39 68 150/69 (96) 02/05/18 15:25 Room Air 02/05/18 15:23 36.4 71 18 179/80 (113) 93 Room Air 02/05/18 15:22 91 02/05/18 11:50 36.8 72 18 145/72 (96) 98 Room Air 02/05/18 09:56 Room Air 02/05/18 09:54 92 Room Air 02/05/18 08:22 92 Room Air 02/05/18 08:10 37.0 74 18 118/62 (80) 92 Room Air 02/05/18 07:36 Nasal Cannula 2.0 Abdomen: non distended, soft Incision(s): clean Assessment & Plan s/p lap vianca, necrotizing cholecystitis drain removed this morning by nursing ok for d/c from surgical standpoint, will remove sutures in office next week
[2018-02-06 07:55] VITALS: BP 112/60; PULSE 68; TEMP 37; O2SAT 92
[2018-02-06 08:08] VITALS: O2SAT 92
[2018-02-06] MEDS: ASPIRIN 81 MG ECTAB PO SCH (09:19)
[2018-02-06] MEDS: CLOPIDOGREL BISULFATE 75 MG TAB PO SCH (09:20)
[2018-02-06] MEDS: METOPROLOL TARTRATE 25 MG TAB PO SCH (09:20)
[2018-02-06] MEDS: PANTOprazole SOD 40 MG TAB PO SCH (09:20)
[2018-02-06] MEDS: SODIUM CHLORIDE 0.9% 1000ML 1,000 ML IV SCH (10:30)
--- NOTE | 2018-02-06 12:35 | Progress Note ---
Internal Med Progress Note Date of Service: Feb 06, 2018. Provider Documentation: SUBJECTIVE: The patient was seen and examined in telemetry unit He has severe atherosclerotic cardiovascular disease with a cardiac stent placement for past NE He was admitted with them acute acalculous cholecystitis and underwent laparoscopic cholecystectomy on of this month He has been doing reasonably well and denies any significant symptoms today 02/04: Remains generally weak Complains some discomfort without nausea and/or vomiting CHRISTINE drain still in Cipro Tolerating regular diet 02/05: Weakness is better and getting physical therapy Some abdominal discomfort CHRISTINE tube is going to be discontinued tomorrow If reasonably fine following tube removal,he will be discharged 02/06 CHRISTINE tube is out today Denies any complaints Ready to be discharged as per Surgery Denies any symptoms OBJECTIVE: Vital Signs-as noted below Exam: General-no apparent distress at rest Generally weak- improving Eyes-normal ENT-normal Neck-supple Lungs-clear to auscultation bilaterally Heart-regular, no murmur appreciated Abdomen-soft, not distended,minimally tender, bowel sounds present CHRISTINE drain site-has been out this AM Extremities-negative for any edema Neuro-alert, awake and oriented 3 Generally weak Lab data as noted below. ASSESSMENT & PLAN: Acute Acalculous Cholecystitis. Status post laparoscopic cholecystectomy on the of this month Present with severe diffused abdominal pain Gallbladder u/s showed Distended gallbladder with layering gallbladder sludge and edematous wall thickening is noted without pericholecystic fluid Lipase 609, AST 878 and ALT 219 Lactic acid elevated in the ER Received IVF and repeat lactic acid was normal Appreciate surgery input and recommendation No post-op complication Continue Zofran and pain control Continue IV Zosyn for now Symptomatically better but remains weak Tolerating regular diet We asked for PT OT evaluation Discussed with surgery and continue current treatment for the next day or 2 CHRISTINE tube is out Patient is ready to be discharged Acute Blood Loss Anemia Hb dropped to 10 from 13 No symptoms Does not need any Blood Transfusion now Hemoglobin remains more than 10 Elevated liver Enzymes AST 878 and ALT 219 on admission Mostly due to acute cholecystitis. Avoid hepatotoxic agents Continue to hold statin LFTs are improved a lot,Alkaline phosphatase is still high but not worse CAD Recent [place] in July S/P 2 drug-eluting stents placed in RCA Continue Plavix, aspirin and metoprolol Statin on hold due to elevate liver enzymes Asymptomatic ECHO on 7/22 showed * 1. Normal LV size. Borderline concentric LVH. * 2. Normal LV systolic function. LVEF 65-70 %. No regional wall motion abnormalities. Grade 1 diastolic dysfunction. * 3. Normal RV size with borderline RV function. * 4. No significant valvular pathology. * 5. Normal estimated PA and RA pressures. 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
[2018-02-06] MEDS ORDERED: LCTX PO (14:46)
--- NOTE | 2018-02-06 14:49 | Discharge Instructions ---
Discharge Instructions Date of Service Feb 06, 2018. Admission Reason for Admission: Acalculous Cholecystitis Discharge Discharge Diagnosis / Problem: Acute Acalculous Cholecystitis. Status post laparoscopic cholecystectomy o Discharge Goals Goal(s): Prevent Disease Progression Activity Recommendations Activity Limitations: resume your previous activity . Instructions / Follow-Up Instructions / Follow-Up Dr Gordon on 02/12/18 at 2:30PM.Please keep appointment with your Surgeon Current Hospital Diet Patient's current hospital diet: AHA Diet (Heart Healthy) Discharge Diet Recommended Diet: AHA Diet (Heart Healthy), Low Fat Diet Procedures Procedures Performed: Laparoscopic Cholecystectomy Pending Studies Studies pending at discharge: no Medical Emergencies . Who to Call and When: Medical Emergencies: If at any time you feel your situation is an emergency, please call 911 immediately. . Non-Emergent Contact Non-Emergency issues call your: Primary Care Provider . Past History Medical & Surgical History: (1) S/P laparoscopic cholecystectomy (2) Acalculous cholecystitis (3) Hypertension (4) Tobacco use disorder (5) Coronary artery disease (6) Presence of stent in coronary artery in patient with coronary artery disease (7) GERD (gastroesophageal reflux disease) (8) Status post cardiac catheterization (9) Status post placement of stent in right coronary artery . "Provider Documentation" section prepared by Dee Hager. . Director Learning Recommendations Director Learning Recommendations: In my clinical judgment this beneficiary meets acute admission criteria, established by [facility], that includes being hospitalized through two midnights.
[2018-02-06 15:12] VITALS: BP 112/60; PULSE 68; TEMP 37; O2SAT 92
--- NOTE | 2018-02-07 08:22 | Discharge Summary ---
Discharge Summary Date of Service Feb 07, 2018. Discharge Summary Admission Date: Feb 01, 2018 at 14:19 Discharge Date: Feb 06, 2018 Discharge Disposition: Home Principal Diagnosis: Acute Acalculous Cholecystitis. Status post laparoscopic cholecystectomy Secondary Diagnoses/Problems: Please see H&P and Hospital Progress note Procedures: Laparoscopic cholecystectomy Consultations: Surgery and Vascular Surgery Medication Reconciliation New Medications: Amoxicillin & Pot Clavulanate (Augmentin 500MG) 1 Tab Tab 1 TAB PO TID for 5 Days, #15 TAB Hydrocodone/Acetaminophen 5MG/325MG ([place] 5MG/325MG) Tab 1-2 TABLET PO q 6 hrs PRN for Pain, #30 TAB PRN PAIN Lactobacillus Acidophilus (Lactinex) Tab 2 TAB PO BID, #40 TAB Continued Medications: Aspirin (Aspirin Ec) 81 Mg Tab 81 MG PO DAILY Atorvastatin (Lipitor) 80 Mg Tab 80 MG PO DAILY, #30 TAB 12 Refills Clopidogrel (Plavix) 75 Mg Tab 75 MG PO DAILY, TAB Lisinopril (Lisinopril) 5 Mg Tab 5 MG PO QAM, #30 TAB 12 Refills Metoprolol Tartrate (Lopressor) 25 Mg Tab 25 MG PO BID, #60 TAB 12 Refills Nitroglycerin (Nitrostat) 0.4 Mg/1 Tab Subl 0.4 MG SL UD PRN for Chest Pain, #25 TAB 3 Refills Dissolve under tongue for chest pain. May repeat dose in 10 minutes if needed. Call 911 if no relief. Omeprazole (Prilosec) 40 Mg Cap 40 MG PO DAILY, CAP Ranitidine (Zantac) 150 Mg Tab 150 MG PO BID, TAB Admission Information HPI (per Admitting provider): 77 year old male with PMH of HTN, CAD s/p 2 drug eluting stents and [place] in 07/31 presents to the Emergency Room with complaints of diffuse abdominal that started early this morning. Pt said that he had 4 beers around 1 am and took his med around 3 am, he said that around 5 am he woke with severe diffuse abdominal pain that pain that radiating to his back.describes the pain as sharp, 10/10 and constant. Pt said that he had 2 episodes of vomiting associated with nausea prior coming to the hospital. He said that he had SOB but seems to be his baseline as per family. He had a normal BM about 20 minutes ago. Pt was admitting in the hospital back in July for acute [place] and had cardiac cath done with 2 drug-eluting stents in RCA. He has been on dual platelet therapy. He continues to smoke and drink about 4 beers daily. Gallbladder u/s done in the ER showed distended gallbladder with layering gallbladder sludge and edematous wall thickening. Currently pt said that he feels much better after receiving the pain med. He said that he is hungry. Denies any chest pain, palpitation, fever, chills and dizziness. Physical Exam (per Admitting): General Appearance: WD/WN, no apparent distress Head: normocephalic, atraumatic Eyes: PERRL, EOMI ENT: hearing grossly normal Neck: no JVD, trachea midline Respiratory/Chest: chest non-tender, lungs clear, no respiratory distress, no accessory muscle use Cardiovascular: no edema, no JVD, no murmur Abdomen/GI: normal bowel sounds, non tender Back: no CVA tenderness Extremities/Musculoskelatal: no calf tenderness Neurologic/Psych: no motor/sensory deficits, alert, normal mood/affect Skin: warm/dry, no rash Hospital Course Acute Acalculous Cholecystitis. Status post laparoscopic cholecystectomy on the of this month Present with severe diffused abdominal pain Gallbladder u/s showed Distended gallbladder with layering gallbladder sludge and edematous wall thickening is noted without pericholecystic fluid Lipase 609, AST 878 and ALT 219 Lactic acid elevated in the ER Received IVF and repeat lactic acid was normal Appreciate surgery input and recommendation No post-op complication Continue Zofran and pain control Continue IV Zosyn for now Symptomatically better but remains weak Tolerating regular diet We asked for PT OT evaluation Discussed with surgery and continue current treatment for the next day or 2 CHRISTINE tube is out Patient is ready to be discharged Acute Blood Loss Anemia Hb dropped to 10 from 13 No symptoms Does not need any Blood Transfusion now Hemoglobin remains more than 10 Elevated liver Enzymes AST 878 and ALT 219 on admission Mostly due to acute cholecystitis. Avoid hepatotoxic agents Continue to hold statin LFTs are improved a lot,Alkaline phosphatase is still high but not worse CAD Recent [place] in July S/P 2 drug-eluting stents placed in RCA Continue Plavix, aspirin and metoprolol Statin on hold due to elevate liver enzymes Asymptomatic ECHO on 02/01 showed * 1. Normal LV size. Borderline concentric LVH. * 2. Normal LV systolic function. LVEF 65-70 %. No regional wall motion abnormalities. Grade 1 diastolic dysfunction. * 3. Normal RV size with borderline RV function. * 4. No significant valvular pathology. * 5. Normal estimated PA and RA pressures. 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 Discharge Instructions Date of Service Feb 06, 2018. Admission Reason for Admission: Acalculous Cholecystitis Discharge Discharge Diagnosis / Problem: Acute Acalculous Cholecystitis. Status post laparoscopic cholecystectomy o Discharge Goals Goal(s): Prevent Disease Progression Activity Recommendations Activity Limitations: resume your previous activity . Instructions / Follow-Up Instructions / Follow-Up Dr Gordon on 02/12/18 at 2:30PM.Please keep appointment with your Surgeon Current Hospital Diet Patient's current hospital diet: AHA Diet (Heart Healthy) Discharge Diet Recommended Diet: AHA Diet (Heart Healthy), Low Fat Diet Procedures Procedures Performed: Laparoscopic Cholecystectomy Pending Studies Studies pending at discharge: no Medical Emergencies . Who to Call and When: Medical Emergencies: If at any time you feel your situation is an emergency, please call 911 immediately. . Non-Emergent Contact Non-Emergency issues call your: Primary Care Provider . Past History Medical & Surgical History: (1) S/P laparoscopic cholecystectomy (2) Acalculous cholecystitis (3) Hypertension (4) Tobacco use disorder (5) Coronary artery disease (6) Presence of stent in coronary artery in patient with coronary artery disease (7) GERD (gastroesophageal reflux disease) (8) Status post cardiac catheterization (9) Status post placement of stent in right coronary artery . "Provider Documentation" section prepared by Dee Hager. . Tobacco Sorter Recommendations Tobacco Sorter Recommendations: In my clinical judgment this beneficiary meets acute admission criteria, established by [facility], that includes being hospitalized through two midnights. <Electronically signed by Dee Hager M.D.> Signed: 02/06/18 [id number] Additional Copies To Vic Gordon M.D.
== END 2018-02-06 16:10 | disposition home or self-care (01) | DRG 418 ==
LOC: C.EDB 08:53 → C.MSW 14:19 → ENRESERV 14:51 → C.2T 02-02 12:07 → ENRESERV 02-02 12:38 → C.MSN 02-04 13:38
PROVIDERS: ADMIT Internal Medicine; ATTEND Internal Medicine
PROC: 0FT44ZZ Resection of Gallbladder, Percutaneous Endoscopic Approach (ICD-10-PCS; principal; 2018-02-02 08:30)
DX: K81.0 Acute cholecystitis (principal); K55.1 Chronic vascular disorders of intestine; R18.8 Other ascites; D62 Acute posthemorrhagic anemia; I70.0 Atherosclerosis of aorta; F10.10 Alcohol abuse, uncomplicated; I11.9 Hypertensive heart disease without heart failure; I25.10 Atherosclerotic heart disease of native coronary artery without angina pectoris; I25.2 Old myocardial infarction; K21.9 Gastro-esophageal reflux disease without esophagitis; F17.200 Nicotine dependence, unspecified, uncomplicated; Z79.899 Other long term (current) drug therapy; Z79.82 Long term (current) use of aspirin; Z79.02 Long term (current) use of antithrombotics/antiplatelets; Z95.5 Presence of coronary angioplasty implant and graft

== ENCOUNTER 2021-06-06 09:34 | Observation (INO) ==
[2021-06-06] MEDS ORDERED: ONDANSETRON INJ 2 MG/ML 2 ML VIAL IV STA (10:36)
[2021-06-06] MEDS ORDERED: fentaNYL citrate 100 MCG/2 ML VIAL IV ONE (10:36)
[2021-06-06] MEDS ORDERED: ACETAMINOPHEN 1000 MG/100 ML IV IV STA (10:36)
--- NOTE | 2021-06-06 11:24 | CT Scan Report ---
CT head/brain wo con CLINICAL HISTORY: 81 years-old Male with Fall. Acute head injury status post fall TECHNIQUE: Multiple axial CT images of the head were obtained without contrast. A dose lowering tech nique was utilized adhering to the principles of ALARA. COMPARISON: None. FINDINGS: No acute intracranial hemorrhage, midline shift, intracranial mass, hydrocephalus, territorial ischem ia or abnormal extra-axial collection. Age-related involutional changes. White matter hypodensities s uggest chronic microvascular ischemic disease. Cerebral vascular calcifications. The calvarium is intact. 4 mm linear radiodense structure is noted within the superficial subcutaneou s tissues superolateral to the right orbit. The paranasal sinuses, mastoid air cells, and middle ear cavities are clear. IMPRESSION: No acute intracranial abnormality or calvarial fracture. ACT 112: Negative or not required by law. The above report was generated using voice recognition software. It may contain grammatical, syntax o r spelling errors. Electronically signed by: Ron Nickerson M.D. 06/06/2021 11:23 AM
--- NOTE | 2021-06-06 11:33 | CT Scan Report ---
CT bony pelvis wo con CLINICAL HISTORY: Fall, pain Right COMPARISON STUDY: CTA of the abdomen and pelvis February 01, 2018. TECHNIQUE: Axial images of the pelvis and hips were obtained without IV contrast. Sagittal and irizarry l reconstructions were viewed. Automated exposure control was utilized for the study. A dose lowerin g technique was utilized adhering to the principles of ALARA. FINDINGS: Please note that the lumbar spine CT will be reported separately. Postoperative findings wi thin the lumbosacral spine are better depicted on the CT of the lumbar spine. There is an acute nondi splaced fracture of the left sacral ala which extends into the medial aspect of the left iliac bone. There is an acute comminuted minimally displaced fracture of the left inferior pubic ramus. No acute proximal femoral fracture is noted. 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 T here is moderate bilateral hip osteoarthritis. No suspicious osseous lesions are noted. There is trac e stranding/hemorrhage along the left iliac vessels. No large hematoma is identified. IMPRESSION: 1. Acute comminuted mildly displaced fracture of the left inferior pubic ramus. 2. Acute nondisplaced fracture of the left sacral ala which extends into the medial left iliac bone. 3. No acute proximal femoral fracture. 4. 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 Moderate bilateral hip osteoarthritis. 5. Trace stranding/hemorrhage along the left iliac vessels. No large hematoma. ACT 112: Negative or not required by law. Electronically signed by: Ryan Hansen M.D. 06/06/2021 11:32 AM
[2021-06-06 11:38] LABS: Basophils # (auto) 0.03 K/uL (0-0.2); Basophils % (auto) 0.3 %; Eosinophils # (auto) 0.07 K/uL (0-0.5); Eosinophils % (auto) 0.7 %; Hematocrit (blood only) 25.4 % (42-52); Hemoglobin 8.8 g/dL (14.0-18.0); Immature Granulocytes # (auto) 0.04 K/uL (0.00-0.02); Immature Granulocytes % (auto) 0.4 %; Lymphocytes # (auto) 0.85 K/uL (1.2-3.4); Lymphocytes % (auto) 8.5 %; Mean Corpuscular Hemoglobin 32.7 pg (25-34); Mean Corpuscular Hgb Conc 34.6 g/dL (32-36); Mean Corpuscular Volume 94.4 fL (80-100); Monocytes # (auto) 0.96 K/uL (0.11-0.59); Monocytes % (auto) 9.6 %; Neutrophils % (auto) 80.5 %; Platelet Count 182 K/uL (130-400); RDW Coefficient of Variation 14.4 % (11.5-14.5); RDW Standard Deviation 49.8 fL (36.4-46.3); Red Blood Count 2.69 M/uL (4.7-6.1); White Blood Count 9.95 K/uL (4.8-10.8)
[2021-06-06 11:57] LABS: Albumin Level 2.9 gm/dl (3.4-5.0); BUN Creatinine Ratio 14.4 (10-20); Calcium 8.5 mg/dl (8.5-10.1); Creatinine Clr Calc Pharmacy 46.5 ml/min; Est GFR (African American) 79.9 ml/min; Est GFR (Non-African American) 68.9 ml/min; Potassium 4.7 mmol/L (3.5-5.1)
[2021-06-06 11:59] LABS: Albumin Globulin Ratio 0.8 (0.9-2); Bilirubin,Total 0.2 mg/dl (0.2-1); Globulin 3.6 gm/dl (2.5-4.0); Total Protein 6.5 gm/dl (6.4-8.2)
--- NOTE | 2021-06-06 12:08 | History & Physical Report ---
Date of Service June 06, 2021 Assessment & Plan (1) Closed sacral fracture: Plan: TTWB LLE 6 weeks - discussed with Dr Locek. Follow up in clinic on discharge. PT/OT Pain management with acetaminophen and tramadol VTE prophylaxis start tomorrow if hemoglobin stable. (2) Closed fracture of inferior pubic ramus: Plan: As above (3) Anemia: Plan: Monitor for worsening pelvic bleed with serial H&H and CBC in AM. Blood consent signed if Hgb < 7. (4) Fall: Plan: No concerning findings from history prior to fall (5) Hypertension: Plan: Continue his usual medications with irbesartan/HCTZ (6) Tobacco use disorder: Plan: Encourage cessation. Declines nicotine supplementation (7) Coronary artery disease: Plan: Continue aspirin, clopidogrel, irbesartan, atorvastatin (8) GERD (gastroesophageal reflux disease): Plan: Continue famotidine 20mg BID Plan: VTE Prophylaxis - deferred chemical prophylaxis pending stability in Hgb Diet - regular Disposition - admit to med/surg Admission and Anticipated Discharge Date Admission Date: June 06, 2021 History of Present Illness Chief Complaint: Fall, left hip pain Primary Care Provider: Jimmie Taveras MD Rickie Zhang is an 81 year old male who presents with fall. He reports falling around 2:30am this morning when he slipped outside on the [place] while trying to take his trash out. 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 He denies any chest pain, shortness of breath or dizziness prior to falling. He denies hitting his head. Fell onto his left side and non outstretched left arm. He denies any upper extremity pain but is having left lateral and hip pain, severity 10/10 on arrival in the ER, currently 5/10. He reports having a prior CT in Jul 2018 s/p PRETTY. No chest pain or shortness of breath on exertion. Smokes 1.5 pack/day. Beer 3 bottles of beer a day. No prior withdrawal from alcohol. In the ER CT imaging confirmed acute comminuted mildly displaced fracture of left inferior pubic ramus and non displaced fracture of left sacral ala extending to medial left iliac bone and he was noted to be anemic with hemoglobin 8.8 from 10.6 with trace stranding/hemorrhage. He was referred to medicine for admission and ongoing management of this fracture. Allergies Allergy/AdvReac Type Severity Reaction Status Date / Time No Known Allergies Allergy Verified 06/06/21 10:22 Home Medications Medication Instructions Recorded Confirmed Type aspirin 81 mg tablet,delayed 81 mg PO DAILY #90 tab 04/27/19 06/06/21 Rx release (Adult Low Dose Aspirin) atorvastatin 80 mg tablet 80 mg PO QPM #90 tab 04/27/19 06/06/21 Rx clopidogrel 75 mg tablet 75 mg PO DAILY #90 tab 04/27/19 06/06/21 Rx nitroglycerin 0.4 mg sublingual 0.4 mg SL Q5M PRN #25 tab 04/27/19 06/06/21 Rx tablet famotidine 40 mg tablet 20 mg PO BID 06/06/21 06/06/21 History irbesartan 300 1 tab PO DAILY 06/06/21 06/06/21 History mg-hydrochlorothiazide 12.5 mg tablet Past Med/Surg History Medical History (Updated 06/06/21 @ 15:50 by Jimmie Thomas MD) Coronary artery disease "inferior STEMI 07/21/17; multivessel disease; 2 stents RCA" GERD (gastroesophageal reflux disease) Hypertension Presence of stent in coronary artery in patient with coronary artery disease Tobacco use disorder Surgical History (Updated 04/15/18 @ 01:20 by Jr Butler PA-C) Status post cardiac catheterization Status post placement of stent in right coronary artery "drug eluting stents x [address] Che 07/21/17" On 07/25/17 21:29 Rickie Krause wrote "drug eluting stents x [address] Che 07/21/16" Social History Smoking Status: Current every day smoker Tobacco Type: Cigarettes Cigarettes Per Day: 1.5 pks/day; Do You Dip or Chew Tobacco: No; Hx Alcohol Use: Yes Alcohol type: beer Hx Substance Use: No Preferred Language: [place] Communication Ability: Effective Chief Load Dispatcher Required: No Beliefs That Will Affect Care: None Current Living Situation: Spouse Other Information That Helps Us Care for You: No Feels Safe at Home: Yes Assistive Devices: Walker Review of Systems Review of Systems: All systems reviewed & are unremarkable except as noted in HPI & below Physical Exam Constitutional: WD/WN, vitals as above Eyes: + anicteric sclerae; normal pupil size ENMT: external ear and nose normal, oropharynx normal Neck: trachea midline, no thyromegaly Respiratory: normal respiratory effort, lungs clear to auscultation Cardiovascular: RRR, no murmur, no edema Gastrointestinal (Abdomen): normal bowel sounds, soft, nontender, no hepatosplenomegaly Musculoskeletal: Pain on any left hip movement or palpation of left lateral hip. DP/PT pulses intact. No sensory deficit distally on LLE. Skin: no rashes, warm and dry Neurologic: moves all extremities and awake; not confused Psychiatric: A+Ox3, euthymic affect Results & Data Results & Data ([place]) Vital Signs (Past 12 Hours) Vital Signs Temp Pulse Pulse Resp BP BP Pulse Ox 06/06/21 11:56 84 20 155/67 H 99 06/06/21 09:40 36.4 C L 86 20 140/[address] head/brain wo con CLINICAL HISTORY: 81 years-old Male with Fall. Acute head injury status post fall TECHNIQUE: Multiple axial CT images of the head were obtained without contrast. A dose lowering technique was utilized adhering to the principles of ALARA. COMPARISON: None. FINDINGS: No acute intracranial hemorrhage, midline shift, intracranial mass, hydrocephalus, territorial ischemia or abnormal extra-axial collection. Age- related involutional changes. White matter hypodensities suggest chronic microvascular ischemic disease. Cerebral vascular calcifications. The calvarium is intact. 4 mm linear radiodense structure is noted within the superficial subcutaneous tissues superolateral to the right orbit. The paranasal sinuses, mastoid air cells, and middle ear cavities are clear. IMPRESSION: No acute intracranial abnormality or calvarial fracture. CT bony pelvis wo con CLINICAL HISTORY: Fall, pain Right COMPARISON STUDY: CTA of the abdomen and pelvis February 01, 2018. TECHNIQUE: Axial images of the pelvis and hips were obtained without IV contrast. Sagittal and coronal reconstructions were viewed. Automated exposure control was utilized for the study. A dose lowering technique was utilized adhering to the principles of ALARA. FINDINGS: Please note that the lumbar spine CT will be reported separately. Postoperative findings within the lumbosacral spine are better depicted on the CT of the lumbar spine. There is an acute nondisplaced fracture of the left sacral ala which extends into the medial aspect of the left iliac bone. There is an acute comminuted minimally displaced fracture of the left inferior pubic ramus. No acute proximal femoral fracture is noted. 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 There is moderate bilateral hip osteoarthritis. No suspicious osseous lesions are noted. There is trace stranding/hemorrhage along the left iliac vessels. No large hematoma is identified. IMPRESSION: 1. Acute comminuted mildly displaced fracture of the left inferior pubic ramus. 2. Acute nondisplaced fracture of the left sacral ala which extends into the medial left iliac bone. 3. No acute proximal femoral fracture. 4. 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 Moderate bilateral hip osteoarthritis. 5. Trace stranding/hemorrhage along the left iliac vessels. No large hematoma. CT lumbar spine wo con HISTORY: 81 years-old Male Low back pain, fall acute low back pain status post fall COMPARISON: CT pelvis of same day, CTA 01/30/2018. TECHNIQUE: Multiple axial CT images of the lumbar spine were obtained without the use of IV contrast. A dose lowering technique was used consistent with the principals of ALARA. FINDINGS: Chronic L4 compression deformity. Demineralized appearance of the bones. Laminectomy with posterior interbody ivis and screw fusion and discectomy at L5- S1. There is no evidence of hardware fracture or loosening. Chronic minimal L2 compression deformity. Mild multilevel intervertebral disc space narrowing. Spondylitic spurring with posterior disc ossified complex formations are noted at L3-L4 and L4-L5. Moderate multilevel facet arthrosis. No acute fracture or subluxation of the lumbar spine. Acute nondisplaced fracture of the left sacral ala with fracture extension into the medial left iliac bone noted on image 249. Multilevel central canal or neural foraminal narrowing. There is at least moderate central canal stenosis at L4-L5. Atherosclerosis of the abdominal aorta and iliac arteries. No significant prevertebral edema. Cholecystectomy. IMPRESSION: 1. No acute fracture or subluxation of the lumbar spine. 2. Chronic L4 compression deformity. 3. Acute nondisplaced fracture of the left sacral ala extending into the adjacent left iliac bone redemonstrated. 4. Prior laminectomy with discectomy and posterior interbody ivis and screw fusion at L5-S1. No evidence of hardware complication. Medications Administered ER Medications Given: Fentanyl 25 mcg IV Ondansetron 4mg IV Acetaminophen 1000mg IV ECG Indication: SOB/dyspnea Rate (beats per minute): 81 Rhythm: normal sinus Comparison ECG Date: from (February 01, 2021) Change: no significant change Code Status & VTE Plan Code Status Full VTE Prophylaxis Plan VTE Prophylaxis will be ordered: No PG Care Time/CCT Total # of Minutes Spent Total Time Spent with Patient: Total time spent is greater than 50% in coordination of care (as documented) at patient's floor/unit and/or counseling patient: Coding Level of Care Code 80596 Initial Inpt Care Lvl 2 Diagnoses Closed sacral fracture S32.110A Encounter type: initial encounter Fracture alignment: nondisplaced Zone of sacrum fracture: zone I of sacrum Closed fracture of inferior pubic ramus S32.592A Encounter type: initial encounter Laterality: left Fall W19.XXXA Encounter type: initial encounter Hypertension I10 Tobacco use disorder F17.200 Coronary artery disease I25.10 GERD (gastroesophageal reflux disease) K21.9 Anemia D64.9 (1) Closed fracture of inferior pubic ramus Encounter type: initial encounter Laterality: left Qualified Code(s): S32.592A - Other specified fracture of left pubis, initial encounter for closed fracture (2) Closed sacral fracture Encounter type: initial encounter Fracture alignment: nondisplaced Zone of sacrum fracture: zone I of sacrum Qualified Code(s): S32.110A - Nondisplaced Zone I fracture of sacrum, initial encounter for closed fracture (3) Fall Encounter type: initial encounter Qualified Code(s): W19.XXXA - Unspecified fall, initial encounter
--- NOTE | 2021-06-06 12:10 | CT Scan Report ---
CT lumbar spine wo con HISTORY: 81 years-old Male Low back pain, fall acute low back pain status post fall COMPARISON: CT pelvis of same day, CTA 01/30/2018. TECHNIQUE: Multiple axial CT images of the lumbar spine were obtained without the use of IV contrast. A dose lowering technique was used consistent with the principals of ALARA. FINDINGS: Chronic L4 compression deformity. Demineralized appearance of the bones. Laminectomy with posterior i nterbody ivis and screw fusion and discectomy at L5-S1. There is no evidence of hardware fracture or l oosening. Chronic minimal L2 compression deformity. Mild multilevel intervertebral disc space narrowi ng. Spondylitic spurring with posterior disc ossified complex formations are noted at L3-L4 and L4-L5 . Moderate multilevel facet arthrosis. No acute fracture or subluxation of the lumbar spine. Acute no ndisplaced fracture of the left sacral ala with fracture extension into the medial left iliac bone no ivanna on image 249. Multilevel central canal or neural foraminal narrowing. There is at least moderate central canal stenosis at L4-L5. Atherosclerosis of the abdominal aorta and iliac arteries. No significant prevertebral edema. Cholecy stectomy. IMPRESSION: 1. No acute fracture or subluxation of the lumbar spine. 2. Chronic L4 compression deformity. 3. Acute nondisplaced fracture of the left sacral ala extending into the adjacent left iliac bone red emonstrated. 4. Prior laminectomy with discectomy and posterior interbody ivis and screw fusion at L5-S1. No eviden ce of hardware complication. ACT 112: Negative or not required by law. The above report was generated using voice recognition software. It may contain grammatical, syntax o r spelling errors. Electronically signed by: Ron Nickerson M.D. 06/06/2021 12:09 PM
--- NOTE | 2021-06-06 12:24 | XRay Report ---
XR chest 1V portable CLINICAL HISTORY: Fall. Pain. Evaluate cardiopulmonary status COMPARISON STUDY: 03/19/2019 TECHNIQUE: 1 view of the chest FINDINGS: Single frontal view of the chest demonstrates the cardiomediastinal silhouette to be within normal li mits. There is hyperinflation of the lungs with attenuation of the pulmonary vasculature peripherally characteristic of underlying chronic obstructive pulmonary disease. The lungs are clear of alveolar opacities. There is no evidence for pleural effusion. There is no evidence for vascular congestion. T here is no acute osseous pathology. IMPRESSION: No acute cardiopulmonary disease. There is again evidence of underlying COPD. ACT 112: Negative or not required by law. Electronically signed by: Ernesto Broderick M.D. 06/06/2021 12:22 PM
[2021-06-06] MEDS ORDERED: SODIUM CHLORIDE 0.9% 1000ML 1,000 ML IV SCH (13:00)
--- NOTE | 2021-06-06 15:25 | Emergency Department Note ---
Impression & Plan Closed sacral fracture, Fall, Closed fracture of inferior pubic ramus, Anemia ED Provider Note CHIEF COMPLAINT: Fall, L low back/hip pain HISTORY OF PRESENT ILLNESS: This 81 yo male patient presents to the emergency department with c/o L low back and hip pain after a fall. Pt was taking the garbage out in the early hours of the morning and states it was slippery d/t freezing temperatures. He lost his footing and landed on the L side. Pt was able to crawl into the house with his 's assistance. He rested for a while with ice in place to the low back and hip but had no relief. They called EMS. Pt denies head injury, neck pain, CP and LOC. He is on Plavix and a baby ASA. REVIEW OF SYSTEMS: A review of systems was performed with positives and pertinent negatives listed in the history of present illness. 10 systems were reviewed and are otherwise negative. ALLERGIES: see below MEDICATIONS: see below PMH: see below SOCIAL HISTORY: see below DDx: Fracture, dislocation, contusion, intra-abdominal, pneumothorax, intrathoracic, intracranial, neurologic, compartment syndrome, rhabdomyolysis, as well as other pathologies. PHYSICAL EXAM: Vital signs reviewed. General: Generally well appearing elderly 81 yo male, in no significant distress. HEENT: No scleral icterus, PERRLA, neck supple. Atraumatic. Cardiovascular: Regular rate and rhythm, no extra sounds. Pulmonary: Clear to auscultation bilaterally, normal work of breathing. Abdomen: Soft, nontender, nondistended, positive bowel sounds. Musculoskeletal: Atraumatic, no peripheral edema. Nontender to palpation of the low lumbar spine but unable to log roll w/o significant pain. Some discomfort to pelvic rocking and straight leg raise. Nontender to palpation of cervical, thoracic spine. Rectal: Normal mucosa, guaiac negative Neurologic: Patient awake alert and oriented x 3, speech is clear Skin: Warm, dry, no rash EMERGENCY DEPARTMENT COURSE/MDM: This patient was evaluated and appeared to be in no significant distress. IV access was obtained and laboratory work was drawn. The patient was placed on the air sampling and monitoring and noted to be in a normal sinus rhythm. Patient was medicated with IV fentanyl and IV acetaminophen for his discomfort. He was hydrated with normal saline solution. Laboratory work reveals an anemia with a hemoglobin of 8.8. He is stool guaiac negative. Patient was unable to logroll without significant discomfort. CT imaging of the head, lumbar spine and pelvis was performed. There appears to be an acute fracture of the sacral ala and inferior pubic ramus. This would explain the patient's discomfort. Given his elderly age and inability to ambulate, patient will require hospitalization for further management. Hospitalist service was called to for further management. Patient and son are aware of the plan and agree. MONITORING: An order for cardiac monitoring was placed and the patient is noted to be in a sinus rhythm at 75 beats per minute. RADIOLOGY: See below EKG: Normal sinus rhythm at 81 bpm. Normal axis, normal ST segments. Normal QT interval. No PVCs, no PACs. DISPOSITION: Admission Past Med/Surg History Medical History Coronary artery disease "inferior STEMI 07/21/17; multivessel disease; 2 stents RCA" GERD (gastroesophageal reflux disease) Hypertension Presence of stent in coronary artery in patient with coronary artery disease Tobacco use disorder Surgical History Status post cardiac catheterization Status post placement of stent in right coronary artery "drug eluting stents x [address] Che 07/21/17" On 07/25/17 21:29 Rickie Krause wrote "drug eluting stents x [address] 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 Required: No Beliefs That Will Affect Care: None marital status: Current Living Situation: Spouse Other Information That Helps Us Care for You: No Feels Safe at Home: Yes Assistive Devices: Oxygen - Continuous and Walker Allergies Allergies Allergy/AdvReac Type Severity Reaction Status Date / Time No Known Allergies Allergy Verified 06/06/21 10:22 Home Meds Home Medications Medication Instructions Recorded Confirmed famotidine 40 mg tablet 20 mg PO BID 06/06/21 06/06/21 irbesartan 300 1 tab PO DAILY 06/06/21 06/06/21 mg-hydrochlorothiazide 12.5 mg tablet Previous Rx's Medication Instructions Recorded aspirin 81 mg tablet,delayed 81 mg PO DAILY #90 tab 04/27/19 release (Adult Low Dose Aspirin) atorvastatin 80 mg tablet 80 mg PO QPM #90 tab 04/27/19 clopidogrel 75 mg tablet 75 mg PO DAILY #90 tab 04/27/19 nitroglycerin 0.4 mg sublingual 0.4 mg SL Q5M PRN #25 tab 04/27/19 tablet acetaminophen 325 mg capsule 650 mg PO Q6H PRN #14 cap 06/09/21 (Tylenol) fluticasone furoate 100 1 ea INHALATION DAILY #60 ea 06/09/21 mcg-vilanterol 25 mcg/dose inhalation powder (Breo Ellipta) folic acid 1 mg tablet 1 mg PO QAM 14 Days #14 tab 06/09/21 thiamine HCl (vitamin B1) 100 mg 100 mg PO QAM 14 Days #14 tab 06/09/21 tablet (Vitamin B-1) Results & Data (ED) Vital Signs Vital Signs - 24 hr 06/06/21 09:40 06/06/21 11:56 06/06/21 14:00 Temperature 36.4 C L Temperature Source Oral Pulse Rate 86 Pulse Rate [Right Finger] 84 72 Respiratory Rate 20 20 17 Respiratory Effort / Characteristics Non-Labored Respiratory Depth Normal Blood Pressure 140/83 Blood Pressure [Right Arm] 155/67 H 125/67 Blood Pressure Mean 102 Blood Pressure Mean [Right Arm] 96 86 Pulse Oximetry 98 99 98 Oxygen Delivery Method Room Air Room Air Room Air Sepsis Recent Fever Within 48 Hours No Sepsis New/Unexplained Change in Mental Status No Sepsis Action Taken by Nursing No Action Required Home Medications Current Medication List: was personally reviewed by me Laboratory Data Attestation: I reviewed the patient's lab results. Result diagrams: 06/09/21 05:44 06/09/21 05:44 Lab Results 06/06/21 06/06/21 Range/Units 11:26 11:26 WBC 9.95 (4.8-10.8) K/uL RBC 2.69 L (4.7-6.1) M/uL Hgb 8.8 L (14.0-18.0) g/dL Hct 25.4 L (42-52) % MCV 94.4 (80-100) fL MCH 32.7 (25-34) pg MCHC 34.6 (32-36) g/dL RDW Std Deviation 49.8 H (36.4-46.3) fL RDW Coeff of Alexia 14.4 (11.5-14.5) % Plt Count 182 (130-400) K/uL MPV 9.0 (7.4-10.4) fL Immature Gran % (Auto) 0.4 % Neut % (Auto) 80.5 % Lymph % (Auto) 8.5 % [place] % (Auto) 9.6 % Eos % (Auto) 0.7 % Baso % (Auto) 0.3 % Neut # (Auto) 8.00 H (1.4-6.5) K/uL Lymph # (Auto) 0.85 L (1.2-3.4) K/uL [place] # (Auto) 0.96 H (0.11-0.59) K/uL Eos # (Auto) 0.07 (0-0.5) K/uL Baso # (Auto) 0.03 (0-0.2) K/uL Immature Gran # (Auto) 0.04 H (0.00-0.02) K/uL Sodium 131 L (136-145) mmol/L Potassium 4.7 (3.5-5.1) mmol/L Chloride 104 (98-107) mmol/L Carbon Dioxide 19 L (21-32) mmol/L Anion Gap 8.0 (3-11) BUN 15 (7-18) mg/dl Creatinine 1.01 (0.6-1.4) mg/dl Est Cr Clr Drug Dosing 46.5 ml/min Est GFR ( Amer) 79.9 ml/min Est GFR (Non-Af Amer) 68.9 ml/min BUN/Creatinine Ratio 14.4 (10-20) Glucose 85 (70-99) mg/dl Calcium 8.5 (8.5-10.1) mg/dl Total Bilirubin 0.2 (0.2-1) mg/dl AST 36 (15-37) U/L ALT 32 (12-78) U/L Alkaline Phosphatase 86 (45-117) U/L Total Protein 6.5 (6.4-8.2) gm/dl Albumin 2.9 L (3.4-5.0) gm/dl Globulin 3.6 (2.5-4.0) gm/dl Albumin/Globulin Ratio 0.8 L (0.9-2) Administered Medications Discontinued Medications Acetaminophen (Acetaminophen 1000 Mg/100 Ml Iv) 1,000 mg IV NOW STA Stop: 06/06/21 10:37 Last Admin: 06/06/21 12:01 Dose: 1,000 mg Documented by: [id number] Acetaminophen (Acetaminophen 500 Mg Tab) 1,000 mg PO TID MELVI Stop: 07/06/21 13:59 Last Admin: 06/09/21 07:33 Dose: 1,000 mg Documented by: [id number] Admin: 06/08/21 20:38 Dose: 1,000 mg Documented by: [id number] Admin: 06/08/21 13:14 Dose: 1,000 mg Documented by: [id number] Admin: 06/08/21 10:43 Dose: 1,000 mg Documented by: [id number] Admin: 06/07/21 22:35 Dose: 1,000 mg Documented by: [id number] Admin: 06/07/21 13:27 Dose: 1,000 mg Documented by: [id number] Admin: 06/07/21 08:19 Dose: 1,000 mg Documented by: [id number] Admin: 06/06/21 16:02 Dose: 1,000 mg Documented by: [id number] Admin: 06/06/21 16:02 Dose: Not Given Documented by: [id number] Aspirin (Aspirin 81 Mg Ectab) 81 mg PO DAILY MELVI Stop: 07/07/21 08:59 Last Admin: 06/09/21 07:34 Dose: 81 mg Documented by: [id number] Admin: 06/08/21 10:42 Dose: 81 mg Documented by: [id number] Admin: 06/07/21 08:19 Dose: 81 mg Documented by: [id number] Atorvastatin Calcium (Atorvastatin 40 Mg Tab) 80 mg PO QPM MELVI Stop: 07/06/21 20:59 Last Admin: 06/08/21 20:37 Dose: 80 mg Documented by: [id number] Admin: 06/07/21 22:35 Dose: 80 mg Documented by: [id number] Admin: 06/06/21 20:04 Dose: 80 mg Documented by: [id number] Enoxaparin Sodium (Enoxaparin Inj 40 Mg/0.4 Ml Syr) 40 mg SQ QAM MELVI Stop: 07/08/21 08:59 Last Admin: 06/09/21 07:33 Dose: 40 mg Documented by: [id number] Admin: 06/08/21 10:43 Dose: 40 mg Documented by: [id number] Famotidine (Famotidine 20 Mg Tab) 20 mg PO BID MELVI Stop: 07/06/21 20:59 Last Admin: 06/09/21 07:33 Dose: 20 mg Documented by: [id number] Admin: 06/08/21 20:37 Dose: 20 mg Documented by: [id number] Admin: 06/08/21 10:42 Dose: 20 mg Documented by: [id number] Admin: 06/07/21 22:35 Dose: 20 mg Documented by: [id number] Admin: 06/07/21 08:19 Dose: 20 mg Documented by: [id number] Admin: 06/06/21 20:04 Dose: 20 mg Documented by: [id number] Fentanyl Citrate (Fentanyl Citrate 100 Mcg/2 Ml Vial) 25 mcg IV NOW ONE Stop: 06/06/21 10:37 Last Admin: 06/06/21 12:11 Dose: 25 mcg Documented by: [id number] Fluticasone/Vilanterol (Fluticasone/Vilanterol 100/25mcg 14 Puffs/Inhaler) 1 puffs INH DAILY MELVI Stop: 07/09/21 09:59 Last Admin: 06/09/21 10:59 Dose: 1 puffs Documented by: [id number] Folic Acid (Folic Acid 1 Mg Tab) 1 mg PO QAM MELVI Stop: 07/07/21 18:59 Last Admin: 06/09/21 07:34 Dose: 1 mg Documented by: [id number] Admin: 06/08/21 10:43 Dose: 1 mg Documented by: [id number] Admin: 06/07/21 22:35 Dose: 1 mg Documented by: [id number] Hydrochlorothiazide (Hydrochlorothiazide 25 Mg Tab) 12.5 mg PO DAILY MELVI Stop: 07/07/21 08:59 Last Admin: 06/09/21 07:34 Dose: 12.5 mg Documented by: [id number] Admin: 06/08/21 10:42 Dose: 12.5 mg Documented by: [id number] Admin: 06/07/21 08:19 Dose: 12.5 mg Documented by: [id number] Sodium Chloride (Nss 1000ml) 1,000 mls @ 80 mls/hr IV .[id number] MELVI Stop: 06/07/21 01:29 Last Infusion: 06/07/21 05:23 Dose: 0 mls/hr Documented by: [id number] Admin: 06/06/21 16:50 Dose: 80 mls/hr Documented by: [id number] Irbesartan (Irbesartan 150 Mg Tab) 300 mg PO DAILY MELVI Stop: 07/07/21 08:59 Last Admin: 06/09/21 07:34 Dose: 300 mg Documented by: [id number] Admin: 06/08/21 10:42 Dose: 300 mg Documented by: [id number] Admin: 06/07/21 08:19 Dose: 300 mg Documented by: [id number] Ondansetron HCl (Ondansetron Inj 2 Mg/Ml 2 Ml Vial) 4 mg IV NOW STA Stop: 06/06/21 10:37 Last Admin: 06/06/21 11:58 Dose: 4 mg Documented by: [id number] Thiamine HCl (Thiamine Hcl 100 Mg Tab) 100 mg PO QAM MELVI Stop: 07/07/21 18:59 Last Admin: 06/09/21 07:34 Dose: 100 mg Documented by: [id number] Admin: 06/08/21 10:41 Dose: 100 mg Documented by: [id number] Admin: 06/07/21 22:36 Dose: 100 mg Documented by: [id number] Tramadol HCl (Tramadol Hcl 50 Mg Tablet) 25 mg PO Q4H PRN PRN Reason: Pain Stop: 07/07/21 08:16 Last Admin: 06/08/21 10:41 Dose: 25 mg Documented by: [id number] Admin: 06/07/21 09:05 Dose: 25 mg Documented by: [id number] Imaging Data Radiologist's Impression: Chest X-Ray 06/06/21 00:00 XR chest 1V portable CLINICAL HISTORY: Fall. Pain. Evaluate cardiopulmonary status COMPARISON STUDY: 03/19/2019 TECHNIQUE: 1 view of the chest FINDINGS: Single frontal view of the chest demonstrates the cardiomediastinal silhouette t o be within normal limits. There is hyperinflation of the lungs with attenuation of the pulmonary vasculature peripherally characteristic of underlying chronic obstructive pulmonary disease. The lungs are clear of alveolar opacities. There is no evidence for pleural effusion. There is no evidence for vascular congestion. There is no acute osseous pathology. IMPRESSION: No acute cardiopulmonary disease. There is again evidence of underlying COPD. ACT 112: Negative or not required by law. Electronically signed by: Ernesto Broderick M.D. 06/06/2021 12:[address] 06/06/21 10:36 CT head/brain wo con CLINICAL HISTORY: 81 years-old Male with Fall. Acute head injury status post fall TECHNIQUE: Multiple axial CT images of the head were obtained without contrast. A dose lowering technique was utilized adhering to the principles of ALARA. COMPARISON: None. FINDINGS: No acute intracranial hemorrhage, midline shift, intracranial mass, hydrocephalus, territorial ischemia or abnormal extra-axial collection. Age- related involutional changes. White matter hypodensities suggest chronic microvascular ischemic disease. Cerebral vascular calcifications. The calvarium is intact. 4 mm linear radiodense structure is noted within the superficial subcutaneous tissues superolateral to the right orbit. The paranasal sinuses, mastoid air cells, and middle ear cavities are clear. IMPRESSION: No acute intracranial abnormality or calvarial fracture. ACT 112: Negative or not required by law. The above report was generated using voice recognition software. It may contain grammatical, syntax or spelling errors. Electronically signed by: Ron Nickerson M.D. 06/06/2021 11:[address] 06/06/21 10:36 CT lumbar spine wo con HISTORY: 81 years-old Male Low back pain, fall acute low back pain status post fall COMPARISON: CT pelvis of same day, CTA 01/30/2018. TECHNIQUE: Multiple axial CT images of the lumbar spine were obtained without the use of IV contrast. A dose lowering technique was used consistent with the principals of ALARA. FINDINGS: Chronic L4 compression deformity. Demineralized appearance of the bones. Laminectomy with posterior interbody ivis and screw fusion and discectomy at L5- S1. There is no evidence of hardware fracture or loosening. Chronic minimal L2 compression deformity. Mild multilevel intervertebral disc space narrowing. Spondylitic spurring with posterior disc ossified complex formations are noted at L3-L4 and L4-L5. Moderate multilevel facet arthrosis. No acute fracture or subluxation of the lumbar spine. Acute nondisplaced fracture of the left sacral ala with fracture extension into the medial left iliac bone noted on image 249. Multilevel central canal or neural foraminal narrowing. There is at least moderate central canal stenosis at L4-L5. Atherosclerosis of the abdominal aorta and iliac arteries. No significant prevertebral edema. Cholecystectomy. IMPRESSION: 1. No acute fracture or subluxation of the lumbar spine. 2. Chronic L4 compression deformity. 3. Acute nondisplaced fracture of the left sacral ala extending into the adjacent left iliac bone redemonstrated. 4. Prior laminectomy with discectomy and posterior interbody ivis and screw fusion at L5-S1. No evidence of hardware complication. ACT 112: Negative or not required by law. The above report was generated using voice recognition software. It may contain grammatical, syntax or spelling errors. Electronically signed by: Ron Nickerson M.D. 06/06/2021 12:[address] 06/06/21 10:36 CT bony pelvis wo con CLINICAL HISTORY: Fall, pain Right COMPARISON STUDY: CTA of the abdomen and pelvis February 01, 2018. TECHNIQUE: Axial images of the pelvis and hips were obtained without IV contrast. Sagittal and coronal reconstructions were viewed. Automated exposure control was utilized for the study. A dose lowering technique was utilized adhering to the principles of ALARA. FINDINGS: Please note that the lumbar spine CT will be reported separately. Postoperative findings within the lumbosacral spine are better depicted on the CT of the lumbar spine. There is an acute nondisplaced fracture of the left sacral ala which extends into the medial aspect of the left iliac bone. There is an acute comminuted minimally displaced fracture of the left inferior pubic ramus. No acute proximal femoral fracture is noted. 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 There is moderate bilateral hip osteoarthritis. No suspicious osseous lesions are noted. There is trace stranding/hemorrhage along the left iliac vessels. No large hematoma is identified. IMPRESSION: 1. Acute comminuted mildly displaced fracture of the left inferior pubic ramus. 2. Acute nondisplaced fracture of the left sacral ala which extends into the medial left iliac bone. 3. No acute proximal femoral fracture. 4. 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 Moderate bilateral hip osteoarthritis. 5. Trace stranding/hemorrhage along the left iliac vessels. No large hematoma. ACT 112: Negative or not required by law. Electronically signed by: Ryan Hansen M.D. 06/06/2021 11:32 AM Discharge Plan Visit Data Chief Complaint: Fall ED Provider: Deb Carlin Discharge Problem: Closed sacral fracture, Fall, Closed fracture of inferior pubic ramus, Anemia Patient Disposition: Admitted As Inpatient Discharge Instructions Interventions: ED Discharge Assessment Last Done: 06/06/21 16:25
[2021-06-06] MEDS: ACETAMINOPHEN 500 MG TAB PO SCH ×2 (16:02)
[2021-06-06] MEDS ORDERED: ONDANSETRON INJ 2 MG/ML 2 ML VIAL IV PRN (16:48)
[2021-06-06] MEDS ORDERED: POLYETHYLENE (MIRALAX) 17 GM PACK PO PRN (16:48)
[2021-06-06 17:06] LABS: Appearance Urine Clear (Clear); Bilirubin Urine Negative (Negative); Blood Urine Negative (Negative); Color Urine Yellow; Glucose Urine UA Negative (Negative); Ketones Urine Negative (Negative); Leukocyte Esterase Urine Negative (Negative); Nitrite Urine Negative (Negative); Protein Urine Negative (Negative); Specific Gravity Urine 1.005 (1.000-1.030); Urobilinogen Urine Negative (Negative)
[2021-06-06] MEDS: FAMOTIDINE 20 MG TAB PO SCH (20:04)
[2021-06-06] MEDS: ATORVASTATIN 40 MG TAB PO SCH (20:04)
[2021-06-06 21:50] LABS: Hematocrit (blood only) 26.5 % (42-52); Hemoglobin 9.1 g/dL (14.0-18.0)
--- NOTE | 2021-06-07 06:52 | Electrocardiogram Report ---
Test Reason : Blood Pressure : / mmHG Vent. Rate : 081 BPM Atrial Rate : 081 BPM P-R Int : 162 ms QRS Dur : 076 ms QT Int : 348 ms P-R-T Axes : 065 062 062 degrees QTc Int : 404 ms Normal sinus rhythm Normal ECG When compared with ECG of 01-FEB-2018 09:04, No significant change Confirmed by Tyrone Caban ([id number]) on 06/07/2021 6:51:41 AM Referred By: Confirmed By:Tyrone Caban
[2021-06-07] MEDS: ASPIRIN 81 MG ECTAB PO SCH (08:19)
[2021-06-07] MEDS: IRBESARTAN 150 MG TAB PO SCH (08:19)
[2021-06-07] MEDS: hydroCHLOROthiazide 25 MG TAB PO SCH (08:19)
[2021-06-07] MEDS: ACETAMINOPHEN 500 MG TAB PO SCH ×3 (08:19→22:35)
[2021-06-07] MEDS: FAMOTIDINE 20 MG TAB PO SCH ×2 (08:19→22:35)
[2021-06-07] MEDS: traMADol HCL 50 MG TABLET PO PRN (09:05)
[2021-06-07 09:10] LABS: Basophils # (auto) 0.03 K/uL (0-0.2); Basophils % (auto) 0.5 %; Eosinophils # (auto) 0.09 K/uL (0-0.5); Eosinophils % (auto) 1.4 %; Hemoglobin 9.8 g/dL (14.0-18.0); Immature Granulocytes # (auto) 0.01 K/uL (0.00-0.02); Immature Granulocytes % (auto) 0.2 %; Lymphocytes % (auto) 15.3 %; Mean Corpuscular Hemoglobin 32.8 pg (25-34); Mean Corpuscular Hgb Conc 33.8 g/dL (32-36); Mean Platelet Volume 9.7 fL (7.4-10.4); Monocytes # (auto) 0.85 K/uL (0.11-0.59); Neutrophils # (auto) 4.57 K/uL (1.4-6.5); Neutrophils % (auto) 69.6 %; Platelet Count 209 K/uL (130-400); RDW Coefficient of Variation 14.9 % (11.5-14.5); RDW Standard Deviation 53.3 fL (36.4-46.3); Red Blood Count 2.99 M/uL (4.7-6.1); White Blood Count 6.55 K/uL (4.8-10.8)
[2021-06-07 09:46] LABS: BUN Creatinine Ratio 10.4 (10-20); Calcium 8.8 mg/dl (8.5-10.1); Est GFR (African American) 73.7 ml/min; Est GFR (Non-African American) 63.6 ml/min; Potassium 3.8 mmol/L (3.5-5.1)
--- NOTE | 2021-06-07 10:07 | CT Scan Report ---
CT OF THE ABDOMEN AND PELVIS WITHOUT CONTRAST CLINICAL HISTORY: anemia, sacral fracture, r/o hemorrhage COMPARISON STUDY: CTA of the abdomen and pelvis February 01, 2018. CT of the pelvis and lumbar spine Nov [facility]2020. TECHNIQUE: Axial images of the abdomen and pelvis were obtained without IV contrast. Images were revi ewed in the axial, sagittal, and coronal planes. Automated exposure control was utilized for the delaney dy. A dose lowering technique was utilized adhering to the principles of ALARA. FINDINGS: No pneumatosis, free air or portal venous gas is present. Evaluation of the abdomen and pel vis is suboptimal on this unenhanced exam. There are calcified granulomas within the liver and the sp sin. Unenhanced images of the adrenal glands, kidneys and pancreas are unremarkable. There is no hyd ronephrosis. There is no biliary ductal dilatation status post cholecystectomy. No peripancreatic inf iltration is present. There is colonic diverticulosis without evidence for acute diverticulitis. Ther e is extensive plaque of the abdominal aorta which is ectatic. Bladder wall thickening is unchanged. This is chronic. Postoperative findings within the lumbosacral spine are noted. An old L4 compression fracture is noted. An acute nondisplaced fracture of the left sacral ala extending into the adjacent medial left iliac bone is again noted. An acute mildly displaced comminuted fracture of the inferior left pubic ramus is noted. 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 There is trace presacral stranding/hemorrhage is also minimal stranding/hemorrhage extending along the left i liac vessels. There is no large hematoma. This stranding is similar to prior CT. IMPRESSION: 1. Redemonstration of an acute nondisplaced fracture of the left sacral ala extending into the adjace nt medial left iliac bone. Minimal associated stranding/hemorrhage anterior to the sacrum and extendi ng along the left iliac vessels. No large hematoma. 2. Redemonstration of an acute comminuted mildly displaced fracture the left inferior pubic ramus. 3. Colonic diverticulosis without evidence for acute diverticulitis. 4. 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 ACT 112: Negative or not required by law. Electronically signed by: Ryan Hansen M.D. 06/07/2021 10:05 AM
[2021-06-07 11:21] LABS: Basophils # (auto) 0.03 K/uL (0-0.2); Basophils % (auto) 0.4 %; Eosinophils # (auto) 0.06 K/uL (0-0.5); Eosinophils % (auto) 0.9 %; Hemoglobin 9.2 g/dL (14.0-18.0); Lymphocytes % (auto) 11.9 %; Mean Corpuscular Hemoglobin 32.6 pg (25-34); Mean Corpuscular Hgb Conc 34.1 g/dL (32-36); Mean Corpuscular Volume 95.7 fL (80-100); Mean Platelet Volume 9.1 fL (7.4-10.4); Monocytes # (auto) 0.81 K/uL (0.11-0.59); Neutrophils # (auto) 5.03 K/uL (1.4-6.5); Neutrophils % (auto) 74.8 %; Platelet Count 175 K/uL (130-400); Red Blood Count 2.82 M/uL (4.7-6.1); White Blood Count 6.73 K/uL (4.8-10.8)
[2021-06-07 11:47] LABS: Albumin Level 2.7 gm/dl (3.4-5.0); BUN Creatinine Ratio 9.8 (10-20); Calcium 8.2 mg/dl (8.5-10.1); Est GFR (African American) 63.6 ml/min; Est GFR (Non-African American) 54.9 ml/min; Potassium 3.8 mmol/L (3.5-5.1)
[2021-06-07 11:51] LABS: Albumin Globulin Ratio 0.7 (0.9-2); Bilirubin,Total 0.4 mg/dl (0.2-1); Ferritin 45.9 ng/ml (8-388); Globulin 3.7 gm/dl (2.5-4.0); Total Protein 6.4 gm/dl (6.4-8.2)
--- NOTE | 2021-06-07 14:53 | Communication Note ---
Date of Service: June 07, 2021 Discussed with [facility] service at 8:00am. The patient's PCP is from [facility]. ER CM does not know of a concern/need for patient to have been admitted by the [facility] service, so it was likely a mistake to have our team admit him. I transferred the patient's care to Dr. Tavo Melendez who accepted him.
--- NOTE | 2021-06-07 16:52 | Consultation Report ---
DATE OF CONSULTATION: 06/07/2021 HISTORY OF PRESENT ILLNESS: This is an 81-year-old gentleman seen at the request of Dr. Tavo kaye for left sacral ala fracture and left inferior pubic ramus fracture that the patient sustained aft er having a fall. He was going to take his trash out about 2:30 in the morning when he slipped and f ell on some wyman near his home. He had no other associated injuries, no head or neck trauma. He franks d pelvic pain and difficulty ambulating, presented to [facility] where he was evalu ated, had radiographs and CT scan of the pelvis noting a left inferior pubic ramus fracture and a lef t sacral ala fracture. The patient was then admitted to the hospitalist service with orthopedics to consult. PAST MEDICAL HISTORY: Significant for coronary artery disease, GERD, hypertension, presence of a niels nt and tobacco use disorder. PAST SURGICAL HISTORY: Cardiac catheterization, stent placement in the right coronary artery with a drug-eluting stent. ALLERGIES: No known drug allergies. MEDICATIONS: Aspirin, atorvastatin, clopidogrel, nitroglycerin, famotidine, irbesartan/hydrochloroth iazide. SOCIAL HISTORY: One and a half pack per day tobacco smoker. Denies drug use. Drinks approximately 3 beers per day. He is retired, lives with his spouse. PHYSICAL EXAMINATION: This is an 81-year-old gentleman, lying supine in his hospital room bed, resti ng comfortably, in no acute distress. Speech is clear and fluent. He is conversant. Focused examin ation of the lower extremities demonstrates skin warm, dry and intact. Cap refill less than 2 second s. Dorsalis pedis and posterior tib pulses are 1+/4 bilaterally. Feet are cool. Strength and range of motion are symmetric in the lower extremities with the exception of left pelvis and left hip with limited range of motion due to pain and guarding. Minor tenderness to palpation anterior and inferio r pubic ramus. Tenderness to palpation along the left sacral ala and sacroiliac joint on the left. N egative shear and rock test for instability; however, there is some discomfort with these tests. Bed mobility is limited due to pelvic pain. Radiographs and CT scan demonstrated a left sacral ala fracture and a left inferior pubic ramus fract ure. IMPRESSION: Left sacral ala fracture and left inferior pubic ramus fracture, status post fall. No s ignificant displacement. Local comminution. RECOMMENDATION: Toe-touch weightbearing with walker for a period of 6 weeks[address] Follow up with Dr. Thierry aguirre at [facility] in approximately 2-3 weeks for reassessment, radiographs and further fol lowup. Thank you for the opportunity to consult in the care of this patient. Job ID: [id number]
[2021-06-07] MEDS ORDERED: LORazepam 1 MG TAB PO PRN (18:03)
--- NOTE | 2021-06-07 19:56 | Hospitalist Progress Note ---
Date of Service June 07, 2021 Delayed entry Date of service as noted above Assessment & Plan (1) Closed sacral fracture: (2) Closed fracture of inferior pubic ramus: Plan: 1) Closed sacral fracture: Plan: (2) Closed fracture of inferior pubic ramus: Plan: Status post mechanical fall CT pelvis: 1. Acute comminuted mildly displaced fracture of the left inferior pubic ramus. 2. Acute nondisplaced fracture of the left sacral ala which extends into the medial left iliac bone. 3. No acute proximal femoral fracture. 4. 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 Moderate bilateral hip osteoarthritis. 5. Trace stranding/hemorrhage along the left iliac vessels. No large hematoma. Orthopedic service Dr. Buenrostro consulted Recommend toe-touch weightbearing with walker for period of 6 weeks Follow-up with Dr. Buenrostro in 2 to 3 weeks for repeat x-rays, reevaluation PT OT evaluation pending Usually lives at home May need to transition to acute rehab (3) Anemia: Plan: Normocytic, normochromic Iron level 42 TIBC, transferrin, ferritin within normal limits Vitamin B12 and folate within normal limits Repeat CT abdomen pelvis: No large hematoma Patient denies signs of bleeding, including melena or hematochezia Likely secondary to anemia of chronic disease versus alcohol related Hemoglobin remains 9.2-9.8 which is baseline Continue to monitor closely (4) Fall: Plan: Appears to be mechanical fall (5) Hypertension: Plan: Continue his usual medications with irbesartan/HCTZ (6) Tobacco use disorder: Plan: Encourage cessation. Declines nicotine supplementation (7) Coronary artery disease: Plan: No cardiac symptoms Continue aspirin, clopidogrel, irbesartan, atorvastatin (8) GERD (gastroesophageal reflux disease): Plan: Continue famotidine 20mg BID (9) alcohol use Admits to drinking 2-3 beers per day Last drink was Friday No overt signs of alcohol withdrawal Alcohol withdrawal protocol ordered including as needed Ativan Plan: VTE Prophylaxis -start Lovenox 40 mg subcu daily Diet - regular Disposition -PT OT evaluation pending Lives at home May need to transition to acute rehab plan of care discussed with patient in detail and at length all questions answered he is understanding, agreeable, comfortable with the plan of care Admission and Anticipated Discharge Date Admission Date: June 06, 2021 Subjective Follow-up for sacral and left inferior pubic ramus fracture, etc. Patient seen resting in bed, comfortable, not in distress, watching TV, very pleasant States he feels tired today, has mild to moderate pain on the left hip. No other pain in his body Has not tried to ambulate much today no chest pain, dyspnea, palpitations, dizziness Denies tremors, anxiety, hallucinations No other symptoms Review of Systems Review of Systems: all noted and negative except for above Physical Exam Physical Exam: General- oriented x 3, not in distress, speaks in sentences with no effort or accessory muscle use Head- atraumatic Eyes- PERRL, EOMI, anicteric ENT- oropharynx clear Neck- supple, no JVD, no adenopathy, no thyromegaly; carotids +2/2, no bruits appreciated Lungs- clear to auscultation bilaterally, no rales/wheezes Heart- normal rate, regular rhythm; no murmur, no gallop, no rub appreciated Abdomen- normal bowel sounds, nondistended, soft, nontender, no masses or hepatosplenomegaly Extremities- no pretibial edema, no calf tenderness; peripheral pulses intact Left pelvis and left hip with limited range of motion due to pain Mild tenderness on the inferior pubic ramus. Neuro- alert, oriented x 3; CN 2-12 grossly intact; motor 5/5 bilaterally;sensation 100% on all extremities; no other gross focal neurologic deficits Skin- warm & dry Results & Data Results & Data ([facility]) Vital Signs (Past 12 Hours) Vital Signs Temp Pulse Resp BP Pulse Ox 06/07/21 16:03 37.0 C 74 18 118/63 90 all noted and reviewed including below (1) Closed sacral fracture Encounter type: initial encounter Fracture alignment: nondisplaced Zone of sacrum fracture: zone I of sacrum Qualified Code(s): S32.110A - Nondisplaced Zone I fracture of sacrum, initial encounter for closed fracture (2) Closed fracture of inferior pubic ramus Encounter type: initial encounter Laterality: left Qualified Code(s): S32.592A - Other specified fracture of left pubis, initial encounter for closed fracture
[2021-06-07] MEDS: FOLIC ACID 1 MG TAB PO SCH (22:35)
[2021-06-07] MEDS: ATORVASTATIN 40 MG TAB PO SCH (22:35)
[2021-06-07] MEDS: THIAMINE HCL 100 MG TAB PO SCH (22:36)
[2021-06-08] MEDS: traMADol HCL 50 MG TABLET PO PRN ×2 (10:41→10:43)
[2021-06-08] MEDS: THIAMINE HCL 100 MG TAB PO SCH (10:41)
[2021-06-08] MEDS: hydroCHLOROthiazide 25 MG TAB PO SCH (10:42)
[2021-06-08] MEDS: ASPIRIN 81 MG ECTAB PO SCH (10:42)
[2021-06-08] MEDS: IRBESARTAN 150 MG TAB PO SCH (10:42)
[2021-06-08] MEDS: FAMOTIDINE 20 MG TAB PO SCH ×2 (10:42→20:37)
[2021-06-08] MEDS: ENOXAPARIN INJ 40 MG/0.4 ML SYR SQ SCH (10:43)
[2021-06-08] MEDS: FOLIC ACID 1 MG TAB PO SCH (10:43)
[2021-06-08] MEDS: ACETAMINOPHEN 500 MG TAB PO SCH ×3 (10:43→20:38)
--- NOTE | 2021-06-08 18:02 | Hospitalist Progress Note ---
Date of Service June 08, 2021 Assessment & Plan (1) Closed sacral fracture: (2) Closed fracture of inferior pubic ramus: Plan: Orthopedic service Dr. Buenrostro consulted Recommend toe-touch weightbearing with walker for period of 6 weeks Follow-up with Dr. Buenrostro in 2 to 3 weeks for repeat x-rays, reevaluation PT OT walked with him today-HH for PT/OT (3) Anemia: Plan: Likely multifactorial. At rcent baseline, appears stable. Cont to monitor and recommend further outpatient investigation. (4) Hypertension: Plan: At goal, Cont current meds (5) Tobacco use disorder: Plan: Encouraged to quit. Not currently on nicotine replacement therapy. (6) DVT prophylaxis: Plan: Lovenox Full Dispo-to home with HH in the next 1-2 days DO Jaylen Reid Hospitalist Admission and Anticipated Discharge Date Admission Date: June 06, 2021 Subjective 81 yo M presented after a fall resulting in left pelvis and sacral fracture patient reports walking today with assistance states he is going home and not rehab denies pain, SOB, CP or other issues tolerating PO Review of Systems Review of Systems: All systems were reviewed and negative except as indicated in subjective above. Physical Exam Physical Exam: CONSTITUTIONAL: thin, frail, vitals as above, generally well-appearing EYES: normal conjunctivae, no scleral icterus ENT: external ear and nose normal, MMM NECK: trachea midline, RESPIRATORY: clear to auscultation bilaterally, no crackles, rales or wheezes, normal respiratory effort CARDIOVASCULAR: regular rate and rhythm, S1 and 2 heard without murmurs, gallops or rubs, no JVD, no peripheral edema GASTROINTESTINAL: soft, nontender, ND, no guarding MUSCULOSKELETAL: moving extremities equally, generalized weakness. SKIN: warm and dry, NEUROLOGIC: CN 2-12 grossly intact, normal cognition, normal speech, no tremor. No gross focal deficits. PSYCHIATRIC: alert cooperative and oriented to person, place and time. Results & Data Results & Data ([facility]) Vital Signs (Past 12 Hours) Vital Signs Temp Pulse Resp BP Pulse Ox Pulse Ox 06/08/21 16:59 36.4 C L 64 18 114/63 99 06/08/21 15:23 94 06/08/21 15:02 95 06/08/21 07:38 37.0 C 65 18 130/69 97 Medications Administered Current Inpatient Medications Acetaminophen (Acetaminophen 500 Mg Tab) 1,000 mg PO TID [facility] Stop: 07/06/21 13:59 Last Admin: 06/08/21 13:14 Dose: 1,000 mg Documented by: Aspirin (Aspirin 81 Mg Ectab) 81 mg PO DAILY MELVI Stop: 07/07/21 08:59 Last Admin: 06/08/21 10:42 Dose: 81 mg Documented by: Atorvastatin Calcium (Atorvastatin 40 Mg Tab) 80 mg PO QPM MELVI Stop: 07/06/21 20:59 Last Admin: 06/07/21 22:35 Dose: 80 mg Documented by: Enoxaparin Sodium (Enoxaparin Inj 40 Mg/0.4 Ml Syr) 40 mg SQ QAM MELVI Stop: 07/08/21 08:59 Last Admin: 06/08/21 10:43 Dose: 40 mg Documented by: Famotidine (Famotidine 20 Mg Tab) 20 mg PO BID MELVI Stop: 07/06/21 20:59 Last Admin: 06/08/21 10:42 Dose: 20 mg Documented by: Folic Acid (Folic Acid 1 Mg Tab) 1 mg PO QAM MEVLI Stop: 07/07/21 18:59 Last Admin: 06/08/21 10:43 Dose: 1 mg Documented by: Hydrochlorothiazide (Hydrochlorothiazide 25 Mg Tab) 12.5 mg PO DAILY MELVI Stop: 07/07/21 08:59 Last Admin: 06/08/21 10:42 Dose: 12.5 mg Documented by: Irbesartan (Irbesartan 150 Mg Tab) 300 mg PO DAILY MELVI Stop: 07/07/21 08:59 Last Admin: 06/08/21 10:42 Dose: 300 mg Documented by: Lorazepam (Lorazepam 1 Mg Tab) 1 - 3 mg PO UD PRN; Protocol PRN Reason: EtoH Withdrawal AWSS 6-10+ Stop: 07/07/21 18:02 Ondansetron HCl (Ondansetron Inj 2 Mg/Ml 2 Ml Vial) 4 mg IV Q6H PRN PRN Reason: Nausea Stop: 07/06/21 16:47 Polyethylene Glycol (Polyethylene (Miralax) 17 Gm Pack) 17 gm PO DAILY PRN PRN Reason: Constipation Stop: 07/06/21 16:47 Thiamine HCl (Thiamine Hcl 100 Mg Tab) 100 mg PO QAM MELVI Stop: 07/07/21 18:59 Last Admin: 06/08/21 10:41 Dose: 100 mg Documented by: Tramadol HCl (Tramadol Hcl 50 Mg Tablet) 25 mg PO Q4H PRN PRN Reason: Pain Stop: 07/07/21 08:16 Last Admin: 06/08/21 10:41 Dose: 25 mg Documented by: (1) Closed fracture of inferior pubic ramus Encounter type: initial encounter Laterality: left Qualified Code(s): S32.592A - Other specified fracture of left pubis, initial encounter for closed fracture (2) Closed sacral fracture Encounter type: initial encounter Fracture alignment: nondisplaced Zone of sacrum fracture: zone I of sacrum Qualified Code(s): S32.110A - Nondisplaced Zone I fracture of sacrum, initial encounter for closed fracture
[2021-06-08] MEDS: ATORVASTATIN 40 MG TAB PO SCH (20:37)
[2021-06-09 06:34] LABS: Hematocrit (blood only) 26.5 % (42-52); Hemoglobin 8.8 g/dL (14.0-18.0); Mean Corpuscular Hemoglobin 32.4 pg (25-34); Mean Corpuscular Hgb Conc 33.2 g/dL (32-36); Mean Corpuscular Volume 97.4 fL (80-100); Mean Platelet Volume 9.5 fL (7.4-10.4); Platelet Count 197 K/uL (130-400); RDW Coefficient of Variation 14.6 % (11.5-14.5); RDW Standard Deviation 52.3 fL (36.4-46.3); Red Blood Count 2.72 M/uL (4.7-6.1); White Blood Count 9.08 K/uL (4.8-10.8)
[2021-06-09 07:04] LABS: BUN Creatinine Ratio 13.6 (10-20); Calcium 8.9 mg/dl (8.5-10.1); Creatinine Clr Calc Pharmacy 47.3 ml/min; Est GFR (African American) 82.9 ml/min; Est GFR (Non-African American) 71.5 ml/min; Potassium 3.9 mmol/L (3.5-5.1)
[2021-06-09] MEDS: ACETAMINOPHEN 500 MG TAB PO SCH (07:33)
[2021-06-09] MEDS: FAMOTIDINE 20 MG TAB PO SCH (07:33)
[2021-06-09] MEDS: ENOXAPARIN INJ 40 MG/0.4 ML SYR SQ SCH (07:33)
[2021-06-09] MEDS: hydroCHLOROthiazide 25 MG TAB PO SCH (07:34)
[2021-06-09] MEDS: THIAMINE HCL 100 MG TAB PO SCH (07:34)
[2021-06-09] MEDS: ASPIRIN 81 MG ECTAB PO SCH (07:34)
[2021-06-09] MEDS: IRBESARTAN 150 MG TAB PO SCH (07:34)
[2021-06-09] MEDS: FOLIC ACID 1 MG TAB PO SCH (07:34)
--- NOTE | 2021-06-09 09:27 | Hospitalist Progress Note ---
Date of Service June 09, 2021 Assessment & Plan (1) Closed sacral fracture: (2) Closed fracture of inferior pubic ramus: Plan: Orthopedic service Dr. Buenrostro consulted Recommend toe-touch weightbearing with walker for period of 6 weeks Follow-up with Dr. Buenrostro in 2 to 3 weeks for repeat x-rays, reevaluation PT OT:home health services advised (3) Anemia: Plan: Likely multifactorial. At rcent baseline, appears stable. -- monitor and ff up as outpatient (4) Hypertension: Plan: At goal, Cont current meds (5) Tobacco use disorder: Plan: likely underlying COPD noted to be hypoxic when ambulating has chronic cough, no signs of acute bronchitis or pneumonia 2 step O2 test today start Advair 250/50 BID ff up with PCP in 1 week (6) DVT prophylaxis: Plan: Lovenox Full Dispo-dc home with home health ff up with PCP in 1 week ff up with Ortho in 2 weeks Admission and Anticipated Discharge Date Admission Date: June 06, 2021 Subjective ff up for sacral fracture, etc seen resting in bed, comfortable, in good spirits states he feels better overall left hip pain improving no new weakness/numbness has chronic cough- productive of yellow sputum- has not changed, no fever/chills reports he gets winded at home when walking the dog no chest pain,palpitations, dizziness no other symptoms states he is ready and would like to be discharged today Review of Systems Review of Systems: all noted and negative except for above Physical Exam Physical Exam: General- oriented x 3, not in distress, speaks in sentences with no effort or accessory muscle use Eyes- anicteric Neck- no JVD Lungs-somewhat diminished, but clear breath sounds bilaterally no crackles/wheezing Heart- normal rate, regular rhythm; no murmurs Abdomen- normal bowel sounds, nondistended, soft, nontender Extremities- no pretibial edema, no calf tenderness Neuro- alert, oriented x 3; no gross focal neurologic deficits Skin- warm & dry Results & Data Results & Data ([facility]) Vital Signs (Past 12 Hours) Vital Signs Temp Pulse Pulse Pulse Pulse Pulse Pulse 06/09/21 08:40 81 88 96 H 88 88 06/09/21 07:04 37.1 C 82 06/08/21 22:24 37.2 C 68 Resp Resp Resp Resp Resp Resp BP 06/09/21 08:40 22 22 21 22 21 06/09/21 07:04 16 126/65 06/08/21 22:24 16 135/68 Pulse Ox Pulse Ox Pulse Ox Pulse Ox Pulse Ox Pulse Ox 06/09/21 08:40 85 L 92 85 L 96 94 06/09/21 07:04 91 06/08/21 22:24 92 all noted and reviewed including below (1) Closed sacral fracture Encounter type: initial encounter Fracture alignment: nondisplaced Zone of sacrum fracture: zone I of sacrum Qualified Code(s): S32.110A - Nondisplaced Zone I fracture of sacrum, initial encounter for closed fracture (2) Closed fracture of inferior pubic ramus Encounter type: initial encounter Laterality: left Qualified Code(s): S32.592A - Other specified fracture of left pubis, initial encounter for closed fracture
[2021-06-09] MEDS ORDERED: FLUTICASONE/VILANTEROL 100/25MCG 14 PUFFS/INHALER INH SCH (10:00)
--- NOTE | 2021-06-24 16:28 | Discharge Summary ---
Date of Service June 24, 2021 Admission HPI Per Admitting Provider Rickie Zhang is an 81 year old male who presents with fall. He reports falling around 2:30am this morning when he slipped outside on the [place] while trying to take his trash out. 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 He denies any chest pain, shortness of breath or dizziness prior to falling. He denies hitting his head. Fell onto his left side and non outstretched left arm. He denies any upper extremity pain but is having left lateral and hip pain, severity 10/10 on arrival in the ER, currently 5/10. He reports having a prior IN in Jul 2018 s/p PRETTY. No chest pain or shortness of breath on exertion. Smokes 1.5 pack/day. Beer 3 bottles of beer a day. No prior withdrawal from alcohol. In the ER CT imaging confirmed acute comminuted mildly displaced fracture of left inferior pubic ramus and non displaced fracture of left sacral ala extending to medial left iliac bone and he was noted to be anemic with h emoglobin 8.8 from 10.6 with trace stranding/hemorrhage. He was referred to medicine for admission and ongoing management of this fracture. Admission Exam (Per Admitting) Constitutional Constitutional: WD/WN, vitals as above Eyes: + anicteric sclerae; normal pupil size ENMT: external ear and nose normal, oropharynx normal Neck: trachea midline, no thyromegaly Respiratory: normal respiratory effort, lungs clear to auscultation Cardiovascular: RRR, no murmur, no edema Gastrointestinal (Abdomen):L normal bowel sounds, soft, nontender, no hepatosplenomegaly Musculoskeletal: Pain on any left hip movement or palpation of left lateral hip. DP/PT pulses intact. No sensory deficit distally on LLE. Skin: no rashes, warm and dry Neurologic: moves all extremities and awake; not confused B Psychiatric: A+Ox3, euthymic affect Discharge Data Consultations 06/07/21 09:04 Consult Orthopedic Surgery Routine Procedures Performed CT lumbar spine wo con HISTORY: 81 years-old Male Low back pain, fall acute low back pain status post fall COMPARISON: CT pelvis of same day, CTA 01/30/2018. TECHNIQUE: Multiple axial CT images of the lumbar spine were obtained without the use of IV contrast. A dose lowering technique was used consistent with the principals of ALARA. FINDINGS: Chronic L4 compression deformity. Demineralized appearance of the bones. Laminectomy with posterior interbody ivis and screw fusion and discectomy at L5- S1. There is no evidence of hardware fracture or loosening. Chronic minimal L2 compression deformity. Mild multilevel intervertebral disc space narrowing. Spondylitic spurring with posterior disc ossified complex formations are noted at L3-L4 and L4-L5. Moderate multilevel facet arthrosis. No acute fracture or subluxation of the lumbar spine. Acute nondisplaced fracture of the left sacral ala with fracture extension into the medial left iliac bone noted on image 249. Multilevel central canal or neural foraminal narrowing. There is at least moderate central canal stenosis at L4-L5. Atherosclerosis of the abdominal aorta and iliac arteries. No significant prevertebral edema. Cholecystectomy. IMPRESSION: 1. No acute fracture or subluxation of the lumbar spine. 2. Chronic L4 compression deformity. 3. Acute nondisplaced fracture of the left sacral ala extending into the adjacent left iliac bone redemonstrated. 4. Prior laminectomy with discectomy and posterior interbody ivis and screw fusion at L5-S1. No evidence of hardware complication. ACT 112: Negative or not required by law. The above report was generated using voice recognition software. It may contain grammatical, syntax or spelling errors. Electronically signed by: Ron Nickerson M.D. 06/06/2021 12:[address] bony pelvis wo con CLINICAL HISTORY: Fall, pain Right COMPARISON STUDY: CTA of the abdomen and pelvis February 01, 2018. TECHNIQUE: Axial images of the pelvis and hips were obtained without IV contrast. Sagittal and coronal reconstructions were viewed. Automated exposure control was utilized for the study. A dose lowering technique was utilized adhering to the principles of ALARA. FINDINGS: Please note that the lumbar spine CT will be reported separately. Postoperative findings within the lumbosacral spine are better depicted on the CT of the lumbar spine. There is an acute nondisplaced fracture of the left sacral ala which extends into the medial aspect of the left iliac bone. There is an acute comminuted minimally displaced fracture of the left inferior pubic ramus. No acute proximal femoral fracture is noted. 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 There is moderate bilateral hip osteoarthritis. No suspicious osseous lesions are noted. There is trace stranding/hemorrhage along the left iliac vessels. No large hematoma is identified. IMPRESSION: 1. Acute comminuted mildly displaced fracture of the left inferior pubic ramus. 2. Acute nondisplaced fracture of the left sacral ala which extends into the medial left iliac bone. 3. No acute proximal femoral fracture. 4. 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 Moderate bilateral hip osteoarthritis. 5. Trace stranding/hemorrhage along the left iliac vessels. No large hematoma. ACT 112: Negative or not required by law. Electronically signed by: Ryan Hansen M.D. CT OF THE ABDOMEN AND PELVIS WITHOUT CONTRAST CLINICAL HISTORY: anemia, sacral fracture, r/o hemorrhage COMPARISON STUDY: CTA of the abdomen and pelvis February 01, 2018. CT of the pelvis and lumbar spine June 06, 2021. TECHNIQUE: Axial images of the abdomen and pelvis were obtained without IV contrast. Images were reviewed in the axial, sagittal, and coronal planes. Automated exposure control was utilized for the study. A dose lowering techni que was utilized adhering to the principles of ALARA. FINDINGS: No pneumatosis, free air or portal venous gas is present. Evaluation of the abdomen and pelvis is suboptimal on this unenhanced exam. There are calcified granulomas within the liver and the spleen. Unenhanced images of the adrenal glands, kidneys and pancreas are unremarkable. There is no hydronephrosis. There is no biliary ductal dilatation status post cholecystectomy. No peripancreatic infiltration is present. There is colonic diverticulosis without evidence for acute diverticulitis. There is extensive plaque of the abdominal aorta which is ectatic. Bladder wall thickening is unchanged. This is chronic. Postoperative findings within the lumbosacral spine are noted. An old L4 compression fracture is noted. An acute nondisplaced fracture of the left sacral ala extending into the adjacent medial left iliac bone is again noted. An acute mildly displaced comminuted fracture of the inferior left pubic ramus is noted. 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 There is trace presacral stranding/hemorrhage is also minimal stranding/hemorrhage extending along the left iliac vessels. There is no large hematoma. This stranding is similar to prior CT. IMPRESSION: 1. Redemonstration of an acute nondisplaced fracture of the left sacral ala extending into the adjacent medial left iliac bone. Minimal associated stranding/hemorrhage anterior to the sacrum and extending along the left iliac vessels. No large hematoma. 2. Redemonstration of an acute comminuted mildly displaced fracture the left inferior pubic ramus. 3. Colonic diverticulosis without evidence for acute diverticulitis. 4. 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 ACT 112: Negative or not required by law. Electronically signed by: Ryan Hansen M.D. 06/07/2021 10:05 AM Hospital Course (1) Closed sacral fracture: (2) Closed fracture of inferior pubic ramus: Orthopedic service Dr. Buenrostro consulted Recommend toe-touch weightbearing with walker for period of 6 weeks Follow-up with Dr. Buenrostro in 2 to 3 weeks for repeat x-rays, reevaluation PT OT:home health services advised (3) Anemia: Likely multifactorial. At rcent baseline, appears stable. -- monitor and ff up as outpatient (4) Hypertension: At goal, Cont current meds (5) Tobacco use disorder: likely underlying COPD noted to be hypoxic when ambulating has chronic cough, no signs of acute bronchitis or pneumonia 2 step O2 test today- 2 L with ambulation start Advair 250/50 BID ff up with PCP in 1 week (6) DVT prophylaxis: Lovenox Full Dispo-dc home with home health ff up with PCP in 1 week ff up with Ortho in 2 weeks
== END 2021-06-09 14:25 | disposition home health service (06) ==
LOC: ED 09:34 → INTOOBSV 12:52 → 3E 12:52 → SUATTDRO 12:52 → 3E 16:25

== ENCOUNTER 2023-01-22 16:36 | Inpatient (IN) ==
[2023-01-22] MEDS ORDERED: SODIUM CHLORIDE 0.9% 500 ML IV STA (16:43)
--- NOTE | 2023-01-22 16:43 | ED Triage Note ---
Date of Service January 22, 2023 History of Present Illness This patient was briefly evaluated while in triage. An abbreviated physical exam was performed. This patient is a 82-year-old Male who presents to the ED for evaluation of cough, SOB, ?fluid in lungs, low oxygen. Sent over by PCP for eval. History of CAD with stents in past. Has been having some chest pain with this. Ongoing symptoms for 3-4 months with 35 lb wt loss. He denies any fevers or chills. He is a smoker, no current diagnosis of COPD. Physical Exam CONSTITUTIONAL: No acute distress. Well appearing. RESPIRATORY: Coarse rhonchi and crackles in RLL field, diminished in both bases, no wheezes or stridor heard. Nonlabored breathing. Equal expansion bilaterally. CARDIOVASCULAR: Regular rate and rhythm with no murmurs, rubs or gallops. GASTROINTESTINAL: Soft, nontender. NEUROLOGIC: Alert and oriented X 4 with normal affect. Initial orders for labs and / or imaging were placed and patient was placed in the waiting area until a bed is available. Please see further documentation for the full ED course.
--- NOTE | 2023-01-22 17:39 | XRay Report ---
SINGLE VIEW CHEST CLINICAL HISTORY: Dyspnea FINDINGS: An AP, portable, upright chest radiograph is compared to study dated 06/06/2021 and correla ivanna with chest CT dated 02/01/2018. The cardiomediastinal silhouette is unremarkable noting atheroscle rotic calcification of the thoracic aorta. Emphysema and chronic interstitial thickening similar to p revious. There is dense airspace consolidation in the right mid to lower lung and a small right pleur al effusion. The left lung appears clear noting foci of parenchymal scarring/atelectasis. No pneumoth orax is seen. The skeletal structures are osteopenic. The bony thorax is grossly intact. Cholecystect tam clips are noted in the right upper quadrant. IMPRESSION: 1. Dense airspace consolidation in the right mid to lower lung is typical for pneumonia/aspiration pn eumonitis. Clinical correlation will be required and radiographic follow-up to resolution is recommen ded. 2. Small right pleural effusion. 3. Emphysema. ACT 112: Negative or not required by law. Electronically signed by: Elia Tejeda M.D. 01/22/2023 5:37 PM
[2023-01-22 17:42] LABS: Alanine Aminotransferase 24 U/L (7-52); Albumin Globulin Ratio 0.9 (0.9-2); Alkaline Phosphatase 90 U/L (34-104); Anion Gap 15 (3-11); Aspartate Aminotransferase 45 U/L (13-39); BUN Creatinine Ratio 24.6 (10-20); Bilirubin,Total 0.8 mg/dl (0.2-1.0); Blood Urea Nitrogen 60 mg/dl (6-23); Calcium 9.4 mg/dl (8.6-10.3); Carbon Dioxide 17 mmol/L (21-32); Chloride 97 mmol/L (98-107); Est GFR (African American) 27.3 ml/min; Est GFR (Non-African American) 23.6 ml/min; Globulin 4.4 gm/dl (2.5-4.0); Glucose 104 mg/dl (70-99(Fasting)); Potassium 4.3 mmol/L (3.5-5.1); Sodium 129 mmol/L (136-145); Total Protein 8.4 gm/dl (6.0-8.3)
[2023-01-22 17:47] LABS: Basophils # (auto) 0.02 K/uL (0-0.2); Basophils % (auto) 0.2 %; Echinocytes 2+; Hematocrit (blood only) 28.4 % (42.0-52.0); Hemoglobin 9.8 g/dl (14.0-18.0); Immature Granulocytes # (auto) 0.15 K/uL (0.01-0.20); Immature Granulocytes % (auto) 1.7 %; Lymphocytes # (auto) 0.33 K/uL (1.2-3.4); Lymphocytes % (auto) 3.8 %; Mean Corpuscular Hemoglobin 30.4 pg (25.0-34.0); Mean Corpuscular Hgb Conc 34.5 g/dL (32.0-36.0); Mean Corpuscular Volume 88.2 fL (80.0-100.0); Mean Platelet Volume 10.6 fL (9.4-12.4); Monocytes # (auto) 1.01 K/uL (0.11-0.59); Monocytes % (auto) 11.5 %; Neutrophils # (auto) 7.29 K/uL (1.40-6.50); Neutrophils % (auto) 82.8 %; Platelet Count 275 K/uL (130-400); Polychromasia 1+; RDW Coefficient of Variation 15.2 % (11.5-14.5); Red Blood Count 3.22 M/uL (4.70-6.10); Troponin I High Sensitivity 14.7 pg/ml (0-20)
[2023-01-22 17:51] LABS: INR 0.9 (0.9-1.1); Partial Thromboplastin Time 29.6 Seconds (21.0-31.0); Prothrombin Time 10.4 Seconds (9.0-12.0)
[2023-01-22 18:15] LABS: Adenovirus PCR Not Detected (NotDetected); Bordetella parapertussis PCR Not Detected (NotDetected); Bordetella pertussis PCR Not Detected (NotDetected); Chlamydia pneumoniae PCR Not Detected (NotDetected); Coronavirus 229E PCR Not Detected (NotDetected); Coronavirus CoV-2 (COVID19)PCR Not Detected (NotDetected); Coronavirus HKU1 PCR Not Detected (NotDetected); Coronavirus NL63 PCR Not Detected (NotDetected); Coronavirus OC43PCR Not Detected (NotDetected); Human Metapneumovirus PCR Not Detected (NotDetected); Influenza A PCR Not Detected (NotDetected); Influenza B PCR Not Detected (NotDetected); Mycoplasma pneumoniae PCR Not Detected (NotDetected); Parainfluenza Virus 1 PCR Not Detected (NotDetected); Parainfluenza Virus 2 PCR Not Detected (NotDetected); Parainfluenza Virus 3 PCR Not Detected (NotDetected); Parainfluenza Virus 4 PCR Not Detected (NotDetected); Respiratory Syncytial VirusPCR Not Detected (NotDetected); Rhinovirus/Enterovirus PCR Not Detected (NotDetected)
--- NOTE | 2023-01-22 18:41 | Emergency Department Note ---
Impression & Plan Acute hypoxemic respiratory failure, COPD (chronic obstructive pulmonary disease), Pneumonia ED Provider Note NAME: PACO KC AGE: 82 SEX: M : 1940 ARRIVES VIA: Walk-In INFORMANT: Patient, ED PROVIDER(S): Matthias Mcgraw MD CHIEF COMPLAINT: Cough, shortness of breath, outpatient referral MEDICAL DECISION MAKING: Patient presents due to concern for cough and shortness of breath. IV was established blood work is obtained. Chest x-ray does show a dense right lower lobe pneumonia. Patient was ordered Rocephin cultures Pro-Jayesh. The patient was also ordered doxycycline. Patient was given a DuoNeb treatment steroids and was started on supplemental nasal cannula oxygen given his oxygen requirement. Patient is a normal white count with a hemoglobin of 9.8. Platelet count is unremarkable creatinine of 2.4. Sodium 129 BioFire negative. Pro-Jayesh is elevated at 6.2 with a normal lactate. I did speak with the on-call hospitalist service and the patient was admitted by Dr. Stoner. Critical Care: I have personally spent 47 minutes of critical care time in direct management of this patient. This includes bedside care, interpretation of diagnostic studies, and testing, discussion with consultants, patient, and family members, and other require inpatient management activities. This 47 minutes is in excess of all separately billable procedures. Prior /Outside records reviewed: I reviewed a discharge summary from Dr. Melendez from June 2021. Patient has known history of CAD and stents. Patient is a smoker but no known history of COPD Differential diagnosis: Reactive airway disease, pneumonia, pneumothorax, COPD, CHF, infections, cardiac ischemia, pulmonary embolism, musculoskeletal, gastrointestinal, as well as other pathologies. Diagnostics, as interpreted by me: ECG: Sinus rhythm, rate of 100, normal intervals normal axis no ST elevations. Cardiac monitoring: An order was placed for continuous cardiac monitoring. The monitor shows a rate of 98 with sinus rhythm. Patient was placed on pulse oximetry Medical decision rules: Curb 65 score Imaging studies: See below I informally reviewed the patient's chest x-ray which does show a likely right lower lobe pneumonia. HPI: Patient presents due to concern for shortness of breath and has an outpatient referral. The patient has had cough that has been nonproductive for several weeks. Patient is a smoker. Patient denies any prior history of COPD or lung disease. Patient denies any chest pains. He is at has noticed some shortness of breath and exertional dyspnea. No leg swelling. The patient has had significant weight loss over the last year. Patient denies any nausea vomiting but has had decreased p.o. intake. No falls or trauma. PAST MEDICAL HISTORY: See Below PAST SURGICAL HISTORY: See Below SOCIAL HISTORY: See Below HOME MEDICATIONS: See Below ALLERGIES: See Below VITALS: See Below PHYSICAL EXAMINATION: GENERAL: NAD, wearing a mask, non-toxic. Wearing glasses. Thin in appearance. EYE EXAM: Normal conjunctiva. PERRL, no anisocoria and EOM's grossly intact w/o pain. NECK: Supple, no nuchal rigidity, no adenopathy, non-tender. No signs of meningismus. FROM of the neck with good chin to chest and neck extension. No stridor. LUNGS: Rhonchi at the right base. Normal chest wall mechanics. HEART: NSR, no MRG. ABDOMEN: Abdomen soft, non-tender, no masses, no rebound or guarding. BACK: No CVA TTP. SKIN: No rashes and no bruising. UPPER EXTREMITIES: Upper extremities are grossly normal. LOWER EXTREMITIES: Grossly normal, no edema. NEURO EXAM: A&O x3, cranial nerves II-XII grossly intact, normal speech, moves all 4 extremities. 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 Osteoarthritis Presence of stent in coronary artery in patient with coronary artery disease Surgical History History of left cataract extraction History of lumbar surgery History of open reduction and internal fixation (ORIF) procedure Left knee with "plate" Hx of cervical spine surgery unsure of specific surgery. Full ROM. S/P laparoscopic cholecystectomy Status post cardiac catheterization (~2017) [facility] with x2 stents Status post placement of stent in right coronary artery "drug eluting stents x [address] Che 07/21/17" On 07/25/17 21:29 Paco Krause wrote "drug eluting stents x [address] Che 07/21/16" Family History Other No family history of adverse response to anesthesia Social History Smoking Status: Current every day smoker Tobacco Type: Cigarettes Cigarettes Per Day: 1.5 pks/day; Second Hand Exposure: Yes; Do You Dip or Chew Tobacco: No; Tobacco Cessation Education Requested by Patient: No Hx Alcohol Use: Yes Alcohol type: beer Hx Substance Use: No Preferred Language: German Communication Ability: Effective Family Coach Required: No Beliefs That Will Affect Care: None marital status: Current Living Situation: Spouse Feels Safe at Home: Yes Assistive Devices: None Allergies Allergies Allergy/AdvReac Type Severity Reaction Status Date / Time No Known Allergies Allergy Verified 01/22/23 19:28 Home Meds Home Medications Medication Instructions Recorded Confirmed famotidine 40 mg tablet 20 mg PO BID 06/06/21 01/22/23 irbesartan 300 1 tab PO QAM 06/06/21 01/22/23 mg-hydrochlorothiazide 12.5 mg tablet clopidogrel 75 mg tablet 75 mg PO QAM 01/10/22 01/22/23 codeine 10 mg-guaifenesin 100 mg/5 5 ml PO Q4H PRN Cough 01/22/23 01/22/23 mL Syrup Previous Rx's Medication Instructions Recorded atorvastatin 80 mg tablet 80 mg PO QPM #90 tabs 04/27/19 nitroglycerin 0.4 mg sublingual 0.4 mg sublingual Q5M PRN chest 04/27/19 tablet pain #25 tabs acetaminophen 325 mg capsule 650 mg PO Q6H PRN fever or pain 06/09/21 (Tylenol) #14 caps Results & Data (ED) Vital Signs Vital Signs - 24 hr 01/22/23 20:00 Pulse Rate 93 H Pulse Rate from SpO2 Sensor 93 H Respiratory Rate 28 H Blood Pressure 123/67 Blood Pressure Mean 85 Pulse Oximetry 92 Oxygen Delivery Method Nasal Cannula Oxygen Flow Rate 2 Home Medications Current Medication List: was personally reviewed by me Laboratory Data Attestation: I reviewed the patient's lab results. 01/22/23 17:00 01/22/23 17:00 Lab Results 01/22/23 01/22/23 01/22/23 Range/Units 17:00 17:00 17:00 WBC 8.80 (4.8-10.8) K/ul RBC 3.22 L (4.70-6.10) M/uL Hgb 9.8 L (14.0-18.0) g/dl Hct 28.4 L (42.0-52.0) % MCV 88.2 (80.0-100.0) fL MCH 30.4 (25.0-34.0) pg MCHC 34.5 (32.0-36.0) g/dL RDW Std Deviation 50.0 H (36.4-46.3) fL RDW Coeff of Alexia 15.2 H (11.5-14.5) % Plt Count 275 (130-400) K/uL MPV 10.6 (9.4-12.4) fL Immature Gran % (Auto) 1.7 % Neut % (Auto) 82.8 % Lymph % (Auto) 3.8 % [place] % (Auto) 11.5 % Eos % (Auto) 0.0 % Baso % (Auto) 0.2 % Neut # (Auto) 7.29 H (1.40-6.50) K/uL Lymph # (Auto) 0.33 L (1.2-3.4) K/uL [place] # (Auto) 1.01 H (0.11-0.59) K/uL Eos # (Auto) 0.00 (0-0.50) K/uL Baso # (Auto) 0.02 (0-0.2) K/uL Immature Gran # (Auto) 0.15 (0.01-0.20) K/uL Polychromasia 1+ Echinocytes 2+ PT 10.4 (9.0-12.0) Seconds INR 0.9 (0.9-1.1) APTT 29.6 (21.0-31.0) Seconds PTT Ratio 1.0 Sodium 129 L (136-145) mmol/L Potassium 4.3 (3.5-5.1) mmol/L Chloride 97 L (98-107) mmol/L Carbon Dioxide 17 L (21-32) mmol/L Anion Gap 15 H (3-11) BUN 60 H (6-23) mg/dl Creatinine 2.44 H (0.6-1.4) mg/dl Est Cr Clr Drug Dosing Not Reportable Est GFR ( Amer) 27.3 ml/min Est GFR (Non-Af Amer) 23.6 ml/min BUN/Creatinine Ratio 24.6 H (10-20) Glucose 104 H (70-99(Fasting)) mg/dl Osmolality (280-300) mOsm/kg Lactate (0.4-2.0) mmol/L Calcium 9.4 (8.6-10.3) mg/dl Magnesium 2.4 (1.7-2.4) mg/dl Total Bilirubin 0.8 (0.2-1.0) mg/dl AST 45 H (13-39) U/L ALT 24 (7-52) U/L Alkaline Phosphatase 90 (34-104) U/L Troponin I High Sens 14.7 (0-20) pg/ml Total Protein 8.4 H (6.0-8.3) gm/dl Albumin 4.0 (3.4-5.0) gm/dl Globulin 4.4 H (2.5-4.0) gm/dl Albumin/Globulin Ratio 0.9 (0.9-2) Procalcitonin (0-0.5) ng/ml TSH (0.300-4.500) uIu/ml Adenovirus (PCR) (NotDetected) B. pertussis DNA (PCR) (NotDetected) B.parapertussis DNA PCR (NotDetected) C. pneumoniae DNA (PCR) (NotDetected) Coronavirus OC43 (PCR) (NotDetected) Coronavirus HKU1 (PCR) (NotDetected) Coronavirus 229E (PCR) (NotDetected) SARS-CoV-2 (PCR) (NotDetected) Coronavirus NL63 (PCR) (NotDetected) Human Metapneumovir PCR (NotDetected) Influenza Type A (PCR) (NotDetected) Influenza Type B (PCR) (NotDetected) M. pneumoniae (PCR) (NotDetected) Parainfluenza 1 (PCR) (NotDetected) Parainfluenza 2 (PCR) (NotDetected) Parainfluenza 3 (PCR) (NotDetected) Parainfluenza 4 (PCR) (NotDetected) RSV (PCR) (NotDetected) Entero/Rhino (PCR) (NotDetected) 01/22/23 01/22/23 01/22/23 Range/Units 17:00 18:59 18:59 WBC (4.8-10.8) K/ul RBC (4.70-6.10) M/uL Hgb (14.0-18.0) g/dl Hct (42.0-52.0) % MCV (80.0-100.0) fL MCH (25.0-34.0) pg MCHC (32.0-36.0) g/dL RDW Std Deviation (36.4-46.3) fL RDW Coeff of Alexia (11.5-14.5) % Plt Count (130-400) K/uL MPV (9.4-12.4) fL Immature Gran % (Auto) % Neut % (Auto) % Lymph % (Auto) % [place] % (Auto) % Eos % (Auto) % Baso % (Auto) % Neut # (Auto) (1.40-6.50) K/uL Lymph # (Auto) (1.2-3.4) K/uL [place] # (Auto) (0.11-0.59) K/uL Eos # (Auto) (0-0.50) K/uL Baso # (Auto) (0-0.2) K/uL Immature Gran # (Auto) (0.01-0.20) K/uL Polychromasia Echinocytes PT (9.0-12.0) Seconds INR (0.9-1.1) APTT (21.0-31.0) Seconds PTT Ratio Sodium (136-145) mmol/L Potassium (3.5-5.1) mmol/L Chloride (98-107) mmol/L Carbon Dioxide (21-32) mmol/L Anion Gap (3-11) BUN (6-23) mg/dl Creatinine (0.6-1.4) mg/dl Est Cr Clr Drug Dosing Est GFR ( Amer) ml/min Est GFR (Non-Af Amer) ml/min BUN/Creatinine Ratio (10-20) Glucose (70-99(Fasting)) mg/dl Osmolality (280-300) mOsm/kg Lactate 2.0 (0.4-2.0) mmol/L Calcium (8.6-10.3) mg/dl Magnesium (1.7-2.4) mg/dl Total Bilirubin (0.2-1.0) mg/dl AST (13-39) U/L ALT (7-52) U/L Alkaline Phosphatase (34-104) U/L Troponin I High Sens (0-20) pg/ml Total Protein (6.0-8.3) gm/dl Albumin (3.4-5.0) gm/dl Globulin (2.5-4.0) gm/dl Albumin/Globulin Ratio (0.9-2) Procalcitonin 6.22 H (0-0.5) ng/ml TSH (0.300-4.500) uIu/ml Adenovirus (PCR) Not Detected (NotDetected) B. pertussis DNA (PCR) Not Detected (NotDetected) B.parapertussis DNA PCR Not Detected (NotDetected) C. pneumoniae DNA (PCR) Not Detected (NotDetected) Coronavirus OC43 (PCR) Not Detected (NotDetected) Coronavirus HKU1 (PCR) Not Detected (NotDetected) Coronavirus 229E (PCR) Not Detected (NotDetected) SARS-CoV-2 (PCR) Not Detected (NotDetected) Coronavirus NL63 (PCR) Not Detected (NotDetected) Human Metapneumovir PCR Not Detected (NotDetected) Influenza Type A (PCR) Not Detected (NotDetected) Influenza Type B (PCR) Not Detected (NotDetected) M. pneumoniae (PCR) Not Detected (NotDetected) Parainfluenza 1 (PCR) Not Detected (NotDetected) Parainfluenza 2 (PCR) Not Detected (NotDetected) Parainfluenza 3 (PCR) Not Detected (NotDetected) Parainfluenza 4 (PCR) Not Detected (NotDetected) RSV (PCR) Not Detected (NotDetected) Entero/Rhino (PCR) Not Detected (NotDetected) 01/22/23 01/22/23 Range/Units 18:59 18:59 WBC (4.8-10.8) K/ul RBC (4.70-6.10) M/uL Hgb (14.0-18.0) g/dl Hct (42.0-52.0) % MCV (80.0-100.0) fL MCH (25.0-34.0) pg MCHC (32.0-36.0) g/dL RDW Std Deviation (36.4-46.3) fL RDW Coeff of Alexia (11.5-14.5) % Plt Count (130-400) K/uL MPV (9.4-12.4) fL Immature Gran % (Auto) % Neut % (Auto) % Lymph % (Auto) % [place] % (Auto) % Eos % (Auto) % Baso % (Auto) % Neut # (Auto) (1.40-6.50) K/uL Lymph # (Auto) (1.2-3.4) K/uL [place] # (Auto) (0.11-0.59) K/uL Eos # (Auto) (0-0.50) K/uL Baso # (Auto) (0-0.2) K/uL Immature Gran # (Auto) (0.01-0.20) K/uL Polychromasia Echinocytes PT (9.0-12.0) Seconds INR (0.9-1.1) APTT (21.0-31.0) Seconds PTT Ratio Sodium (136-145) mmol/L Potassium (3.5-5.1) mmol/L Chloride (98-107) mmol/L Carbon Dioxide (21-32) mmol/L Anion Gap (3-11) BUN (6-23) mg/dl Creatinine (0.6-1.4) mg/dl Est Cr Clr Drug Dosing Est GFR ( Amer) ml/min Est GFR (Non-Af Amer) ml/min BUN/Creatinine Ratio (10-20) Glucose (70-99(Fasting)) mg/dl Osmolality 289 (280-300) mOsm/kg Lactate (0.4-2.0) mmol/L Calcium (8.6-10.3) mg/dl Magnesium (1.7-2.4) mg/dl Total Bilirubin (0.2-1.0) mg/dl AST (13-39) U/L ALT (7-52) U/L Alkaline Phosphatase (34-104) U/L Troponin I High Sens (0-20) pg/ml Total Protein (6.0-8.3) gm/dl Albumin (3.4-5.0) gm/dl Globulin (2.5-4.0) gm/dl Albumin/Globulin Ratio (0.9-2) Procalcitonin (0-0.5) ng/ml TSH 2.164 (0.300-4.500) uIu/ml Adenovirus (PCR) (NotDetected) B. pertussis DNA (PCR) (NotDetected) B.parapertussis DNA PCR (NotDetected) C. pneumoniae DNA (PCR) (NotDetected) Coronavirus OC43 (PCR) (NotDetected) Coronavirus HKU1 (PCR) (NotDetected) Coronavirus 229E (PCR) (NotDetected) SARS-CoV-2 (PCR) (NotDetected) Coronavirus NL63 (PCR) (NotDetected) Human Metapneumovir PCR (NotDetected) Influenza Type A (PCR) (NotDetected) Influenza Type B (PCR) (NotDetected) M. pneumoniae (PCR) (NotDetected) Parainfluenza 1 (PCR) (NotDetected) Parainfluenza 2 (PCR) (NotDetected) Parainfluenza 3 (PCR) (NotDetected) Parainfluenza 4 (PCR) (NotDetected) RSV (PCR) (NotDetected) Entero/Rhino (PCR) (NotDetected) Administered Medications Atorvastatin Calcium (Atorvastatin 40 Mg Tab) 80 mg PO QPM MELVI Stop: 02/22/23 20:59 Last Admin: 01/23/23 20:47 Dose: 80 mg Documented By: DMM Clopidogrel Bisulfate (Clopidogrel Bisulfate 75 Mg Tab) 75 mg PO QAM MELVI Stop: 02/22/23 08:59 Last Admin: 01/23/23 08:50 Dose: 75 mg Documented By: JHM Doxycycline Hyclate (Doxycycline Hyclate 100 Mg Cap) 100 mg PO BID MELVI Stop: 01/30/23 08:59 Last Admin: 01/23/23 20:48 Dose: 100 mg Documented By: Admin: 01/23/23 08:50 Dose: 100 mg Documented By: BLANCA Famotidine (Famotidine 20 Mg Tab) 20 mg PO BID [facility] Stop: 02/22/23 08:59 Last Admin: 01/23/23 20:48 Dose: 20 mg Documented By: Admin: 01/23/23 09:54 Dose: Not Given Documented By: BLANCA Heparin Sodium (Porcine) (Heparin Sod 5,000 Unit/0.5 Ml Vial) 5,000 units SQ Q8H [facility] Stop: 02/22/23 00:00 Last Admin: 01/23/23 17:10 Dose: 5,000 units Documented By: Admin: 01/23/23 08:51 Dose: 5,000 units Documented By: Admin: 01/22/23 23:58 Dose: 5,000 units Documented By: SHIRA Sodium Chloride (Nss 1000ml) 1,000 mls @ 60 mls/hr IV .[id number] ONE Stop: 01/23/23 23:26 Last Admin: 01/23/23 08:53 Dose: 60 mls/hr Documented By: BLANCA Ceftriaxone Sodium 2,000 mg/ (Dextrose) 70 mls @ 100 mls/hr IV Q24H [facility]; Protocol Stop: 01/30/23 08:59 Last Infusion: 01/23/23 10:44 Dose: 0 mls/hr Documented By: Admin: 01/23/23 09:53 Dose: 100 mls/hr Documented By: BLANCA Ipratropium [place] (Ipratropium [place] Neb Soln 0.02% 2.5 Ml Vial) 0.5 mg INH Q6R [facility] Stop: 02/22/23 00:59 Last Admin: 01/23/23 19:39 Dose: 0.5 mg Documented By: Admin: 01/23/23 12:50 Dose: 0.5 mg Documented By: Admin: 01/23/23 07:00 Dose: 0.5 mg Documented By: Admin: 01/23/23 00:32 Dose: 0.5 mg Documented By: JONH Levalbuterol HCl (Levalbuterol 1.25 Mg/3 Ml Neb) 1.25 mg NEB Q6R MELVI Stop: 02/22/23 00:59 Last Admin: 01/23/23 19:39 Dose: 1.25 mg Documented By: Admin: 01/23/23 12:50 Dose: 1.25 mg Documented By: Admin: 01/23/23 07:00 Dose: 1.25 mg Documented By: Admin: 01/23/23 00:32 Dose: 1.25 mg Documented By: JONH Lidocaine (Lidocaine 5% 1 Patch) 1 patch TD HS MELVI Stop: 02/22/23 20:59 Last Admin: 01/23/23 20:49 Dose: 1 patch Documented By: JAZZ Miscellaneous (Remove Lidoderm Patch) 1 each N/A DAILY@0900 [facility] Stop: 02/22/23 08:59 Last Admin: 01/23/23 08:51 Dose: 1 each Documented By: BLANCA Umeclidinium/Vilanterol (Umeclidinium/Vilanterol 62.5/25mcg 7 Puffs/Inhaler) 1 puffs INH DAILY MELVI Stop: 02/22/23 09:14 Last Admin: 01/23/23 09:54 Dose: 1 puffs Documented By: BLANCA Discontinued Medications Albuterol (Albut/Ipratrop 3mg/0.5mg Neb 3 Ml Vial) 3 ml NEB NOW STA; Protocol Stop: 01/22/23 18:52 Last Admin: 01/22/23 19:14 Dose: 3 ml Documented By: EDMUND Doxycycline Hyclate (Doxycycline Hyclate 100 Mg Cap) 100 mg PO NOW STA Stop: 01/22/23 18:44 Last Admin: 01/22/23 19:13 Dose: 100 mg Documented By: EDMUND Famotidine (Famotidine 20 Mg Tab) 20 mg PO NOW ONE Stop: 01/22/23 23:31 Last Admin: 01/22/23 23:58 Dose: 20 mg Documented By: SHIRA Sodium Chloride (Nss) 500 mls @ 999 mls/hr IV .Q31M STA Stop: 01/22/23 17:13 Last Infusion: 01/22/23 19:35 Dose: 0 mls/hr Documented By: Admin: 01/22/23 18:40 Dose: 999 mls/hr Documented By: EDITH Ceftriaxone Sodium (Rocephin) 2,000 mg in 70 mls @ 140 mls/hr IV NOW STA Stop: 01/22/23 19:11 Last Infusion: 01/22/23 19:43 Dose: 0 mls/hr Documented By: Admin: 01/22/23 19:13 Dose: 140 mls/hr Documented By: EDMUND Sodium Chloride (Nss 1000ml) 1,000 mls @ 999 mls/hr IV .Q1H1M ONE Stop: 01/22/23 19:51 Last Infusion: 01/22/23 20:36 Dose: 0 mls/hr Documented By: Admin: 01/22/23 19:35 Dose: 999 mls/hr Documented By: EDMUND Levalbuterol HCl (Levalbuterol 1.25 Mg/3 Ml Neb) Confirm Administered Dose 1.25 mg .ROUTE .STK-MED ONE Stop: 01/23/23 00:30 Last Admin: 01/23/23 08:51 Dose: Not Given Documented By: BLANCA Lidocaine (Lidocaine 5% 1 Patch) 1 patch TD NOW ONE Stop: 01/22/23 21:01 Last Admin: 01/22/23 21:10 Dose: 1 patch Documented By: EDMUND Methylprednisolone (Methylprednisolone 125 Mg/2 Ml Vial) 60 mg IV NOW STA Stop: 01/22/23 18:53 Last Admin: 01/22/23 19:13 Dose: 60 mg Documented By: EDMUND Oxycodone HCl (Oxycodone Hcl Ir 5 Mg Tab (Immediate Release)) 5 mg PO NOW STA Stop: 01/22/23 20:04 Last Admin: 01/22/23 20:27 Dose: 5 mg Documented By: EDMUND Prednisone (Prednisone 20 Mg Tab) 40 mg PO DAILY MELVI Stop: 01/27/23 08:59 Last Admin: 01/23/23 08:50 Dose: 40 mg Documented By: [facility] Imaging Data Radiologist's Impression: Chest X-Ray 01/22/23 16:44 SINGLE VIEW CHEST CLINICAL HISTORY: Dyspnea FINDINGS: An AP, portable, upright chest radiograph is compared to study dated 06/06/2021 and correlated with chest CT dated 02/01/2018. The cardiomediastinal silhouette is unremarkable noting atherosclerotic calcification of the thoracic aorta. Emphysema and chronic interstitial thickening similar to previous. There is dense airspace consolidation in the right mid to lower lung and a small right pleural effusion. The left lung appears clear noting foci of parenchymal scarring/atelectasis. No pneumothorax is seen. The skeletal structures are osteopenic. The bony thorax is grossly intact. Cholecystectomy clips are noted in the right upper quadrant. IMPRESSION: 1. Dense airspace consolidation in the right mid to lower lung is typical for pneumonia/aspiration pneumonitis. Clinical correlation will be required and radiographic follow-up to resolution is recommended. 2. Small right pleural effusion. 3. Emphysema. ACT 112: Negative or not required by law. Electronically signed by: Elia Tejeda M.D. 01/22/2023 5:37 PM Discharge Plan Visit Data Chief Complaint: Cough Stated Complaint: LOW OXYGEN,COUGH,SOB ED Provider: Matthias Mcgraw Discharge Problem: Acute hypoxemic respiratory failure, COPD (chronic obstructive pulmonary disease), Pneumonia Patient Disposition: Admitted As Inpatient Discharge Instructions Interventions: ED Discharge Assessment Last Done: 01/22/23 22:55
[2023-01-22] MEDS ORDERED: cefTRIAXone SODIUM 2,000 MG/70 ML BAG IV STA (18:42)
[2023-01-22] MEDS ORDERED: DOXYCYCLINE HYCLATE 100 MG CAP PO STA (18:43)
[2023-01-22] MEDS ORDERED: SODIUM CHLORIDE 0.9% 1000ML 1,000 ML IV ONE (18:51)
[2023-01-22] MEDS ORDERED: ALBUT/IPRATROP 3MG/0.5MG NEB 3 ML VIAL NEB STA (18:51)
[2023-01-22] MEDS ORDERED: methylPREDNISolone 125 MG/2 ML VIAL IV STA (18:52)
[2023-01-22 19:42] LABS: Magnesium 2.4 mg/dl (1.7-2.4)
[2023-01-22] MEDS ORDERED: oxyCODONE HCL IR 5 MG TAB (IMMEDIATE RELEASE) PO STA (20:03)
--- NOTE | 2023-01-22 20:03 | History & Physical Report ---
Date of Service January 22, 2023 Assessment & Plan (1) Hypoxemia: Plan: Respiratory failure Acute on chronic Secondary to COPD exacerbation secondary to complicated pneumonia Hyponatremia, ARF on CKD secondary to illness hx CAD status post stent hypertension, stable hyperlipidemia on statin Rx GERD stable on famotidine chronic anemia, hemoglobin slightly lower than baseline ongoing tobacco abuse Medical telemetry Supplemental O2 Baseline ABG CS, ceftriaxone, doxycycline Nebs RTC, prednisone course Pulmonology consult re: complicated pneumonia Baseline UA, monitor creatinine response to IVF Appropriate to hold ARB/HCTZ home Rx until creatinine back to baseline Nicotine replacement therapy as needed PT OT eval once medically stable DVT prophylaxis. Heparin subcu Full code Patient daughter requesting updates from providers. Ms. Rosario Zhang, contact #[phone]. Text document was generated using [employer] voice recognition software. It may contain grammatical or spelling errors. Kindly contact undersigned for clarification of any documentation item in question. History of Present Illness Chief Complaint: Worsening cough, shortness of breath, weakness Primary Care Provider: Vic Gordon MD History obtained from patient, family, and records. Medical history significant for CAD status post stent, COPD,, hypertension, hyperlipidemia, GERD, CRI (baseline creatinine 1.3 ), chronic anemia (baseline hemoglobin 10), ongoing tobacco abuse. Last confinement June 2021 pelvic and sacral fractures secondary to mechanical fall. No operative intervention. Patient noted to be hypoxemic during ambulation during confinement with chronic cough symptoms. Patient started on Advair for possible COPD. 3 months ago, patient noted junky cough symptoms. Denies aspiration. Not sure about sick contacts. Patient has received COVID-19 vaccination. Poor appetite and significant weight loss. No abdominal pain. Denies black/bloody stools. No medical consultations. Patient had worsening cough, shortness of breath in the last week. Pleuritic right-sided chest pain. Patient brought to PCP's office today by family for evaluation. O2 sats 80s at PCPs office. Patient directed to ER for evaluation. Solu-Medrol, neb treatment, ceftriaxone and doxycycline administered at the ER. 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 Allergies Allergy/AdvReac Type Severity Reaction Status Date / Time No Known Allergies Allergy Verified 01/22/23 19:28 Home Medications Medication Instructions Recorded Confirmed Type atorvastatin 80 mg tablet 80 mg PO QPM #90 tabs 04/27/19 01/22/23 Rx nitroglycerin 0.4 mg sublingual 0.4 mg sublingual Q5M PRN chest 04/27/19 01/22/23 Rx tablet pain #25 tabs famotidine 40 mg tablet 20 mg PO BID 06/06/21 01/22/23 History irbesartan 300 1 tab PO QAM 06/06/21 01/22/23 History mg-hydrochlorothiazide 12.5 mg tablet acetaminophen 325 mg capsule 650 mg PO Q6H PRN fever or pain 06/09/21 01/22/23 Rx (Tylenol) #14 caps clopidogrel 75 mg tablet 75 mg PO QAM 01/10/22 01/22/23 History codeine 10 mg-guaifenesin 100 mg/5 5 ml PO Q4H PRN Cough 01/22/23 01/22/23 History mL Syrup Past Med/Surg History Medical History (Updated 01/23/23 @ 08:57 by Basim Wise MD) Chronic obstructive pulmonary disease "mild" uses Breo inhaler PRN Coronary artery disease "inferior STEMI 07/21/17; multivessel disease; 2 stents RCA" GERD (gastroesophageal reflux disease) Hx of fracture of pelvis (~05/2021) no current problems Hyperlipidemia Hypertension Myocardial Infarction 2017 - 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 Osteoarthritis Presence of stent in coronary artery in patient with coronary artery disease Surgical History History of left cataract extraction History of lumbar surgery History of open reduction and internal fixation (ORIF) procedure Left knee with "plate" Hx of cervical spine surgery unsure of specific surgery. Full ROM. S/P laparoscopic cholecystectomy Status post cardiac catheterization (~2017) [facility] with x2 stents Status post placement of stent in right coronary artery "drug eluting stents x [address] Che 07/21/17" On 07/25/17 21:29 Rickie Krause wrote "drug eluting stents x [address] Che 07/21/16" Family History Other No family history of adverse response to anesthesia Social History Smoking Status: Current every day smoker Tobacco Type: Cigarettes Cigarettes Per Day: 1.5 pks/day; Second Hand Exposure: Yes; Do You Dip or Chew Tobacco: No; Tobacco Cessation Education Requested by Patient: No Hx Alcohol Use: Yes Alcohol type: beer Hx Substance Use: No Preferred Language: American Communication Ability: Effective Boatswain Mate Required: No Beliefs That Will Affect Care: None marital status: Current Living Situation: Spouse Feels Safe at Home: Yes Assistive Devices: None Review of Systems Review of Systems: As per HPI, all other systems reviewed and negative Physical Exam Physical Exam: GENERAL: Slightly uncomfortable, chronically ill, minimal respiratory distress SKIN: Pallor, warm HEENT: Pale palpebral conjunctivae, no ptosis, dry buccal mucosa, nasal cannula in place NECK : Supple, no tenderness CHEST : Decreased breath sounds, no tenderness HEART : RRR, no obvious murmurs ABDOMEN: no distention, nontender EXTREMITIES : No LE swelling/tenderness, no other conspicuous deformities noted NEUROLOGIC : Coherent, no facial asymmetry, slightly hard of hearing, no other gross focality Results & Data Results & Data Vital Signs (Past 12 Hours) Vital Signs Temp Pulse Pulse Resp BP BP Pulse Ox 01/22/23 19:36 91 H 25 H 112/57 L 94 01/22/23 19:00 83 24 93 01/22/23 19:15 88 01/22/23 18:37 87 26 H 117/60 91 01/22/23 16:39 36.7 C 92 H 22 129/50 L 98 O2 Del Method O2 Flow Rate 01/22/23 19:36 Nasal Cannula 2 01/22/23 19:00 Nasal Cannula 2 01/22/23 19:15 01/22/23 18:37 Room Air 01/22/23 16:39 Room Air Laboratory Results Laboratory Results WBC 8.80 K/ul (4.8-10.8) 01/22/23 17:00 RBC 3.22 M/uL (4.70-6.10) L 01/22/23 17:00 Hgb 9.8 g/dl (14.0-18.0) L 01/22/23 17:00 Hct 28.4 % (42.0-52.0) L 01/22/23 17:00 MCV 88.2 fL (80.0-100.0) 01/22/23 17:00 MCH 30.4 pg (25.0-34.0) 01/22/23 17:00 MCHC 34.5 g/dL (32.0-36.0) 01/22/23 17:00 RDW Std Deviation 50.0 fL (36.4-46.3) H 01/22/23 17:00 RDW Coeff of Alexia 15.2 % (11.5-14.5) H 01/22/23 17:00 Plt Count 275 K/uL (130-400) 01/22/23 17:00 MPV 10.6 fL (9.4-12.4) 01/22/23 17:00 Immature Gran % (Auto) 1.7 % 01/22/23 17:00 Neut % (Auto) 82.8 % 01/22/23 17:00 Lymph % (Auto) 3.8 % 01/22/23 17:00 Ell[place] % (Auto) 11.5 % 01/22/23 17:00 Eos % (Auto) 0.0 % 01/22/23 17:00 Baso % (Auto) 0.2 % 01/22/23 17:00 Neut # (Auto) 7.29 K/uL (1.40-6.50) H 01/22/23 17:00 Lymph # (Auto) 0.33 K/uL (1.2-3.4) L 01/22/23 17:00 Ellsworth # (Auto) 1.01 K/uL (0.11-0.59) H 01/22/23 17:00 Eos # (Auto) 0.00 K/uL (0-0.50) 01/22/23 17:00 Baso # (Auto) 0.02 K/uL (0-0.2) 01/22/23 17:00 Immature Gran # (Auto) 0.15 K/uL (0.01-0.20) 01/22/23 17:00 Polychromasia 1+ 01/22/23 17:00 Echinocytes 2+ 01/22/23 17:00 PT 10.4 Seconds (9.0-12.0) 01/22/23 17:00 INR 0.9 (0.9-1.1) 01/22/23 17:00 APTT 29.6 Seconds (21.0-31.0) 01/22/23 17:00 PTT Ratio 1.0 01/22/23 17:00 Sodium 129 mmol/L (136-145) L 01/22/23 17:00 Potassium 4.3 mmol/L (3.5-5.1) 01/22/23 17:00 Chloride 97 mmol/L (98-107) L 01/22/23 17:00 Carbon Dioxide 17 mmol/L (21-32) L 01/22/23 17:00 Anion Gap 15 (3-11) H 01/22/23 17:00 BUN 60 mg/dl (6-23) H 01/22/23 17:00 Creatinine 2.44 mg/dl (0.6-1.4) H 01/22/23 17:00 Est Cr Clr Drug Dosing Not Reportable 01/22/23 17:00 Est GFR ( Amer) 27.3 ml/min 01/22/23 17:00 Est GFR (Non-Af Amer) 23.6 ml/min 01/22/23 17:00 BUN/Creatinine Ratio 24.6 (10-20) H 01/22/23 17:00 Glucose 104 mg/dl (70-99(Fasting)) H 01/22/23 17:00 Osmolality 289 mOsm/kg (280-300) 01/22/23 18:59 Lactate 2.0 mmol/L (0.4-2.0) 01/22/23 18:59 Calcium 9.4 mg/dl (8.6-10.3) 01/22/23 17:00 Magnesium 2.4 mg/dl (1.7-2.4) 01/22/23 17:00 Total Bilirubin 0.8 mg/dl (0.2-1.0) 01/22/23 17:00 AST 45 U/L (13-39) H 01/22/23 17:00 ALT 24 U/L (7-52) 01/22/23 17:00 Alkaline Phosphatase 90 U/L (34-104) 01/22/23 17:00 Troponin I High Sens 14.7 pg/ml (0-20) 01/22/23 17:00 Total Protein 8.4 gm/dl (6.0-8.3) H 01/22/23 17:00 Albumin 4.0 gm/dl (3.4-5.0) 01/22/23 17:00 Globulin 4.4 gm/dl (2.5-4.0) H 01/22/23 17:00 Albumin/Globulin Ratio 0.9 (0.9-2) 01/22/23 17:00 Procalcitonin 6.22 ng/ml (0-0.5) H 01/22/23 18:59 Adenovirus (PCR) Not Detected (NotDetected) 01/22/23 17:00 B. pertussis DNA (PCR) Not Detected (NotDetected) 01/22/23 17:00 B.parapertussis DNA PCR Not Detected (NotDetected) 01/22/23 17:00 C. pneumoniae DNA (PCR) Not Detected (NotDetected) 01/22/23 17:00 Coronavirus OC43 (PCR) Not Detected (NotDetected) 01/22/23 17:00 Coronavirus HKU1 (PCR) Not Detected (NotDetected) 01/22/23 17:00 Coronavirus 229E (PCR) Not Detected (NotDetected) 01/22/23 17:00 SARS-CoV-2 (PCR) Not Detected (NotDetected) 01/22/23 17:00 Coronavirus NL63 (PCR) Not Detected (NotDetected) 01/22/23 17:00 Human Metapneumovir PCR Not Detected (NotDetected) 01/22/23 17:00 Influenza Type A (PCR) Not Detected (NotDetected) 01/22/23 17:00 Influenza Type B (PCR) Not Detected (NotDetected) 01/22/23 17:00 M. pneumoniae (PCR) Not Detected (NotDetected) 01/22/23 17:00 Parainfluenza 1 (PCR) Not Detected (NotDetected) 01/22/23 17:00 Parainfluenza 2 (PCR) Not Detected (NotDetected) 01/22/23 17:00 Parainfluenza 3 (PCR) Not Detected (NotDetected) 01/22/23 17:00 Parainfluenza 4 (PCR) Not Detected (NotDetected) 01/22/23 17:00 RSV (PCR) Not Detected (NotDetected) 01/22/23 17:00 Entero/Rhino (PCR) Not Detected (NotDetected) 01/22/23 17:00 Impressions Chest X-Ray 01/22/23 16:44 SINGLE VIEW CHEST CLINICAL HISTORY: Dyspnea FINDINGS: An AP, portable, upright chest radiograph is compared to study dated 06/06/2021 and correlated with chest CT dated 02/01/2018. The cardiomediastinal silhouette is unremarkable noting atherosclerotic calcification of the thoracic aorta. Emphysema and chronic interstitial thickening similar to previous. There is dense airspace consolidation in the right mid to lower lung and a small right pleural effusion. The left lung appears clear noting foci of parenchymal scarring/atelectasis. No pneumothorax is seen. The skeletal structures are osteopenic. The bony thorax is grossly intact. Cholecystectomy clips are noted in the right upper quadrant. IMPRESSION: 1. Dense airspace consolidation in the right mid to lower lung is typical for pneumonia/aspiration pneumonitis. Clinical correlation will be required and radiographic follow-up to resolution is recommended. 2. Small right pleural effusion. 3. Emphysema. ACT 112: Negative or not required by law. Electronically signed by: Elia Tejeda M.D. 01/22/2023 5:37 PM Diagnostic Findings EKG as per my interpretation :Rate 100, NSR, normal axis, T wave abnormalities septal leads
[2023-01-22] MEDS ORDERED: HYDROCODONE/ACETAMOPHEN 5/325MG TAB PO PRN (20:23)
[2023-01-22] MEDS ORDERED: PROMETHAZINE HCL 6.25 MG in SODIUM CHLORIDE 0.9% 50 ML IV PRN (20:23)
[2023-01-22] MEDS ORDERED: LIDOCAINE 5% 1 PATCH TD ONE (21:00)
[2023-01-22 21:28] LABS: Base Excess ABG -8.6 mEq/L (-9-1.8); HCO3 ABG 15 mmol/L (19-24); Oxygen Saturation ABG 97.6 % (90-95); PCO2 ABG 27 mmHg (35-46); PO2 ABG 82 mmHg (80-95); pH ABG 7.36 (7.35-7.45)
[2023-01-22 22:00] LABS: Allen Test POS (Pos)
[2023-01-22 22:11] LABS: Calcium 7.8 mg/dl (8.6-10.3); Est GFR (African American) 36.3 ml/min; Est GFR (Non-African American) 31.3 ml/min; Potassium 4.2 mmol/L (3.5-5.1)
[2023-01-22] MEDS ORDERED: guaiFENesin/CODEINE 100MG/10MG 5ML UDC PO PRN (23:05)
[2023-01-22] MEDS ORDERED: ACETAMINOPHEN 325 MG TAB PO PRN (23:05)
[2023-01-22] MEDS ORDERED: FAMOTIDINE 20 MG TAB PO ONE (23:30)
[2023-01-22] MEDS: HEPARIN SOD 5,000 UNIT/0.5 ML VIAL SQ SCH (23:58)
[2023-01-23] MEDS ORDERED: LEVALBUTEROL 1.25 MG/3 ML NEB ONE (00:29)
[2023-01-23] MEDS: LEVALBUTEROL 1.25 MG/3 ML NEB NEB SCH ×4 (00:32→19:39)
[2023-01-23] MEDS: IPRATROPIUM BROMIDE NEB SOLN 0.02% 2.5 ML VIAL INH SCH ×4 (00:32→19:39)
[2023-01-23] MEDS ORDERED: XOPENEX/ATROVENT 1.25mg/0.5MG NEB COMBO NEB SCH (01:00)
[2023-01-23] MEDS ORDERED: SODIUM CHLORIDE 0.9% 1000ML 1,000 ML IV ONE (06:47)
[2023-01-23 08:28] LABS: BUN Creatinine Ratio 31.1 (10-20); Calcium 8.5 mg/dl (8.6-10.3); Creatinine Clr Calc Pharmacy 25.5 ml/min; Est GFR (African American) 40.3 ml/min; Est GFR (Non-African American) 34.7 ml/min; Potassium 4.2 mmol/L (3.5-5.1)
[2023-01-23 08:40] LABS: Basophils # (auto) 0.01 K/uL (0-0.2); Basophils % (auto) 0.2 %; Dohle Bodies Occasional; Echinocytes 2+; Hematocrit (blood only) 22.7 % (42.0-52.0); Immature Granulocytes # (auto) 0.02 K/uL (0.01-0.20); Immature Granulocytes % (auto) 0.4 %; Lymphocytes # (auto) 0.34 K/uL (1.2-3.4); Lymphocytes % (auto) 6.3 %; Mean Corpuscular Hemoglobin 30.5 pg (25.0-34.0); Mean Corpuscular Hgb Conc 35.2 g/dL (32.0-36.0); Mean Corpuscular Volume 86.6 fL (80.0-100.0); Mean Platelet Volume 10.3 fL (9.4-12.4); Monocytes # (auto) 0.47 K/uL (0.11-0.59); Monocytes % (auto) 8.7 %; Neutrophils # (auto) 4.57 K/uL (1.40-6.50); Neutrophils % (auto) 84.4 %; Platelet Count 212 K/uL (130-400); RDW Coefficient of Variation 15.7 % (11.5-14.5); RDW Standard Deviation 49.8 fL (36.4-46.3); Red Blood Count 2.62 M/uL (4.70-6.10); White Blood Count 5.41 K/ul (4.8-10.8)
--- NOTE | 2023-01-23 08:41 | Pulmonary Consultation ---
Date of Consultation January 23, 2023 Assessment & Plan (1) Pneumonia: (2) Chronic obstructive pulmonary disease: (3) Tobacco abuse: (4) Hypoxemia: Plan Impression: 82-year-old male with extensive history of tobacco abuse presenting with consolidation airspace opacity throughout the right lung concerning for pneumonia. He has associated hypoxemic respiratory failure and likely underlying COPD. Recommendations: 1. Pneumonia: Multifocal associated with hypoxemia. The patient initially received Rocephin doxycycline was then placed on cefepime. He has not been on antibiotics hospitalized or any other risk factors for resistant organisms so I think cefepime is not necessary. We will de-escalate to Rocephin and doxycycline with an anticipated 5 to 7-day course depending on clinical response. Follow-up with blood cultures and repeat procalcitonin in a.m. to ensure improving. Patient will require a follow-up chest x-ray in 2 to 4 weeks to ensure resolution of the airspace opacities. 2. Hypoxemic respiratory failure: Secondary to #1. Continue supplemental oxygen titrated to keep saturations at or above 90%. Patient may require supplemental oxygen at discharge. 3. COPD: PFTs not available. CT of the chest from 2018 did show some evidence of emphysematous changes so I suspect he has underlying COPD. He is not bronchospastic currently so we will discontinue the prednisone especially in the face of fairly significant pneumonia. We will place on Anoro to see if it offers him a clinical benefit. Outpatient PFTs recommended. 4. Tobacco abuse: Smoking cessation was recommended to the patient. The above recommendations and plan were discussed with the patient in detail. Questions were answered to the best my ability. He expressed understanding and is in agreement with the plan as outlined History of Present Illness Attending Physician: Tavo Melendez MD History of Present Illness Asked by hospitalist to assist in evaluation management of this patient admitted with hypoxemic respiratory failure and pulmonary infiltrates suspicious for pneumonia. History is obtained from discussion with the patient as well as revi yakov of the electronic medical record. Patient is an 82-year-old male with over [id number] history of tobacco abuse who just quit smoking yesterday who states he has had some progressive shortness of breath going on for about a week. He has been coughing and expectorating yellow phlegm. His shortness of breath became severe enough that he elected to present to the emergency room. He has not been studied with PFTs in the past. He was given an inhaler at some point time but states it never really offered him any benefit. He is never seen a research specialist previously. He is not using oxygen at home. He does feel better with oxygen in place. In the emergency room the patient was evaluated with a chest x-ray. This revealed multifocal airspace opacities on the right. His white blood cell count was normal however his procalcitonin was elevated at 6. He was initiated on cefepime and doxycycline in the emergency room and pulmonary consult was requested. He cannot recall having had pneumonia previously. Allergies Allergy/AdvReac Type Severity Reaction Status Date / Time No Known Allergies Allergy Verified 01/22/23 19:28 Home Medications Medication Instructions Recorded Confirmed Type atorvastatin 80 mg tablet 80 mg PO QPM #90 tabs 04/27/19 01/22/23 Rx nitroglycerin 0.4 mg sublingual 0.4 mg sublingual Q5M PRN chest 04/27/19 01/22/23 Rx tablet pain #25 tabs famotidine 40 mg tablet 20 mg PO BID 06/06/21 01/22/23 History irbesartan 300 1 tab PO QAM 06/06/21 01/22/23 History mg-hydrochlorothiazide 12.5 mg tablet acetaminophen 325 mg capsule 650 mg PO Q6H PRN fever or pain 06/09/21 01/22/23 Rx (Tylenol) #14 caps clopidogrel 75 mg tablet 75 mg PO QAM 01/10/22 01/22/23 History codeine 10 mg-guaifenesin 100 mg/5 5 ml PO Q4H PRN Cough 01/22/23 01/22/23 History mL Syrup Patient History Medical History (Updated 01/23/23 @ 08:57 by Basim Wise MD) Chronic obstructive pulmonary disease "mild" uses Breo inhaler PRN Coronary artery disease "inferior STEMI 07/21/17; multivessel disease; 2 stents RCA" GERD (gastroesophageal reflux disease) Hx of fracture of pelvis (~05/2021) no current problems Hyperlipidemia Hypertension Myocardial 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 Osteoarthritis Presence of stent in coronary artery in patient with coronary artery disease Surgical History History of left cataract extraction History of lumbar surgery History of open reduction and internal fixation (ORIF) procedure Left knee with "plate" Hx of cervical spine surgery unsure of specific surgery. Full ROM. S/P laparoscopic cholecystectomy Status post cardiac catheterization (~2018) [facility] with x2 stents Status post placement of stent in right coronary artery "drug eluting stents x [address] Che 07/21/17" On 07/25/17 21:29 Rickie Krause wrote "drug eluting stents x [address] Che 07/21/16" Family History Other No family history of adverse response to anesthesia Social History Smoking Status: Current every day smoker Tobacco Type: Cigarettes Cigarettes Per Day: 1.5 pks/day; Second Hand Exposure: Yes; Do You Dip or Chew Tobacco: No; Tobacco Cessation Education Requested by Patient: No Hx Alcohol Use: Yes Alcohol type: beer Hx Substance Use: No Preferred Language: Bangladeshi Communication Ability: Effective Ip Network Architect Required: No Beliefs That Will Affect Care: None marital status: Current Living Situation: Spouse Feels Safe at Home: Yes Assistive Devices: Denture - Upper, Denture - Lower and Glasses Review of Systems Review of Systems: Please refer to admission H&P Physical Exam Constitutional: WD/WN, vitals as above Neck: trachea midline, no thyromegaly Respiratory: no respiratory distress, no labored breathing, no cough and not tachypneic Auscultation: + crackles; no wheezes Cardiovascular: RRR, no murmur, no edema Gastrointestinal (Abdomen): normal bowel sounds, soft, nontender, no hepatosplenomegaly Musculoskeletal: Extremities: extremities normal to inspection Skin: no rashes, warm and dry Neurologic: Nonfocal exam Lymphatic: no cervical lymphadenopathy Results & Data Results & Data Vital Signs (Past 12 Hours) Vital Signs Temp Pulse Pulse Pulse Resp BP BP 01/23/23 08:09 36.5 C 91 H 20 01/23/23 07:13 75 01/23/23 07:01 80 16 01/23/23 03:36 36.5 C 80 20 105/61 01/23/23 00:32 81 16 01/22/23 23:51 88 01/22/23 23:05 01/22/23 23:05 36.6 C 91 H 18 111/64 01/22/23 23:05 01/22/23 22:30 83 26 H 98/54 L 01/22/23 22:00 85 23 103/55 L 01/22/23 21:30 88 24 111/62 01/22/23 21:00 89 28 H 104/58 L BP Pulse Ox Pulse Ox O2 Del Method O2 Del Method O2 Flow Rate O2 Flow Rate 01/23/23 08:09 133/73 91 Nasal Cannula 3 01/23/23 07:13 01/23/23 07:01 92 Nasal Cannula 3 01/23/23 03:36 92 Nasal Cannula 2 01/23/23 00:32 94 Nasal Cannula 3 01/22/23 23:51 01/22/23 23:05 Nasal Cannula 3 01/22/23 23:05 92 Nasal Cannula 3 01/22/23 23:05 92 Nasal Cannula 3 01/22/23 22:30 93 Nasal Cannula 2 01/22/23 22:00 93 Nasal Cannula 2 01/22/23 21:30 91 Nasal Cannula 2 01/22/23 21:00 94 Nasal Cannula 2 Critical Care Results & Data Vital Signs (Past 12 Hours) Vital Signs Temp Pulse Pulse Pulse Resp BP BP 01/23/23 08:09 36.5 C 91 H 20 01/23/23 07:13 75 01/23/23 07:01 80 16 01/23/23 03:36 36.5 C 80 20 105/61 01/23/23 00:32 81 16 01/22/23 23:51 88 01/22/23 23:05 01/22/23 23:05 36.6 C 91 H 18 111/64 01/22/23 23:05 01/22/23 22:30 83 26 H 98/54 L 01/22/23 22:00 85 23 103/55 L 01/22/23 21:30 88 24 111/62 01/22/23 21:00 89 28 H 104/58 L BP Pulse Ox Pulse Ox O2 Del Method O2 Del Method O2 Flow Rate O2 Flow Rate 01/23/23 08:09 133/73 91 Nasal Cannula 3 01/23/23 07:13 01/23/23 07:01 92 Nasal Cannula 3 01/23/23 03:36 92 Nasal Cannula 2 01/23/23 00:32 94 Nasal Cannula 3 01/22/23 23:51 01/22/23 23:05 Nasal Cannula 3 01/22/23 23:05 92 Nasal Cannula 3 01/22/23 23:05 92 Nasal Cannula 3 01/22/23 22:30 93 Nasal Cannula 2 01/22/23 22:00 93 Nasal Cannula 2 01/22/23 21:30 91 Nasal Cannula 2 01/22/23 21:00 94 Nasal Cannula 2 Lab & Micro Results (Past 24 Hours) RBC 2.62 M/uL (4.70-6.10) L 01/23/23 WBC 5.41 K/ul (4.8-10.8) 01/23/23 Hgb 8.0 g/dl (14.0-18.0) L 01/23/23 Hct 22.7 % (42.0-52.0) L 01/23/23 MCV 86.6 fL (80.0-100.0) 01/23/23 MCH 30.5 pg (25.0-34.0) 01/23/23 MCHC 35.2 g/dL (32.0-36.0) 01/23/23 RDW Standard Deviation 49.8 fL (36.4-46.3) H 01/23/23 RDW Coefficient of Variation 15.7 % (11.5-14.5) H 01/23/23 Plt Count 212 K/uL (130-400) 01/23/23 MPV 10.3 fL (9.4-12.4) 01/23/23 Neutrophils (%) (Auto) 84.4 % 01/23/23 Lymphocytes (%) (Auto) 6.3 % 01/23/23 Monocytes # (Auto) 0.47 K/uL (0.11-0.59) 01/23/23 Eosinophils # (Auto) 0.00 K/uL (0-0.50) 01/23/23 Immature Granulocyte % (Auto) 0.4 % 01/23/23 Neutrophils # (Auto) 4.57 K/uL (1.40-6.50) 01/23/23 Lymphocytes # (Auto) 0.34 K/uL (1.2-3.4) L 01/23/23 Monocytes # (Auto) 0.47 K/uL (0.11-0.59) 01/23/23 Eosinophils # (Auto) 0.00 K/uL (0-0.50) 01/23/23 Basophils # (Auto) 0.01 K/uL (0-0.2) 01/23/23 Immature Granulocyte # (Auto) 0.02 K/uL (0.01-0.20) 3 Polychromasia 1+ 01/22/23 Echinocytes 2+ 01/23/23 Dohle Bodies Occasional 01/23/23 Na 131 mmol/L (136-145) L 01/23/23 K 4.2 mmol/L (3.5-5.1) 01/23/23 Cl 102 mmol/L (98-107) 01/23/23 CO2 17 mmol/L (21-32) L 01/23/23 Anion Gap 12 (3-11) H 01/23/23 BUN 55 mg/dl (6-23) H 01/23/23 Creatinine 1.77 mg/dl (0.6-1.4) H 01/23/23 Estimated GFR ( Amer) 40.3 ml/min 01/23/23 Estimated GFR (Non-Af Amer) 34.7 ml/min 01/23/23 BUN/Creatinine Ratio 31.1 (10-20) H 01/23/23 Glu 134 mg/dl (70-99(Fasting)) H 01/23/23 Ca 8.5 mg/dl (8.6-10.3) L 01/23/23 Total Bilirubin 0.8 mg/dl (0.2-1.0) 01/22/23 AST 45 U/L (13-39) H 01/22/23 ALT 24 U/L (7-52) 01/22/23 Alkaline Phosphatase 90 U/L (34-104) 01/22/23 TP 8.4 gm/dl (6.0-8.3) H 01/22/23 Albumin 4.0 gm/dl (3.4-5.0) 01/22/23 Globulin 4.4 gm/dl (2.5-4.0) H 01/22/23 Albumin/Globulin Ratio 0.9 (0.9-2) 01/22/23 Mg 2.4 mg/dl (1.7-2.4) 01/22/23 17:00 Calcium Level 8.5 mg/dl (8.6-10.3) L 01/23/23 07:49 Prothromb Time International Ratio 0.9 (0.9-1.1) 01/22/23 17:0 0 Arterial Blood pH 7.36 (7.35-7.45) 01/22/23 21:10 Arterial Blood Partial Pressure CO2 27 mmHg (35-46) L 01/22/23 21:10 Arterial Blood Partial Pressure O2 82 mmHg (80-95) 01/22/23 21: 10 Arterial Blood HCO3 15 mmol/L (19-24) L 01/22/23 21:10 Arterial Blood Base Excess -8.6 mEq/L (-9-1.8) 01/22/23 21:10 Arterial Blood Oxygen Saturation 97.6 % (90-95) H 01/22/23 21:1 0 Blood Gas Oxygen Given 2L O2 01/22/23 21:10 Thony Test POS (Pos) 01/22/23 21:10 Diagnostic Findings (Past 24 Hours) Chest X-Ray 01/22/23 16:44 SINGLE VIEW CHEST CLINICAL HISTORY: Dyspnea FINDINGS: An AP, portable, upright chest radiograph is compared to study dated 06/06/2021 and correlated with chest CT dated 02/01/2018. The cardiomediastinal silhouette is unremarkable noting atherosclerotic calcification of the thoracic aorta. Emphysema and chronic interstitial thickening similar to previous. There is dense airspace consolidation in the right mid to lower lung and a small right pleural effusion. The left lung appears clear noting foci of parenchymal scarring/atelectasis. No pneumothorax is seen. The skeletal structures are osteopenic. The bony thorax is grossly intact. Cholecystectomy clips are noted in the right upper quadrant. IMPRESSION: 1. Dense airspace consolidation in the right mid to lower lung is typical for pneumonia/aspiration pneumonitis. Clinical correlation will be required and radiographic follow-up to resolution is recommended. 2. Small right pleural effusion. 3. Emphysema. ACT 112: Negative or not required by law. Electronically signed by: Elia Tejeda M.D. 01/22/2023 5:37 PM I & O Totals 24 Hours 01/22/23 01/23/23 01/24/23 06:59 06:59 06:59 Intake Total 1889 Balance 1889 Cumulative 01/22/23 16:36 thru 01/23/23 06:40 Intake Total 1889 Balance 1889 RT Ventilator Mngmt (Last Documented) Ventilator Ordered Settings Respiratory Rate 20 01/23/23 08:09 Ventilator - PT Measurements Respiratory Rate 20 PG Care Time/CCT Total # of Minutes Spent Total Time Spent with Patient: Total time spent is greater than 50% in coordination of care (as documented) at patient's floor/unit and/or counseling patient: Coding Level of Care Code 23486 INT INP/OBS CARE 3/75MIN Diagnoses Pneumonia J18.9 Chronic obstructive pulmonary disease J44.9 Tobacco abuse Z72.0 Hypoxemia R09.02
[2023-01-23] MEDS: CLOPIDOGREL BISULFATE 75 MG TAB PO SCH (08:50)
[2023-01-23] MEDS: DOXYCYCLINE HYCLATE 100 MG CAP PO SCH ×2 (08:50→20:48)
[2023-01-23] MEDS: HEPARIN SOD 5,000 UNIT/0.5 ML VIAL SQ SCH ×2 (08:51→17:10)
[2023-01-23] MEDS ORDERED: predniSONE 20 MG TAB PO SCH (09:00)
[2023-01-23] MEDS ORDERED: CEFEPIME 2,000 MG in SYRINGE 0 ML IV ONE (09:00)
[2023-01-23] MEDS ORDERED: cefTRIAXone SODIUM 2,000 MG in DEXTROSE 5% 50 ML IV SCH ×2 (09:00→20:00)
[2023-01-23] MEDS: UMECLIDINIUM/VILANTEROL 62.5/25MCG 7 PUFFS/INHALER INH SCH (09:54)
[2023-01-23] MEDS: FAMOTIDINE 20 MG TAB PO SCH ×2 (09:54→20:48)
[2023-01-23 10:27] LABS: Appearance Urine Cloudy (Clear); Bacteria Urine Automated Negative (Negative); Bilirubin Urine Negative (Negative); Blood Urine Negative (Negative); Color Urine Yellow; Glucose Urine UA Negative (Negative); Ketones Urine Negative (Negative); Leukocyte Esterase Urine Negative (Negative); Nitrite Urine Negative (Negative); Protein Urine 1+ (Negative); Specific Gravity Urine 1.012 (1.000-1.030); Urobilinogen Urine Negative (Negative)
[2023-01-23 10:53] LABS: RBC Urine Automated 0-4 /hpf (0-4)
[2023-01-23 10:56] LABS: Renal Epithelial Cells Urine 0-5 /lpf (0-5)
--- NOTE | 2023-01-23 12:15 | Electrocardiogram Report ---
Test Reason : Blood Pressure : / mmHG Vent. Rate : 100 BPM Atrial Rate : 100 BPM P-R Int : 098 ms QRS Dur : 064 ms QT Int : 292 ms P-R-T Axes : 033 050 076 degrees QTc Int : 376 ms Sinus rhythm Otherwise normal ECG When compared with ECG of 06-JUN-2021 11:32, ST now depressed in Inferior leads Confirmed by Jose A Copeland ([id number]) on 01/23/2023 12:15:31 PM Referred By: Sudeep Feldman Confirmed By:Nikunj Copeland
--- NOTE | 2023-01-23 17:13 | Hospitalist Progress Note ---
Date of Service January 23, 2023 Assessment & Plan (1) Hypoxemia: Plan: Acute on chronic hypoxic respiratory failure Acute on chronic Secondary right-sided lower lobe pneumonia History of COPD Chest x-ray: 1. Dense airspace consolidation in the right mid to lower lung is typical for pneumonia/aspiration pneumonitis. Clinical correlation will be required and radiographic follow-up to resolution is recommended. 2. Small right pleural effusion. 3. Emphysema. Sputum culture: Pending Blood cultures: Pending Director Of Business Continuity consulted-Dr. Basim Wise Continue ceftriaxone IV plus doxycycline IV day #1 Continue nebs Prednisone discontinued Placed on Anoro Ellipta Continue to monitor Hyponatremia, Acute Renal Failure on CKD secondary to illness -- Na 130 - 131 -- 2.4 -> 1.9 -> 1.7 -- Continue gentle IV fluids hold ARB/HCTZ home Rx until creatinine back to baseline hx CAD status post stent hypertension, stable hyperlipidemia on statin Rx GERD stable on famotidine chronic anemia, hemoglobin slightly lower than baseline ongoing tobacco abuse PT OT eval once medically stable DVT prophylaxis. Heparin subcu Full code Disposition Anticipate to return home when medically stable Admission and Anticipated Discharge Date Admission Date: January 22, 2023 Subjective Follow-up for acute hypoxic respiratory failure, right-sided pneumonia, etc. Seen resting in bed on 2 L of nasal cannula Not in distress, comfortable States he feels tired but feels improved compared to admission Breathing is okay Still having productive cough-yellow sputum No chest pain, palpitations, dizziness, fevers or chills No other new symptoms Review of Systems Review of Systems: all noted and negative except for above Physical Exam Physical Exam: General- oriented x 3, not in distress, speaks in sentences with no effort or accessory muscle use Head- atraumatic Eyes- PERRL, EOMI, anicteric ENT- oropharynx clear Neck- supple, no JVD, no adenopathy, no thyromegaly; carotids +2/2, no bruits appreciated Lungs-positive crackles right mid to base Clear on the left No wheezing Heart- normal rate, regular rhythm; no murmur, no gallop, no rub appreciated Abdomen- normal bowel sounds, nondistended, soft, nontender, no masses or hepatosplenomegaly Extremities- no pretibial edema, no calf tenderness; peripheral pulses intact Neuro- alert, oriented x 3; CN 2-12 grossly intact; motor 5/5 bilaterally;sensation 100% on all extremities; no other gross focal neurologic deficits Skin- warm & dry Results & Data Results & Data Vital Signs (Past 12 Hours) Vital Signs Temp Pulse Pulse Pulse Resp BP BP 01/23/23 16:17 78 01/23/23 15:45 36.5 C 78 20 112/65 01/23/23 12:50 81 16 01/23/23 11:27 36.6 C 79 18 106/61 01/23/23 08:09 36.5 C 91 H 20 133/73 01/23/23 07:13 75 01/23/23 07:01 80 16 Pulse Ox O2 Del Method O2 Flow Rate 01/23/23 16:17 01/23/23 15:45 95 Nasal Cannula 2 01/23/23 12:50 97 Nasal Cannula 3 01/23/23 11:27 96 Nasal Cannula 3 01/23/23 08:09 91 Nasal Cannula 3 01/23/23 07:13 01/23/23 07:01 92 Nasal Cannula 3 all noted and reviewed including below
[2023-01-23] MEDS: ATORVASTATIN 40 MG TAB PO SCH (20:47)
[2023-01-23] MEDS: LIDOCAINE 5% 1 PATCH TD SCH (20:49)
[2023-01-23] MEDS ORDERED: CEFEPIME 1,000 MG in SYRINGE 0 ML IV SCH (21:00)
[2023-01-24] MEDS: HEPARIN SOD 5,000 UNIT/0.5 ML VIAL SQ SCH ×3 (00:13→17:27)
[2023-01-24] MEDS: IPRATROPIUM BROMIDE NEB SOLN 0.02% 2.5 ML VIAL INH SCH ×4 (01:40→19:51)
[2023-01-24] MEDS: LEVALBUTEROL 1.25 MG/3 ML NEB NEB SCH ×4 (01:40→19:51)
[2023-01-24 06:41] LABS: Creatinine Clr Calc Pharmacy 35.6 ml/min; Est GFR (African American) 57.4 ml/min; Est GFR (Non-African American) 49.5 ml/min
[2023-01-24] MEDS: CLOPIDOGREL BISULFATE 75 MG TAB PO SCH (08:45)
[2023-01-24] MEDS: DOXYCYCLINE HYCLATE 100 MG CAP PO SCH ×2 (08:46→21:21)
--- NOTE | 2023-01-24 08:46 | Pulmonology Progress Note ---
Date of Service January 24, 2023 Assessment & Plan (1) Pneumonia: (2) Chronic obstructive pulmonary disease: (3) Tobacco abuse: (4) Hypoxemia: Plan Impression: 82-year-old male with extensive history of tobacco abuse presenting with consolidation airspace opacity throughout the right lung concerning for pneumonia. He has associated hypoxemic respiratory failure and likely underl lawrence COPD. Recommendations: 1. Pneumonia: Multifocal associated with hypoxemia. Day #3 Rocephin and doxycycline. Okay to de-escalate to Ceftin and doxycycline with plans to complete a 7-day course. Follow-up chest x-ray in 2 to 4 weeks. 2. Hypoxemic respiratory failure: Secondary to #1. Continue supplemental oxygen titrated to keep saturations at or above 90%. Patient may require supplemental oxygen at discharge. Recommend assessing with two-step 3. COPD: PFTs not available. CT of the chest from 2018 did show some evidence of emphysematous changes so I suspect he has underlying COPD. Continue Anoro. Outpatient PFTs when clinically stable 4. Tobacco abuse: Smoking cessation was recommended to the patient. Patient appears to be significantly improved. He is likely approaching discharge from pulmonary standpoint. Ultimate disposition per the primary service. Would be happy to see him back in the pulmonary clinic if needed at follow-up. The above recommendations and plan were discussed with the patient. Questions were answered to the best my ability. He expressed understanding and is in agreement with the plan as outlined. Pulmonary will sign off. Feel free to contact us with questions or concerns Admission and Anticipated Discharge Date Admission Date: January 22, 2023 Subjective Patient seen and examined. EMR reviewed. The patient reports that he continues to slow slow and steady improvement. He is coughing and expectorating tannish-whitish phlegm. He has not had any hemoptysis. His chest pain is markedly better. He is able to ambulate to the restroom without difficulty. He has not been febrile overnight. He is tolera ting antibiotics well Review of Systems Review of Systems: All systems reviewed & are unremarkable except as noted in Subjective Physical Exam Constitutional: WD/WN, vitals as above Neck: trachea midline, no thyromegaly Respiratory: no respiratory distress, no labored breathing, no cough and not tachypneic Auscultation: + crackles; no wheezes Cardiovascular: RRR, no murmur, no edema Gastrointestinal (Abdomen): normal bowel sounds, soft, nontender, no hepatosplenomegaly Musculoskeletal: Extremities: extremities normal to inspection Skin: no rashes, warm and dry Lymphatic: no cervical lymphadenopathy Results & Data Results & Data Vital Signs (Past 12 Hours) Vital Signs Temp Pulse Pulse Pulse Resp BP BP 01/24/23 07:51 36.4 C L 78 16 132/54 L 01/24/23 07:47 36.3 C L 84 22 128/62 01/24/23 07:12 65 01/24/23 07:11 73 18 01/24/23 05:54 01/23/23 22:59 68 01/24/23 04:42 36.4 C L 70 20 131/68 01/23/23 23:08 36.4 C L 75 20 133/73 Pulse Ox O2 Del Method O2 Flow Rate 01/24/23 07:51 91 Room Air 01/24/23 07:47 96 Nasal Cannula 2 01/24/23 07:12 01/24/23 07:11 96 Nasal Cannula 2 01/24/23 05:54 Nasal Cannula 2 01/23/23 22:59 01/24/23 04:42 92 Nasal Cannula 2 01/23/23 23:08 94 Nasal Cannula 1 Laboratory Results 01/23/23 07:49 01/24/23 05:45 Procalcitonin decreased to 2.5 from 6 Cultures no growth to date PG Care Time/CCT Total # of Minutes Spent Total Time Spent with Patient: Total time spent is greater than 50% in coordination of care (as documented) at patient's floor/unit and/or counseling patient: Coding Level of Care Code 54124 SUB INP/OBS CARE 235MIN Diagnoses Pneumonia J18.9 Chronic obstructive pulmonary disease J44.9 Tobacco abuse Z72.0 Hypoxemia R09.02
[2023-01-24] MEDS: FAMOTIDINE 20 MG TAB PO SCH ×2 (08:47→21:21)
[2023-01-24] MEDS: UMECLIDINIUM/VILANTEROL 62.5/25MCG 7 PUFFS/INHALER INH SCH (08:54)
[2023-01-24] MEDS: cefUROXime axetil 500 MG TAB PO SCH ×2 (09:36→21:21)
[2023-01-24 09:53] LABS: Hematocrit (blood only) 22.2 % (42.0-52.0); Hemoglobin 7.8 g/dl (14.0-18.0); Mean Corpuscular Hemoglobin 29.8 pg (25.0-34.0); Mean Corpuscular Hgb Conc 35.1 g/dL (32.0-36.0); Mean Corpuscular Volume 84.7 fL (80.0-100.0); Mean Platelet Volume 11.4 fL (9.4-12.4); Platelet Count 217 K/uL (130-400); RDW Coefficient of Variation 15.8 % (11.5-14.5); Red Blood Count 2.62 M/uL (4.70-6.10); White Blood Count 6.72 K/ul (4.8-10.8)
[2023-01-24 09:57] LABS: BUN Creatinine Ratio 36.4 (10-20); Calcium 8.8 mg/dl (8.6-10.3); Creatinine Clr Calc Pharmacy 32.8 ml/min; Est GFR (African American) 52.1 ml/min
[2023-01-24 11:27] LABS: Immature Granulocytes # (auto) 0.05 K/uL (0.01-0.20); Immature Granulocytes % (auto) 0.7 %; Lymphocytes # (auto) 0.37 K/uL (1.2-3.4); Lymphocytes % (auto) 5.5 %; Monocytes # (auto) 0.57 K/uL (0.11-0.59); Monocytes % (auto) 8.5 %; Neutrophils # (auto) 5.73 K/uL (1.40-6.50); Neutrophils % (auto) 85.3 %
--- NOTE | 2023-01-24 14:01 | Hospitalist Progress Note ---
Date of Service January 24, 2023 Assessment & Plan (1) Hypoxemia: Plan: Acute on chronic hypoxic respiratory failure Acute on chronic Secondary right-sided lower lobe pneumonia History of COPD Chest x-ray: 1. Dense airspace consolidation in the right mid to lower lung is typical for pneumonia/aspiration pneumonitis. Clinical correlation will be required and radiographic follow-up to resolution is recommended. 2. Small right pleural effusion. 3. Emphysema. Sputum culture: Pending Blood cultures: Negative so far Case Making Machine Operator consulted-Dr. Basim Wise Patient given ceftriaxone IV plus doxycycline IV x2 days Patient gradually improving Still on 1 L of oxygen transition to oral cefuroxime 500 mg twice daily Continue nebs Prednisone discontinued Placed on Anoro Ellipta Wean of oxygen accordingly Hyponatremia, Acute Renal Failure on CKD secondary to illness -- Na 130 - 131- 132 -- 2.4 -> 1.9 -> 1.7 -> 1.4 -- DC IV fluids hold ARB/HCTZ -blood pressure on the lower side hx CAD status post stent hypertension, stable hyperlipidemia on statin Rx GERD stable on famotidine chronic anemia, hemoglobin slightly lower than baseline ongoing tobacco abuse DVT prophylaxis. Heparin subcu every 8 hours Full code Disposition Anticipate to return home when medically stable Will need two-step exercise test plan of care discussed with patient in detail all questions answered He is understanding, agreeable, comfortable with the plan of care Admission and Anticipated Discharge Date Admission Date: January 22, 2023 Subjective Follow-up for right mid to lower lung pneumonia, etc. Seen sleeping but easily awakened On 1 L of oxygen by nasal cannula, not in distress, comfortable States he feels improved compared to yesterday Breathing is improving, less cough but still productive, no chest pain, fevers or chills Appetite is good, no abdominal pain, no nausea vomiting No other symptoms Review of Systems Review of Systems: all noted and negative except for above Physical Exam Physical Exam: General- oriented x 3, not in distress, speaks in sentences with no effort or accessory muscle use Eyes- anicteric Neck- no JVD Lungs-positive mild crackles on the right lower lung mueller, clear on the left No wheezing Heart- normal rate, regular rhythm; no murmurs Abdomen- normal bowel sounds, nondistended, soft, no tenderness Extremities- no pretibial edema, no calf tenderness Neuro- alert, oriented x 3; no gross focal neurologic deficits Skin- warm & dry Results & Data Results & Data Vital Signs (Past 12 Hours) Vital Signs Temp Pulse Pulse Pulse Resp BP BP 01/24/23 12:51 74 16 01/24/23 11:27 36.5 C 80 20 114/51 L 01/24/23 09:24 01/24/23 07:51 36.4 C L 78 16 132/54 L 01/24/23 07:47 36.3 C L 84 22 128/62 01/24/23 07:12 65 01/24/23 07:11 73 18 01/24/23 05:54 01/24/23 04:42 36.4 C L 70 20 131/68 Pulse Ox O2 Del Method O2 Flow Rate 01/24/23 12:51 93 Nasal Cannula 1 01/24/23 11:27 91 Room Air 01/24/23 09:24 Nasal Cannula 2 01/24/23 07:51 91 Room Air 01/24/23 07:47 96 Nasal Cannula 2 01/24/23 07:12 01/24/23 07:11 96 Nasal Cannula 2 01/24/23 05:54 Nasal Cannula 2 01/24/23 04:42 92 Nasal Cannula 2 all noted and reviewed including below
[2023-01-24] MEDS: ATORVASTATIN 40 MG TAB PO SCH (21:20)
[2023-01-24] MEDS: LIDOCAINE 5% 1 PATCH TD SCH (21:22)
[2023-01-25] MEDS: HEPARIN SOD 5,000 UNIT/0.5 ML VIAL SQ SCH ×4 (00:18→22:50)
[2023-01-25] MEDS: IPRATROPIUM BROMIDE NEB SOLN 0.02% 2.5 ML VIAL INH SCH ×4 (00:34→20:10)
[2023-01-25] MEDS: LEVALBUTEROL 1.25 MG/3 ML NEB NEB SCH ×4 (00:34→20:10)
[2023-01-25] MEDS: DOXYCYCLINE HYCLATE 100 MG CAP PO SCH ×2 (08:01→22:48)
[2023-01-25 08:40] LABS: Basophils # (auto) 0.02 K/uL (0-0.2); Basophils % (auto) 0.2 %; Eosinophils # (auto) 0.01 K/uL (0-0.50); Eosinophils % (auto) 0.1 %; Hematocrit (blood only) 23.6 % (42.0-52.0); Hemoglobin 8.2 g/dl (14.0-18.0); Immature Granulocytes # (auto) 0.22 K/uL (0.01-0.20); Immature Granulocytes % (auto) 1.7 %; Lymphocytes # (auto) 0.73 K/uL (1.2-3.4); Lymphocytes % (auto) 5.6 %; Mean Corpuscular Hemoglobin 30.3 pg (25.0-34.0); Mean Corpuscular Hgb Conc 34.7 g/dL (32.0-36.0); Mean Corpuscular Volume 87.1 fL (80.0-100.0); Mean Platelet Volume 10.4 fL (9.4-12.4); Monocytes # (auto) 0.96 K/uL (0.11-0.59); Monocytes % (auto) 7.4 %; Neutrophils # (auto) 11.03 K/uL (1.40-6.50); Nucleated RBC # (auto) 0.02 K/uL (0-0.12); Nucleated RBC % (auto) 0.2 %; Platelet Count 313 K/uL (130-400); RDW Coefficient of Variation 15.7 % (11.5-14.5); RDW Standard Deviation 50.1 fL (36.4-46.3); Red Blood Count 2.71 M/uL (4.70-6.10); White Blood Count 12.97 K/ul (4.8-10.8)
[2023-01-25] MEDS: cefUROXime axetil 500 MG TAB PO SCH (09:00)
[2023-01-25] MEDS: UMECLIDINIUM/VILANTEROL 62.5/25MCG 7 PUFFS/INHALER INH SCH (09:00)
[2023-01-25] MEDS: FAMOTIDINE 20 MG TAB PO SCH ×2 (09:01→22:48)
[2023-01-25] MEDS: CLOPIDOGREL BISULFATE 75 MG TAB PO SCH (09:01)
[2023-01-25 09:02] LABS: BUN Creatinine Ratio 31.3 (10-20); Calcium 8.7 mg/dl (8.6-10.3); Est GFR (African American) 59.6 ml/min; Est GFR (Non-African American) 51.4 ml/min; Potassium 3.8 mmol/L (3.5-5.1)
[2023-01-25] MEDS ORDERED: BENZONATATE 100 MG CAPSULE PO PRN (16:12)
[2023-01-25] MEDS ORDERED: predniSONE 20 MG TAB PO STA (16:12)
[2023-01-25] MEDS ORDERED: BENZONATATE 100 MG CAPSULE PO ONE (16:12)
--- NOTE | 2023-01-25 16:50 | Hospitalist Progress Note ---
Date of Service January 25, 2023 Assessment & Plan (1) Hypoxemia: Plan: Acute on chronic hypoxic respiratory failure Acute on chronic Secondary right-sided lower lobe pneumonia History of COPD Chest x-ray: 1. Dense airspace consolidation in the right mid to lower lung is typical for pneumonia/aspiration pneumonitis. Clinical correlation will be required and radiographic follow-up to resolution is recommended. 2. Small right pleural effusion. 3. Emphysema. Sputum culture: Light normal maicol Blood cultures: Negative x48 hours Lead Web Developer consulted-Dr. Basim Wise Patient given ceftriaxone IV plus doxycycline IV x2 days Patient fatigued today, still on 2 L of oxygen, still with wheezing and productive cough Restart cefepime 2 g IV every 8 hours also in light of Pseudomonas UTI Continue doxycycline p.o. Resume prednisone 40 mg p.o. daily Continue nebs Tessalon perles as needed Monitor closely Hyponatremia, Acute Renal Failure on CKD secondary to illness -- Na 130 - 131- 132 -- 2.4 -> 1.9 -> 1.7 -> 1.2 -- DC IV fluids hold ARB/HCTZ -blood pressure was on the lower side hx CAD status post stent hypertension, stable hyperlipidemia on statin Rx GERD stable on famotidine chronic anemia, hemoglobin slightly lower than baseline ongoing tobacco abuse DVT prophylaxis. Heparin subcu every 8 hours Full code Disposition Anticipate to return home when medically stable Will need two-step exercise test plan of care discussed with patient and his family in detail all questions answered They are understanding, agreeable, comfortable with the plan of care Admission and Anticipated Discharge Date Admission Date: January 22, 2023 Subjective Follow-up for right lower lobe pneumonia, etc. Seen resting in bed, on 2 L of oxygen by nasal cannula Patient's son and [id number] visiting States he continues to feel tired overall, still having productive cough, especially with his meals Breathing is okay, no chest pain, fevers or chills No other symptoms Review of Systems Review of Systems: all noted and negative except for above Physical Exam Physical Exam: General- oriented x 3, not in distress, speaks in sentences with no effort or accessory muscle use Head- atraumatic Eyes- PERRL, EOMI, anicteric ENT- oropharynx clear Neck- supple, no JVD, no adenopathy, no thyromegaly; carotids +2/2, no bruits appreciated Lungs-positive crackles in the right base, positive mild wheeze scattered bilaterally Heart- normal rate, regular rhythm; no murmur, no gallop, no rub appreciated Abdomen- normal bowel sounds, nondistended, soft, nontender, no masses or hepatosplenomegaly Extremities- no pretibial edema, no calf tenderness; peripheral pulses intact Neuro- alert, oriented x 3; CN 2-12 grossly intact; motor 5/5 bilaterally;sensation 100% on all extremities; no other gross focal neurologic deficits Skin- warm & dry Results & Data Results & Data Vital Signs (Past 12 Hours) Vital Signs Temp Pulse Pulse Pulse Resp BP BP 01/25/23 15:44 87 01/25/23 15:27 36.8 C 91 H 20 136/52 L 01/25/23 08:00 01/25/23 13:24 90 20 01/25/23 11:36 36.7 C 90 20 147/71 H 01/25/23 07:52 36.7 C 93 H 20 117/58 L 01/25/23 07:51 95 H 01/25/23 06:58 103 H 19 Pulse Ox O2 Del Method O2 Flow Rate 01/25/23 15:44 01/25/23 15:27 91 Nasal Cannula 5 01/25/23 08:00 Nasal Cannula 5 01/25/23 13:24 93 Nasal Cannula 5 01/25/23 11:36 92 Nasal Cannula 5 01/25/23 07:52 95 Nasal Cannula 5 01/25/23 07:51 01/25/23 06:58 93 Nasal Cannula 5 all noted and reviewed including below
[2023-01-25] MEDS: CEFEPIME 2,000 MG in SYRINGE 0 ML IV SCH (18:29)
[2023-01-25] MEDS: FERROUS SULFATE 325 MG TAB PO SCH (18:29)
[2023-01-25] MEDS: ADVANCED PROBIOTIC 1250 MG CAPSULE PO SCH (18:30)
[2023-01-25] MEDS: ATORVASTATIN 40 MG TAB PO SCH (22:48)
[2023-01-25] MEDS: LIDOCAINE 5% 1 PATCH TD SCH (22:49)
[2023-01-26] MEDS: IPRATROPIUM BROMIDE NEB SOLN 0.02% 2.5 ML VIAL INH SCH ×4 (00:25→19:30)
[2023-01-26] MEDS: LEVALBUTEROL 1.25 MG/3 ML NEB NEB SCH ×4 (00:29→19:30)
[2023-01-26] MEDS: CEFEPIME 2,000 MG in SYRINGE 0 ML IV SCH ×2 (05:40→17:20)
[2023-01-26 08:36] LABS: Hematocrit (blood only) 23.1 % (42.0-52.0); Hemoglobin 8.2 g/dl (14.0-18.0); Mean Corpuscular Hgb Conc 35.5 g/dL (32.0-36.0); Mean Corpuscular Volume 84.6 fL (80.0-100.0); Mean Platelet Volume 10.4 fL (9.4-12.4); Platelet Count 313 K/uL (130-400); RDW Coefficient of Variation 15.9 % (11.5-14.5); RDW Standard Deviation 49.4 fL (36.4-46.3); Red Blood Count 2.73 M/uL (4.70-6.10); White Blood Count 15.73 K/ul (4.8-10.8)
[2023-01-26 08:57] LABS: Creatinine Clr Calc Pharmacy 47.4 ml/min; Est GFR (African American) 80.3 ml/min; Est GFR (Non-African American) 69.3 ml/min
[2023-01-26] MEDS: FERROUS SULFATE 325 MG TAB PO SCH ×2 (09:07→17:21)
[2023-01-26] MEDS: ADVANCED PROBIOTIC 1250 MG CAPSULE PO SCH (09:11)
[2023-01-26] MEDS: FOLIC ACID 1 MG TAB PO SCH (09:11)
[2023-01-26] MEDS: CLOPIDOGREL BISULFATE 75 MG TAB PO SCH (09:12)
[2023-01-26] MEDS: DOXYCYCLINE HYCLATE 100 MG CAP PO SCH ×2 (09:12→20:01)
[2023-01-26] MEDS: HEPARIN SOD 5,000 UNIT/0.5 ML VIAL SQ SCH ×3 (09:12→23:22)
[2023-01-26] MEDS: FAMOTIDINE 20 MG TAB PO SCH ×2 (09:13→20:01)
[2023-01-26] MEDS: SODIUM CHLORIDE 0.9% 1000ML 1,000 ML IV SCH ×2 (09:13→23:22)
[2023-01-26] MEDS: UMECLIDINIUM/VILANTEROL 62.5/25MCG 7 PUFFS/INHALER INH SCH (09:14)
--- NOTE | 2023-01-26 16:48 | Hospitalist Progress Note ---
Date of Service January 26, 2023 Assessment & Plan (1) Hypoxemia: Plan: Acute on chronic hypoxic respiratory failure Acute on chronic Secondary right-sided lower lobe pneumonia History of COPD Chest x-ray: 1. Dense airspace consolidation in the right mid to lower lung is typical for pneumonia/aspiration pneumonitis. Clinical correlation will be required and radiographic follow-up to resolution is recommended. 2. Small right pleural effusion. 3. Emphysema. Sputum culture: Light normal maicol Blood cultures: Negative x48 hours [employer] Retailer Sales Consultant consulted-Dr. Basim Wise Patient given ceftriaxone IV plus doxycycline IV x2 days Patient fatigued today, still on 2 L of oxygen, still with wheezing and productive cough Restart cefepime 2 g IV every 8 hours also in light of Pseudomonas UTI Continue doxycycline p.o. Resume prednisone 40 mg p.o. daily Continue nebs Tessalon perles as needed Monitor closely 01/26 Clinically improving today Continue with cefepime IV and doxycycline p.o. Prednisone 40 mg p.o. daily Nebs Hyponatremia, Acute Renal Failure on CKD secondary to illness -- Na 130 - 131- 132 -- 2.4 -> 1.9 -> 1.7 -> 1.2 -- DC IV fluids hold ARB/HCTZ -blood pressure was on the lower side Iron deficiency and folate deficiency anemia No signs of bleeding at this time hemoglobin stable at 8 Supplements ordered Will need further work-up as an outpatient hx CAD status post stent hypertension, stable hyperlipidemia on statin Rx GERD stable on famotidine chronic anemia, hemoglobin slightly lower than baseline ongoing tobacco abuse DVT prophylaxis. Heparin subcu every 8 hours Full code Disposition Anticipate to return home when medically stable Will need two-step exercise test plan of care discussed with patient and his family in detail all questions answered They are understanding, agreeable, comfortable with the plan of care Admission and Anticipated Discharge Date Admission Date: January 22, 2023 Subjective Follow-up for pneumonia with hypoxia, etc. Seen sitting up in bed, watching TV, on 2 L of oxygen More alert, brighter States he feels better today compared to yesterday Breathing is improving Cough also improving Denies urinary symptoms Review of Systems Review of Systems: all noted and negative except for above Physical Exam Physical Exam: General- oriented x 3, not in distress, speaks in sentences with no effort or accessory muscle use Eyes- anicteric Neck- no JVD Lungs-mild crackles on the right Clear on the left Heart- normal rate, regular rhythm; no murmurs Abdomen- normal bowel sounds, nondistended, soft, nontender Extremities- no pretibial edema, no calf tenderness Neuro- alert, oriented x 3; no gross focal neurologic deficits Skin- warm & dry Results & Data Results & Data Vital Signs (Past 12 Hours) Vital Signs Temp Pulse Pulse Resp BP Pulse Ox Pulse Ox 01/26/23 16:37 73 01/26/23 14:43 73 18 96 01/26/23 14:39 36.4 C L 83 20 129/67 93 01/26/23 13:18 93 01/26/23 08:00 01/26/23 11:34 36.4 C L 92 H 20 152/68 H 93 01/26/23 07:44 36.4 C L 86 20 125/61 92 01/26/23 07:39 76 01/26/23 07:04 80 20 94 Pulse Ox O2 Del Method O2 Flow Rate O2 Flow Rate O2 Flow Rate 01/26/23 16:37 01/26/23 14:43 Nasal Cannula 5 01/26/23 14:39 Nasal Cannula 5 01/26/23 13:18 84 L 5 0 01/26/23 08:00 Nasal Cannula 5 01/26/23 11:34 Nasal Cannula 5 01/26/23 07:44 Nasal Cannula 5 01/26/23 07:39 01/26/23 07:04 Nasal Cannula 5 all noted and reviewed including below
[2023-01-26] MEDS ORDERED: predniSONE 20 MG TAB PO ONE (16:49)
[2023-01-26] MEDS: LIDOCAINE 5% 1 PATCH TD SCH (20:01)
[2023-01-26] MEDS: ATORVASTATIN 40 MG TAB PO SCH (20:01)
[2023-01-27] MEDS: LEVALBUTEROL 1.25 MG/3 ML NEB NEB SCH ×4 (00:10→19:43)
[2023-01-27] MEDS: IPRATROPIUM BROMIDE NEB SOLN 0.02% 2.5 ML VIAL INH SCH ×4 (00:10→19:43)
[2023-01-27] MEDS: CEFEPIME 2,000 MG in SYRINGE 0 ML IV SCH ×2 (05:47→16:59)
[2023-01-27] MEDS: ADVANCED PROBIOTIC 1250 MG CAPSULE PO SCH (08:17)
[2023-01-27] MEDS: FAMOTIDINE 20 MG TAB PO SCH ×2 (08:17→20:04)
[2023-01-27] MEDS: DOXYCYCLINE HYCLATE 100 MG CAP PO SCH ×2 (08:17→20:04)
[2023-01-27] MEDS: FERROUS SULFATE 325 MG TAB PO SCH ×2 (08:18→16:59)
[2023-01-27] MEDS: UMECLIDINIUM/VILANTEROL 62.5/25MCG 7 PUFFS/INHALER INH SCH (08:18)
[2023-01-27] MEDS: FOLIC ACID 1 MG TAB PO SCH (08:18)
[2023-01-27] MEDS: HEPARIN SOD 5,000 UNIT/0.5 ML VIAL SQ SCH ×3 (08:18→23:20)
[2023-01-27] MEDS: CLOPIDOGREL BISULFATE 75 MG TAB PO SCH (08:18)
[2023-01-27] MEDS: SODIUM CHLORIDE 0.9% 1000ML 1,000 ML IV SCH (12:06)
--- NOTE | 2023-01-27 18:04 | Hospitalist Progress Note ---
Date of Service January 27, 2023 Assessment & Plan (1) Hypoxemia: Plan: Acute on chronic hypoxic respiratory failure Acute on chronic Secondary right-sided lower lobe pneumonia History of COPD Chest x-ray: 1. Dense airspace consolidation in the right mid to lower lung is typical for pneumonia/aspiration pneumonitis. Clinical correlation will be required and radiographic follow-up to resolution is recommended. 2. Small right pleural effusion. 3. Emphysema. Sputum culture: Light normal maicol Blood cultures: Negative x48 hours Green Pipefitter consulted-Dr. Basim Wise Patient given ceftriaxone IV plus doxycycline IV x2 days Patient fatigued today, still on 2 L of oxygen, still with wheezing and productive cough Restart cefepime 2 g IV every 8 hours also in light of Pseudomonas UTI Continue doxycycline p.o. Resume prednisone 40 mg p.o. daily Continue nebs Tessalon perles as needed Monitor closely 01/27 Clinically improving Continue with cefepime IV and doxycycline p.o. Prednisone 40 mg p.o. daily Nebs Hyponatremia, Acute Renal Failure on CKD secondary to illness -- Na 130 - 131- 132 -- 2.4 -> 1.9 -> 1.7 -> 1.2 -- DC IV fluids restart Irbesartan-HCTZ Iron deficiency and folate deficiency anemia No signs of bleeding at this time hemoglobin stable at 8 Supplements ordered Will need further work-up as an outpatient hx CAD status post stent hypertension, stable hyperlipidemia on statin Rx GERD stable on famotidine chronic anemia, hemoglobin slightly lower than baseline ongoing tobacco abuse DVT prophylaxis. Heparin subcu every 8 hours Full code Disposition Anticipate to return home when medically stable Will need two-step exercise test plan of care discussed with patient and his family in detail all questions answered They are understanding, agreeable, comfortable with the plan of care Admission and Anticipated Discharge Date Admission Date: January 22, 2023 Subjective ff up for pneumonia, etc seen resting in bed, comfortable states he continues to feel improved breathing improving less cough no chest pain, dizziness, palpitations, nausea ambulating to the restroom with no problems as per patient no other new symptom Review of Systems 2 Review of Systems: all noted and negative except for above Physical Exam Physical Exam: General- oriented x 3, not in distress, speaks in sentences with no effort or accessory muscle use Eyes- anicteric Neck- no JVD Lungs-faint wheeze BL mild rales at the bases Heart- normal rate, regular rhythm; no murmurs Abdomen- normal bowel sounds, nondistended, soft, nontender Extremities- no pretibial edema, no calf tenderness Neuro- alert, oriented x 3; no gross focal neurologic deficits Skin- warm & dry Results & Data Results & Data Vital Signs (Past 12 Hours) Vital Signs Temp Pulse Pulse Resp BP Pulse Ox O2 Del Method 01/27/23 14:20 71 01/27/23 15:00 36.5 C 73 18 153/69 H 98 Nasal Cannula 01/27/23 13:45 20 Nasal Cannula 01/27/23 11:04 36.4 C L 78 20 134/72 97 Nasal Cannula 01/27/23 08:20 Nasal Cannula 01/27/23 07:27 36.5 C 69 18 155/73 H 99 Nebulizer 01/27/23 07:24 72 01/27/23 07:24 83 20 92 Nasal Cannula O2 Flow Rate 01/27/23 14:20 01/27/23 15:00 2 01/27/23 13:45 3 01/27/23 11:04 2 01/27/23 08:20 3 01/27/23 07:27 01/27/23 07:24 01/27/23 07:24 3 all noted and reviewed including below
[2023-01-27] MEDS ORDERED: predniSONE 20 MG TAB PO ONE (18:09)
[2023-01-27] MEDS: ATORVASTATIN 40 MG TAB PO SCH (20:05)
[2023-01-27] MEDS: LIDOCAINE 5% 1 PATCH TD SCH (20:06)
[2023-01-28] MEDS: LEVALBUTEROL 1.25 MG/3 ML NEB NEB SCH ×4 (00:20→17:57)
[2023-01-28] MEDS: IPRATROPIUM BROMIDE NEB SOLN 0.02% 2.5 ML VIAL INH SCH ×4 (00:20→17:57)
[2023-01-28] MEDS: CEFEPIME 2,000 MG in SYRINGE 0 ML IV SCH ×2 (04:28→17:02)
[2023-01-28] MEDS: FAMOTIDINE 20 MG TAB PO SCH ×2 (08:08→20:09)
[2023-01-28] MEDS: CLOPIDOGREL BISULFATE 75 MG TAB PO SCH (08:08)
[2023-01-28] MEDS: DOXYCYCLINE HYCLATE 100 MG CAP PO SCH ×2 (08:08→20:09)
[2023-01-28] MEDS: hydroCHLOROthiazide 25 MG TAB PO SCH (08:08)
[2023-01-28] MEDS: ADVANCED PROBIOTIC 1250 MG CAPSULE PO SCH (08:08)
[2023-01-28] MEDS: UMECLIDINIUM/VILANTEROL 62.5/25MCG 7 PUFFS/INHALER INH SCH (08:08)
[2023-01-28] MEDS: HEPARIN SOD 5,000 UNIT/0.5 ML VIAL SQ SCH ×3 (08:08→23:26)
[2023-01-28] MEDS: LOSARTAN POTASSIUM 50 MG TAB PO SCH (08:08)
[2023-01-28] MEDS: FOLIC ACID 1 MG TAB PO SCH (08:09)
[2023-01-28] MEDS: FERROUS SULFATE 325 MG TAB PO SCH ×2 (08:09→17:02)
[2023-01-28 08:27] LABS: Creatinine Clr Calc Pharmacy 52.9 ml/min; Est GFR (African American) 91.2 ml/min; Est GFR (Non-African American) 78.7 ml/min
[2023-01-28] MEDS ORDERED: NON-FORMULARY MEDICATION (Irbesartan-Hydrochlorothiazide 300-12.5 mg tablet) PO SCH (09:00)
--- NOTE | 2023-01-28 15:18 | Hospitalist Progress Note ---
Date of Service January 28, 2023 Assessment & Plan (1) Acute hypoxemic respiratory failure: Plan: Acute on chronic hypoxic respiratory failure Secondary right-sided lower lobe pneumonia COPD Exacerbation Chest x-ray: 1. Dense airspace consolidation in the right mid to lower lung is typical for pneumonia/aspiration pneumonitis. Clinical correlation will be required and radiographic follow-up to resolution is recommended. 2. Small right pleural effusion. 3. Emphysema. Sputum culture: Light normal maicol Blood cultures: Negative x 48 hours Detail Technician consulted-Dr. Basim Wise 01/28 Clinically improving Continue with cefepime IV and doxycycline p.o., antibiotic day #7 Prednisone 40 mg p.o. daily, taper gradually upon discharge Nebs every 6 hours Possible discharge to home tomorrow Will need two-step exercise test upon discharge Hyponatremia, Acute Renal Failure on CKD secondary to illness -- Na 130 - 131- 132 -- Creatinine 2.4 -> 1.9 -> 1.7 -> 1.2 -- Given IV fluids Iron deficiency and folate deficiency anemia No signs of bleeding at this time hemoglobin stable at 8 Iron level 13 Given IV iron Oral iron and folate ordered Will need further work-up as an outpatient History of CAD status post stent Hypertension -- stable Hyperlipidemia -- on statin Rx GERD stable on famotidine Chronic anemia, hemoglobin slightly lower than baseline Ongoing tobacco abuse DVT prophylaxis. Heparin subcu every 8 hours Full code Disposition Anticipate to return home when medically stable Will need two-step exercise test plan of care discussed with patient in detail all questions answered He is understanding, agreeable, comfortable with the plan of care Admission and Anticipated Discharge Date Admission Date: January 22, 2023 Subjective ff up for R lung pneumonia, etc seen resting in bed, comfortable on 2 L TN states he feels that he is improving overall Breathing is better, less cough, no fevers or chills Ambulating to the bathroom with no problems No other new symptoms Review of Systems Review of Systems: all noted and negative except for above Physical Exam Physical Exam: General- oriented x 3, not in distress, speaks in sentences with no effort or accessory muscle use Eyes- anicteric Neck- no JVD Lungs-faint wheeze bilaterally, mild crackles at the right base Heart- normal rate, regular rhythm; no murmurs Abdomen- normal bowel sounds, nondistended, soft, no tenderness Extremities- no pretibial edema, no calf tenderness Neuro- alert, oriented x 3; no gross focal neurologic deficits Skin- warm & dry Results & Data Results & Data Vital Signs (Past 12 Hours) Vital Signs Temp Pulse Pulse Resp BP Pulse Ox O2 Del Method 01/28/23 15:15 36.5 C 72 20 148/69 H 96 Nasal Cannula 01/28/23 13:30 80 16 94 Nasal Cannula 01/28/23 11:54 36.4 C L 71 20 147/68 H 94 Nasal Cannula 01/28/23 08:10 Nasal Cannula 01/28/23 07:51 36.3 C L 71 18 167/73 H 92 Nasal Cannula 01/28/23 07:14 72 16 97 Nasal Cannula 01/28/23 07:03 85 01/28/23 03:59 36.5 C 70 16 142/74 H 94 Nasal Cannula O2 Flow Rate 01/28/23 15:15 2 01/28/23 13:30 2 01/28/23 11:54 2 01/28/23 08:10 3 01/28/23 07:51 2 01/28/23 07:14 2 01/28/23 07:03 01/28/23 03:59 2 all noted and reviewed including below
[2023-01-28] MEDS ORDERED: IRON SUCROSE 150 MG in SODIUM CHLORIDE 0.9% 250 ML IV ONE (16:30)
[2023-01-28] MEDS: ATORVASTATIN 40 MG TAB PO SCH (20:09)
[2023-01-28] MEDS: LIDOCAINE 5% 1 PATCH TD SCH (20:09)
[2023-01-29] MEDS: LEVALBUTEROL 1.25 MG/3 ML NEB NEB SCH ×3 (01:45→12:06)
[2023-01-29] MEDS: IPRATROPIUM BROMIDE NEB SOLN 0.02% 2.5 ML VIAL INH SCH ×3 (01:45→12:05)
[2023-01-29] MEDS: CEFEPIME 2,000 MG in SYRINGE 0 ML IV SCH (04:40)
[2023-01-29 07:52] LABS: Hematocrit (blood only) 23.5 % (42.0-52.0); Hemoglobin 8.1 g/dl (14.0-18.0); Mean Corpuscular Hemoglobin 30.1 pg (25.0-34.0); Mean Corpuscular Hgb Conc 34.5 g/dL (32.0-36.0); Mean Corpuscular Volume 87.4 fL (80.0-100.0); Mean Platelet Volume 10.6 fL (9.4-12.4); Platelet Count 367 K/uL (130-400); RDW Coefficient of Variation 16.8 % (11.5-14.5); RDW Standard Deviation 52.5 fL (36.4-46.3); Red Blood Count 2.69 M/uL (4.70-6.10); White Blood Count 15.04 K/ul (4.8-10.8)
[2023-01-29] MEDS: ADVANCED PROBIOTIC 1250 MG CAPSULE PO SCH (09:08)
[2023-01-29] MEDS: hydroCHLOROthiazide 25 MG TAB PO SCH (09:09)
[2023-01-29] MEDS: FAMOTIDINE 20 MG TAB PO SCH (09:09)
[2023-01-29] MEDS: LOSARTAN POTASSIUM 50 MG TAB PO SCH (09:09)
[2023-01-29] MEDS: FOLIC ACID 1 MG TAB PO SCH (09:09)
[2023-01-29] MEDS: HEPARIN SOD 5,000 UNIT/0.5 ML VIAL SQ SCH (09:10)
[2023-01-29] MEDS: CLOPIDOGREL BISULFATE 75 MG TAB PO SCH (09:10)
[2023-01-29] MEDS: DOXYCYCLINE HYCLATE 100 MG CAP PO SCH (09:10)
[2023-01-29] MEDS: FERROUS SULFATE 325 MG TAB PO SCH (09:10)
[2023-01-29] MEDS: UMECLIDINIUM/VILANTEROL 62.5/25MCG 7 PUFFS/INHALER INH SCH (09:21)
--- NOTE | 2023-01-29 15:20 | Discharge Summary ---
Date of Service January 29, 2023 Admission HPI Per Admitting Provider History obtained from patient, family, and records. Medical history significant for CAD status post stent, COPD,, hypertension, hyperlipidemia, GERD, CRI (baseline creatinine 1.3 ), chronic anemia (baseline hemoglobin 10), ongoing tobacco abuse. Last confinement June 2021 pelvic and sacral fractures secondary to mechanical fall. No operative intervention. Patient noted to be hypoxemic during ambulation during confinement with chronic cough symptoms. Patient started on Advair for possible COPD. 3 months ago, patient noted junky cough symptoms. Denies aspiration. Not sure about sick contacts. Patient has received COVID-19 vaccination. Poor appetite and significant weight loss. No abdominal pain. Denies black/bloody stools. No medical consultations. Patient had worsening cough, shortness of breath in the last week. Pleuritic right-sided chest pain. Patient brought to PCP's office today by family for evaluation. O2 sats 80s at PCPs office. Patient directed to ER for evaluation. Solu-Medrol, neb treatment, ceftriaxone and doxycycline administered at the ER. 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 Admission Exam Per Admitting Provider GENERAL: Slightly uncomfortable, chronically ill, minimal respiratory distress SKIN: Pallor, warm HEENT: Pale palpebral conjunctivae, no ptosis, dry buccal mucosa, nasal cannula in place NECK : Supple, no tenderness CHEST : Decreased breath sounds, no tenderness HEART : RRR, no obvious murmurs ABDOMEN: no distention, nontender EXTREMITIES : No LE swelling/tenderness, no other conspicuous deformities noted NEUROLOGIC : Coherent, no facial asymmetry, slightly hard of hearing, no other gross focality Principal Diagnosis Acute on chronic hypoxic respiratory failure Secondary right-sided lower lobe pneumonia COPD Exacerbation Discharge Exam Constitutional: WD/WN, vitals as above, NAD, sitting up in bed, pleasant, conversing easily Respiratory: Occasional crackle at right base. Cardiovascular: RRR, no murmur, no edema Vessels: no JVD or carotid bruit Chest: normal inspection of chest Abdomen: normal bowel sounds, soft, nontender, no hepatosplenomegaly Musculoskeletal: no cyanosis or clubbing, extremities motor strength 5/5 Skin: no rashes, warm and dry normal turgor Neurologic: PERRL, EOMI, accommodation nl, no face palsy, no dysarthria CN's II- XI intact bilaterally and moves all extremities Psychiatric: A+Ox3, euthymic affect Discharge Data Allergies Allergy/AdvReac Type Severity Reaction Status Date / Time No Known Allergies Allergy Verified 01/22/23 19:28 Consultations 01/22/23 20:55 ED Decision to Admit Stat 01/22/23 23:05 Consult Pulmonology Routine Hospital Course (1) Acute hypoxemic respiratory failure: Acute on chronic hypoxic respiratory failure Secondary right-sided lower lobe pneumonia COPD Exacerbation Chest x-ray: 1. Dense airspace consolidation in the right mid to lower lung is typical for pneumonia/aspiration pneumonitis. Clinical correlation will be required and radiographic follow-up to resolution is recommended. 2. Small right pleural effusion. 3. Emphysema. Sputum culture: Light normal maicol Blood cultures: Negative x 48 hours During the hospitalization, patient was treated with IV antibiotic with cefepime and doxycycline. He was also started on [id number] DuoNebs and steroid. Pulmonology was consulted for comanagement. Patient showed gradual improvement throughout the hospitalization. Two-step oxygen evaluation was done; he was requiring 3 L at exertion; was in room air at rest. He was discharged on 3 more days of oral antibiotic. He was also prescribed an Anoro as per recommendation by pulmonology. Patient to follow-up with PCP and have chest x-ray repeat in 1 week. Hyponatremia, Acute Renal Failure on CKD secondary to illness Resolved Iron deficiency and folate deficiency anemia No signs of bleeding at this time hemoglobin stable at 8 Iron level 13 Given IV iron At discharge, oral iron and folate orderedWill need further work-up as an outpatient All other medication were continued as before. Total Time Total Time Spent Total Time Spent (In Minutes): 35 Total Time Includes: Examination of the Patient, Discharge Planning, Medication Reconciliation, Communication With Other Providers and Other Discharge Plan Discharge Items Patient Disposition: Home - Self-Care Reason For Visit: RESP FAILURE Discharge Diagnosis: Acute on chronic hypoxic respiratory failure Secondary right-sided lower lobe pneumonia COPD Exacerbation Activity: Resume your previous activity Non-emergency contact: Primary Care Provider Call non-emergency contact if: you have any medication questions and your symptoms worsen Follow-up/Referrals: Vic Gordon MD [Primary Care Provider] - (Date & Time 02/04/2023 2:00 PM Provider Renato Davis MD Department [facility] ) Diet: Regular Addtl Attending Provider Instructions: You were admitted to the hospital with right mid to lower lung pneumonia. You are also found to have emphysema (COPD). The following antibiotics are prescribed for the pneumonia: 1) cefuroxime 500 mg twice daily for 3 days 2) doxycycline 100 mg twice daily for 3 days You are also prescribed Anoro Ellipta inhaler to be taken daily for emphysema. A nebulizer machine and solution has been prescribed. Please use it as needed every 8 hours for increasing shortness of breath. An appointment will be set up with your primary care doctor for next week. You will need repeat chest x-ray to follow-up on the pneumonia seen in the x-ray here. You will also need a pulmonary function test and pulmonology referral. Your antihypertensive(irbesartanhydrochlorothiazide) is stopped and you were started on losartan 50 mg twice daily for blood pressure control. Pending Studies at Discharge: No Stand-Alone Forms: My [facility], Smoking Cessation Medications and DC Order Prescriptions: New losartan 50 mg Tablet 100 mg PO BID Qty: 60 0RF doxycycline hyclate 100 mg Capsule 100 mg PO BID 3 Days Qty: 6 0RF folic acid 1 mg Tablet 1 mg PO QAM Qty: 30 0RF ferrous sulfate 325 mg (65 mg iron) Tablet,Delayed Release (Dr/Ec) 325 mg PO DAILY Qty: 30 0RF Anoro Ellipta 62.5-25 mcg/actuation Blister With Device 1 ea inhalation DAILY 30 Days Qty: 60 0RF cefuroxime axetil 500 mg tablet 500 mg PO Q12H 3 Days Qty: 6 0RF ipratropium-albuterol 0.5 mg-3 mg(2.5 mg base)/3 mL solution for nebulization 3 ml inhalation Q8H PRN (Reason: wheezing) Qty: 90 0RF Continued atorvastatin 80 mg tablet 80 mg PO QPM Qty: 90 3RF nitroglycerin 0.4 mg tablet, sublingual 0.4 mg SL Q5M PRN (Reason: chest pain) Qty: 25 0RF Rx Instructions: until response; do not exceed 3 doses per episode famotidine 40 mg tablet 20 mg PO BID acetaminophen [Tylenol] 325 mg capsule 650 mg PO Q6H PRN (Reason: fever or pain) Qty: 14 0RF Robitussin A-C 10-100 mg/5 mL Syrup 5 ml PO Q4H PRN (Reason: Cough) clopidogrel 75 mg tablet 75 mg PO QAM Discontinued irbesartan-hydrochlorothiazide 300-12.5 mg tablet 1 tab PO QAM Discharge Orders: Discharge Order (Routine); Ordered 01/29/23 Ordered By: Shaun Pierre Admission Data Admit Date/Time: 01/22/23 20:19 Attending Provider: Shaun Pierre Admit Provider: Jonny Stoner Primary Care Provider: Vic Gordon Other Providers: Jonny Stoner ; Elia Schwartz ; Alo Owen ; Guy Talbot ; Basim Wise ; Amy Alexandra ; Divine Carlson ; Tavo Melendez
== END 2023-01-29 17:32 | disposition home or self-care (01) | DRG 193 ==
LOC: ED 16:36 → SUATTDRO 20:19 → 2N 20:19

== ENCOUNTER 2023-05-16 19:49 | Inpatient (IN) ==
[2023-05-16] MEDS ORDERED: SODIUM CHLORIDE 0.9% 1,000 ML IV ONE ×3 (20:10→22:30)
[2023-05-16] MEDS ORDERED: ALBUT/IPRATROP 3MG/0.5MG NEB 3 ML VIAL NEB STA (20:19)
[2023-05-16] MEDS ORDERED: methylPREDNISolone 125 MG/2 ML VIAL IV STA (20:19)
[2023-05-16] MEDS ORDERED: SODIUM CHLORIDE 0.9% 500 ML IV ONE ×2 (20:19→21:52)
--- NOTE | 2023-05-16 20:29 | Emergency Department Note ---
Impression & Plan Acute renal failure, Anemia, Pneumonia involving right lung, Shortness of breath, Acute dehydration ED Provider Note NAME: PACO KC Sr AGE: 83 SEX: M : 1940 ARRIVES VIA: Walk-In INFORMANT: Patient, ED PROVIDER(S): Matthias Mcgraw MD CHIEF COMPLAINT: Shortness of breath, cough, recently diagnosed pneumonia MEDICAL DECISION MAKING: Patient presented due to concern for shortness of breath cough and recently diagnosed pneumonia. The I was called as the patient was noted to be hypotensive and is to be on chronic 4 L at all times. Patient was evaluated and was on a nonrebreather. Patient sats were in the high 90s and the patient was transitioned lower to 6 L. IV was established blood work obtained and sepsis protocols were initiated including 1500 of IV fluids. Chest x-ray does show pleural effusion possible pneumonia of the right chest which is significantly worse from comparison. Patient does have a white count of 16 chronic and stable hemoglobin anemia 9.3 with mild thrombocytosis of 435. The patient's VBG does show mild acidosis at 7.32 with a VBG PCO2 42. Patient does show acute renal failure with a BUN greater than 120 and creatinine of 2.75 which is an acute change. Do believe this is likely secondary to the patient's significant dehydration. Procalcitonin 2.4. Bio fire negative. I did convey the findings to the patient as well as the patient's son at bedside. They are comfortable plan of care. I did speak the on-call hospital service Dr. Stoner and the patient was admitted to the medicine service. Discussion w/ other healthcare providers: Dr. Stoner inpatient medicine service Prior /Outside records reviewed: I reviewed a discharge summary from January 29, 2023. Patient does have a history of CAD status post stents COPD hypertension hyperlipidemia GERD chronic anemia and tobacco use had presented due to concern for hypoxia and right lower lobe pneumonia Differential diagnosis: Reactive airway disease, pneumonia, pneumothorax, COPD, CHF, ACS, pulmonary embolism, musculoskeletal, GERD as well as other pathologies were considered. Diagnostics, as interpreted by me: ECG: Normal sinus rhythm, rate of 83, normal intervals, normal axis no ST elevations Cardiac monitoring: An order was placed for continuous cardiac monitoring. The monitor shows a rate of 85 with please take your steroids preferably in the morning and with food as they may cause some upset stomach and cause you to be very awake and alert. If you are taking ASA/Plavix please take Nexium or another type of proton pump inhibitor during the course of your steroids to help avoid GI upset/gastritis/GI bleeding. Rhythm. Patient was placed on pulse oximetry Medical decision rules: Curb 65 score Imaging studies: I informally interpreted the patient's chest x-ray with pneumonia and possible pleural effusion right chest no obvious pneumothorax with formal report to follow. HPI: Patient presents due to concern for dyspnea shortness of breath and cough which has been productive. The patient does have a known history of COPD former smoker last quitting after his last bout of pneumonia which required hospitalization back in April. Patient denies any chest pains. The patient was brought in by his son to the [facility] clinic today was diagnosed pneumonia and was referred here for further evaluation and treatment. Patient reportedly has not been eating or drinking. Patient has been trialing his nebulizers at home but without significant improvement in symptoms. Additional history was obtained from the son. The son states that he lives with his but the cannot seem to take care of herself for him. Son is noted that he has lost a lot of weight. Patient states that this has been ongoing for the last 2 to 3 weeks in terms of his worsening shortness of breath weakness lethargy to the point where it took a fair amount of convincing in order to get him to the outpatient appointment today. PAST MEDICAL HISTORY: See Below PAST SURGICAL HISTORY: See Below SOCIAL HISTORY: See Below HOME MEDICATIONS: See Below ALLERGIES: See Below VITALS: See Below PHYSICAL EXAMINATION: GENERAL: Very thin in appearance but nontoxic. Nonrebreather in place. EYE EXAM: Normal conjunctiva. PERRL, no anisocoria and EOM's grossly intact w/o pain. OROPHARYNX: Dry mucus membranes, grossly normal dentition. NECK: Supple, no nuchal rigidity, no adenopathy, non-tender. No signs of meningismus. FROM of the neck with good chin to chest and neck extension. No stridor. LUNGS: Decreased breath sounds, mild wheezing. HEART: NSR, no MRG. ABDOMEN: Abdomen soft, non-tender, no masses, no rebound or guarding. BACK: No CVA TTP. SKIN: No rashes and no bruising. UPPER EXTREMITIES: Upper extremities are grossly normal. LOWER EXTREMITIES: Grossly normal, no edema. NEURO EXAM: A&O x3, cranial nerves II-XII grossly intact, normal speech, moves all 4 extremities. Past Med/Surg History Medical History Pulmonary cachexia due to chronic obstructive pulmonary disease Severe protein-energy malnutrition Hypoxia Necrotizing pneumonia Acute hypoxemic respiratory failure Hx of fracture of pelvis (~05/2021) no current problems Osteoarthritis Chronic obstructive pulmonary disease "mild" uses Breo inhaler PRN Myocardial Infarction 2018 - no risk mgr "anymore" follows with PCP. 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 Full ROM. History of lumbar surgery History of open reduction and internal fixation (ORIF) procedure Left knee with "plate" S/P laparoscopic cholecystectomy Status post placement of stent in right coronary artery "drug eluting stents x [address] Che 07/21/17" On 07/25/17 21:29 Paco Krause wrote "drug eluting stents x [address] Che 07/21/16" Status post cardiac catheterization (~2017) [facility] with x2 stents Family History Other No family history of adverse response to anesthesia Social History Smoking Status: Former smoker Tobacco Type: Cigarettes Cigarettes Per Day: 1.5 pks/day; Second Hand Exposure: Yes; Do You Dip or Chew Tobacco: No; Hx Alcohol Use: No Hx Substance Use: No Preferred Language: Urdu Communication Ability: Effective [employer] Required: No Beliefs That Will Affect Care: None marital status: Current Living Situation: Spouse Other Information That Helps Us Care for You: No Feels Safe at Home: Yes Safety Concerns: Feels Safe At This Time Assistive Devices: Denture - Upper, Denture - Lower and Oxygen - Continuous Allergies Allergies Allergy/AdvReac Type Severity Reaction Status Date / Time No Known Allergies Allergy Verified 05/16/23 21:06 Home Meds Home Medications Medication Instructions Recorded Confirmed famotidine 40 mg tablet 20 mg PO BID 06/06/21 05/16/23 clopidogrel 75 mg tablet 75 mg PO QAM 01/10/22 05/16/23 codeine 10 mg-guaifenesin 100 mg/5 5 ml PO Q4H PRN Cough 01/22/23 05/16/23 mL Syrup cefuroxime axetil 500 mg tablet 500 mg PO BID 05/16/23 05/16/23 irbesartan 300 1 tab PO QAM 05/16/23 05/16/23 mg-hydrochlorothiazide 12.5 mg tablet montelukast 10 mg tablet 10 mg PO QAM 05/16/23 05/16/23 umeclidinium 62.5 mcg-vilanterol 1 inh inhalation DAILY 05/16/23 05/16/23 25 mcg/actuation powdr for inhalation (Anoro Ellipta) Previous Rx's Medication Instructions Recorded atorvastatin 80 mg tablet 80 mg PO QPM #90 tabs 04/27/19 nitroglycerin 0.4 mg sublingual 0.4 mg sublingual Q5M PRN chest 04/27/19 tablet pain #25 tabs acetaminophen 325 mg capsule 650 mg (2 x 325 mg) PO Q6H PRN 06/09/21 (Tylenol) fever or pain #14 caps ferrous sulfate 325 mg (65 mg 325 mg PO DAILY #30 tabs 01/29/23 iron) tablet,delayed release folic acid 1 mg tablet 1 mg PO QAM #30 tabs 01/29/23 ipratropium 0.5 mg-albuterol 3 mg 3 ml inhalation Q8H PRN wheezing 01/29/23 (2.5 mg base)/3 mL nebulization #90 mL soln Results & Data (ED) Vital Signs Vital Signs - 24 hr 05/16/23 19:54 05/16/23 19:57 05/16/23 20:01 Pulse Rate Pulse Rate from SpO2 Sensor Respiratory Rate 22 Respiratory Effort / Characteristics Short of Breath Labored Respiratory Depth Shallow Respiratory Pattern Tachypnea Blood Pressure 68/42 L Blood Pressure Mean 50 Blood Pressure Position Sitting Pulse Oximetry 96 Oxygen Delivery Method Nasal Cannula Non-rebreather Oxygen Flow Rate 4 15 Sepsis Recent Fever Within 48 Hours No Sepsis New/Unexplained Change in Mental Status N/A Sepsis Action Taken by Nursing Physician Notified Oxygen Flow Rate - Titration Pulse Oximetry Post Tiitration 05/16/23 20:07 05/16/23 20:07 05/16/23 20:10 Pulse Rate 89 86 Pulse Rate from SpO2 Sensor 86 Respiratory Rate 28 H Respiratory Effort / Characteristics Respiratory Depth Respiratory Pattern Blood Pressure Blood Pressure Mean Blood Pressure Position Pulse Oximetry 100 98 Oxygen Delivery Method Non-rebreather Non-rebreather Oxygen Flow Rate 15 15 Sepsis Recent Fever Within 48 Hours Sepsis New/Unexplained Change in Mental Status Sepsis Action Taken by Nursing Oxygen Flow Rate - Titration Pulse Oximetry Post Tiitration 05/16/23 20:10 05/16/23 20:16 05/16/23 20:16 Pulse Rate 85 83 Pulse Rate from SpO2 Sensor 86 Respiratory Rate 31 H 30 H Respiratory Effort / Characteristics Respiratory Depth Respiratory Pattern Blood Pressure 96/72 L Blood Pressure Mean 74 Blood Pressure Position Pulse Oximetry 97 Oxygen Delivery Method Non-rebreather Oxygen Flow Rate 15 Sepsis Recent Fever Within 48 Hours Sepsis New/Unexplained Change in Mental Status Sepsis Action Taken by Nursing Oxygen Flow Rate - Titration Pulse Oximetry Post Tiitration 05/16/23 20:20 05/16/23 20:21 05/16/23 20:21 Pulse Rate 87 82 Pulse Rate from SpO2 Sensor 86 80 Respiratory Rate 31 H 29 H Respiratory Effort / Characteristics Respiratory Depth Respiratory Pattern Blood Pressure 105/59 L Blood Pressure Mean 79 Blood Pressure Position Pulse Oximetry 96 97 Oxygen Delivery Method Non-rebreather Oxygen Flow Rate 12 Sepsis Recent Fever Within 48 Hours Sepsis New/Unexplained Change in Mental Status Sepsis Action Taken by Nursing Oxygen Flow Rate - Titration Pulse Oximetry Post Tiitration 05/16/23 20:30 05/16/23 20:40 05/16/23 20:50 Pulse Rate 79 78 75 Pulse Rate from SpO2 Sensor 79 75 76 Respiratory Rate 27 H 23 25 H Respiratory Effort / Characteristics Respiratory Depth Respiratory Pattern Blood Pressure Blood Pressure Mean Blood Pressure Position Pulse Oximetry 97 98 100 Oxygen Delivery Method Nebulizer Oxygen Flow Rate Sepsis Recent Fever Within 48 Hours Sepsis New/Unexplained Change in Mental Status Sepsis Action Taken by Nursing Oxygen Flow Rate - Titration Pulse Oximetry Post Tiitration 05/16/23 21:00 05/16/23 21:00 05/16/23 21:10 Pulse Rate 78 79 Pulse Rate from SpO2 Sensor 77 79 Respiratory Rate 32 H 24 Respiratory Effort / Characteristics Respiratory Depth Respiratory Pattern Blood Pressure Blood Pressure Mean Blood Pressure Position Pulse Oximetry 99 100 100 Oxygen Delivery Method Non-rebreather Nebulizer Nasal Cannula Oxygen Flow Rate 12 5 Sepsis Recent Fever Within 48 Hours Sepsis New/Unexplained Change in Mental Status Sepsis Action Taken by Nursing Oxygen Flow Rate - Titration 5 Pulse Oximetry Post Tiitration 96 05/16/23 21:16 05/16/23 21:16 05/16/23 21:20 Pulse Rate 84 75 Pulse Rate from SpO2 Sensor 84 71 Respiratory Rate 29 H 19 Respiratory Effort / Characteristics Respiratory Depth Respiratory Pattern Blood Pressure 112/58 L Blood Pressure Mean 74 Blood Pressure Position Pulse Oximetry 94 97 Oxygen Delivery Method Oxygen Flow Rate Sepsis Recent Fever Within 48 Hours Sepsis New/Unexplained Change in Mental Status Sepsis Action Taken by Nursing Oxygen Flow Rate - Titration Pulse Oximetry Post Tiitration 05/16/23 21:30 05/16/23 21:31 05/16/23 21:40 Pulse Rate 78 80 77 Pulse Rate from SpO2 Sensor 77 77 79 Respiratory Rate 19 23 23 Respiratory Effort / Characteristics Respiratory Depth Respiratory Pattern Blood Pressure Blood Pressure Mean Blood Pressure Position Pulse Oximetry 100 98 98 Oxygen Delivery Method Nasal Cannula Oxygen Flow Rate 5 Sepsis Recent Fever Within 48 Hours Sepsis New/Unexplained Change in Mental Status Sepsis Action Taken by Nursing Oxygen Flow Rate - Titration Pulse Oximetry Post Tiitration 05/16/23 21:45 05/16/23 21:50 05/16/23 21:54 Pulse Rate 83 82 Pulse Rate from SpO2 Sensor 82 81 Respiratory Rate 22 25 H Respiratory Effort / Characteristics Respiratory Depth Respiratory Pattern Blood Pressure 105/53 L Blood Pressure Mean 70 Blood Pressure Position Pulse Oximetry 97 97 98 Oxygen Delivery Method Nasal Cannula Oxygen Flow Rate 5 Sepsis Recent Fever Within 48 Hours Sepsis New/Unexplained Change in Mental Status Sepsis Action Taken by Nursing Oxygen Flow Rate - Titration 4 Pulse Oximetry Post Tiitration 96 05/16/23 22:00 05/16/23 22:10 05/16/23 22:15 Pulse Rate 79 79 82 Pulse Rate from SpO2 Sensor 80 80 82 Respiratory Rate 26 H 26 H 25 H Respiratory Effort / Characteristics Respiratory Depth Respiratory Pattern Blood Pressure 109/70 112/61 Blood Pressure Mean 83 78 Blood Pressure Position Pulse Oximetry 94 99 98 Oxygen Delivery Method Nasal Cannula Nasal Cannula Nasal Cannula Oxygen Flow Rate 4 4 4 Sepsis Recent Fever Within 48 Hours Sepsis New/Unexplained Change in Mental Status Sepsis Action Taken by Nursing Oxygen Flow Rate - Titration Pulse Oximetry Post Tiitration 05/16/23 22:20 Pulse Rate 79 Pulse Rate from SpO2 Sensor 79 Respiratory Rate 23 Respiratory Effort / Characteristics Respiratory Depth Respiratory Pattern Blood Pressure Blood Pressure Mean Blood Pressure Position Pulse Oximetry 100 Oxygen Delivery Method Nasal Cannula Oxygen Flow Rate 4 Sepsis Recent Fever Within 48 Hours Sepsis New/Unexplained Change in Mental Status Sepsis Action Taken by Nursing Oxygen Flow Rate - Titration Pulse Oximetry Post Tiitration Home Medications Current Medication List: was personally reviewed by me Laboratory Data Attestation: I reviewed the patient's lab results. 05/17/23 07:32 05/17/23 07:32 Lab Results 05/16/23 05/16/23 Range/Units 21:00 21:17 WBC 16.77 H (4.8-10.8) K/ul RBC 3.27 L (4.70-6.10) M/uL Hgb 9.3 L (14.0-18.0) g/dl Hct 28.7 L (42.0-52.0) % MCV 87.8 (80.0-100.0) fL MCH 28.4 (25.0-34.0) pg MCHC 32.4 (32.0-36.0) g/dL RDW Std Deviation 48.7 H (36.4-46.3) fL RDW Coeff of Alexia 15.1 H (11.5-14.5) % Plt Count 435 H (130-400) K/uL MPV 10.2 (9.4-12.4) fL Immature Gran % (Auto) 1.2 % Neut % (Auto) 85.7 % Lymph % (Auto) 7.6 % [place] % (Auto) 4.8 % Eos % (Auto) 0.4 % Baso % (Auto) 0.3 % Neut # (Auto) 14.38 H (1.40-6.50) K/uL Lymph # (Auto) 1.28 (1.20-3.40) K/uL [place] # (Auto) 0.80 H (0.11-0.59) K/uL Eos # (Auto) 0.06 (0.00-0.50) K/uL Baso # (Auto) 0.05 (0.00-0.20) K/uL Immature Gran # (Auto) 0.20 (0.01-0.20) K/uL PT 11.3 (9.0-12.0) Seconds INR 1.0 (0.9-1.1) APTT 27.9 (21.0-31.0) Seconds PTT Ratio 1.0 VBG pH 7.32 L (7.36-7.41) VBG pCO2 42 (38-50) mmHg VBG pO2 22 mmHg VBG HCO3 22 mmol/L VBG O2 Saturation < 60.0 % VBG Base Excess -4.3 mEq/L Sodium 136 (136-145) mmol/L Potassium 5.1 (3.5-5.1) mmol/L Chloride 104 (98-107) mmol/L Carbon Dioxide 20 L (21-32) mmol/L Anion Gap 12 H (3-11) BUN 123 H (6-23) mg/dl Creatinine 2.75 H (0.6-1.4) mg/dl Est Cr Clr Drug Dosing Not Reportable Est GFR ( Amer) 23.5 ml/min Est GFR (Non-Af Amer) 20.3 ml/min BUN/Creatinine Ratio 44.7 H (10-20) Glucose 124 H (70-99(Fasting)) mg/dl Estimat Average Glucose 137 mg/dl Hemoglobin A1c 6.4 H (4.5-5.6) % Lactate 2.3 H* (0.4-2.0) mmol/L Calcium 9.5 (8.6-10.3) mg/dl Magnesium 2.8 H (1.7-2.4) mg/dl Total Bilirubin 0.3 (0.2-1.0) mg/dl AST 69 H (13-39) U/L ALT 56 H (7-52) U/L Alkaline Phosphatase 201 H (34-104) U/L Total Protein 8.3 (6.0-8.3) gm/dl Albumin 3.4 (3.4-5.0) gm/dl Globulin 4.9 H (2.5-4.0) gm/dl Albumin/Globulin Ratio 0.7 L (0.9-2) Procalcitonin 2.44 H (0-0.5) ng/ml Nasal Screen MRSA (PCR) Negative (Negative) Adenovirus (PCR) Not Detected (NotDetected) B. pertussis DNA (PCR) Not Detected (NotDetected) B.parapertussis DNA PCR Not Detected (NotDetected) C. pneumoniae DNA (PCR) Not Detected (NotDetected) Coronavirus OC43 (PCR) Not Detected (NotDetected) Coronavirus HKU1 (PCR) Not Detected (NotDetected) Coronavirus 229E (PCR) Not Detected (NotDetected) SARS-CoV-2 (PCR) Not Detected (NotDetected) Coronavirus NL63 (PCR) Not Detected (NotDetected) Human Metapneumovir PCR Not Detected (NotDetected) Influenza Type A (PCR) Not Detected (NotDetected) Influenza Type B (PCR) Not Detected (NotDetected) M. pneumoniae (PCR) Not Detected (NotDetected) Parainfluenza 1 (PCR) Not Detected (NotDetected) Parainfluenza 2 (PCR) Not Detected (NotDetected) Parainfluenza 3 (PCR) Not Detected (NotDetected) Parainfluenza 4 (PCR) Not Detected (NotDetected) RSV (PCR) Not Detected (NotDetected) Entero/Rhino (PCR) Not Detected (NotDetected) Administered Medications Clopidogrel Bisulfate (Clopidogrel Bisulfate 75 Mg Tab) 75 mg PO QAM [facility] Stop: 06/16/23 08:59 Last Admin: 05/17/23 14:01 Dose: 75 mg Documented By: ZOHRA Famotidine (Famotidine 20 Mg Tab) 20 mg PO BID [facility] Stop: 06/16/23 08:59 Last Admin: 05/17/23 14:01 Dose: 20 mg Documented By: [facility] Ferrous Sulfate (Ferrous Sulfate 325 Mg Tab) 325 mg PO DAILY MELVI Stop: 06/16/23 08:59 Last Admin: 05/17/23 14:01 Dose: 325 mg Documented By: [facility] Folic Acid (Folic Acid 1 Mg Tab) 1 mg PO QAM MELVI Stop: 06/16/23 08:59 Last Admin: 05/17/23 14:01 Dose: 1 mg Documented By: [facility] Heparin Sodium (Porcine) (Heparin Sod 5,000 Unit/0.5 Ml Vial) 5,000 units SQ Q8 [facility]ELVI Stop: 06/16/23 05:59 Last Admin: 05/17/23 14:02 Dose: 5,000 units Documented By: Admin: 05/17/23 07:35 Dose: Not Given Documented By: ZOHRA Sodium Chloride (Nss) 1,000 mls @ 75 mls/hr IV .[id number] [facility] Stop: 05/18/23 02:19 Last Admin: 05/17/23 14:05 Dose: 75 mls/hr Documented By: ZOHRA Ipratropium [place] (Ipratropium [place] Neb Soln 0.02% 2.5 Ml Vial) 0.5 mg INH Q6R MELVI Stop: 06/16/23 14:44 Last Admin: 05/17/23 15:27 Dose: 0.5 mg Documented By: JONI Levalbuterol HCl (Levalbuterol Hcl 0.63 Mg/3 Ml Neb) 0.63 mg NEB Q6R MELVI Stop: 06/16/23 14:44 Last Admin: 05/17/23 15:27 Dose: 0.63 mg Documented By: JONI Montelukast Sodium (Montelukast Sodium 10 Mg Tablet) 10 mg PO QAM [facility] Stop: 06/16/23 08:59 Last Admin: 05/17/23 14:01 Dose: 10 mg Documented By: ZOHRA Discontinued Medications Albuterol (Albut/Ipratrop 3mg/0.5mg Neb 3 Ml Vial) 3 ml NEB NOW STA; Protocol Stop: 05/16/23 20:20 Last Admin: 05/16/23 20:32 Dose: 3 ml Documented By: ANA Albuterol (Albut/Ipratrop 3mg/0.5mg Neb 3 Ml Vial) 3 ml NEB QIDR MELVI; Protocol Stop: 06/16/23 06:59 Last Admin: 05/17/23 11:11 Dose: 3 ml Documented By: Admin: 05/17/23 07:21 Dose: 3 ml Documented By: JONI Sodium Chloride (Nss) 1,000 mls @ 999 mls/hr IV .Q1H1M ONE Stop: 05/16/23 21:10 Last Infusion: 05/16/23 21:41 Dose: Infused Documented By: ASSEMBLER MOLDED FRAMES Admin: 05/16/23 20:10 Dose: 999 mls/hr Documented By: ANA Piperacillin Sod/Tazobactam Sod (Zosyn) 4.5 gm in 100 mls @ 200 mls/hr IV NOW ONE Stop: 05/16/23 20:39 Last Infusion: 05/16/23 21:40 Dose: Infused Documented By: ASSEMBLER MOLDED FRAMES Admin: 05/16/23 21:09 Dose: 200 mls/hr Documented By: ASSEMBLER MOLDED FRAMES Sodium Chloride (Nss) 500 mls @ 999 mls/hr IV .Q31M ONE Stop: 05/16/23 20:49 Last Infusion: 05/16/23 21:41 Dose: Infused Documented By: ASSEMBLER MOLDED FRAMES Admin: 05/16/23 20:32 Dose: 999 mls/hr Documented By: ASSEMBLER MOLDED FRAMES Sodium Chloride (Nss) 500 mls @ 999 mls/hr IV .Q31M ONE Stop: 05/16/23 22:22 Last Infusion: 05/17/23 07:36 Dose: Infused Documented By: Admin: 05/16/23 22:49 Dose: 999 mls/hr Documented By: ASSEMBLER MOLDED FRAMES Sodium Chloride (Nss) 1,000 mls @ 200 mls/hr IV .Q5H ONE Stop: 05/17/23 02:54 Last Admin: 05/16/23 22:50 Dose: Not Given Documented By: ASSEMBLER MOLDED FRAMES Sodium Chloride (Nss) 1,000 mls @ 150 mls/hr IV .Q6H40M ONE Stop: 05/17/23 05:09 Last Infusion: 05/17/23 07:36 Dose: Infused Documented By: Admin: 05/16/23 22:50 Dose: 200 mls/hr Documented By: ASSEMBLER MOLDED FRAMES Piperacillin Sod/Tazobactam (Sod 4.5 gm/ Dextrose) 100 mls @ 25 mls/hr IV Q8H [facility]; Protocol Stop: 05/24/23 03:59 Last Admin: 05/17/23 13:05 Dose: Not Given Documented By: Infusion: 05/17/23 09:17 Dose: Infused Documented By: Admin: 05/17/23 04:48 Dose: 25 mls/hr Documented By: DLP Methylprednisolone (Methylprednisolone 125 Mg/2 Ml Vial) 125 mg IV NOW STA Stop: 05/16/23 20:20 Last Admin: 05/16/23 20:32 Dose: 125 mg Documented By: ASSEMBLER MOLDED FRAMES Prednisone (Prednisone 20 Mg Tab) 40 mg PO DAILY MELVI Stop: 05/21/23 08:59 Last Admin: 05/17/23 14:01 Dose: 40 mg Documented By: HEL Sodium Bicarbonate (Sodium Bicarb 8.4% Inj 50 Meq/50 Ml Syr) 50 meq IV NOW STA Stop: 05/17/23 00:59 Last Admin: 05/17/23 01:48 Dose: 50 meq Documented By: DLP Imaging Data Radiologist's Impression: Chest X-Ray 05/16/23 20:10 XR chest 1V portable CLINICAL HISTORY: Dyspnea TECHNIQUE: Single frontal radiograph of the chest was obtained. Comparison: Comparison is made to chest radiograph 01/22/2023 FINDINGS: No lines and tubes are seen. Calcified aortic knob is seen. Right lower lung airspace opacity is seen with some volume loss. Emphysema is seen. Right pleural effusion is seen. IMPRESSION: 1. Right lower lung airspace opacity likely reflects atelectasis with a component of aspiration and/or pneumonia. 2. Right pleural effusion is seen. ACT 112: Negative or not required by law. Electronically signed by: Alec Harkins M.D. 05/17/2023 12:20 PM Discharge Plan Visit Data Chief Complaint: Shortness of Breath/Dyspnea Stated Complaint: COPD, PNEMONIA, SOB, CHEST PAIN ED Provider: Matthias Mcgraw Discharge Problem: Acute renal failure, Anemia, Pneumonia involving right lung, Shortness of breath, Acute dehydration Patient Disposition: Admitted As Inpatient Discharge Instructions Interventions: ED Discharge Assessment Last Done: 05/16/23 23:51 Discharge Problem: Acute renal failure Qualifiers: Acute renal failure type: unspecified Qualified Code(s): N17.9 - Acute kidney failure, unspecified Anemia Qualifiers: Anemia type: unspecified type Qualified Code(s): D64.9 - Anemia, unspecified Pneumonia involving right lung Qualifiers: Pneumonia type: due to unspecified organism Lung location: lower lobe of lung Q ualified Code(s): J18.9 - Pneumonia, unspecified organism
[2023-05-16] MEDS: PIPERACILLIN/TAZOBACTAM 4.5 GM/100 ML BAG IV ONE ×2 (20:32→21:09)
[2023-05-16 21:19] LABS: Base Excess VBG -4.3 mEq/L; HCO3 VBG 22 mmol/L; Oxygen Saturation VBG < 60.0 %; PCO2 VBG 42 mmHg (38-50); PO2 VBG 22 mmHg; pH VBG 7.32 (7.36-7.41)
[2023-05-16 21:34] LABS: Basophils # (auto) 0.05 K/uL (0.00-0.20); Basophils % (auto) 0.3 %; Eosinophils # (auto) 0.06 K/uL (0.00-0.50); Eosinophils % (auto) 0.4 %; Hematocrit (blood only) 28.7 % (42.0-52.0); Hemoglobin 9.3 g/dl (14.0-18.0); Immature Granulocytes % (auto) 1.2 %; Lymphocytes # (auto) 1.28 K/uL (1.20-3.40); Lymphocytes % (auto) 7.6 %; Mean Corpuscular Hemoglobin 28.4 pg (25.0-34.0); Mean Corpuscular Hgb Conc 32.4 g/dL (32.0-36.0); Mean Corpuscular Volume 87.8 fL (80.0-100.0); Mean Platelet Volume 10.2 fL (9.4-12.4); Monocytes % (auto) 4.8 %; Neutrophils # (auto) 14.38 K/uL (1.40-6.50); Neutrophils % (auto) 85.7 %; Platelet Count 435 K/uL (130-400); RDW Coefficient of Variation 15.1 % (11.5-14.5); RDW Standard Deviation 48.7 fL (36.4-46.3); Red Blood Count 3.27 M/uL (4.70-6.10); White Blood Count 16.77 K/ul (4.8-10.8)
[2023-05-16 21:40] LABS: Alanine Aminotransferase 56 U/L (7-52); Albumin Globulin Ratio 0.7 (0.9-2); Albumin Level 3.4 gm/dl (3.4-5.0); Alkaline Phosphatase 201 U/L (34-104); Anion Gap 12 (3-11); Aspartate Aminotransferase 69 U/L (13-39); BUN Creatinine Ratio 44.7 (10-20); Bilirubin,Total 0.3 mg/dl (0.2-1.0); Blood Urea Nitrogen 123 mg/dl (6-23); Calcium 9.5 mg/dl (8.6-10.3); Carbon Dioxide 20 mmol/L (21-32); Chloride 104 mmol/L (98-107); Est GFR (African American) 23.5 ml/min; Est GFR (Non-African American) 20.3 ml/min; Globulin 4.9 gm/dl (2.5-4.0); Glucose 124 mg/dl (70-99(Fasting)); Magnesium 2.8 mg/dl (1.7-2.4); Potassium 5.1 mmol/L (3.5-5.1); Sodium 136 mmol/L (136-145); Total Protein 8.3 gm/dl (6.0-8.3)
[2023-05-16 21:55] LABS: Partial Thromboplastin Time 27.9 Seconds (21.0-31.0); Prothrombin Time 11.3 Seconds (9.0-12.0)
[2023-05-16 22:12] LABS: Adenovirus PCR Not Detected (NotDetected); Bordetella parapertussis PCR Not Detected (NotDetected); Bordetella pertussis PCR Not Detected (NotDetected); Chlamydia pneumoniae PCR Not Detected (NotDetected); Coronavirus 229E PCR Not Detected (NotDetected); Coronavirus CoV-2 (COVID19)PCR Not Detected (NotDetected); Coronavirus HKU1 PCR Not Detected (NotDetected); Coronavirus NL63 PCR Not Detected (NotDetected); Coronavirus OC43PCR Not Detected (NotDetected); Human Metapneumovirus PCR Not Detected (NotDetected); Influenza A PCR Not Detected (NotDetected); Influenza B PCR Not Detected (NotDetected); Mycoplasma pneumoniae PCR Not Detected (NotDetected); Parainfluenza Virus 1 PCR Not Detected (NotDetected); Parainfluenza Virus 2 PCR Not Detected (NotDetected); Parainfluenza Virus 3 PCR Not Detected (NotDetected); Parainfluenza Virus 4 PCR Not Detected (NotDetected); Respiratory Syncytial VirusPCR Not Detected (NotDetected); Rhinovirus/Enterovirus PCR Not Detected (NotDetected)
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
[2023-05-16] MEDS ORDERED: PROMETHAZINE HCL 6.25 MG in SODIUM CHLORIDE 0.9% 50 ML IV PRN (22:28)
[2023-05-16 23:55] LABS: BUN Creatinine Ratio 44.5 (10-20); Calcium 8.6 mg/dl (8.6-10.3); Creatinine Clr Calc Pharmacy 16.2 ml/min; Est GFR (African American) 25.8 ml/min; Est GFR (Non-African American) 22.3 ml/min; Potassium 5.2 mmol/L (3.5-5.1)
[2023-05-17] MEDS ORDERED: SODIUM BICARB 8.4% INJ 50 MEQ/50 ML SYR IV STA (00:58)
[2023-05-17] MEDS ORDERED: ALBUT/IPRATROP 3MG/0.5MG NEB 3 ML VIAL NEB PRN (01:52)
[2023-05-17] MEDS: PIPERACILLIN/TAZOBACTAM 4.5 GM in DEXTROSE 5% MINI-B 100 ML IV SCH ×3 (04:48→17:58)
--- NOTE | 2023-05-17 05:02 | CT Scan Report ---
Exam(s): CT CHEST Without Contrast EXAM: CT Chest Without Intravenous Contrast CLINICAL HISTORY: Reason for exam: recurrent pnx. TECHNIQUE: Axial computed tomography images of the chest without intravenous contrast. CTDI is 6 mGy and DLP is 214.68 mGy-cm. Automated exposure control was utilized for the study. A dose lowering technique was utilized adhering to the principles of ALARA. COMPARISON: No relevant prior studies available. FINDINGS: Lungs: Consolidation of the entire right lower lobe with debris in the right lower lobe bronchus. There are cystic cavities within the posterior dependent areas of the consolidation which are out of portion to the areas of encephalomalacia in concerning for areas of necrosis. Consolidation involving majority of the right middle lobe and the posterior right upper lobe. Pulmonary opacities within the posterior left lower lobe. Centrilobular emphysema. Pleural space: Unremarkable. No pneumothorax. No significant effusion. Heart: Unremarkable. No cardiomegaly. No significant pericardial effusion. No significant coronary artery calcifications. Bones/joints: Unremarkable. No acute fracture. No dislocation. Soft tissues: Unremarkable. Vasculature: Unremarkable. No thoracic aortic aneurysm. Lymph nodes: Unremarkable. No enlarged lymph nodes. Gallbladder and bile ducts: Gallbladder has been removed. IMPRESSION: Consolidation of the entire right lower lobe with debris in the right lower lobe bronchus. There are cystic cavities within the posterior dependent areas of the consolidation concerning for areas of necrosis. Consolidation involving a majority of the right middle lobe, the posterior right lower lobe, and to a lesser extent the posterior left lower lobe. Electronically signed by: Jag Perez M.D. 05/17/23 05:01 AM
[2023-05-17] MEDS: ALBUT/IPRATROP 3MG/0.5MG NEB 3 ML VIAL NEB SCH ×2 (07:21→11:11)
[2023-05-17] MEDS: HEPARIN SOD 5,000 UNIT/0.5 ML VIAL SQ SCH ×3 (07:35→21:23)
--- NOTE | 2023-05-17 07:35 | Hospitalist Progress Note ---
Date of Service May 17, 2023 Assessment & Plan (1) Severe sepsis: (2) Acute hypoxemic respiratory failure: (3) Acute dehydration: (4) Pneumonia involving right lung: (5) Acute renal failure: (6) COPD (chronic obstructive pulmonary disease): Plan Pt is an 83yoM with PMhx significant for CAD s/p stent placement, COPD, hypertension, hyperlipidemia, GERD, chronic anemia (baseline hemoglobin 8), past tobacco abuse admitted with acute hypoxic respiratory failure in the setting of sepsis due to pneumonia. Severe Sepsis Acute hypoxic respiratory failure Pneumonia COPD Exacerbation SIRS plus ARF plus lactic acidosis plus hypoxemic respiratory failure Also persistently hypotensive Secondary to recurrent pneumonia, possible aspiration Lactic acid responded to fluids: 2.3-->1.[address] noted entire RLL consolidation, majority of RML with consolidation as well. Also concerning for cystic cavities and areas of necrosis. 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 Encourage PO fluid intake at this time. Hold/avoid nephrotoxic meds Renal ultrasound if kidney function does not improve. Continue to monitor Cr Hx CAD status post stent On Plavix, stable Hypertension Pt currently hypotensive Holding home antihypertensives Hyperlipidemia on statin, stable chronic anemia hemoglobin at baseline Continue home iron and folic acid tabs Prediabetes Hgba1c of 6.4 Diet control Malnutrition, low BMI Dietary consult placed DVT prophylaxis: Heparin SQ Diet:clear liquids Full code Dispo: PT/OT orders placed Admission and Anticipated Discharge Date Admission Date: May 16, 2023 Subjective Pt seen in the AM. States that his breathing is better. Would like to eat. Otherwise denied acute concerns. Review of Systems Review of Systems: All systems reviewed & are unremarkable except as noted in Subjective Physical Exam Physical Exam: General: Alert, oriented. No acute distress Psych: Appropriate mood and affect Neuro: No gross deficits HEENT: NC/AT. Chest: Nontender to palpation. CV: RRR Resp: Breath sounds decreased bilaterally, no increased effort of breathing. Abdomen: Soft, nontender, nondistended. Extremities: No edema in lower extremities bilaterally. Results & Data Results & Data Vital Signs (Past 12 Hours) Vital Signs Temp Pulse Pulse Resp BP BP Pulse Ox 05/17/23 07:23 58 L 18 98 05/17/23 03:00 79 05/17/23 03:00 05/17/23 02:48 36.6 C 78 16 127/71 94 05/17/23 02:37 36.7 C 67 18 119/76 99 05/17/23 01:15 36.6 C 78 18 127/71 94 05/16/23 22:54 36.4 C L 78 23 120/65 93 05/16/23 22:40 80 23 91 05/16/23 22:30 80 25 H 106/61 100 05/16/23 22:20 79 23 100 05/16/23 22:15 82 25 H 112/61 98 05/16/23 22:10 79 26 H 99 05/16/23 22:00 79 26 H 109/70 94 05/16/23 21:54 98 05/16/23 21:50 82 25 H 97 05/16/23 21:45 83 22 105/53 L 97 05/16/23 21:40 77 23 98 05/16/23 21:31 80 23 98 05/16/23 21:30 78 19 100 05/16/23 21:20 75 19 97 05/16/23 21:16 112/58 L 05/16/23 21:16 84 29 H 94 05/16/23 21:10 79 24 100 05/16/23 21:00 78 32 H 100 05/16/23 21:00 99 05/16/23 20:50 75 25 H 100 05/16/23 20:40 78 23 98 05/16/23 20:30 79 27 H 97 05/16/23 20:21 82 29 H 97 05/16/23 20:21 105/59 L 05/16/23 20:20 87 31 H 96 05/16/23 20:16 83 30 H 05/16/23 20:16 96/72 L 05/16/23 20:10 85 31 H 97 05/16/23 20:10 98 05/16/23 20:07 86 28 H 100 05/16/23 20:07 89 05/16/23 20:01 96 05/16/23 19:54 22 68/42 L O2 Del Method O2 Flow Rate 05/17/23 07:23 Nasal Cannula 4 05/17/23 03:00 05/17/23 03:00 Nasal Cannula 4 05/17/23 02:48 Nasal Cannula 4 05/17/23 02:37 Nasal Cannula 4 05/17/23 01:15 Room Air 05/16/23 22:54 Nasal Cannula 4 05/16/23 22:40 05/16/23 22:30 05/16/23 22:20 Nasal Cannula 4 05/16/23 22:15 Nasal Cannula 4 05/16/23 22:10 Nasal Cannula 4 05/16/23 22:00 Nasal Cannula 4 05/16/23 21:54 Nasal Cannula 5 05/16/23 21:50 05/16/23 21:45 05/16/23 21:40 05/16/23 21:31 05/16/23 21:30 Nasal Cannula 5 05/16/23 21:20 05/16/23 21:16 05/16/23 21:16 05/16/23 21:10 Nasal Cannula 5 05/16/23 21:00 Nebulizer 05/16/23 21:00 Non-rebreather 12 05/16/23 20:50 Nebulizer 05/16/23 20:40 05/16/23 20:30 05/16/23 20:21 05/16/23 20:21 05/16/23 20:20 Non-rebreather 12 05/16/23 20:16 05/16/23 20:16 05/16/23 20:10 Non-rebreather 15 05/16/23 20:10 Non-rebreather 15 05/16/23 20:07 Non-rebreather 15 05/16/23 20:07 05/16/23 20:01 Non-rebreather 15 05/16/23 19:54 Nasal Cannula 4 (4) Pneumonia involving right lung Lung location: lower lobe of lung Pneumonia type: due to unspecified organism Qualified Code(s): J18.9 - Pneumonia, unspecified organism (5) Acute renal failure Acute renal failure type: unspecified Qualified Code(s): N17.9 - Acute kidney failure, unspecified (6) COPD (chronic obstructive pulmonary disease) COPD type: unspecified COPD Qualified Code(s): J44.9 - Chronic obstructive pulmonary disease, unspecified
[2023-05-17 07:41] LABS: Estimated Average Glucose 137 mg/dl; Hemoglobin A1C 6.4 % (4.5-5.6)
[2023-05-17 08:17] LABS: Hematocrit (blood only) 27.6 % (42.0-52.0); Hemoglobin 9.2 g/dl (14.0-18.0); Mean Corpuscular Hemoglobin 28.7 pg (25.0-34.0); Mean Corpuscular Hgb Conc 33.3 g/dL (32.0-36.0); Platelet Count 401 K/uL (130-400); RDW Standard Deviation 47.4 fL (36.4-46.3); Red Blood Count 3.21 M/uL (4.70-6.10)
[2023-05-17 08:45] LABS: Basophils # (auto) 0.02 K/uL (0.00-0.20); Basophils % (auto) 0.2 %; Lymphocytes # (auto) 0.42 K/uL (1.20-3.40); Lymphocytes % (auto) 4.3 %; Monocytes # (auto) 0.04 K/uL (0.11-0.59); Monocytes % (auto) 0.4 %; Neutrophils # (auto) 9.22 K/uL (1.40-6.50); Neutrophils % (auto) 94.1 %; Polychromasia 1+
[2023-05-17 08:47] LABS: BUN Creatinine Ratio 44.7 (10-20); Creatinine Clr Calc Pharmacy 18.8 ml/min; Est GFR (African American) 30.9 ml/min; Est GFR (Non-African American) 26.7 ml/min; Potassium 5.6 mmol/L (3.5-5.1)
[2023-05-17 08:48] LABS: Albumin Globulin Ratio 0.7 (0.9-2); Albumin Level 3.2 gm/dl (3.4-5.0); Bilirubin,Total 0.3 mg/dl (0.2-1.0); Calcium 9.2 mg/dl (8.6-10.3); Globulin 4.4 gm/dl (2.5-4.0); Magnesium 2.8 mg/dl (1.7-2.4); Total Protein 7.6 gm/dl (6.0-8.3)
[2023-05-17] MEDS ORDERED: predniSONE 20 MG TAB PO SCH (09:00)
--- NOTE | 2023-05-17 12:21 | XRay Report ---
XR chest 1V portable CLINICAL HISTORY: Dyspnea TECHNIQUE: Single frontal radiograph of the chest was obtained. Comparison: Comparison is made to chest radiograph 01/22/2023 FINDINGS: No lines and tubes are seen. Calcified aortic knob is seen. Right lower lung airspace opacity is seen with some volume loss. Emphysema is seen. Right pleural effusion is seen. IMPRESSION: 1. Right lower lung airspace opacity likely reflects atelectasis with a component of aspiration and/ or pneumonia. 2. Right pleural effusion is seen. ACT 112: Negative or not required by law. Electronically signed by: Alec Harkins M.D. 05/17/2023 12:20 PM
[2023-05-17] MEDS ORDERED: SODIUM CHLORIDE 0.9% 1,000 ML IV SCH (13:00)
[2023-05-17] MEDS: FERROUS SULFATE 325 MG TAB PO SCH (14:01)
[2023-05-17] MEDS: FOLIC ACID 1 MG TAB PO SCH (14:01)
[2023-05-17] MEDS: FAMOTIDINE 20 MG TAB PO SCH ×2 (14:01→21:23)
[2023-05-17] MEDS: MONTELUKAST SODIUM 10 MG TABLET PO SCH (14:01)
[2023-05-17] MEDS: CLOPIDOGREL BISULFATE 75 MG TAB PO SCH (14:01)
--- NOTE | 2023-05-17 14:43 | Pulmonary Consultation ---
Date of Consultation May 17, 2023 Assessment & Plan (1) Necrotizing pneumonia: Patient appears to have evolving necrotizing pneumonia since January based on serial imaging. Difficult to exclude underlying malignancy. Unfortunately, patient is quite frail at this point to undergo bronchoscopy given his oxygen needs, underlying cardiac disease and borderline hypotension. Recommend conservative management strategy including aggressive pulmonary airway clearance with hypertonic saline twice daily, percussive vest therapy 4 times a day, CoughAssist twice daily, Xopenex/Atrovent every 6 hours and Perforomist twice daily. We will discontinue LABA/LAMA inhaler. Patient with no evidence of COPD exacerbation. He is not bronchospastic on exam and will discontinue prednisone as this will only suppress his immune system further. Await sputum cultures. MRSA screen noted to be negative. Agree with Narcisa. (2) Pneumonia involving right lung: See comments above. Lung location: lower lobe of lung Pneumonia type: due to unspecified organism Qualified Code(s): J18.9 - Pneumonia, unspecified organism (3) Severe sepsis: Management of fluid status defer to primary team. Recommend repeating echocardiogram given underlying hypertension history of coronary artery disease. (4) Hypoxia: Maintain saturations above 89%. No prior PFTs available for review. (5) Severe protein-energy malnutrition: Patient notes 10 to 15 pound weight loss over the past 2 months. He is only able to walk approximately 10 feet secondary to chronic shortness of breath and fatigue. Recommend nutrition consultation. Strongly consider palliative care consultation as well given recurrent hospitalizations, severe COPD and essentially pulmonary cachexia. (6) Pulmonary cachexia due to chronic obstructive pulmonary disease: Recommend nutrition and palliative care consult as above. Plan Thank you for allowing me to participate in the care of the patient. We will continue to follow with you. History of Present Illness Reason for Consultation: Aspiration pneumonia Attending Physician: Irlanda Barnett MD History of Present Illness 83-year-old male admitted to the hospital due to shortness of breath and cough. He was seen by my colleague as an inpatient in January for similar findings including aspiration pneumonia. He has a 85-supb-weco smoking history. He has been on chronic oxygen since January. He notes that he has been losing 15 to 20 pounds of weight over the past 2 months. His appetite has been quite poor. CT chest obtained overnight revealed extensive right lower lobe infiltrates with debris in the bronchus intermedius and possible underlying mass. He denies any hemoptysis. He is currently on low-flow oxygen and saturating in the low 90s. He was started on Zosyn and prednisone 40 mg by the primary team. He was also started on Anoro ellipta. Allergies Allergy/AdvReac Type Severity Reaction Status Date / Time No Known Allergies Allergy Verified 05/16/23 21:06 Home Medications Medication Instructions Recorded Confirmed Type atorvastatin 80 mg tablet 80 mg PO QPM #90 tabs 04/27/19 05/16/23 Rx nitroglycerin 0.4 mg sublingual 0.4 mg sublingual Q5M PRN chest 04/27/19 05/16/23 Rx tablet pain #25 tabs famotidine 40 mg tablet 20 mg PO BID 06/06/21 05/16/23 History acetaminophen 325 mg capsule 650 mg (2 x 325 mg) PO Q6H PRN 06/09/21 05/16/23 Rx (Tylenol) fever or pain #14 caps clopidogrel 75 mg tablet 75 mg PO QAM 01/10/22 05/16/23 History codeine 10 mg-guaifenesin 100 mg/5 5 ml PO Q4H PRN Cough 01/22/23 05/16/23 History mL Syrup ferrous sulfate 325 mg (65 mg 325 mg PO DAILY #30 tabs 01/29/23 05/16/23 Rx iron) tablet,delayed release folic acid 1 mg tablet 1 mg PO QAM #30 tabs 01/29/23 05/16/23 Rx ipratropium 0.5 mg-albuterol 3 mg 3 ml inhalation Q8H PRN wheezing 01/29/23 05/16/23 Rx (2.5 mg base)/3 mL nebulization #90 mL soln cefuroxime axetil 500 mg tablet 500 mg PO BID 05/16/23 05/16/23 History irbesartan 300 1 tab PO QAM 05/16/23 05/16/23 History mg-hydrochlorothiazide 12.5 mg tablet montelukast 10 mg tablet 10 mg PO QAM 05/16/23 05/16/23 History umeclidinium 62.5 mcg-vilanterol 1 inh inhalation DAILY 05/16/23 05/16/23 History 25 mcg/actuation powdr for inhalation (Anoro Ellipta) Patient History Medical History (Updated 05/17/23 @ 14:48 by Guy Talbot MD) Pulmonary cachexia due to chronic obstructive pulmonary disease Severe protein-energy malnutrition Hypoxia Necrotizing pneumonia Acute hypoxemic respiratory failure Hx of fracture of pelvis (~05/2021) no current problems Osteoarthritis Chronic obstructive pulmonary disease "mild" uses Breo inhaler PRN Myocardial Infarction 2018 - no gamemaster "anymore" follows with PCP. 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 Full ROM. History of lumbar surgery History of open reduction and internal fixation (ORIF) procedure Left knee with "plate" S/P laparoscopic cholecystectomy Status post placement of stent in right coronary artery "drug eluting stents x [address] Che 07/21/17" On 07/25/17 21:29 Rickie Krause wrote "drug eluting stents x [address] Che 07/21/16" Status post cardiac catheterization (~2017) [facility] with x2 stents Family History Other No family history of adverse response to anesthesia Social History Smoking Status: Former smoker Tobacco Type: Cigarettes Cigarettes Per Day: 1.5 pks/day; Second Hand Exposure: Yes; Do You Dip or Chew Tobacco: No; Hx Alcohol Use: No Hx Substance Use: No Preferred Language: Emirati Communication Ability: Effective Marketing Strategy Manager Required: No Beliefs That Will Affect Care: None marital status: Current Living Situation: Spouse Other Information That Helps Us Care for You: No Feels Safe at Home: Yes Safety Concerns: Feels Safe At This Time Assistive Devices: Denture - Upper, Denture - Lower and Oxygen - Continuous Review of Systems Review of Systems: All systems reviewed & are unremarkable except as noted in HPI & below Physical Exam Physical Exam: Constitutional: Frail and cachectic appearing male laying in bed. Eyes: Pupils are equal round and reactive to light. Conjunctivae are normal. Anicteric sclera. Ears nose, mouth and throat: Mallampati class 2. Normal posterior oropharynx. Uvula is midline. Neck: Trachea is midline. Visual inspection is normal. Respiratory: Diffuse rhonchi with diminishment noted in the lung base on the right. Cardiovascular: Regular rate and rhythm. No murmurs. No edema. Gastrointestinal: Normal bowel sounds, soft, nontender and nondistended. No hepatosplenomegaly noted. Musculoskeletal: No cyanosis. Patient is able to move all extremities. Diffusely weak. Skin: No rashes, warm dry and intact. Neurologic: No obvious focal neurological deficits seen. Psychiatric: Alert and oriented x3 with a euthymic affect. Results & Data Results & Data Vital Signs (Past 12 Hours) Vital Signs Temp Pulse Pulse Resp BP Pulse Ox O2 Del Method 05/17/23 12:08 35.8 C L 89 95/50 L 92 Nasal Cannula 05/17/23 11:11 69 17 94 Nasal Cannula 05/17/23 08:10 35.4 C L 71 18 114/61 97 Nasal Cannula 05/17/23 08:00 61 05/17/23 08:00 Nasal Cannula 05/17/23 07:51 34.8 C L 70 18 115/62 94 Nasal Cannula 05/17/23 07:23 58 L 18 98 Nasal Cannula 05/17/23 03:00 79 05/17/23 03:00 Nasal Cannula 05/17/23 02:48 36.6 C 78 16 127/71 94 Nasal Cannula O2 Flow Rate 05/17/23 12:08 2 05/17/23 11:11 3 05/17/23 08:10 3 05/17/23 08:00 05/17/23 08:00 4 05/17/23 07:51 3 05/17/23 07:23 4 05/17/23 03:00 05/17/23 03:00 4 05/17/23 02:48 4 PG Care Time/CCT Total # of Minutes Spent Total Time Spent with Patient: Total time spent is greater than 50% in coordination of care (as documented) at patient's floor/unit and/or counseling patient: Coding Level of Care Code 65533 INT INP/OBS CARE 3/75MIN Diagnoses Necrotizing pneumonia J85.0 Pneumonia involving right lung J18.9 Lung location: lower lobe of lung Pneumonia type: due to unspecified organism Severe sepsis A41.9; R65.20 Hypoxia R09.02 Severe protein-energy malnutrition E43 Pulmonary cachexia due to chronic obstructive pulmonary disease R64; J44.9
[2023-05-17] MEDS: IPRATROPIUM BROMIDE NEB SOLN 0.02% 2.5 ML VIAL INH SCH ×2 (15:27→20:21)
[2023-05-17] MEDS: LEVALBUTEROL HCL 0.63 MG/3 ML NEB NEB SCH ×2 (15:27→20:21)
[2023-05-17] MEDS ORDERED: XOPENEX/ATROVENT 0.63mg/0.5MG NEB COMBO NEB SCH (19:00)
[2023-05-17] MEDS: FORMOTEROL 20 MCG/2 ML VIAL NEB SCH (20:20)
[2023-05-17] MEDS: SODIUM CHLOR 7% 4 ML NEB NEB SCH (20:20)
[2023-05-17] MEDS: ATORVASTATIN 40 MG TAB PO SCH (21:23)
[2023-05-18] MEDS: IPRATROPIUM BROMIDE NEB SOLN 0.02% 2.5 ML VIAL INH SCH ×4 (01:31→19:42)
[2023-05-18] MEDS: LEVALBUTEROL HCL 0.63 MG/3 ML NEB NEB SCH ×4 (01:31→19:42)
[2023-05-18 04:21] LABS: Hematocrit (blood only) 24.2 % (42.0-52.0); Hemoglobin 7.8 g/dl (14.0-18.0); Mean Corpuscular Hemoglobin 28.2 pg (25.0-34.0); Mean Corpuscular Hgb Conc 32.2 g/dL (32.0-36.0); Mean Corpuscular Volume 87.4 fL (80.0-100.0); Mean Platelet Volume 10.5 fL (9.4-12.4); Platelet Count 327 K/uL (130-400); RDW Coefficient of Variation 15.2 % (11.5-14.5); RDW Standard Deviation 48.9 fL (36.4-46.3); Red Blood Count 2.77 M/uL (4.70-6.10); White Blood Count 15.88 K/ul (4.8-10.8)
[2023-05-18 04:37] LABS: Albumin Globulin Ratio 0.8 (0.9-2); Albumin Level 2.9 gm/dl (3.4-5.0); BUN Creatinine Ratio 48.3 (10-20); Bilirubin,Total 0.2 mg/dl (0.2-1.0); Calcium 8.5 mg/dl (8.6-10.3); Creatinine Clr Calc Pharmacy 27.3 ml/min; Est GFR (African American) 48.5 ml/min; Est GFR (Non-African American) 41.8 ml/min; Globulin 3.6 gm/dl (2.5-4.0); Magnesium 2.4 mg/dl (1.7-2.4); Phosphorus 3.9 mg/dl (2.5-4.9); Potassium 4.5 mmol/L (3.5-5.1); Total Protein 6.5 gm/dl (6.0-8.3)
[2023-05-18] MEDS: PIPERACILLIN/TAZOBACTAM 4.5 GM in DEXTROSE 5% MINI-B 100 ML IV SCH ×3 (05:41→21:44)
[2023-05-18] MEDS: HEPARIN SOD 5,000 UNIT/0.5 ML VIAL SQ SCH ×3 (05:42→21:40)
[2023-05-18 06:51] LABS: Acanthocytes 1+; Basophils # (auto) 0.02 K/uL (0.00-0.20); Basophils % (auto) 0.1 %; Immature Granulocytes # (auto) 0.16 K/uL (0.01-0.20); Lymphocytes # (auto) 0.66 K/uL (1.20-3.40); Lymphocytes % (auto) 4.2 %; Monocytes # (auto) 0.54 K/uL (0.11-0.59); Monocytes % (auto) 3.4 %; Neutrophils % (auto) 91.3 %; Polychromasia 1+
[2023-05-18] MEDS: FORMOTEROL 20 MCG/2 ML VIAL NEB SCH ×2 (07:00→19:42)
[2023-05-18] MEDS: SODIUM CHLOR 7% 4 ML NEB NEB SCH ×2 (07:00→19:42)
[2023-05-18] MEDS: MONTELUKAST SODIUM 10 MG TABLET PO SCH (08:10)
[2023-05-18] MEDS: CLOPIDOGREL BISULFATE 75 MG TAB PO SCH (08:10)
[2023-05-18] MEDS: FAMOTIDINE 20 MG TAB PO SCH ×2 (08:10→21:39)
[2023-05-18] MEDS: FERROUS SULFATE 325 MG TAB PO SCH (08:10)
[2023-05-18] MEDS: FOLIC ACID 1 MG TAB PO SCH (08:10)
[2023-05-18] MEDS: ACETAMINOPHEN 500 MG TAB PO PRN (08:13)
[2023-05-18 08:44] LABS: Appearance Urine Clear (Clear); Bilirubin Urine Negative (Negative); Blood Urine Negative (Negative); Color Urine Yellow; Glucose Urine UA Negative (Negative); Ketones Urine Negative (Negative); Leukocyte Esterase Urine Negative (Negative); Nitrite Urine Negative (Negative); Protein Urine Negative (Negative); Specific Gravity Urine 1.015 (1.000-1.030); Urobilinogen Urine Negative (Negative)
[2023-05-18] MEDS ORDERED: UMECLIDINIUM/VILANTEROL 62.5/25MCG 7 PUFFS/INHALER INH SCH (09:00)
--- NOTE | 2023-05-18 11:36 | Pulmonology Progress Note ---
Date of Service May 18, 2023 Assessment & Plan (1) Necrotizing pneumonia: Plan: Patient appears to have evolving necrotizing pneumonia since January based on serial imaging. Difficult to exclude underlying malignancy. Unfortunately, patient is quite frail at this point to undergo bronchoscopy given his oxygen needs, underlying cardiac disease and borderline hypotension. Recommend conservative management strategy including aggressive pulmonary airway clearance with hypertonic saline twice daily, percussive vest therapy 4 times a day, Xopenex/Atrovent every 6 hours and Perforomist twice daily. Avoid ICS given the underlying infectious necrotizing pneumonia. He appears to be coughing up massive amounts of sputum and responding well to airway clearance therapies. No role for systemic IV or oral corticosteroids at this time. Sputum cultures growing gram-positive cocci, moderate gram-negative bacilli, yeast and few gram-positive bacilli. MRSA screen noted to be negative. Agree with Narcisa. We will consider the addition of antifungal treatment pending final sputum results. (2) Pneumonia involving right lung: Plan: See comments above. Lung location: lower lobe of lung Pneumonia type: due to unspecified organism Qualified Code(s): J18.9 - Pneumonia, unspecified organism (3) Severe sepsis: Plan: Hypotension improving. Defer to primary team. (4) Hypoxia: Plan: Maintain saturations above 89%. No prior PFTs available for review. (5) Severe protein-energy malnutrition: Plan: Patient notes 10 to 15 pound weight loss over the past 2 months. He is only able to walk approximately 10 feet secondary to chronic shortness of breath and fatigue. Recommend nutrition consultation. Strongly consider palliative care consultation as well given recurrent hospitalizations, severe COPD and pulmonary cachexia. (6) Pulmonary cachexia due to chronic obstructive pulmonary disease: Plan: Recommend nutrition and palliative care consult as above. Plan Thank you for allowing me to participate in the care of the patient. We will continue to follow with you. Admission and Anticipated Discharge Date Admission Date: May 16, 2023 Subjective Patient seen and examined. He is sitting up in a chair today. He is c omplaining of some soreness in his chest from percussive vest therapy. He has refused CoughAssist device, but has been able to cough up massive amounts of brown-colored sputum. He denies any fevers, chills or night sweats. His appetite has improved. Overall, he is feeling better. Discussed with bedside nursingShaye. Review of Systems Review of Systems: All systems reviewed & are unremarkable except as noted in HPI & below Physical Exam Physical Exam: Constitutional: Frail and cachectic appearing male laying in bed. Eyes: Pupils are equal round and reactive to light. Conjunctivae are normal. Anicteric sclera. Ears nose, mouth and throat: Mallampati class 2. Normal posterior oropharynx. Uvula is midline. Neck: Trachea is midline. Visual inspection is normal. Respiratory: Diffuse rhonchi with diminishment noted in the lung base on the right. Cardiovascular: Regular rate and rhythm. No murmurs. No edema. Gastrointestinal: Normal bowel sounds, soft, nontender and nondistended. No hepatosplenomegaly noted. Musculoskeletal: No cyanosis. Patient is able to move all extremities. Diffusely weak. Skin: No rashes, warm dry and intact. Neurologic: No obvious focal neurological deficits seen. Psychiatric: Alert and oriented x3 with a euthymic affect. Results & Data Results & Data Vital Signs (Past 12 Hours) Vital Signs Temp Pulse Resp BP BP Pulse Ox O2 Del Method 05/18/23 07:34 36.3 C L 87 20 124/82 91 Nasal Cannula 05/18/23 07:00 60 17 95 Nasal Cannula 05/18/23 03:33 36.5 C 62 16 123/64 91 Nasal Cannula O2 Flow Rate 05/18/23 07:34 2 05/18/23 07:00 2 05/18/23 03:33 3 PG Care Time/CCT Total # of Minutes Spent Total Time Spent with Patient: Total time spent is greater than 50% in coordination of care (as documented) at patient's floor/unit and/or counseling patient: Coding Level of Care Code 10931 SUB INP/OBS CARE 2/35MIN Diagnoses Necrotizing pneumonia J85.0 Pneumonia involving right lung J18.9 Lung location: lower lobe of lung Pneumonia type: due to unspecified organism Severe sepsis A41.9; R65.20 Hypoxia R09.02 Severe protein-energy malnutrition E43 Pulmonary cachexia due to chronic obstructive pulmonary disease R64; J44.9
--- NOTE | 2023-05-18 11:52 | Hospitalist Progress Note ---
Date of Service May 18, 2023 Assessment & Plan (1) Severe sepsis: (2) Acute hypoxemic respiratory failure: (3) Acute dehydration: (4) Pneumonia involving right lung: (5) Acute renal failure: (6) COPD (chronic obstructive pulmonary disease): Plan Pt is an 83yoM with PMhx significant for CAD s/p stent placement, COPD, hypertension, hyperlipidemia, GERD, chronic anemia (baseline hemoglobin 8), past tobacco abuse admitted with acute hypoxic respiratory failure in the setting of sepsis due to pneumonia. Severe Sepsis Acute hypoxic respiratory failure Pneumonia COPD Exacerbation SIRS plus ARF plus lactic acidosis plus hypoxemic respiratory failure Also persistently hypotensive Secondary to recurrent pneumonia, possible aspiration Lactic acid responded to fluids: 2.3-->1.[address] noted entire RLL consolidation, majority of RML with consolidation as well. Also concerning for cystic cavities and areas of necrosis. Currently on Zosyn, continue Nebs scheduled, discontinued prednisone per pulmonology recs Aspiration precautions, SUSTAINABILITY MANAGER eval Appreciate pulm assistance/recs- palliative care consult placed ZULEYKA Cr elevated acutely Received IV fluids, slightly improved Careful hydration- chest xray noted R pleural effusion. Encourage PO fluid intake at this time. Hold/avoid nephrotoxic meds Renal ultrasound if kidney function does not improve. Continue to monitor Cr Hx CAD status post stent On Plavix, stable Echo ordered and pending on 05/18 Hypotension Hx of Hypertension Pt currently hypotensive Holding home antihypertensives Started on midodrine 2.5mg TID on 05/18 Hyperlipidemia on statin, stable chronic anemia hemoglobin at baseline Continue home iron and folic acid tabs Prediabetes Hgba1c of 6.4 Diet control Malnutrition, low BMI Dietary consult placed DVT prophylaxis: Heparin SQ Diet:clear liquids Full code Dispo: PT/OT orders placed Admission and Anticipated Discharge Date Admission Date: May 16, 2023 Subjective pt states that he feels the same. Discussion today about pulm recs for him to be evaluated by palliative care. He is in agreement. Otherwise denies acute concerns. Review of Systems Review of Systems: All systems reviewed & are unremarkable except as noted in Subjective Physical Exam Physical Exam: General: Alert, oriented. No acute distress Psych: Appropriate mood and affect Neuro: No gross deficits HEENT: NC/AT. Chest: Nontender to palpation. CV: RRR Resp: Breath sounds decreased bilaterally, no increased effort of breathing. Abdomen: Soft, nontender, nondistended. Extremities: No edema in lower extremities bilaterally. Results & Data Results & Data Vital Signs (Past 12 Hours) Vital Signs Temp Pulse Pulse Resp BP BP Pulse Ox 05/18/23 08:00 47 L 05/18/23 08:00 05/18/23 07:34 36.3 C L 87 20 124/82 91 05/18/23 07:00 60 17 95 05/18/23 03:33 36.5 C 62 16 123/64 91 O2 Del Method O2 Flow Rate 05/18/23 08:00 05/18/23 08:00 Nasal Cannula 2 05/18/23 07:34 Nasal Cannula 2 05/18/23 07:00 Nasal Cannula 2 05/18/23 03:33 Nasal Cannula 3 (4) Pneumonia involving right lung Lung location: lower lobe of lung Pneumonia type: due to unspecified organism Qualified Code(s): J18.9 - Pneumonia, unspecified organism (5) Acute renal failure Acute renal failure type: unspecified Qualified Code(s): N17.9 - Acute kidney failure, unspecified (6) COPD (chronic obstructive pulmonary disease) COPD type: unspecified COPD Qualified Code(s): J44.9 - Chronic obstructive pulmonary disease, unspecified
[2023-05-18] MEDS: MIDODRINE HCL 2.5 MG TAB PO SCH (16:54)
--- NOTE | 2023-05-18 17:49 | Electrocardiogram Report ---
Test Reason : Blood Pressure : / mmHG Vent. Rate : 083 BPM Atrial Rate : 083 BPM P-R Int : 132 ms QRS Dur : 084 ms QT Int : 348 ms P-R-T Axes : 057 056 048 degrees QTc Int : 408 ms Normal sinus rhythm Normal ECG When compared with ECG of 22-JAN-2023 16:56, Nonspecific T wave abnormality no longer evident in Anterolateral leads T wave amplitude has increased in Confirmed by Aj Bobby ([id number]) on 05/18/2023 5:49:01 PM Referred By: REFERRED SELF Confirmed By:Aj Bobby
[2023-05-18] MEDS: ATORVASTATIN 40 MG TAB PO SCH (21:39)
[2023-05-19] MEDS: ACETAMINOPHEN 500 MG TAB PO PRN ×2 (00:27→16:04)
[2023-05-19] MEDS: LEVALBUTEROL HCL 0.63 MG/3 ML NEB NEB SCH ×4 (01:01→19:27)
[2023-05-19] MEDS: IPRATROPIUM BROMIDE NEB SOLN 0.02% 2.5 ML VIAL INH SCH ×4 (01:01→19:27)
[2023-05-19] MEDS: HEPARIN SOD 5,000 UNIT/0.5 ML VIAL SQ SCH ×3 (05:55→19:56)
[2023-05-19] MEDS: PIPERACILLIN/TAZOBACTAM 4.5 GM in DEXTROSE 5% MINI-B 100 ML IV SCH ×3 (05:55→19:56)
[2023-05-19 06:53] LABS: Basophils # (auto) 0.03 K/uL (0.00-0.20); Basophils % (auto) 0.2 %; Eosinophils # (auto) 0.08 K/uL (0.00-0.50); Eosinophils % (auto) 0.6 %; Hematocrit (blood only) 24.5 % (42.0-52.0); Hemoglobin 7.9 g/dl (14.0-18.0); Immature Granulocytes # (auto) 0.12 K/uL (0.01-0.20); Immature Granulocytes % (auto) 0.9 %; Lymphocytes # (auto) 1.26 K/uL (1.20-3.40); Lymphocytes % (auto) 9.5 %; Mean Corpuscular Hemoglobin 28.4 pg (25.0-34.0); Mean Corpuscular Hgb Conc 32.2 g/dL (32.0-36.0); Mean Corpuscular Volume 88.1 fL (80.0-100.0); Mean Platelet Volume 10.4 fL (9.4-12.4); Monocytes # (auto) 0.85 K/uL (0.11-0.59); Monocytes % (auto) 6.4 %; Neutrophils # (auto) 10.98 K/uL (1.40-6.50); Neutrophils % (auto) 82.4 %; Platelet Count 337 K/uL (130-400); RDW Coefficient of Variation 15.4 % (11.5-14.5); RDW Standard Deviation 49.4 fL (36.4-46.3); Red Blood Count 2.78 M/uL (4.70-6.10); White Blood Count 13.32 K/ul (4.8-10.8)
[2023-05-19] MEDS: SODIUM CHLOR 7% 4 ML NEB NEB SCH ×2 (06:57→19:26)
[2023-05-19] MEDS: FORMOTEROL 20 MCG/2 ML VIAL NEB SCH ×2 (06:57→19:26)
[2023-05-19 07:13] LABS: BUN Creatinine Ratio 33.1 (10-20); Calcium 8.8 mg/dl (8.6-10.3); Creatinine Clr Calc Pharmacy 28.7 ml/min; Est GFR (African American) 50.9 ml/min; Est GFR (Non-African American) 43.9 ml/min; Phosphorus 3.2 mg/dl (2.5-4.9); Potassium 4.4 mmol/L (3.5-5.1)
--- NOTE | 2023-05-19 10:12 | XRay Report ---
XR chest 2V PA/lateral HISTORY: 83 years-old Male follow up aspiration pna acute shortness of breath COMPARISON: Chest CT 05/17/2023 TECHNIQUE: PA and lateral views of the chest FINDINGS: Cardiomediastinal and hilar silhouettes are within normal limits. Emphysema. Multifocal and multiloba r description of airspace opacities, right greater than left are redemonstrated. Unchanged right pleu ral effusion. No pneumothorax. Pulmonary vascular congestion. Degenerative changes of the shoulders a nd spine. IMPRESSION: Emphysema with persistent extensive right greater than left airspace opacities suggestive of pneumonia/aspiration. Follow-up imaging after treatment course is needed in order to exclude an u nderlying pulmonary lesion. ACT 112: Negative or not required by law. The above report was generated using voice recognition software. It may contain grammatical, syntax o r spelling errors. Electronically signed by: Ron Nickerson M.D. 05/19/2023 10:11 AM
[2023-05-19] MEDS: CLOPIDOGREL BISULFATE 75 MG TAB PO SCH (10:19)
[2023-05-19] MEDS: FERROUS SULFATE 325 MG TAB PO SCH (10:19)
[2023-05-19] MEDS: MONTELUKAST SODIUM 10 MG TABLET PO SCH (10:19)
[2023-05-19] MEDS: MIDODRINE HCL 2.5 MG TAB PO SCH ×3 (10:19→18:01)
[2023-05-19] MEDS: FOLIC ACID 1 MG TAB PO SCH (10:19)
[2023-05-19] MEDS: FAMOTIDINE 20 MG TAB PO SCH ×2 (10:20→19:56)
--- NOTE | 2023-05-19 10:36 | Pulmonology Progress Note ---
Date of Service May 19, 2023 Assessment & Plan (1) Necrotizing pneumonia: Plan: Patient appears to have evolving necrotizing pneumonia since January based on serial imaging. Difficult to exclude underlying malignancy. Unfortunately, patient is quite frail at this point to undergo bronchoscopy given his oxygen needs, underlying cardiac disease and borderline hypotension. Recommend conservative management strategy including aggressive pulmonary airway clearance with hypertonic saline twice daily, percussive vest therapy 4 times a day, Xopenex/Atrovent every 6 hours and Perforomist twice daily. Avoid ICS given the underlying infectious necrotizing pneumonia. He appears to be coughing up massive amounts of sputum and responding well to airway clearance therapies. No role for systemic IV or oral corticosteroids at this time. Sputum cultures growing gram-positive cocci, moderate gram-negative bacilli, yeast and few gram-positive bacilli. MRSA screen noted to be negative. Agree with Donyn. Final sputum culture results "moderate normal maicol". Patient clearly with aspiration pneumonia and will continue with antibiotic therapy. Chest x-ray PA and lateral obtained today 05/19/2023 personally reviewed and I agree with the radiology interpretation. There appears to be some very mildly improved aeration of the right lung mueller. There is diffuse infiltrates seen. (2) Pneumonia involving right lung: Plan: See comments above. Lung location: lower lobe of lung Pneumonia type: due to unspecified organism Qualified Code(s): J18.9 - Pneumonia, unspecified organism (3) Severe sepsis: Plan: Hypotension improving. Defer to primary team. (4) Hypoxia: Plan: Maintain saturations above 89%. No prior PFTs available for review. (5) Severe protein-energy malnutrition: Plan: Patient notes 10 to 15 pound weight loss over the past 2 months. He is only ab le to walk approximately 10 feet secondary to chronic shortness of breath and fatigue. Recommend nutrition consultation. Strongly consider palliative care consultation as well given recurrent hospitalizations, severe COPD and pulmonary cachexia. (6) Pulmonary cachexia due to chronic obstructive pulmonary disease: Plan: Recommend nutrition and palliative care consult as above. Plan Thank you for allowing me to participate in the care of the patient. We will continue to follow with you. Admission and Anticipated Discharge Date Admission Date: May 16, 2023 Subjective Patient seen and examined. He is laying in bed. Overall, his cough remains the same and he is still coughing up massive amounts of sputum. No hemoptysis. He denies any chest pain. Appetite is poor this morning. No fevers, chills or night sweats. Review of Systems Review of Systems: All systems reviewed & are unremarkable except as noted in HPI & below Physical Exam Physical Exam: Constitutional: Frail and cachectic appearing male laying in bed. Eyes: Pupils are equal round and reactive to light. Conjunctivae are normal. Anicteric sclera. Ears nose, mouth and throat: Mallampati class 2. Normal posterior oropharynx. Uvula is midline. Neck: Trachea is midline. Visual inspection is normal. Respiratory: Diffuse rhonchi with diminishment noted in the lung base on the right. Cardiovascular: Regular rate and rhythm. No murmurs. No edema. Gastrointestinal: Normal bowel sounds, soft, nontender and nondistended. No hepatosplenomegaly noted. Musculoskeletal: No cyanosis. Patient is able to move all extremities. Diffusely weak. Skin: No rashes, warm dry and intact. Neurologic: No obvious focal neurological deficits seen. Psychiatric: Alert and oriented x3 with a euthymic affect. Results & Data Results & Data Vital Signs (Past 12 Hours) Vital Signs Temp Pulse Pulse Resp BP Pulse Ox O2 Del Method 05/19/23 07:43 36.6 C 67 20 131/65 96 Nasal Cannula 05/19/23 07:00 71 18 95 Nasal Cannula 05/19/23 02:03 36.5 C 85 17 113/55 L 90 Nasal Cannula 05/19/23 01:01 61 18 91 Nasal Cannula 05/18/23 23:59 36.6 C 66 17 119/61 94 Nasal Cannula 05/18/23 23:00 68 O2 Flow Rate 05/19/23 07:43 2 05/19/23 07:00 4 05/19/23 02:03 4 05/19/23 01:01 2 05/18/23 23:59 2 05/18/23 23:00 PG Care Time/CCT Total # of Minutes Spent Total Time Spent with Patient: Total time spent is greater than 50% in coordination of care (as documented) at patient's floor/unit and/or counseling patient: Coding Level of Care Code 34836 SUB INP/OBS CARE 2/35MIN Diagnoses Necrotizing pneumonia J85.0 Pneumonia involving right lung J18.9 Lung location: lower lobe of lung Pneumonia type: due to unspecified organism Severe sepsis A41.9; R65.20 Hypoxia R09.02 Severe protein-energy malnutrition E43 Pulmonary cachexia due to chronic obstructive pulmonary disease R64; J44.9
--- NOTE | 2023-05-19 11:02 | Fluoroscopy Report ---
FL video swallow CLINICAL HISTORY: 83 years-old Male with r/o aspiraiton. Dysphagia. TECHNIQUE: Video fluoroscopic evaluation of swallowing was performed in the AP and lateral projection s by the speech pathology staff. The patient is fed nectar-thick and thin liquid barium, a barium coa ivanna wafer, and barium pudding. FLUOROSCOPY TIME: 1.5 minutes. 2846 images. 4.18 mGy COMPARISON STUDY: Chest CT 05/17/2023 FINDINGS: Laryngeal penetration with trace aspiration noted with thin liquid barium. Mild vallecular retention noted with pudding and solid consistencies. IMPRESSION: 1. Trace aspiration with thin liquid barium. 2. Please see the speech pathologist report for detailed findings and recommendations. ACT 112: Negative or not required by law. Electronically signed by: Ron Nickerson M.D. 05/19/2023 11:00 AM
--- NOTE | 2023-05-19 14:32 | Palliative Care Consultation ---
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 Provided overview of Palliative Medicine, a subspecialty that provides specialized medical care for people living with a serious illness by offering a focus on quality of life. Palliative Medicine is often conflated with hospice: I advised patient/family that Palliative and hospice can be partners but we are not the same. It is important to understand the difference so that we may be informed, and not afraid. Palliative Medicine works to improve QOL through reduction of symptom burden/more control over their illness, for both the patient and family. Palliative medicine clinicians are board certified, specially-trained and another member of the patient's medical care team. We often provide an extra layer of support because our care is based on the needs of the patient, not the prognosis; as such, it's appropriate at any age/advancing stage of a serious illness and can be provided along with curative treatment. Palliative Medicine clinicians are also trained in advanced communication methodologies, to facilitate complex discussions about advanced illness planning, which are needed to help assure that the treatment choices match the patient's goals, aka delivering Goal Concordant care. Finally, we discussed that hospice is a visiting nurse service that focuses on care delivered at the very end of life for patients with terminal illness, with life expectancy less than 6 month. (7) Advanced care planning/counseling discussion: Met with pt face to face at bedside x 30 min and also spoke with dtr in law/medical surrogate Susan Zhang by phone at pt request for 20min. A total of 50 minutes was spent in advance care planning discussions today. reviewed overall progressive nature of lung failure aneudy from COPD/emphysema, pt states his lung disease is from his heart attack earlier this year. We spoke for some time about the distinction of chronic lung disease and possible causes. He admits to a history of prolonged smoking, nearly 50 years. We discussed implications of tobacco abuse and lung disease. I advised him that his COPD is an emphysema pattern which is consistent with smoking-related lung disease. He has overall become more frail. There are systemic effects on the human body as a result of long-term tobacco abuse which include cardiovascular issues, circulatory compromise and cardiac issues. We are seeing at this junction is the worsening of his lung disease as well as a progression to worsening cardiac status. He is evolving a multiorgan failure picture. We also discussed that his infection at this junction may not necessarily be curable. His overall frailty, weight loss and growing pulmonary cachexia worrisome for continued de boucher in worsening performance status. He is able to tell me that what matters most is being home and with his family. He does not necessarily want to be in the hospital and he is clear he does not want to on machines. When I attempted to discuss CODE STATUS however he quickly diverted the topic and replied, "I will talk to my boy about that and will see." We discussed the option of adding more help at home so that both he and his family would have additional resource support. I spoke to him at length about the Medicare benefit of hospice which provide him with unlimited nursing and [place] health aide visits, medical DME, medications to help support pain and symptom management as well as any medicines needed for the reason he is on hospice, as well as there 24 on-call support. He tells me he is reluctant to consider this because "I do not like people in my house." I advised him that hospice his time in the home is generally short, 1 to 2 hours at the most. In addition, they schedule their visits in advance, so he would not have to see them every day if he did not want to although I do believe that seeing the aide at least 3 days a week to help him with his bathing and personal care would be of great help and support as this is what causes him significant respiratory difficulty. He acknowledged the truth of that statement however felt that he needed to further discuss with his family first, adding "whenever I need help, my boy and his is there to help me. I do not think I will need any more help. My is also at home and she can help me." At his request, I then called his cyczofdp-xh-mva, Johnathon who he states is his surrogate decision maker. Johnathon states that patient and his are estranged and although they share at home, they do not share a life together. She is not there in any capacity to help care for him but will occasionally call the children if it seems like patient may be needing some help. Johnathon states that patient previously completed a medical POA and advanced directive and was clear he did not want to on machines or in the hospital. She will bring copies of the paperwork in when they come to visit patient shira. I encouraged them to further discuss all these issues as a family and to let nursing and the medical teams know if any changes in CODE STATUS and the plan of care. I reviewed with her all the information I provided to patient about hospice and she replied feeling that this was going to be a good option for him because the goal is for him to remain home and focus on quality of life. She agreed that it was important to sit down with patient [id number] as a family and have more conversation, and states she will come in with her shira for that conversation. I have updated the primary team and nursing with regards to this plan and advised the family to let the primary team and nursing know if they are finding decisions or any changes in CODE STATUS. (8) Discussion about cardiopulmonary resuscitation held with family member: (9) Encounter for hospice care discussion: We discussed the goals of hospice as a patient service and the goals of care; we discussed EOL trajectories and transitions aneudy the emotional impact of realizing mortality as a concrete reality from prior abstract considerations. Pt was reassured that no matter where they are along this trajectory, they are not alone - their medical team will remain by their side through their journey. Discussed the pros/cons of accepting help when especially weakened and distressed by pain-which would also help provide relief/decrease caregiver burden/strain. I provided education about the hospice benefit: an interdisciplinary program offered by nurses, nurses aides, social workers, chaplains and a ophthalmic medical technician for patients with a terminal condition and a life expectancy of less than 6 months. This is covered by Medicare at 100%/no out of pocket expense to patient and all meds/supplies needed by patient for the reason they are on hospice are paid for/covered by hospice. The goal is assure quality of life of the patient in their home setting (home, skilled nursing, inpatient hospice setting) by providing symptoms management, psychosocial and spiritual support. However, they cannot offer 24 hours care and if the family is unable to provide that care, they will have to consider personal care with out of pocket cost vs. skilled nursing placement. We discussed the goals of hospice as a patient service and the goals of care; we discussed EOL trajectories and transitions aneudy the emotional impact of realizing mortality as a concrete reality from prior abstract considerations. Pt was reassured that no matter where they are along this trajectory, they are not alone - their medical team will remain by their side through their journey. Discussed the pros/cons of accepting help when especially weakened and distressed by pain-which would also help provide relie f/decrease caregiver burden/strain. Plan * Advance care planning discussions as noted above. * Patient will be meeting with his family tonight for further conversation about the goals of his care, with the possibility of engaging hospice at home, and CODE STATUS. 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 * I have updated nursing, primary and pulmonary medicine teams. * I will follow patient a little peripherally as there are currently no urgent inpatient palliative medicine needs and because he wants some time to further explore and discuss issues with his family. Please page me for any urgent needs. Thank you for allowing us to participate in the ongoing care of this patient. Please don't hesitate to call or page with any additional concerns. Dr. Inocencia Barlow DNP Director, Palliative Care History of Present Illness Reason for Consultation: "palliative care discussion" Attending Physician: Dee Hager MD Allergies Allergy/AdvReac Type Severity Reaction Status Date / Time No Known Allergies Allergy Verified 05/16/23 21:06 Home Medications Medication Instructions Recorded Confirmed Type atorvastatin 80 mg tablet 80 mg PO QPM #90 tabs 04/27/19 05/16/23 Rx nitroglycerin 0.4 mg sublingual 0.4 mg sublingual Q5M PRN chest 04/27/19 05/16/23 Rx tablet pain #25 tabs famotidine 40 mg tablet 20 mg PO BID 06/06/21 05/16/23 History acetaminophen 325 mg capsule 650 mg (2 x 325 mg) PO Q6H PRN 06/09/21 05/16/23 Rx (Tylenol) fever or pain #14 caps clopidogrel 75 mg tablet 75 mg PO QAM 01/10/22 05/16/23 History codeine 10 mg-guaifenesin 100 mg/5 5 ml PO Q4H PRN Cough 01/22/23 05/16/23 History mL Syrup ferrous sulfate 325 mg (65 mg 325 mg PO DAILY #30 tabs 01/29/23 05/16/23 Rx iron) tablet,delayed release folic acid 1 mg tablet 1 mg PO QAM #30 tabs 01/29/23 05/16/23 Rx ipratropium 0.5 mg-albuterol 3 mg 3 ml inhalation Q8H PRN wheezing 01/29/23 05/16/23 Rx (2.5 mg base)/3 mL nebulization #90 mL soln cefuroxime axetil 500 mg tablet 500 mg PO BID 05/16/23 05/16/23 History irbesartan 300 1 tab PO QAM 05/16/23 05/16/23 History mg-hydrochlorothiazide 12.5 mg tablet montelukast 10 mg tablet 10 mg PO QAM 05/16/23 05/16/23 History umeclidinium 62.5 mcg-vilanterol 1 inh inhalation DAILY 05/16/23 05/16/23 History 25 mcg/actuation powdr for inhalation (Anoro Ellipta) Patient History Medical History Pulmonary cachexia due to chronic obstructive pulmonary disease Severe protein-energy malnutrition Hypoxia Necrotizing pneumonia Acute hypoxemic respiratory failure Hx of fracture of pelvis (~05/2021) no current problems Osteoarthritis Chronic obstructive pulmonary disease "mild" uses Breo inhaler PRN 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 Full ROM. History of lumbar surgery History of open reduction and internal fixation (ORIF) procedure Left knee with "plate" S/P laparoscopic cholecystectomy Status post placement of stent in right coronary artery "drug eluting stents x [address] Che 07/21/17" On 07/25/17 21:29 Rickie Krause wrote "drug eluting stents x [address] 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 Required: No Beliefs That Will Affect Care: None marital status: Current Living Situation: Spouse Other Information That Helps Us Care for You: No Feels Safe at Home: Yes Safety Concerns: Feels Safe At This Time Assistive Devices: Oxygen - Continuous and Walker Review of Systems Review of Systems: All systems reviewed & are unremarkable except as noted in Subjective Results & Data Vital Signs (Past 12 Hours) Vital Signs Temp Pulse Pulse Resp BP Pulse Ox O2 Del Method 05/19/23 13:50 76 18 92 Nasal Cannula 05/19/23 10:55 36.5 C 59 L 18 136/76 99 Nasal Cannula 05/19/23 08:00 62 05/19/23 08:00 Nasal Cannula 05/19/23 07:43 36.6 C 67 20 131/65 96 Nasal Cannula 05/19/23 07:00 71 18 95 Nasal Cannula O2 Flow Rate 05/19/23 13:50 4 05/19/23 10:55 2 05/19/23 08:00 05/19/23 08:00 4 05/19/23 07:43 2 05/19/23 07:00 4 PG Care Time/CCT Total # of Minutes Spent Total Time Spent: 105 Total Time Spent with Patient: Total time spent is greater than 50% in coordination of care (as documented) at patient's floor/unit and/or counseling patient: I spent 105 minutes overall addressing this case: 15 min in medical data review/discussion with referring provider(s) and/or preparation for the visit 20 min in direct interaction with the patient/exam 50 min in Advance Care Planning/Goals of Care discussions as detailed above in note (must be >16min) 10 min in subsequent review and synthesis of assessment and plan 10 min communicating with other providers regarding the patient's case: Advanced Care Planning 71639 Advanced Care Planning 30 Min 13578 Advanced Care Planning Additional 30 [place] [address] IN/OBS CONSULT LVL 5,80M Patient Type New Medical Decision Making High Complexity Diagnoses Dyspnea and respiratory abnormalities R06.00; R06.89 Weakness generalized R53.1 Pulmonary cachexia due to chronic obstructive pulmonary disease R64; J44.9 Hypoxia R09.02 COPD (chronic obstructive pulmonary disease) J44.9 COPD type: emphysema Palliative care by specialist Z51.5 Advanced care planning/counseling discussion Z71.89 Discussion about cardiopulmonary resuscitation held with family member Z71.0 Encounter for hospice care discussion Z71.89 Additional Codes Advanced Care Planning - 74329 Advanced Care Planning 30 Min: 34022 Advanced Care Planning 30 Min ([id number]) Advanced Care Planning - 81290 Advanced Care Planning Additional 30 Min: 25219 Advanced Care Planning Additional 30 Min ([id number])
--- NOTE | 2023-05-19 17:13 | Hospitalist Progress Note ---
Date of Service May 19, 2023 Assessment & Plan (1) Severe sepsis: (2) Acute hypoxemic respiratory failure: (3) Acute dehydration: (4) Pneumonia involving right lung: (5) Acute renal failure: (6) COPD (chronic obstructive pulmonary disease): Plan Pt is an 83yoM with PMhx significant for CAD s/p stent placement, COPD, hypertension, hyperlipidemia, GERD, chronic anemia (baseline hemoglobin 8), past tobacco abuse admitted with acute hypoxic respiratory failure in the setting of sepsis due to pneumonia. Severe Sepsis Acute hypoxic respiratory failure Pneumonia COPD Exacerbation SIRS plus ARF plus lactic acidosis plus hypoxemic respiratory failure Also persistently hypotensive Secondary to recurrent pneumonia, possible aspiration Lactic acid responded to fluids: 2.3-->1.[address] noted entire RLL consolidation, majority of RML with consolidation as well. Also concerning for cystic cavities and areas of necrosis. 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 Encourage PO fluid intake at this time. Hold/avoid nephrotoxic meds Renal ultrasound if kidney function does not improve. Kidney function is slightly better at 48/1.45 Advised to drink more fluid Hx CAD status post stent On Plavix, stable Echo ordered and pending on 05/18; LV cavity is a small, there is mild concentric LVH, LV wall motion is normal, EF 60 to 65%, grade 1 diastolic dysfunction, right ventricle is normal in size and function, there is mild right ventricular hypertrophy, aortic valve sclerosis mild without significant stenosis, there is moderate mitral annular calcification, there is mild to moderate tricuspid regurgitation and right ventricular systolic pressure is moderately elevated at 40 to 50 mmHg Denies any cardiac symptoms Hypotension Hx of Hypertension Pt currently hypotensive Holding home antihypertensives Started on midodrine 2.5mg TID on 05/18 Blood pressure is maintaining at 147/68 Hyperlipidemia on statin, stable chronic anemia hemoglobin at baseline Continue home iron and folic acid tabs Prediabetes Hgba1c of 6.4 Diet control Malnutrition, low BMI Dietary consult placed DVT prophylaxis: Heparin SQ Diet:clear liquids Full code Dispo: PT/OT orders placed Hospice consult is placed and likely discharge when arrangements are made Admission and Anticipated Discharge Date Admission Date: May 16, 2023 Subjective 05/19/2023 The patient was seen and examined in telemetry unit He has been feeling a little better Still has shortness of breath at rest and requiring 4 L to maintain saturation Denies any chest pain or palpitation. No fever and or chills Review of Systems Review of Systems: All systems reviewed and are unremarkable except as noted below Physical Exam Physical Exam: Lying in bed comfortably Constitutional: + ill appearing and + thin Eyes: PERRL, conjunctivae normal, anicteric sclerae ENMT: external ear and nose normal, oropharynx normal Neck: trachea midline, no thyromegaly Respiratory: no respiratory distress Auscultation: + diminished lung sounds and + crackles (Bilaterally at the bases) Cardiovascular: Rate/Rhythm: regular rate and regular rhythm; not tachycardic Heart Sounds: normal S1 and normal S2; no murmur Extremities: no edema Gastrointestinal (Abdomen): Inspection/Auscultation: normal bowel sounds; abdomen not distended Percussion/Palpation: abdomen soft; abdomen nontender Musculoskeletal: No acute arthritis involving any of the joint Neurologic: normal touch/pain/proprioception and moves all extremities; no focal motor deficits Lymphatic: no cervical or axillary lymphadenopathy Results & Data Results & Data Vital Signs (Past 12 Hours) Vital Signs Temp Pulse Pulse Resp BP Pulse Ox O2 Del Method 05/19/23 15:17 69 24 147/68 H 95 Nasal Cannula 05/19/23 13:50 76 18 92 Nasal Cannula 05/19/23 10:55 36.5 C 59 L 18 136/76 99 Nasal Cannula 05/19/23 08:00 62 05/19/23 08:00 Nasal Cannula 05/19/23 07:43 36.6 C 67 20 131/65 96 Nasal Cannula 05/19/23 07:00 71 18 95 Nasal Cannula O2 Flow Rate 05/19/23 15:17 4 05/19/23 13:50 4 05/19/23 10:55 2 05/19/23 08:00 05/19/23 08:00 4 05/19/23 07:43 2 05/19/23 07:00 4 Laboratory Results Short CBC 05/19/23 Range/Units 06:26 WBC 13.32 H (4.8-10.8) K/ul Hgb 7.9 L (14.0-18.0) g/dl Hct 24.5 L (42.0-52.0) % Plt Count 337 (130-400) K/uL [facility] 05/19/23 06:26 Sodium 142 Potassium 4.4 Chloride 112 H Carbon Dioxide 23 BUN 48 H D Creatinine 1.45 H Glucose 87 Calcium 8.8 Medications Administered Current Inpatient Medications Acetaminophen (Acetaminophen 500 Mg Tab) 500 mg PO Q6H PRN PRN Reason: fever/pain Stop: 06/15/23 22:27 Last Admin: 05/19/23 16:04 Dose: 500 mg Atorvastatin Calcium (Atorvastatin 40 Mg Tab) 80 mg PO QPM [facility] Stop: 06/16/23 20:59 Last Admin: 05/18/23 21:39 Dose: 80 mg Clopidogrel Bisulfate (Clopidogrel Bisulfate 75 Mg Tab) 75 mg PO QAM [facility] Stop: 06/16/23 08:59 Last Admin: 05/19/23 10:19 Dose: 75 mg Famotidine (Famotidine 20 Mg Tab) 20 mg PO BID [facility] Stop: 06/16/23 08:59 Last Admin: 05/19/23 10:20 Dose: 20 mg Ferrous Sulfate (Ferrous Sulfate 325 Mg Tab) 325 mg PO DAILY [facility] Stop: 06/16/23 08:59 Last Admin: 05/19/23 10:19 Dose: 325 mg Folic Acid (Folic Acid 1 Mg Tab) 1 mg PO QAM [facility] Stop: 06/16/23 08:59 Last Admin: 05/19/23 10:19 Dose: 1 mg Formoterol Fumarate (Formoterol 20 Mcg/2 Ml Vial) 20 mcg NEB BIDR [facility] Stop: 06/16/23 18:59 Last Admin: 05/19/23 06:57 Dose: 20 mcg Heparin Sodium (Porcine) (Heparin Sod 5,000 Unit/0.5 Ml Vial) 5,000 units SQ Q8 [facility] Stop: 06/16/23 05:59 Last Admin: 05/19/23 14:35 Dose: 5,000 units Promethazine HCl 6.25 mg/ (Sodium Chloride) 50.25 mls @ 201 mls/hr IV Q6H PRN PRN Reason: Nausea And Vomiting Stop: 06/15/23 22:27 Piperacillin Sod/Tazobactam (Sod 4.5 gm/ Dextrose) 100 mls @ 25 mls/hr IV Q8H [facility]; Protocol Stop: 05/24/23 12:59 Last Infusion: 05/19/23 16:44 Dose: Infused Ipratropium [place] (Ipratropium [place] Neb Soln 0.02% 2.5 Ml Vial) 0.5 mg INH Q6R [facility] Stop: 06/16/23 14:44 Last Admin: 05/19/23 13:50 Dose: 0.5 mg Levalbuterol HCl (Levalbuterol Hcl 0.63 Mg/3 Ml Neb) 0.63 mg NEB Q6R [facility] Stop: 06/16/23 14:44 Last Admin: 05/19/23 13:49 Dose: 0.63 mg Midodrine (Midodrine Hcl 2.5 Mg Tab) 2.5 mg PO TID@0800,1200,1700 [facility] Stop: 06/17/23 16:59 Last Admin: 05/19/23 12:43 Dose: 2.5 mg Montelukast Sodium (Montelukast Sodium 10 Mg Tablet) 10 mg PO QAM [facility] Stop: 06/16/23 08:59 Last Admin: 05/19/23 10:19 Dose: 10 mg Sodium Chloride (Sodium Chlor 7% 4 Ml Neb) 4 ml NEB BIDR [facility] Stop: 06/16/23 18:59 Last Admin: 05/19/23 06:57 Dose: 4 ml (4) Pneumonia involving right lung Lung location: lower lobe of lung Pneumonia type: due to unspecified organism Qualified Code(s): J18.9 - Pneumonia, unspecified organism (5) Acute renal failure Acute renal failure type: unspecified Qualified Code(s): N17.9 - Acute kidney failure, unspecified (6) COPD (chronic obstructive pulmonary disease) COPD type: emphysema
[2023-05-19] MEDS: ATORVASTATIN 40 MG TAB PO SCH (19:56)
[2023-05-20] MEDS: LEVALBUTEROL HCL 0.63 MG/3 ML NEB NEB SCH ×3 (01:08→13:03)
[2023-05-20] MEDS: IPRATROPIUM BROMIDE NEB SOLN 0.02% 2.5 ML VIAL INH SCH ×3 (01:09→13:03)
[2023-05-20] MEDS: PIPERACILLIN/TAZOBACTAM 4.5 GM in DEXTROSE 5% MINI-B 100 ML IV SCH (04:50)
[2023-05-20] MEDS: HEPARIN SOD 5,000 UNIT/0.5 ML VIAL SQ SCH ×2 (04:52→13:33)
[2023-05-20 06:46] LABS: Basophils # (auto) 0.04 K/uL (0.00-0.20); Basophils % (auto) 0.3 %; Eosinophils # (auto) 0.13 K/uL (0.00-0.50); Hematocrit (blood only) 27.5 % (42.0-52.0); Hemoglobin 9.1 g/dl (14.0-18.0); Immature Granulocytes # (auto) 0.14 K/uL (0.01-0.20); Lymphocytes # (auto) 1.13 K/uL (1.20-3.40); Lymphocytes % (auto) 8.3 %; Mean Corpuscular Hemoglobin 29.3 pg (25.0-34.0); Mean Corpuscular Hgb Conc 33.1 g/dL (32.0-36.0); Mean Corpuscular Volume 88.4 fL (80.0-100.0); Mean Platelet Volume 10.1 fL (9.4-12.4); Monocytes % (auto) 5.9 %; Neutrophils % (auto) 83.5 %; Platelet Count 360 K/uL (130-400); RDW Coefficient of Variation 15.5 % (11.5-14.5); RDW Standard Deviation 50.3 fL (36.4-46.3); Red Blood Count 3.11 M/uL (4.70-6.10); White Blood Count 13.54 K/ul (4.8-10.8)
[2023-05-20] MEDS: SODIUM CHLOR 7% 4 ML NEB NEB SCH (06:55)
[2023-05-20] MEDS: FORMOTEROL 20 MCG/2 ML VIAL NEB SCH (06:55)
[2023-05-20 07:09] LABS: BUN Creatinine Ratio 21.8 (10-20); Calcium 8.8 mg/dl (8.6-10.3); Creatinine Clr Calc Pharmacy 33.2 ml/min; Est GFR (African American) 61.5 ml/min; Est GFR (Non-African American) 53.1 ml/min; Magnesium 1.9 mg/dl (1.7-2.4); Potassium 4.5 mmol/L (3.5-5.1)
[2023-05-20] MEDS: CLOPIDOGREL BISULFATE 75 MG TAB PO SCH (09:20)
[2023-05-20] MEDS: FAMOTIDINE 20 MG TAB PO SCH (09:20)
[2023-05-20] MEDS: FERROUS SULFATE 325 MG TAB PO SCH (09:20)
[2023-05-20] MEDS: FOLIC ACID 1 MG TAB PO SCH (09:21)
[2023-05-20] MEDS: MONTELUKAST SODIUM 10 MG TABLET PO SCH (09:21)
[2023-05-20] MEDS: MIDODRINE HCL 2.5 MG TAB PO SCH ×2 (09:21→13:20)
--- NOTE | 2023-05-20 11:14 | Pulmonology Progress Note ---
Date of Service May 20, 2023 Assessment & Plan (1) Necrotizing pneumonia: Plan: Patient appears to have evolving necrotizing pneumonia since January based on serial imaging. Difficult to exclude underlying malignancy. Unfortunately, patient is quite frail at this point to undergo bronchoscopy given his oxygen needs, underlying cardiac disease and borderline hypotension. Recommend conservative management strategy including aggressive pulmonary airway clearance with hypertonic saline twice daily, percussive vest therapy 4 times a day, Xopenex/Atrovent every 6 hours and Perforomist twice daily. Avoid ICS given the underlying infectious necrotizing pneumonia. He appears to be coughing up massive amounts of sputum and responding well to airway clearance therapies. No role for systemic IV or oral corticosteroids at this time. Sputum cultures growing gram-positive cocci, moderate gram-negative bacilli, yeast and few gram-positive bacilli. MRSA screen noted to be negative. Agree with Donyn. Final sputum culture results "moderate normal maicol". Patient clearly with aspiration pneumonia and will continue with antibiotic therapy. Chest x-ray PA and lateral obtained today 05/19/2023 personally reviewed and I agree with the radiology interpretation. There appears to be some very mildly improved aeration of the right lung mueller. There is diffuse infiltrates seen. Videofluoroscopic swallow study with evidence of trace aspiration with thin liquid barium. Palliative care consultation noted and appreciated. (2) Pneumonia involving right lung: Plan: See comments above. Lung location: lower lobe of lung Pneumonia type: due to unspecified organism Qualified Code(s): J18.9 - Pneumonia, unspecified organism (3) Severe sepsis: Plan: Resolved. (4) Hypoxia: Plan: Maintain saturations above 89%. No prior PFTs available for review. (5) Severe protein-energy malnutrition: Plan: Defer to primary team. (6) Pulmonary cachexia due to chronic obstructive pulmonary disease: Plan: Treat underlying disease as best as possible. He has end-stage lung disease. Palliative note appreciated. Plan Thank you for allowing me to participate in the care of the patient. Please call with questions. Admission and Anticipated Discharge Date Admission Date: May 16, 2023 Subjective Oxygenation is improving. Patient continues to have productive cough. No fevers, chills or night sweats. Review of Systems Review of Systems: All systems reviewed & are unremarkable except as noted in HPI & below Physical Exam Physical Exam: Constitutional: Frail and cachectic appearing male laying in bed. Eyes: Pupils are equal round and reactive to light. Conjunctivae are normal. Anicteric sclera. Ears nose, mouth and throat: Mallampati class 2. Normal posterior oropharynx. Uvula is midline. Neck: Trachea is midline. Visual inspection is normal. Respiratory: Diffuse rhonchi with diminishment noted in the lung base on the right. Cardiovascular: Regular rate and rhythm. No murmurs. No edema. Gastrointestinal: Normal bowel sounds, soft, nontender and nondistended. No hepatosplenomegaly noted. Musculoskeletal: No cyanosis. Patient is able to move all extremities. Diffusely weak. Skin: No rashes, warm dry and intact. Neurologic: No obvious focal neurological deficits seen. Psychiatric: Alert and oriented x3 with a euthymic affect. Results & Data Results & Data Vital Signs (Past 12 Hours) Vital Signs Temp Pulse Pulse Pulse Resp BP Pulse Ox 05/20/23 07:50 36.5 C 72 22 137/73 95 05/20/23 07:12 101 H 20 86 L 05/20/23 04:49 96 05/20/23 02:18 36.4 C L 70 24 125/64 89 L 05/20/23 01:42 66 05/20/23 01:32 05/20/23 01:09 72 18 90 O2 Del Method O2 Flow Rate 05/20/23 07:50 Nasal Cannula 4 05/20/23 07:12 Nasal Cannula 4 05/20/23 04:49 Nasal Cannula 4 05/20/23 02:18 Nasal Cannula 6 05/20/23 01:42 05/20/23 01:32 Nasal Cannula 4 05/20/23 01:09 Nasal Cannula 4 PG Care Time/CCT Total # of Minutes Spent Total Time Spent with Patient: Total time spent is greater than 50% in coordination of care (as documented) at patient's floor/unit and/or counseling patient: Coding Level of Care Code 51402 SUB INP/OBS CARE 08/07MIN Diagnoses Necrotizing pneumonia J85.0 Pneumonia involving right lung J18.9 Lung location: lower lobe of lung Pneumonia type: due to unspecified organism Severe sepsis A41.9; R65.20 Hypoxia R09.02 Severe protein-energy malnutrition E43 Pulmonary cachexia due to chronic obstructive pulmonary disease R64; J44.9
--- NOTE | 2023-05-20 11:23 | Hospitalist Progress Note ---
Date of Service May 20, 2023 Assessment & Plan (1) Severe sepsis: (2) Acute hypoxemic respiratory failure: (3) Acute dehydration: (4) Pneumonia involving right lung: (5) Acute renal failure: (6) COPD (chronic obstructive pulmonary disease): Plan Pt is an 83yoM with PMhx significant for CAD s/p stent placement, COPD, hypertension, hyperlipidemia, GERD, chronic anemia (baseline hemoglobin 8), past tobacco abuse admitted with acute hypoxic respiratory failure in the setting of sepsis due to pneumonia. Severe Sepsis Acute hypoxic respiratory failure Pneumonia COPD Exacerbation SIRS plus ARF plus lactic acidosis plus hypoxemic respiratory failure Also persistently hypotensive Secondary to recurrent pneumonia, possible aspiration Lactic acid responded to fluids: 2.3-->1.[address] noted entire RLL consolidation, majority of RML with consolidation as well. Also concerning for cystic cavities and areas of necrosis. 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 Appreciate pulmonary input and recommendation Remains stable without any acute distress The patient and the family members are now agreeable for hospice discharge home Denies any acute symptoms of shortness of breath or chest pain at rest Has been saturating normally on 4 L Will be discharged home with hospice likely this afternoon Will give oral antibiotic on discharge finish the course Palliative care encounter Appreciate input and recommendation Discussed with the family members The patient and the family members agreed to have hospice care at home Hospice consultation has been placed Will be discharged home this afternoon with hospice care ZULEYKA Cr elevated acutely Received IV fluids, slightly improved Careful hydration- chest xray noted R pleural effusion. Encourage PO fluid intake at this time. Hold/avoid nephrotoxic meds Renal ultrasound if kidney function does not improve. Kidney function is slightly better at 48/1.45 Advised to drink more fluid-and the kidney function is better and in fact creatinine has been normalized Hx CAD status post stent On Plavix, stable Echo ordered and pending on 05/18; LV cavity is a small, there is mild concentric LVH, LV wall motion is normal, EF 60 to 65%, grade 1 diastolic dysfunction, right ventricle is normal in size and function, there is mild right ventricular hypertrophy, aortic valve sclerosis mild without significant stenosis, there is moderate mitral annular calcification, there is mild to moderate tricuspid regurgitation and right ventricular systolic pressure is moderately elevated at 40 to 50 mmHg Denies any cardiac symptoms Hypotension Hx of Hypertension Pt currently hypotensive Holding home antihypertensives Started on midodrine 2.5mg TID on 05/18 Blood pressure is maintaining at 147/68 Blood pressure remains stable Hyperlipidemia on statin, stable chronic anemia hemoglobin at baseline Continue home iron and folic acid tabs Prediabetes Hgba1c of 6.4 Diet control Malnutrition, low BMI Dietary consult placed DVT prophylaxis: Heparin SQ Diet:clear liquids Full code Dispo: PT/OT orders placed Hospice consult is placed and likely discharge when arrangements are made Will be discharged home this afternoon with hospice care medications will be continued as long as he can take Admission and Anticipated Discharge Date Admission Date: May 16, 2023 Subjective 05/19/2023 The patient was seen and examined in telemetry unit He has been feeling a little better Still has shortness of breath at rest and requiring 4 L to maintain saturation Denies any chest pain or palpitation. No fever and or chills 04/19/2023 The patient was seen and examined in telemetry unit He remains stable but very weak and lethargic Denies any acute symptoms Waiting to be discharged home with hospice care Review of Systems Review of Systems: All systems reviewed and are unremarkable except as noted below Physical Exam Physical Exam: Lying in bed comfortably Constitutional: + ill appearing and + thin Eyes: PERRL, conjunctivae normal, anicteric sclerae ENMT: external ear and nose normal, oropharynx normal Neck: trachea midline, no thyromegaly Respiratory: no respiratory distress Auscultation: + diminished lung sounds and + crackles (Bilaterally at the bases) Cardiovascular: Rate/Rhythm: regular rate and regular rhythm; not tachycardic Heart Sounds: normal S1 and normal S2; no murmur Extremities: no edema Gastrointestinal (Abdomen): Inspection/Auscultation: normal bowel sounds; abdomen not distended Percussion/Palpation: abdomen soft; abdomen nontender Musculoskeletal: No acute arthritis involving any of the joint Neurologic: normal touch/pain/proprioception and moves all extremities; no focal motor deficits Lymphatic: no cervical or axillary lymphadenopathy Results & Data Results & Data Vital Signs (Past 12 Hours) Vital Signs Temp Pulse Pulse Pulse Resp BP Pulse Ox 05/20/23 07:50 36.5 C 72 22 137/73 95 05/20/23 07:12 101 H 20 86 L 05/20/23 04:49 96 05/20/23 02:18 36.4 C L 70 24 125/64 89 L 05/20/23 01:42 66 05/20/23 01:32 05/20/23 01:09 72 18 90 O2 Del Method O2 Flow Rate 05/20/23 07:50 Nasal Cannula 4 05/20/23 07:12 Nasal Cannula 4 05/20/23 04:49 Nasal Cannula 4 05/20/23 02:18 Nasal Cannula 6 05/20/23 01:42 05/20/23 01:32 Nasal Cannula 4 05/20/23 01:09 Nasal Cannula 4 Laboratory Results Short CBC 05/20/23 Range/Units 06:26 WBC 13.54 H (4.8-10.8) K/ul Hgb 9.1 L (14.0-18.0) g/dl Hct 27.5 L (42.0-52.0) % Plt Count 360 (130-400) K/uL BMP 05/20/23 06:26 Sodium 142 Potassium 4.5 Chloride 110 H Carbon Dioxide 25 BUN 27 H D Creatinine 1.24 Glucose 87 Calcium 8.8 Medications Administered Current Inpatient Medications Acetaminophen (Acetaminophen 500 Mg Tab) 500 mg PO Q6H PRN PRN Reason: fever/pain Stop: 06/15/23 22:27 Last Admin: 05/19/23 16:04 Dose: 500 mg Atorvastatin Calcium (Atorvastatin 40 Mg Tab) 80 mg PO QPM MELVI Stop: 06/16/23 20:59 Last Admin: 05/19/23 19:56 Dose: 80 mg Clopidogrel Bisulfate (Clopidogrel Bisulfate 75 Mg Tab) 75 mg PO QAM MELVI Stop: 06/16/23 08:59 Last Admin: 05/20/23 09:20 Dose: 75 mg Famotidine (Famotidine 20 Mg Tab) 20 mg PO BID MELVI Stop: 06/16/23 08:59 Last Admin: 05/20/23 09:20 Dose: 20 mg Ferrous Sulfate (Ferrous Sulfate 325 Mg Tab) 325 mg PO DAILY MELVI Stop: 06/16/23 08:59 Last Admin: 05/20/23 09:20 Dose: 325 mg Folic Acid (Folic Acid 1 Mg Tab) 1 mg PO QAM MELVI Stop: 06/16/23 08:59 Last Admin: 05/20/23 09:21 Dose: 1 mg Formoterol Fumarate (Formoterol 20 Mcg/2 Ml Vial) 20 mcg NEB BIDR MELVI Stop: 06/16/23 18:59 Last Admin: 05/20/23 06:55 Dose: 20 mcg Heparin Sodium (Porcine) (Heparin Sod 5,000 Unit/0.5 Ml Vial) 5,000 units SQ Q8 MELVI Stop: 06/16/23 05:59 Last Admin: 05/20/23 04:52 Dose: Not Given Promethazine HCl 6.25 mg/ (Sodium Chloride) 50.25 mls @ 201 mls/hr IV Q6H PRN PRN Reason: Nausea And Vomiting Stop: 06/15/23 22:27 Piperacillin Sod/Tazobactam (Sod 4.5 gm/ Dextrose) 100 mls @ 25 mls/hr IV Q8H [facility]; Protocol Stop: 05/24/23 12:59 Last Infusion: 05/20/23 09:17 Dose: Infused Ipratropium [place] (Ipratropium [place] Neb Soln 0.02% 2.5 Ml Vial) 0.5 mg INH Q6R [facility] Stop: 06/16/23 14:44 Last Admin: 05/20/23 07:13 Dose: Not Given Levalbuterol HCl (Levalbuterol Hcl 0.63 Mg/3 Ml Neb) 0.63 mg NEB Q6R [facility] Stop: 06/16/23 14:44 Last Admin: 05/20/23 07:13 Dose: Not Given Midodrine (Midodrine Hcl 2.5 Mg Tab) 2.5 mg PO TID@0800,1200,1700 [facility] Stop: 06/17/23 16:59 Last Admin: 05/20/23 09:21 Dose: 2.5 mg Montelukast Sodium (Montelukast Sodium 10 Mg Tablet) 10 mg PO QAM [facility] Stop: 06/16/23 08:59 Last Admin: 05/20/23 09:21 Dose: 10 mg Sodium Chloride (Sodium Chlor 7% 4 Ml Neb) 4 ml NEB BIDR [facility] Stop: 06/16/23 18:59 Last Admin: 05/20/23 06:55 Dose: 4 ml (4) Pneumonia involving right lung Lung location: lower lobe of lung Pneumonia type: due to unspecified organism Qualified Code(s): J18.9 - Pneumonia, unspecified organism (5) Acute renal failure Acute renal failure type: unspecified Qualified Code(s): N17.9 - Acute kidney failure, unspecified (6) COPD (chronic obstructive pulmonary disease) COPD type: emphysema
--- NOTE | 2023-05-20 11:40 | Communication Note ---
Date of Service: May 20, 2023 Brief Pall Med Note Family and pt electing return home with hospice, likely this afternoon. Focus is on comfort and QOL, no aggressive or escalating care. TS 12min Thank you for allowing us to participate in the ongoing care of this patient. Please don't hesitate to call or page with any additional concerns. Dr. Inocencia Barlow DNP Director, Palliative Care
[2023-05-20] MEDS ORDERED: CEFDINIR 300 MG CAP PO SCH (13:00)
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
== END 2023-05-20 16:49 | disposition hospice, home (50) | DRG 871 ==
LOC: ED 19:49 → 2E 22:23 → SUATTDRO 22:23 → 2E 23:51